=== PATIENT | female | born 1935 | race Caucasian/White ===

== ENCOUNTER → 2016-12-07 | Outpatient (CLI) | payer BC ==
[~2016-12-07] MED LIST: ALBU0.08 INH; ALBUAER19 INH; AMLO-110 PO; ASPI81TA28 PO; ATEN50TA8 PO; CALC-342 PO; CHOL100010 PO; FLUT50SP22 NAE; FURO-85 PO; HYDR-5688 PO; LEVO50TA6 PO; MONT1TAB3 PO; NXM/40 PO; PRVC/40 PO
[2016-12-07 12:30] LABS: BASO % 0.5 %; BASO ABS # 0.05 K/uL (0-0.2); COMPLETE YES; EOS % 2.1 %; HEMATOCRIT 37.9 % (37-47); IG% 0.4 %; LYMPH % 31.4 %; LYMPH ABS # 3.27 K/uL (1.2-3.4); MEAN CELL VOLUME 90.5 fL (80-100); MEAN CORPUSCULAR HEMOGLOBIN 29.1 pg (25-34); MEAN CORPUSCULAR HGB CONC 32.2 g/dl (32-36); MEAN PLATELET VOLUME 10.1 fL (7.4-10.4); MONO % 5.2 %; NEUT % 60.4 %; PLATELET COUNT 246 K/uL (130-400); RED BLOOD COUNT 4.19 M/uL (4.2-5.4); WHITE BLOOD COUNT 10.43 K/uL (4.8-10.8)
[2016-12-07 12:54] LABS: ALKALINE PHOSPHATASE 102 U/L (45-117); ALT/SGPT 15 U/L (12-78); AST/SGOT 15 U/L (15-37); BLOOD UREA NITROGEN 20 mg/dl (7-18); BUN/CREATININE RATIO 18.2 (10-20); CARBON DIOXIDE 27 mmol/L (21-32); CHLORIDE 107 mmol/L (98-107); CHOLESTEROL 156 mg/dl (0-200); CHOLESTEROL/HDL RATIO 3.3; GLUCOSE 83 mg/dl (70-99); HDL CHOLESTEROL 48 mg/dl; LDL CHOLESTEROL CALCULATED 78 mg/dl; POTASSIUM 4.4 mmol/L (3.5-5.1); SODIUM 141 mmol/L (136-145); TRIGLYCERIDES 150 mg/dl (0-150); VERY LOW DENSITY LIPOPROT CALC 30 mg/dl
== END | disposition home or self-care (01) ==
LOC: C.LABBFT 08:28
PROVIDERS: ATTEND Internal Medicine
DX: E78.00 Pure hypercholesterolemia, unspecified (principal); I10 Essential (primary) hypertension

== ENCOUNTER → 2017-01-04 | Outpatient (CLI) | payer BC | END | disposition home or self-care (01) | LOC: C.PATHSPEC 16:55 | PROVIDERS: ATTEND Dermatology | DX: L82.1 Other seborrheic keratosis (principal) ==

== ENCOUNTER → 2017-01-04 | Outpatient (CLI) | payer BC ==
--- NOTE | 2017-01-04 14:21 | ECHOCARDIOGRAM REPORT ---
*NOTICE TO RECEIVING [employer] This information is strictly Confidential and protected under [place] law. [place] law prohibits you from making any further disclosure of this information unless further disclosure is expressly permitted by the written consent of the person to whom it pertains or is authorized by law. A general authorization for the release of medical or other information is not sufficient for this purpose. Hospital accepts no responsibility if the information is made available to any other person, INCLUDING THE PATIENT. Interpretation Summary * Name: JEREMY AUGUST Study Date: 01/04/2017 12:33 PM BP: 159/50 mmHg * Patient Location: [facility] HR: 74 * : 1935 (M/d/yyyy) Gender: Female Height: 67 in * Age: 81 yrs Ethnicity: CA Weight: 212 lb * Ordering Physician: Jerome Adams * Referring Physician: Jerome Adams * Performed By: Ni Casiano RDCS * * Reason For Study: EDEMA * BSA: 2.1 m2 * -- Conclusions -- * Left ventricular systolic function is normal. * No regional wall motion abnormalities noted. * Ejection Fraction = 60-65%. * No significant valvular pathology. Procedure Details * A complete two-dimensional transthoracic echocardiogram was performed (2D, M-mode, Doppler and color flow Doppler). Left Ventricle * The left ventricle is normal in size. * Ejection Fraction = 60-65%. * Left ventricular systolic function is normal. * No regional wall motion abnormalities noted. Right Ventricle * The right ventricle is normal size. * The right ventricular systolic function is normal as assessed by tricuspid annular plane systolic excursion (TAPSE) (normal >1.5 cm). Atria * The left atrium is mildly dilated. * Right atrial size is normal. * There is no evidence of atrial septal defect, but resolution does not allow assessment for a patent foramen ovale. Mitral Valve * The mitral valve is normal in structure and function. * There is no mitral valve stenosis. * There is trace mitral regurgitation. Tricuspid Valve * The tricuspid valve is normal in structure and function. * There is trace tricuspid regurgitation. Aortic Valve * The aortic valve is trileaflet. * The aortic valve opens well. * No hemodynamically significant valvular aortic stenosis. * No aortic regurgitation is present. Pulmonic Valve * The pulmonary valve is not well seen, but the Doppler examination is normal without significant regurgitation or stenosis. Great Vessels * The aortic root is normal size. * The pulmonary is not well visualized. Pericardium/Pleural * There is no pericardial effusion. Great Vessels * Normal inferior vena cava size and collapsability with sniff indicates a normal right atrial pressure of 3 mmHg MMode 2D Measurements and Calculations IVSd 1.3 cm IVSs 2.3 cm LVIDd 4.0 cm LVIDs 2.7 cm LVPWd 1.5 cm LVPWs 2.2 cm IVS/LVPW 0.88 FS 33.8 % EDV(Teich) 71.3 ml ESV(Teich) 26.3 ml EF(Teich) 63.2 % EDV(cubed) 65.5 ml ESV(cubed) 19.0 ml EF(cubed) 71.0 % % IVS thick 73.5 % % LVPW thick 50.0 % LV mass(C)d 211.6 grams LV mass(C)dI 102.1 grams/m\S\2 LV mass(C)s 292.9 grams LV mass(C)sI 141.3 grams/m\S\2 SV(Teich) 45.0 ml SI(Teich) 21.7 ml/m\S\2 SV(cubed) 46.5 ml SI(cubed) 22.4 ml/m\S\2 Ao root diam 3.1 cm Ao root area 7.6 cm\S\2 LA dimension 3.7 cm LA/Ao 1.2 LVAd ap4 28.5 cm\S\2 LVLd ap4 7.7 cm EDV(MOD-sp4) 85.8 ml LVAs ap4 15.3 cm\S\2 LVLs ap4 6.2 cm ESV(MOD-sp4) 33.1 ml EF(MOD-sp4) 61.4 % LVAd ap2 26.2 cm\S\2 LVLd ap2 7.9 cm EDV(MOD-sp2) 74.7 ml LVAs ap2 14.1 cm\S\2 LVLs ap2 6.1 cm ESV(MOD-sp2) 29.2 ml EF(MOD-sp2) 60.9 % SV(MOD-sp4) 52.7 ml SI(MOD-sp4) 25.4 ml/m\S\2 SV(MOD-sp2) 45.5 ml SI(MOD-sp2) 22.0 ml/m\S\2 Doppler Measurements and Calculations MV E max khang 69.8 cm/sec MV A max khang 103.3 cm/sec MV E/A 0.68 Ao V2 max 148.4 cm/sec Ao max PG 8.8 mmHg Ao max PG (full) 2.9 mmHg LV V1 max PG 5.9 mmHg LV V1 max 121.4 cm/sec TR max khang 213.6 cm/sec
== END | disposition home or self-care (01) ==
LOC: C.CPL 12:30
PROVIDERS: ATTEND Internal Medicine
DX: R60.9 Edema, unspecified (principal); L82.1 Other seborrheic keratosis

== ENCOUNTER → 2017-02-17 | Outpatient (CLI) | payer BC | END | disposition home or self-care (01) | LOC: C.PATHSPEC 17:08 | PROVIDERS: ATTEND Dermatology | DX: L82.0 Inflamed seborrheic keratosis (principal); L82.1 Other seborrheic keratosis ==

== ENCOUNTER → 2017-05-02 | Outpatient (CLI) | payer BC ==
--- NOTE | 2017-05-02 16:30 | DIAGNOSTIC IMAGING REPORT ---
ULTRASOUND RIGHT UPPER QUADRANT ABDOMEN CLINICAL HISTORY: Right upper quadrant abdominal pain. COMPARISON STUDY: Abdominal CT dated 01/23/2016. TECHNIQUE: Real-time, grayscale, and color flow sonography of the right upper quadrant of the abdomen was performed. Images are reviewed in the transverse and longitudinal planes. FINDINGS: Liver: The liver is top normal in size and demonstrates heterogeneously increased echotexture consistent with hepatic steatosis. There is no intrahepatic biliary ductal dilatation. The main portal vein is patent. Gallbladder: The gallbladder is normal in appearance. No gallstones are identified. There is no gallbladder wall thickening or pericholecystic fluid. A sonographic Salinas's sign is reportedly absent. The common bile duct measures up to 0.4 cm in diameter. Pancreas: Visualized portions of the pancreatic head and body are normal in appearance. The splenic vein is patent. Right kidney: Survey images of the right kidney demonstrate cortical atrophy. There is no hydronephrosis. Right renal cysts measure up to 3.3 cm. Ascites: None. IMPRESSION: 1. No acute sonographic abnormality is identified in the right upper quadrant. No gallstones are seen. 2. Hepatic steatosis. Electronically signed by: Earle Pedersen M.D. 05/02/2017 4:29 PM Dictated Date/Time: 05/02/2017 4:28 PM
[2017-05-02 17:47] LABS: BASO % 0.4 %; BASO ABS # 0.05 K/uL (0-0.2); COMPLETE YES; EOS % 1.6 %; HEMATOCRIT 39.5 % (37-47); IG% 0.6 %; LYMPH % 24.6 %; LYMPH ABS # 3.27 K/uL (1.2-3.4); MEAN CELL VOLUME 90.2 fL (80-100); MEAN CORPUSCULAR HEMOGLOBIN 29.9 pg (25-34); MEAN CORPUSCULAR HGB CONC 33.2 g/dl (32-36); MEAN PLATELET VOLUME 9.5 fL (7.4-10.4); MONO % 5.8 %; PLATELET COUNT 236 K/uL (130-400); RED BLOOD COUNT 4.38 M/uL (4.2-5.4)
[2017-05-02 18:10] LABS: BLOOD UREA NITROGEN 19 mg/dl (7-18); BUN/CREATININE RATIO 21.5 (10-20); CALCIUM 8.7 mg/dl (8.5-10.1); CARBON DIOXIDE 27 mmol/L (21-32); CHLORIDE 107 mmol/L (98-107); CREATININE 0.87 mg/dl (0.60-1.20); GLUCOSE 83 mg/dl (70-99); POTASSIUM 4.5 mmol/L (3.5-5.1); SODIUM 140 mmol/L (136-145)
== END | disposition home or self-care (01) ==
LOC: C.ULTR 15:54
PROVIDERS: ATTEND Nurse Practitioner
DX: R10.11 Right upper quadrant pain (principal); K76.0 Fatty (change of) liver, not elsewhere classified

== ENCOUNTER → 2017-05-06 | Outpatient (CLI) | payer BC ==
[~2017-05-06] MED LIST changes: +OPTIRAY 320 IV PRN
--- NOTE | 2017-05-06 15:02 | DIAGNOSTIC IMAGING REPORT ---
ABDOMEN AND PELVIS CT WITH IV AND ORAL CONTRAST CT DOSE: 807.19 mGycm HISTORY: D72.829 [id number] Right upper quadrant abdominal pain ca TECHNIQUE: Multiaxial CT images of the abdomen and pelvis were performed following the use of intravenous and oral contrast. A dose lowering technique was utilized adhering to the principles of ALARA. COMPARISON STUDY: Abdomen and pelvis CT 01/23/2016. FINDINGS: Punctate calcified granulomas within the right lower lobe. No pneumoperitoneum. No pneumatosis. Posterior decompression and fusion within the lower lumbar spine. There is a vertebroplasty at L2, unchanged. Old mild superior endplate compression deformity at L3, unchanged. Small hiatus hernia. Punctate calcified granuloma seen within the liver and spleen. Normal adrenal glands. The pancreas and gallbladder are unremarkable. Multiple bilateral renal hypodense lesions which likely represent cysts. Dominant lesion within the right kidney measures 3.1 cm. No retroperitoneal lymphadenopathy. Mild calcified plaque within the normal caliber abdominal aorta. Normal bladder. The uterus is surgically absent. Evidence for prior sigmoid anastomosis. No bowel wall thickening or obstruction. The visualized appendix is unremarkable. Small fat-containing midline ventral hernia, unchanged. IMPRESSION: 1. No bowel wall thickening or obstruction. 2. Normal appendix. 3. Postoperative changes as described above. Electronically signed by: Keegan Lomeli M.D. 05/06/2017 3:01 PM Dictated Date/Time: 05/06/2017 2:55 PM
== END | disposition home or self-care (01) ==
LOC: C.CTS 12:05
PROVIDERS: ATTEND Nurse Practitioner
DX: D72.829 Elevated white blood cell count, unspecified (principal); R10.11 Right upper quadrant pain

== ENCOUNTER → 2017-06-07 | Outpatient (CLI) | payer BC ==
[~2017-06-07] MED LIST changes: -FURO-85 PO; -HYDR-5688 PO; -OPTIRAY 320 IV PRN
[2017-06-07 12:10] LABS: BASO % 0.5 %; BASO ABS # 0.05 K/uL (0-0.2); COMPLETE YES; EOS % 2.4 %; IG% 0.6 %; LYMPH ABS # 3.14 K/uL (1.2-3.4); MEAN CELL VOLUME 92.4 fL (80-100); MEAN CORPUSCULAR HEMOGLOBIN 30.1 pg (25-34); MEAN CORPUSCULAR HGB CONC 32.6 g/dl (32-36); MEAN PLATELET VOLUME 9.7 fL (7.4-10.4); MONO % 6.7 %; NEUT % 59.8 %; PLATELET COUNT 244 K/uL (130-400); RED BLOOD COUNT 4.22 M/uL (4.2-5.4); WHITE BLOOD COUNT 10.47 K/uL (4.8-10.8)
[2017-06-07 12:48] LABS: ALB/GLOB RATIO 0.9 (0.9-2); ALT/SGPT 15 U/L (12-78); AST/SGOT 13 U/L (15-37); BLOOD UREA NITROGEN 19 mg/dl (7-18); BUN/CREATININE RATIO 20.2 (10-20); CALCIUM 8.3 mg/dl (8.5-10.1); CARBON DIOXIDE 28 mmol/L (21-32); CHLORIDE 107 mmol/L (98-107); CHOLESTEROL 171 mg/dl (0-200); CREATININE 0.95 mg/dl (0.60-1.20); GLUCOSE 79 mg/dl (70-99); POTASSIUM 4.2 mmol/L (3.5-5.1); SODIUM 139 mmol/L (136-145)
[2017-06-07 13:02] LABS: ALKALINE PHOSPHATASE 86 U/L (45-117); HDL CHOLESTEROL 57 mg/dl; LDL CHOLESTEROL CALCULATED 87 mg/dl; TRIGLYCERIDES 137 mg/dl (0-150); VERY LOW DENSITY LIPOPROT CALC 27 mg/dl
== END | disposition home or self-care (01) ==
LOC: C.LABBFT 07:52
PROVIDERS: ATTEND Internal Medicine
DX: E78.00 Pure hypercholesterolemia, unspecified (principal); I10 Essential (primary) hypertension; J44.9 Chronic obstructive pulmonary disease, unspecified

== ENCOUNTER → 2017-06-16 | Outpatient (CLI) | payer BC ==
--- NOTE | 2017-06-16 14:35 | MAMMOGRAPHY REPORT ---
BILATERAL DIGITAL SCREENING MAMMOGRAM WITH CAD: 06/16/2017 CLINICAL HISTORY: Routine screening. Patient has no complaints. TECHNIQUE: Current study was also evaluated with a Computer Aided Detection (CAD) system. Bilateral CC and MLO views were obtained. COMPARISON: Comparison is made to exams dated: 06/15/2016 mammogram, 06/13/2015 mammogram, 06/12/2014 m ammogram, 05/18/2013 mammogram, 05/17/2012 mammogram, and 05/17/2011 mammogram - [facility] enter. BREAST COMPOSITION: There are scattered areas of fibroglandular density in both breasts. FINDINGS: No suspicious masses, calcifications, or areas of architectural distortion are noted in ei ther breast. There has been no significant interval change compared to prior exams. Scattered bilater al benign-appearing calcifications are not significantly changed. IMPRESSION: ACR BI-RADS CATEGORY 2: BENIGN There is no mammographic evidence of malignancy. A 1 year screening mammogram is recommended. The pa tient will receive written notification of the results. Approximately 10% of breast cancers are not detected with mammography. A negative mammographic report should not delay biopsy if a clinically suggestive mass is present. Keyla Wilson M.D. ah/:06/16/2017 12:11:22 Rn Pool: Isabel LIN([place])(M), [facility] letter sent: Normal 1/2 BI-RADS Code: ACR BI-RADS Category 2: Benign
== END | disposition home or self-care (01) ==
LOC: C.MAMM 10:56
PROVIDERS: ATTEND Internal Medicine
DX: Z12.31 Encounter for screening mammogram for malignant neoplasm of breast (principal)

== ENCOUNTER 2017-09-18 11:26 | Observation (INO) | payer BC ==
[~2017-09-18] VITALS: Ht 170.2 cm; Wt 95.1 kg
--- NOTE | 2017-09-18 11:57 | EMERGENCY ROOM VISIT NOTE ---
History Report prepared by Jair: Justin Alvarez Under the Supervision of: Dr. Judah Bravo M.D. First contact with patient: 11:32 Chief Complaint: CHEST PAIN Stated Complaint: CHEST PAIN/SHORTNESS OF BREATH Nursing Triage Summary: pt to the ED with intermittant chest pain that radiates to her back since yesterday pt has SOB states that the pain is intermittant History of Present Illness The patient is a 81 year old female who presents to the Emergency Room with complaints of intermittent chest tightness that began yesterday. Patient describes the tightness as a "pressure". She states the symptoms radiate to her back. She states she is in "a little pain right now". She states that exertion does not exacerbate the symptoms. Patient has associated symptoms of shortness of breath and leg pain. Patient states she took 2 aspirin 5 hours ago. Patient states that she had a stress test done a couple of years ago which indicated that she had "a little blockage but nothing to worry about". Patient denies a history of cardiac problems. Patient states that her PCP is Dr. Adams. She adds that she sees Dr. Pollard as well. Source of History: patient Onset: Yesterday Position: chest Timing: intermittent Modifying Factors (Relieving): other (None) Associated Symptoms: + SOB Note: Patient has leg pain. Review of Systems See HPI for pertinent positives & negatives. A total of 10 systems reviewed and were otherwise negative. Past Medical & Surgical Medical Problems: (1) Chronic back pain (2) influenza and acute bronchitis (3) Pneumonia (4) Syncope, near (5) Weakness Family History Cancer Diabetes mellitus Heart disease Hypertension Social History Smoking Status: Never Smoker Marital Status: Housing Status: lives with family Occupation Status: retired Current/Historical Medications Scheduled Albuterol Hfa (Ventolin Hfa), 2 PUFFS INH Q4H Albuterol Sulf (Proventil 0.083% 2.5MG/3ML), 2.5 MG INH QID Amlodipine (Norvasc), 5 MG PO HS Aspirin (Aspirin Ec), 81 MG PO QAM Atenolol (Tenormin), 50 MG PO HS Calcium Carbonate-Vitamin D (Calcium 600+D), 2 TAB PO DAILY Cholecalciferol (Vitamin D), 1,000 UNIT PO QAM Esomeprazole Magnesium (Nexium), 40 MG PO QAM Fluticasone Prop/Salmeterol (Advair Diskus 100/50 60 Dose), 1 PUFF INH BID Fluticasone Propionate (Nasal) (Cvs Fluticasone Propriona), 2 SPRAY CHANTEL DAILY Furosemide (Lasix), 20 MG PO QAM Levothyroxine Sodium (Levothyroxine Sodium), 50 MCG PO QAM Misc Natural Products (Osteo Bi-Flex Joint Shiel), 2 CAP PO QAM Montelukast Sodium (Singulair), 10 MG PO HS Pravastatin Sod (Pravastatin Sodium), 40 MG PO HS Allergies Coded Allergies: Naproxen (Verified Allergy, Severe, SOB, BUT TAKES ASA AT HOME, 09/18/17) Cephalosporins (Verified Allergy, Intermediate, HIVES, 09/18/17) Penicillins (Verified Allergy, Intermediate, RASH,HIVES, 09/18/17) Codeine (Verified Allergy, Mild, RASH, 09/18/17) Sulfa Antibiotics (Verified Allergy, Mild, RASH, 09/18/17) Azithromycin (Verified Allergy, Unknown, DIARRHEA, 09/18/17) Methimazole (Unverified Allergy, Unknown, itching, 09/18/17) Nabumetone (Verified Allergy, Unknown, 09/18/17) Rofecoxib (Verified Allergy, Unknown, 09/18/17) Valdecoxib (Verified Allergy, Unknown, 09/18/17) Nitrofurantoin (Verified Adverse Reaction, Mild, VOMITING, 09/18/17) Physical Exam Vital Signs Date Time Temp Pulse Resp B/P (MAP) Pulse Ox O2 Delivery O2 Flow Rate FiO2 09/18/17 13:30 70 20 155/70 93 Room Air 09/18/17 13:15 74 20 146/78 93 Room Air 09/18/17 13:10 72 20 145/69 95 Room Air 09/18/17 12:50 68 20 145/69 95 Room Air 09/18/17 12:24 66 09/18/17 12:01 96 Room Air 09/18/17 11:29 36.3 76 18 181/81 94 Room Air Physical Exam GENERAL: Awake, alert, well-appearing, in no acute distress HENT: Normocephalic, atraumatic. Oropharynx unremarkable. EYES: Normal conjunctiva. Sclera non-icteric. NECK: Supple. No nuchal rigidity. FROM. No JVD. RESPIRATORY: Clear to auscultation. CARDIAC: Regular rate, normal rhythm. Extremities warm and well perfused. Pulses equal. ABDOMEN: Soft, non-distended. No tenderness to palpation. No rebound or guarding. No masses. RECTAL: Deferred. MUSCULOSKELETAL: Chest examination reveals no tenderness. The back is symmetrical on inspection without obvious abnormality. There is no CVA tenderness to palpation. No joint edema. LOWER EXTREMITIES: Calves are equal size bilaterally and non-tender. No edema. No discoloration. NEURO: Normal sensorium. No sensory or motor deficits noted. SKIN: No rash or jaundice noted. Medical Decision & Procedures ER Provider Diagnostic Interpretation: Radiology results as stated below per my review and radiologist interpretation: CT ANGIOGRAM OF THE CHEST CLINICAL HISTORY: Left-sided pain and shortness of breath COMPARISON STUDY: February 2013 TECHNIQUE: Following the IV administration of 91 mL of Optiray-320, CT angiogram of the thorax was performed from the thoracic inlet to the lung bases utilizing the pulmonary embolus protocol. Images are reviewed in the axial, sagittal, and coronal planes. IV contrast was administered without complication. MIP imaging was performed. A dose lowering technique was utilized adhering to the principles of ALARA. CT DOSE: 438.57 mGy.cm FINDINGS: There is a 24 mm right lobe thyroid nodule. This appears smaller than on the preceding study No pathologically enlarged axillary mediastinal or hilar lymph nodes were visualized. There are calcified nodes present likely postinflammatory There was no evidence of thoracic aortic dilatation. There were no pulmonary artery filling defects to indicate acute pulmonary embolism. No pleural effusions are visualized. There are dependent atelectatic changes. There are stable calcified granulomas. There is a stable 4 mm noncalcified left apical pulmonary nodule. There is a stable 3 mm noncalcified right upper lobe pulmonary nodule. IMPRESSION: 1. No evidence of acute pulmonary embolism 2. Stable calcified granulomas 3. Stable right middle lobe atelectasis Electronically signed by: Enoch Parker M.D. 09/18/2017 12:51 PM Laboratory Results Test 09/18/17 11:50 09/18/17 11:56 Prothrombin Time 10.7 SECONDS (9.0-12.0) Prothromb Time International Ratio 1.0 (0.9-1.1) Activated Partial Thromboplast Time 25.8 SECONDS (21.0-31.0) Partial Thromboplastin Ratio 1.0 Direct Bilirubin 0.1 mg/dl (0-0.2) Total Creatine Kinase 38 U/L (26-192) Creatine Kinase MB 0.8 ng/ml (0.5-3.6) Creatine Kinase MB Ratio 2.1 (0-3.0) Lipase 130 U/L (73-393) Bedside Hemoglobin 11.9 g/dl (12.0-16.0) Bedside Hematocrit 35 % (37-47) Bedside Sodium 143 mEq/L (135-144) Bedside Potassium 4.3 mEq/L (3.3-5.0) Bedside Chloride 104 mEq/L (101-112) Bedside Total CO2 27 mEq/l (24-31) Bedside Blood Urea Nitrogen 23 mg/dl (7-18) Bedside Creatinine 0.9 mg/dl (0.6-1.3) Bedside Glucose (other) 130 mg/dl (70-99) Bedside Ionized Calcium (Kenyteta) 1.05 mmol/l (1.12-1.32) Labs reviewed by ED physician. 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 The patient was evaluated in room A9B. A complete history and physical examination was performed. 1230: Ioversol 100ml IV 1303: Aspirin 324mg PO 1315: Nitroglycerin 0.4mg SL 1332: Upon reexamination the patient will be further evaluated. I discussed results and treatment plan with the patient. She verbalizes agreement and understanding. I spoke with Dr. Isaac from the [facility] Hospitalist Service. The patient will be evaluated for further management. Medical Decision Differential diagnosis: Etiologies such as cardiac ischemia, aortic dissection, pulmonary embolism, pneumonia, pneumothorax, musculoskeletal, infections, pericarditis, myocarditis , esophageal rupture, gastrointestinal, as well as others were entertained. This is an 81-year-old female who presents the emergency department complaining of chest pain that radiates into her back. The pain was successfully relieved by nitro here in the emergency department. She was also given aspirin. She has a normal EKG normal CK-MB and troponin fractions. I discussed the case with the hospitalist service. Medication Reconcilliation Current Medication List: was personally reviewed by me Blood Pressure Screening Patient's blood pressure: Elevated blood pressure Blood pressure disposition: Referred to PCP Impression Primary Impression: Chest pain Scribe Attestation The scribe's documentation has been prepared under my direction and personally reviewed by me in its entirety. I confirm that the note above accurately reflects all work, treatment, procedures, and medical decision making performed by me. Departure Information Dispostion Being Evaluated By Hospitalist Referrals Jerome Adams M.D. (PCP) Forms HOME CARE DOCUMENTATION FORM, IMPORTANT VISIT INFORMATION Patient Instructions My [facility] Health Problem Qualifiers Primary Impression: Chest pain Chest pain type: unspecified Qualified Codes: R07.9 - Chest pain, unspecified
[2017-09-18 12:02] LABS: BASO % 0.3 %; BASO ABS # 0.03 K/uL (0-0.2); EOS % 2.5 %; EOS ABS # 0.25 K/uL (0-0.5); HEMATOCRIT 37.3 % (37-47); HEMOGLOBIN 12.6 g/dL (12.0-16.0); IG# 0.04 K/uL (0.00-0.02); LYMPH ABS # 2.53 K/uL (1.2-3.4); MEAN CELL VOLUME 88.6 fL (80-100); MEAN CORPUSCULAR HEMOGLOBIN 29.9 pg (25-34); MEAN CORPUSCULAR HGB CONC 33.8 g/dl (32-36); MEAN PLATELET VOLUME 9.1 fL (7.4-10.4); MONO % 4.8 %; MONO ABS # 0.49 K/uL (0.11-0.59); PLATELET COUNT 215 K/uL (130-400); RED CELL DISTRIBUTION WIDTH CV 13.6 % (11.5-14.5); WHITE BLOOD COUNT 10.14 K/uL (4.8-10.8)
[2017-09-18 12:09] LABS: ISTAT CREATININE 0.9 mg/dl (0.6-1.3); ISTAT IONIZED CALCIUM 1.05 mmol/l (1.12-1.32); ISTAT POTASSIUM 4.3 mEq/L (3.3-5.0)
[2017-09-18 12:23] LABS: ALBUMIN 3.3 gm/dl (3.4-5.0); ALT/SGPT 14 U/L (12-78); AST/SGOT 11 U/L (15-37); BLOOD UREA NITROGEN 21 mg/dl (7-18); CARBON DIOXIDE 25 mmol/L (21-32); CREATININE 0.94 mg/dl (0.60-1.20); GLUCOSE 126 mg/dl (70-99); LIPASE 130 U/L (73-393); POTASSIUM 4.3 mmol/L (3.5-5.1); SODIUM 141 mmol/L (136-145)
[2017-09-18 12:29] LABS: ALKALINE PHOSPHATASE 95 U/L (45-117); CKMB 0.8 ng/ml (0.5-3.6); TOTAL PROTEIN 6.5 gm/dl (6.4-8.2)
[2017-09-18] MEDS ORDERED: OPTIRAY 320 IV PRN (12:30)
[2017-09-18] MEDS ORDERED: CHOL100010 PO (12:48)
[2017-09-18] MEDS ORDERED: ADVIN10/60 INH (12:48)
[2017-09-18] MEDS ORDERED: VNTHFA/IN INH (12:48)
[2017-09-18] MEDS ORDERED: ALBINS/ INH (12:48)
[2017-09-18] MEDS ORDERED: FURO-85 PO (12:48)
[2017-09-18] MEDS ORDERED: MISCTAB30 PO (12:48)
--- NOTE | 2017-09-18 12:53 | DIAGNOSTIC IMAGING REPORT ---
CT ANGIOGRAM OF THE CHEST CLINICAL HISTORY: Left-sided pain and shortness of breath COMPARISON STUDY: February 2013 TECHNIQUE: Following the IV administration of 91 mL of Optiray-320, CT angiogram of the thorax was performed from the thoracic inlet to the lung bases utilizing the pulmonary embolus protocol. Images are reviewed in the axial, sagittal, and coronal planes. IV contrast was administered without complication. MIP imaging was performed. A dose lowering technique was utilized adhering to the principles of ALARA. CT DOSE: 438.57 mGy.cm FINDINGS: There is a 24 mm right lobe thyroid nodule. This appears smaller than on the preceding study No pathologically enlarged axillary mediastinal or hilar lymph nodes were visualized. There are calcified nodes present likely postinflammatory There was no evidence of thoracic aortic dilatation. There were no pulmonary artery filling defects to indicate acute pulmonary embolism. No pleural effusions are visualized. There are dependent atelectatic changes. There are stable calcified granulomas. There is a stable 4 mm noncalcified left apical pulmonary nodule. There is a stable 3 mm noncalcified right upper lobe pulmonary nodule. IMPRESSION: 1. No evidence of acute pulmonary embolism 2. Stable calcified granulomas 3. Stable right middle lobe atelectasis Electronically signed by: Enoch Parker M.D. 09/18/2017 12:51 PM Dictated Date/Time: 09/18/2017 12:45 PM
[2017-09-18] MEDS ORDERED: ASPIRIN 81 MG CHEW PO STA (13:03)
[2017-09-18] MEDS ORDERED: NITROGLYCERIN 0.4 MG SL PER TAB CHARGE SL PRN ×2 (13:15→14:30)
[2017-09-18] MEDS ORDERED: MAGNESIUM HYDROXIDE SUSP 30 ML UDC PO PRN (14:30)
[2017-09-18] MEDS: ALBUTEROL HFA 8 GM INHALER INH SCH ×3 (14:30→20:43)
[2017-09-18] MEDS ORDERED: ALUMINUM/MAGNESIUM/SIMETH (MAALOX MAX) 30 ML UDC PO PRN (14:30)
[2017-09-18] MEDS ORDERED: ZOLPIDEM TARTRATE 5 MG TAB PO PRN ×2 (14:30)
[2017-09-18] MEDS ORDERED: ACETAMINOPHEN 325 MG TAB PO PRN (14:30)
[2017-09-18] MEDS ORDERED: POLYETHYLENE (MIRALAX) 17 GM PACK PO PRN (14:30)
[2017-09-18] MEDS ORDERED: IV FLUIDS COMPLETED PRN (15:00)
--- NOTE | 2017-09-18 15:02 | History and Physical ---
History & Physical Date & Time of Service: Sep 18, 2017 at 14:57 Chief Complaint: Chest Pain/Shortness Of Breath Primary Care Physician: Jerome Adams M.D. History of Present Illness Source: patient, family 81-year-old female with past medical history of hypertension, COPD, hypothyroidism and dyslipidemia was in her regular state of health until yesterday. Patient experienced substernal chest pain yesterday described as heaviness, 6-7 out of 10 in intensity. Pain was associated with shortness of breath, no aggravating or relieving factors. But she reports that when she took aspirin the pain slightly improved. Pain was not associated with any dizziness, diaphoresis. Pain slowly subsided until this morning when she had recurrence of her pain but not as severe as yesterday. She thinks her pain today is about 2 out of 10 no associated factors, no relieving or exacerbating factors. Patient presented to the ED for further evaluation and management. Family History Cancer Diabetes mellitus Heart disease Hypertension Social History Smoking Status: Never Smoker Marital Status: Housing status: lives with family Occupational Status: retired Immunizations History of Influenza Vaccine: N/A History of Tetanus Vaccine?: No History of Pneumococcal: Yes History of Hepatitis B Vaccine: No Allergies Coded Allergies: Naproxen (Verified Allergy, Severe, SHORTNESS OF BREATH, 09/18/17) Cephalosporins (Verified Allergy, Intermediate, HIVES, 09/18/17) Penicillins (Verified Allergy, Intermediate, RASH,HIVES, 09/18/17) Codeine (Verified Allergy, Mild, RASH, 09/18/17) Azithromycin (Verified Allergy, Unknown, DIARRHEA, 09/18/17) Methimazole (Unverified Allergy, Unknown, itching, 09/18/17) Nabumetone (Verified Allergy, Unknown, 09/18/17) Rofecoxib (Verified Allergy, Unknown, 09/18/17) Sulfa Drugs (Verified Allergy, Unknown, RASH, 09/18/17) Valdecoxib (Verified Allergy, Unknown, 09/18/17) Nitrofurantoin (Verified Adverse Reaction, Mild, VOMITING, 09/18/17) Home Medications Scheduled Albuterol Hfa (Ventolin Hfa), 2 PUFFS INH Q4H Albuterol Sulf (Proventil 0.083% 2.5MG/3ML), 2.5 MG INH QID Amlodipine (Norvasc), 5 MG PO HS Aspirin (Aspirin Ec), 81 MG PO QAM Atenolol (Tenormin), 50 MG PO HS Calcium Carbonate-Vitamin D (Calcium 600+D), 2 TAB PO DAILY Cholecalciferol (Vitamin D), 1,000 UNIT PO QAM Esomeprazole Magnesium (Nexium), 40 MG PO QAM Fluticasone Prop/Salmeterol (Advair Diskus 100/50 60 Dose), 1 PUFF INH BID Fluticasone Propionate (Nasal) ([facility] Fluticasone Propriona), 2 SPRAY CHANTEL DAILY Furosemide (Lasix), 20 MG PO QAM Levothyroxine Sodium (Levothyroxine Sodium), 50 MCG PO QAM Misc Natural Products (Osteo Bi-Flex Joint Shiel), 2 CAP PO QAM Montelukast Sodium (Singulair), 10 MG PO HS Pravastatin Sod (Pravastatin Sodium), 40 MG PO HS Review of Systems Review of system Constitutional: No fever / no chills / no sweats / no weakness / no fatigue Eyes: no blurring of vision / no eye pain / no discharge / no redness ENT: no hearing loss / no epistaxis /no swallowing problems Respiratory: no cough / no wheezing / no SOB / no hemoptysis Cardiovascular: As in HPI chest pain / no lower extremity edema / no palpitation Abdomen: no pain / no nausea / no vomiting / no constipation Musculoskeletal: no joint pain / no muscle pain / no joint swelling Genitourinary: no dysuria / no incontinence / no urinary retention Neurologic: no focal weakness / no numbness/tingling / no ataxia Psychiatric: no depression symptoms / no anxiety / no insomnia Endocrine: no excessive thirst / no excessive urination Hematologic: no abnormal bleeding / no bruising / no LN swelling Skin: No rash / no pallor Physical Exam Vital Signs Date Time Temp Pulse Resp B/P (MAP) Pulse Ox O2 Delivery O2 Flow Rate FiO2 09/18/17 13:30 70 20 155/70 93 Room Air 09/18/17 13:15 74 20 146/78 93 Room Air 09/18/17 13:10 72 20 145/69 95 Room Air 09/18/17 12:50 68 20 145/69 95 Room Air 09/18/17 12:24 66 09/18/17 12:01 96 Room Air 09/18/17 11:29 36.3 76 18 181/81 94 Room Air Physical examination General patient appears to be comfortable, not in acute distress HEENT: Atraumatic , normocephalic /no jaundice /no pallor /anicteric /no dry mucous membrane /normal external ear inspection Neck: Supple /no swelling /central trach Heart: S1/S2 normal/regular rate and rhythm/no gallop /no rub /no murmur Lungs: Clear to auscultation bilaterally/normal chest with expansion/no rhonchi/ no rales/no wheezing/no use of accessory muscles of respiration Abdomen: Soft/nontender/no guarding/no rebound/no organomegaly/no pulsatile mass Musculoskeletal: No swelling/no edema/no tenderness/normal range of motion Neuro exam: Awake alert oriented 3/cranial nerves II through XII appear to be intact/sensation intact/moves all extremities/no abnormal movements Psychiatric evaluation: No depressed mood/normal affect Skin: No rash on exposed skin area/no erythema Extremity: Normal pulse/no pitting edema/no clubbing or cyanosis Endocrine/lymphatic: No obvious lymphadenopathy /no lymphedema Diagnostics Laboratory Results Results Past 24 Hours Test 09/18/17 11:50 09/18/17 11:56 09/18/17 14:30 Range/Units White Blood Count 10.14 4.8-10.8 K/uL Red Blood Count 4.21 4.2-5.4 M/uL Hemoglobin 12.6 12.0-16.0 g/dL Hematocrit 37.3 37-47 % Mean Corpuscular Volume 88.6 80-100 fL Mean Corpuscular Hemoglobin 29.9 25-34 pg Mean Corpuscular Hemoglobin Concent 33.8 32-36 g/dl Platelet Count 215 130-400 K/uL Mean Platelet Volume 9.1 7.4-10.4 fL Neutrophils (%) (Auto) 67.0 % Lymphocytes (%) (Auto) 25.0 % Monocytes (%) (Auto) 4.8 % Eosinophils (%) (Auto) 2.5 % Basophils (%) (Auto) 0.3 % Neutrophils # (Auto) 6.80 1.4-6.5 K/uL Lymphocytes # (Auto) 2.53 1.2-3.4 K/uL Monocytes # (Auto) 0.49 0.11-0.59 K/uL Eosinophils # (Auto) 0.25 0-0.5 K/uL Basophils # (Auto) 0.03 0-0.2 K/uL RDW Standard Deviation 44.0 36.4-46.3 fL RDW Coefficient of Variation 13.6 11.5-14.5 % Immature Granulocyte % (Auto) 0.4 % Immature Granulocyte # (Auto) 0.04 0.00-0.02 K/uL Sodium Level 141 136-145 mmol/L Potassium Level 4.3 3.5-5.1 mmol/L Chloride Level 106 98-107 mmol/L Carbon Dioxide Level 25 21-32 mmol/L Anion Gap 10.0 17.0 16-25 mmol/L Blood Urea Nitrogen 21 7-18 mg/dl Creatinine 0.94 0.60-1.20 mg/dl Est Creatinine Clear Calc Drug Dose 55.2 ml/min Estimated GFR () 65.5 Estimated GFR (Non- 56.5 BUN/Creatinine Ratio 22.2 10-20 Random Glucose 126 70-99 mg/dl Calcium Level 8.0 8.5-10.1 mg/dl Total Bilirubin 0.3 0.2-1 mg/dl Direct Bilirubin 0.1 0-0.2 mg/dl Aspartate Amino Transf (AST/SGOT) 11 15-37 U/L Alanine Aminotransferase (ALT/SGPT) 14 12-78 U/L Alkaline Phosphatase 95 45-117 U/L Total Creatine Kinase 38 26-192 U/L Creatine Kinase MB 0.8 0.5-3.6 ng/ml Creatine Kinase MB Ratio 2.1 0-3.0 Troponin I < 0.015 0-0.045 ng/ml Total Protein 6.5 6.4-8.2 gm/dl Albumin 3.3 3.4-5.0 gm/dl Lipase 130 73-393 U/L Bedside Hemoglobin 11.9 12.0-16.0 g/dl Bedside Hematocrit 35 37-47 % Bedside Sodium 143 135-144 mEq/L Bedside Potassium 4.3 3.3-5.0 mEq/L Bedside Chloride 104 101-112 mEq/L Bedside Total CO2 27 24-31 mEq/l Bedside Blood Urea Nitrogen 23 7-18 mg/dl Bedside Creatinine 0.9 0.6-1.3 mg/dl Bedside Glucose (other) 130 70-99 mg/dl Bedside Ionized Calcium ([place]) 1.05 1.12-1.32 mmol/l Impression Assessment and Plan 81-year-old female with past medical history of hypertension, COPD, hypothyroidism and dyslipidemia presented to the ED chest pain EKG showed normal sinus rhythm, nonspecific ST-T wave changes, possible septal ischemia is indeterminate, no acute ST T-segment elevation Assessment chest pain rule out ACS Hypertension Dyslipidemia COPD without exacerbation Hypothyroidism plan: admit to telemetry obtain serial cardiac enz NTG SL/topical prn CP consult complex human resources manager pain management Check hemoglobin A1c/lipids to stratify patient risk factors repeat EKG prn chest pain Resuscitation Status VTE Prophylaxis Will order VTE Prophylaxis: Yes
[2017-09-18 16:06] VITALS: BP 188/78; PULSE 78; TEMP 36.7; O2SAT 96; Ht 170.2 cm; Wt 95.1 kg
[2017-09-18 16:42] LABS: PTT PATIENT 25.8 SECONDS (21.0-31.0)
[2017-09-18 17:20] VITALS: BP 136/77; O2SAT 93
[2017-09-18 19:15] VITALS: BP 154/77; PULSE 73; TEMP 36.6; O2SAT 94
[2017-09-18] MEDS: ALBUTEROL 0.083% NEBU SOLN 3 ML VIAL INH SCH (19:45)
[2017-09-18 20:00] VITALS: O2SAT 94
[2017-09-18] MEDS: FLUTICASONE/SALMETEROL 100/50 (ADVAIR) 14 PUFF/1 INHALER INH SCH (20:39)
[2017-09-18] MEDS ORDERED: MONTELUKAST SOD 10 MG TAB PO SCH (21:00)
[2017-09-18] MEDS ORDERED: PRAVASTATIN SOD 40 MG TAB PO SCH (21:00)
[2017-09-18] MEDS ORDERED: ENOXAPARIN 30 MG/0.3 ML SYR SC SCH (21:00)
[2017-09-18] MEDS ORDERED: AMLODIPINE BESYLATE 5 MG TAB PO SCH (21:00)
[2017-09-18 23:43] VITALS: BP 127/70; PULSE 76; TEMP 36.9; O2SAT 94
[2017-09-18 23:59] VITALS: O2SAT 94
[2017-09-19] MEDS: ALBUTEROL HFA 8 GM INHALER INH SCH ×4 (02:30→14:52)
[2017-09-19 02:49] LABS: BASO % 0.3 %; BASO ABS # 0.03 K/uL (0-0.2); EOS % 3.1 %; EOS ABS # 0.34 K/uL (0-0.5); HEMATOCRIT 35.4 % (37-47); HEMOGLOBIN 12.1 g/dL (12.0-16.0); IG# 0.04 K/uL (0.00-0.02); LYMPH % 33.7 %; LYMPH ABS # 3.68 K/uL (1.2-3.4); MEAN CELL VOLUME 87.6 fL (80-100); MEAN CORPUSCULAR HGB CONC 34.2 g/dl (32-36); MEAN PLATELET VOLUME 9.2 fL (7.4-10.4); MONO % 5.8 %; MONO ABS # 0.63 K/uL (0.11-0.59); NEUT % 56.7 %; NEUT ABS # 6.21 K/uL (1.4-6.5); PLATELET COUNT 222 K/uL (130-400); RED CELL DISTRIBUTION WIDTH CV 13.5 % (11.5-14.5); RED CELL DISTRIBUTION WIDTH SD 43.8 fL (36.4-46.3); WHITE BLOOD COUNT 10.93 K/uL (4.8-10.8)
[2017-09-19 03:11] LABS: ALBUMIN 3.1 gm/dl (3.4-5.0); CALCIUM 7.8 mg/dl (8.5-10.1); POTASSIUM 3.9 mmol/L (3.5-5.1)
[2017-09-19 03:17] LABS: TOTAL PROTEIN 6.3 gm/dl (6.4-8.2)
[2017-09-19 03:33] VITALS: BP 139/74; PULSE 66; TEMP 36.9; O2SAT 95
[2017-09-19 04:00] VITALS: O2SAT 94
[2017-09-19] MEDS ORDERED: LEVOTHYROXINE 50 MCG TAB PO SCH (06:00)
[2017-09-19] MEDS: ALBUTEROL 0.083% NEBU SOLN 3 ML VIAL INH SCH ×2 (07:12→12:00)
[2017-09-19 07:51] VITALS: BP 154/75; PULSE 70; TEMP 36.9; O2SAT 95
[2017-09-19 07:56] LABS: HEMOGLOBIN A1C 5.5 % (4.5-5.6)
[2017-09-19] MEDS ORDERED: FLUTICASONE PROPIONATE NA SPR 16 GM BTL NAE SCH (09:00)
[2017-09-19] MEDS ORDERED: FUROSEMIDE 20 MG TAB PO SCH (09:00)
[2017-09-19] MEDS ORDERED: PANTOprazole SOD 40 MG TAB PO SCH (09:00)
[2017-09-19] MEDS ORDERED: ASPIRIN 81 MG ECTAB PO SCH (09:00)
[2017-09-19] MEDS: FLUTICASONE/SALMETEROL 100/50 (ADVAIR) 14 PUFF/1 INHALER INH SCH (09:11)
--- NOTE | 2017-09-19 10:26 | CARDIOLOGY CONSULTATION REPORT ---
DATE OF CONSULTATION: 09/19/2017 REASON FOR CONSULTATION: Chest Heaviness and Dyspnea. HISTORY OF PRESENT ILLNESS: Mrs. Brunson is an 81-year-old white female with a history of Hypertension, Dyslipidemia, COPD, Hypothyroidism and Near Syncope who presented acutely to [facility] on 09/18/2017. She states that over the preceding 1-2 weeks, she has had increased shortness of breath and dyspnea on exertion for which she was using her inhalers and nebulizers. That seemed to help when she use them. However, on 09/17/2017, she developed a heaviness in her upper chest, which was also present in the left anterior upper chest and seemed to radiate to her left shoulder blade. She woke up with this discomfort. The patient had a heating pad on her shoulder and chest for much of the day. The discomfort lasted all day long, and was still present, although less severe, on the morning of admission. On the morning of admission, she awakened and went to hindu. She did not feel well in hindu, and had continued heaviness in her left upper chest, arm and shoulder -- although was much less intense. It eventually resolved, and has not recurred. Thus far, the patient's cardiac enzymes are negative x 3, and she is no longer having any chest heaviness or discomfort of any type. She still feels short of breath at times. The patient feels as though she might have had a "cold" recently, but has not had any cough, sputum production, fever, or chills. MEDICATIONS: 1. Aspirin 81 mg daily. 2. Flonase nasal spray 1 spray in each nostril daily. 3. Lasix 20 mg daily (she usually takes this twice a week). 4. Protonix 40 mg daily. 5. Levothyroxine 15 mcg daily. 6. Norvasc 5 mg daily. 7. Atenolol 50 mg at bed time. 8. Advair Diskus 100/50 one puff b.i.d. 9. Singulair 10 mg p.o. at bed time. 10. Prilosec 40 mg at bed time. 11. Lovenox 30 mg subcutaneous injection q. 24 hours. 12. Albuterol nebulizer q.i.d. 13. Albuterol MDI 2 puffs p.o. q.4 hours p.r.n. 14. Tylenol p.r.n. 15. Maalox Max p.r.n. 16. Magnesium p.r.n. 17. Ambien 5 mg at bed time p.r.n. for sleep. 18. Sublingual nitroglycerin as needed. 19. MiraLax 17 g daily as needed for constipation. ALLERGIES: 1. AZITHROMYCIN. 2. CODEINE. 3. CEPHALOSPORIN. 4. METHIMAZOLE. 5. NABUMETONE. 6. NAPROYSN. 7. NITROFURANTOIN. 8. PENICILLIN. 9. ROFECOXIB. 10. SULFA DRUGS. 11. VALDECOXIB. PAST MEDICAL HISTORY: 1. Hypertension. 2. Dyslipidemia. 3. COPD. 4. Hypothyroidism. 5. History of near syncope. 6. Chronic back pain. 7. History of pneumonia. SOCIAL HISTORY: The patient is and lives with her . She is a lifelong nonsmoker. She is retired from work. FAMILY HISTORY: Significant for cancer, diabetes mellitus, hypertension, and heart disease. PHYSICAL EXAMINATION: VITAL SIGNS: Temperature is 36.9 degree Celsius, pulse 65 and regular, respiratory rate is 16 and unlabored, blood pressure 154/74, SpO2 is 95% on room air. GENERAL: The patient is in no acute distress. HEENT: Head is atraumatic and normocephalic. EOMs intact. Sclera anicteric. Face is symmetric. No perioral cyanosis. Mucus membranes moist. NECK: Without thyromegaly, adenopathy, or JVD. Carotid upstrokes +2 bilaterally without bruits. CHEST AND LUNGS: Clear to auscultation throughout all lung núñez. No wheezes, rales, or rhonchi. CARDIOVASCULAR SYSTEM: S1 and S2 are regular without obvious murmurs, gallops or rubs. PMI is nondisplaced. No lifts, heaves, or thrills. No abdominal, aortic or renal bruits. ABDOMINAL EXAMINATION: Bowel sounds present. No masses, organomegaly or tenderness. EXTREMITIES: Without clubbing or cyanosis. Trace pretibial edema is noted bilaterally. NEUROLOGIC EXAMINATION: The patient is awake, alert and oriented. Pleasant and cooperative. Answers questions appropriately. Speech is clear. Normal movement in all 4 extremities. Gait pattern not assessed. LABORATORY DATA: White blood cell count is 10.93 with a hemoglobin of 12.1 g/dL, hematocrit 35.4%, and platelet count 222,000. Sodium is 139 mmol/L, potassium is 3.9 mmol/L, BUN is 18 mg/dL, and creatinine is 1.00 mg/dL. Random glucose 95 mg/dL. Serum magnesium level is 2.0 mg/dL. Troponin I is less than 0.015 ng/mL x3. Total CK is 38 units per liter with a CK-MB of 0.08 ng/mL. Total cholesterol is 145 mg/dL with an HDL of 45 mg/DL and LDL cholesterol of 55 mg/dL. EKG on admission shows normal sinus rhythm at a rate of 70 beats per minute with minimal voltage criteria for LVH, Q wave present in lead V2, cannot rule out age indeterminant septal infarct. Telemetry monitoring reveals normal sinus rhythm, occasional PVCs. ASSESSMENT: 1. Upper Chest Heaviness radiating to left shoulder blade lasting greater than 24 hours with negative cardiac enzymes. Doubtful to be cardiac in origin. 2. Increased shortness of breath over the past 1-2 weeks, uncertain etiology. Most likely related to underlying chronic obstructive pulmonary disease. 3. Abnormal EKG. 4. Negative cardiac enzymes x 3. 5. Hypertension. 6. Dyslipidemia. 7. Hypothyroidism. 8. Chronic obstructive pulmonary disease. PLAN: 1. The patient's cardiac enzymes are negative x 3. 2. I doubt that her chest discomfort is of cardiac origin. 3. We are concerned with her increased dyspnea over the past 1-2 weeks. This may represent COPD, but we believe it would be worthwhile to further evaluate for any myocardial ischemia. 4. Recommend dobutamine stress echocardiogram to evaluate for any myocardial ischemia. 5. Continue long term acute care registered nurse beta warren, statin, calcium channel warren and aspirin. 6. Continue inhalers and nebulizers as directed. 7. Make further recommendations pending outcome of dobutamine stress echocardiogram. Thank you for asking us to see this patient in consultation. We will continue to follow her along while hospitalized. TREY
[2017-09-19] MEDS ORDERED: DOBUTamine HCL 12.5 MG/ML 20 ML VIAL ONE (11:23)
[2017-09-19] MEDS ORDERED: METOPROLOL TARTRATE 1 MG/ML VIAL ONE (11:23)
[2017-09-19] MEDS ORDERED: ATROPINE SULFATE 0.1 MG/ML 5ML SYR ONE (11:24)
--- NOTE | 2017-09-19 11:48 | Discharge Instructions ---
Discharge Instructions Date of Service Sep 19, 2017. Admission Reason for Admission: Chest Pain Discharge Discharge Diagnosis / Problem: Chest Pain Discharge Goals Goal(s): Decrease discomfort, Improve function, Increase independence Activity Recommendations Activity Limitations: resume your previous activity . Instructions / Follow-Up Instructions / Follow-Up Chest Pain: - You were admitted to evaluated your chest pain and luckily it does not appear to be cardiac related. - Your cardiac enzymes (this tests for heart damage from lack of blood flow to the heart muscle) are negative. Your stress test was negative for findings suggesting lack of good blood flow/oxygenation to the heart muscle - This may be even early onset of respiratory illness, or could be related to a musculoskeletal injury from the neck and shoulder. Recommend to continue your inhalers and nebulizers. Recommend using some nasal saline if you have a lot of nasal congestion. -- Recommend to call your family doctor or come to the ED if you develop more shortness of breath or wheezing that your breathing treatments do not improve. Current Hospital Diet Patient's current hospital diet: AHA Diet (Heart Healthy) Discharge Diet Recommended Diet: AHA Diet (Heart Healthy) Pending Studies Studies pending at discharge: no Laboratory Results Hemoglobin A1c Test 09/19/17 02:28 Range/Units Estimated Average Glucose 111 mg/dl Hemoglobin A1c 5.5 4.5-5.6 % Lipid Panel Test 09/19/17 02:28 Range/Units Triglycerides Level 227 H 0-150 mg/dl Cholesterol Level 145 0-200 mg/dl HDL Cholesterol 45 mg/dl Cholesterol/HDL Ratio 3.2 LDL Cholesterol, Calculated 55 mg/dl Medical Emergencies . Who to Call and When: Medical Emergencies: If at any time you feel your situation is an emergency, please call 911 immediately. . Non-Emergent Contact Non-Emergency issues call your: Primary Care Provider Call Non-Emergent contact if: you have a fever, your pain is concerning you, you have any medication questions . . "Provider Documentation" section prepared by Ely Forrester. .
[2017-09-19 12:51] VITALS: BP 102/66; PULSE 71; TEMP 36.2; O2SAT 95
[2017-09-19] MEDS ORDERED: PERFLUTREN LIPID MICROSPHERE (DEFINITY) IV ONE (13:00)
--- NOTE | 2017-09-19 13:20 | Discharge Summary ---
Discharge Summary Date of Service Sep 19, 2017. Discharge Summary Admission Date: Sep 18, 2017 at 14:36 Discharge Date: Sep 19, 2017 Discharge Disposition: Home Principal Diagnosis: Atypical Chest Pain Problems/Secondary Diagnoses: 1. HTN 2. COPD 3. Hypothyroidism 4. HLD Immunizations: Have You Had Influenza Vaccine: N/A History of Tetanus Vaccine?: No History of Pneumococcal: Yes History of Hepatitis B Vaccine: No Procedures: CT ANGIOGRAM OF THE CHEST FINDINGS: There is a 24 mm right lobe thyroid nodule. This appears smaller than on the preceding study No pathologically enlarged axillary mediastinal or hilar lymph nodes were visualized. There are calcified nodes present likely postinflammatory There was no evidence of thoracic aortic dilatation. There were no pulmonary artery filling defects to indicate acute pulmonary embolism. No pleural effusions are visualized. There are dependent atelectatic changes. There are stable calcified granulomas. There is a stable 4 mm noncalcified left apical pulmonary nodule. There is a stable 3 mm noncalcified right upper lobe pulmonary nodule. IMPRESSION: 1. No evidence of acute pulmonary embolism 2. Stable calcified granulomas 3. Stable right middle lobe atelectasis Consultations: 1. Cardiology Medication Reconciliation Continued Medications: Albuterol Hfa (Ventolin Hfa) 200 Puffs/22494 Mcg Aers 2 PUFFS INH Q4H Albuterol Sulf (Proventil 0.083% 2.5MG/3ML) 2.5 Mg/3 Ml Nebu 2.5 MG INH QID Amlodipine (Norvasc) 5 Mg Tab 5 MG PO HS, TAB Aspirin (Aspirin Ec) 81 Mg Tab 81 MG PO QAM Atenolol (Tenormin) 50 Mg Tab 50 MG PO HS, 0 Refills Calcium Carbonate-Vitamin D (Calcium 600+D) 1 Tab Tab 2 TAB PO DAILY Cholecalciferol (Vitamin D) 1,000 Unit Tab 1000 UNIT PO QAM Esomeprazole Magnesium (Nexium) 40 Mg Capcr 40 MG PO QAM, CAP Fluticasone Prop/Salmeterol (Advair Diskus 100/50 60 Dose) 1 Ea Aerp 1 PUFF INH BID Fluticasone Propionate (Nasal) ([facility]vs Fluticasone Propriona) 50 Mcg/Act Spr 2 SPRAY CHANTEL DAILY Furosemide (Lasix) 20 Mg Tab 20 MG PO QAM, TAB Levothyroxine Sodium (Levothyroxine Sodium) 50 Mcg Tab 50 MCG PO QAM Misc Natural Products (Osteo Bi-Flex Joint Shiel) 1 Tab Tab 2 CAP PO QAM Montelukast Sodium (Singulair) 10 Mg Tab 10 MG PO HS Pravastatin Sod (Pravastatin Sodium) 40 Mg Tab 40 MG PO HS Discharge Exam Review of Systems: Constitutional: No fever, No chills ENT: + nasal symptoms, No sore throat, No trouble swallowing Respiratory: No cough, No shortness of breath Cardiovascular: No chest pain Abdomen: No pain, No nausea, No vomiting, No diarrhea, No constipation Musculoskeletal: No swelling, No calf pain Genitourinary - Female: No dysuria Hematologic / Lymphatic: No abnormal bleeding/bruising Physical Exam: General Appearance: WD/WN, no apparent distress Eyes: sclerae normal ENT: hearing grossly normal Neck: supple, no JVD, trachea midline Respiratory/Chest: lungs clear, normal breath sounds, no respiratory distress, no accessory muscle use Cardiovascular: regular rate, rhythm, no gallop, no murmur Abdomen / GI: normal bowel sounds, non tender, soft Extremities: no pedal edema Neurologic/Psychiatric: alert, oriented x 3 Skin: normal color, warm/dry Hospital Course ADMISSION: 81-year-old female with past medical history of hypertension, COPD, hypothyroidism and dyslipidemia was in her regular state of health until yesterday. Patient experienced substernal chest pain yesterday described as heaviness, 6-7 out of 10 in intensity. Pain was associated with shortness of breath, no aggravating or relieving factors. But she reports that when she took aspirin the pain slightly improved. Pain was not associated with any dizziness, diaphoresis. Pain slowly subsided until this morning when she had recurrence of her pain but not as severe as yesterday. She thinks her pain today is about 2 out of 10 no associated factors, no relieving or exacerbating factors. Patient presented to the ED for further evaluation and management. HOSPITAL COURSE: Ms. Brunson was admitted for atypical chest pain that may be respiratory in nature. associate accountant reveals NSR with sinus arrhythmia. Cardiac enzymes obtained and negative. Underwent dobutamine stress testing that was negative for ischemic changes. She currently has sinus congestion that she relates is allergies and feels well overall. No wheezing or chest congestion. Lung exam is clear diffusely and moving adequate air. No direct COPD exacerbation at this time. She is currently chest pain free. She will return home with outpatient follow-up. CT showing stable calcified granulomas, a stable 4 mm noncalcified left apical pulmonary nodule, and a stable 3 mm noncalcified right upper lobe pulmonary nodule that should be routinely monitored as an outpatient. Total Time Spent: Greater than 30 minutes This includes examination of the patient, discharge planning, medication reconciliation, and communication with other providers. Discharge Instructions Please refer to the electronic Patient Visit Report (Discharge Instructions) for additional information. Additional Copies To Jerome Adams M.D.
[2017-09-19 15:24] VITALS: BP 117/72; PULSE 56; TEMP 36.6; O2SAT 96
--- NOTE | 2017-09-19 17:21 | DOBUTAMINE ECHO ---
*NOTICE TO RECEIVING REPUBLICAN AGENCY This information is strictly Confidential and protected under [place] law. [place] law prohibits you from making any further disclosure of this information unless further disclosure is expressly permitted by the written consent of the person to whom it pertains or is authorized by law. A general authorization for the release of medical or other information is not sufficient for this purpose. Hospital accepts no responsibility if the information is made available to any other person, INCLUDING THE PATIENT. Interpretation Summary * Name: JEREMY AUGUST Study Date: 09/19/2017 09:38 AM BP: 173/56 mmHg * Patient Location: C.2T\S\S242\S\2 HR: 68 * : 1935 (M/d/yyy) Gender: Female Height: 67 in * Age: 81 yrs Ethnicity: CA Weight: 209 lb * Ordering Physician: Lamont Gibson * Referring Physician: Self, Referred * Performed By: Ni Casiano RDCS * * Reason For Study: CHEST PAIN * BSA: 2.1 m2 * -- Conclusions -- * 1. Negative dobutamine stress echo for ischemia at 87% MPHR. * 2. Negative dobutamine stress ECG for ischemia. No stress-induced chest pain. * 3. Normal resting LV size and function. Normal RV size and function. No significant valvular pathology. Grade 1 diastolic dysfunction. * 4. Compared with prior rest study on 01/04/2017: No significant changes. Procedure Details * DOBUTAMINE ECHO, CPT#92840 * A contrast injection of Definity was performed to improve assessment of LV function. * Contrast was injected into an intravenous site in the right arm. * One vial of Definity ultrasound contrast was diluted in normal saline to a total volume of 10 ml. A total of '4' ml of solution was administered during imaging. * Lot # [id number] of Definity utilized for procedure. * Expiration date 1 aug 29. * The attending nurse who injected the contrast agent was BARRINGTON VILLA RN. Left Ventricular Findings with Stress * This was essentially a normal study. Left Ventricle * The left ventricle is grossly normal size. * There is mild concentric left ventricular hypertrophy. * Ejection Fraction = 55-60%. * Resting wall motion: Normal. Stress wall motion: Appropriate increase in Left ventricular systolic function and decrease in cavity size. No stress induced segmental wall motion abnormalities. Right Ventricle * The right ventricle is grossly normal size. * The right ventricular systolic function is normal as assessed by tricuspid annular plane systolic excursion (TAPSE) (normal >1.5 cm). Atria * Borderline left atrial enlargement. * Right atrial size is normal. Mitral Valve * The mitral valve is grossly normal. * Mitral stenosis is absent. * Significant mitral regurgitation is absent. Tricuspid Valve * There is trace tricuspid regurgitation. Aortic Valve * The aortic valve opens well. * The aortic valve is trileaflet. * No hemodynamically significant valvular aortic stenosis. * There is no significant aortic regurgitation. Pulmonic Valve * The pulmonary valve is inadequately visualized, but the Doppler data is adequate for interpretation. * There is no pulmonic valvular regurgitation. Great Vessels * The aortic root and proximal ascending aorta are normal sized. Pericardium * There is no pericardial effusion. Stress Parameters * Normal baseline electrocardiogram. * Stress ECG: No ST changes. No arrhythmias. * No arrhythmia were noted with stress. * Rest heart rate was '68' BPM. * Rest blood pressure was '173/56' * Maximum heart rate achieved was 121 bpm. * Maximum heart rate was 87 % of maximum age-predicted heart rate. * Maximum blood pressure was '215/47' * Maximum Dobutamine infusion rate was '30' mcg/kg/min. * A total of .5 mg of intravenous Atropine was used to supplement Dobutamine for heart rate response. * Dobutamine infusion was terminated due to achieving target heart rate * A total of 5 mg of IV Metoprolol was administered to reverse Dobutamine-induced tachycardia. Left Ventricular Diastolic Function * Grade I diastolic dysfunction, (abnormal relaxation pattern). MMode 2D Measurements and Calculations IVSd 1.2 cm IVSs 1.7 cm LVIDd 4.2 cm LVIDs 2.9 cm LVPWd 0.99 cm LVPWs 1.7 cm IVS/LVPW 1.2 FS 30.7 % EDV(Teich) 80.7 ml ESV(Teich) 33.5 ml EF(Teich) 58.5 % EDV(cubed) 76.6 ml ESV(cubed) 25.5 ml EF(cubed) 66.6 % % IVS thick 46.4 % % LVPW thick 72.9 % LV mass(C)d 154.6 grams LV mass(C)dI 75.1 grams/m\S\2 LV mass(C)s 192.8 grams LV mass(C)sI 93.6 grams/m\S\2 SV(Teich) 47.2 ml SI(Teich) 22.9 ml/m\S\2 SV(cubed) 51.0 ml SI(cubed) 24.8 ml/m\S\2 Ao root diam 3.3 cm Ao root area 8.5 cm\S\2 LA dimension 3.1 cm LA/Ao 0.96 LVAd ap4 29.4 cm\S\2 LVLd ap4 8.3 cm EDV(MOD-sp4) 85.4 ml EDV(sp4-el) 88.2 ml LVAs ap4 17.0 cm\S\2 LVLs ap4 6.3 cm ESV(MOD-sp4) 39.1 ml ESV(sp4-el) 38.7 ml EF(MOD-sp4) 54.2 % EF(sp4-el) 56.2 % LVAd ap2 19.8 cm\S\2 LVLd ap2 7.1 cm EDV(MOD-sp2) 44.7 ml EDV(sp2-el) 46.7 ml LVAs ap2 11.6 cm\S\2 LVLs ap2 5.9 cm ESV(MOD-sp2) 19.1 ml ESV(sp2-el) 19.3 ml EF(MOD-sp2) 57.2 % EF(sp2-el) 58.7 % LVLd %diff -16.94 % EDV(MOD-bp) 66.6 ml LVLs %diff -7.16 % ESV(MOD-bp) 27.9 ml EF(MOD-bp) 58.1 % SV(MOD-sp4) 46.3 ml SI(MOD-sp4) 22.5 ml/m\S\2 SV(MOD-sp2) 25.6 ml SI(MOD-sp2) 12.4 ml/m\S\2 SV(MOD-bp) 38.7 ml SI(MOD-bp) 18.8 ml/m\S\2 SV(sp4-el) 49.6 ml SI(sp4-el) 24.1 ml/m\S\2 SV(sp2-el) 27.4 ml SI(sp2-el) 13.3 ml/m\S\2 Doppler Measurements and Calculations MV E max khang 67.7 cm/sec MV A max khang 94.5 cm/sec MV E/A 0.72 MV dec time 0.23 sec Ao V2 max 166.0 cm/sec Ao max PG 11.0 mmHg Ao max PG (full) 7.3 mmHg LV V1 max PG 3.7 mmHg LV V1 max 96.6 cm/sec TR max khang 213.8 cm/sec
[2017-09-19 17:58] VITALS: BP 117/72; PULSE 56; TEMP 36.6; O2SAT 96
== END 2017-09-19 18:12 | disposition home or self-care (01) ==
LOC: C.EDB 11:28 → C.2T 14:36 → ENRESERV 15:19 → C.2T 20:19
PROVIDERS: ADMIT Internal Medicine; ATTEND Internal Medicine
DX: R07.89 Other chest pain (principal); I10 Essential (primary) hypertension; E78.5 Hyperlipidemia, unspecified; E03.9 Hypothyroidism, unspecified; J44.9 Chronic obstructive pulmonary disease, unspecified; Z79.82 Long term (current) use of aspirin; Z79.899 Other long term (current) drug therapy; Z88.1 Allergy status to other antibiotic agents; Z88.0 Allergy status to penicillin; Z88.5 Allergy status to narcotic agent; Z88.2 Allergy status to sulfonamides; Z88.8 Allergy status to other drugs, medicaments and biological substances

== ENCOUNTER → 2017-10-11 | Outpatient (CLI) | payer BC ==
[~2017-10-11] MED LIST changes: +ADVIN10/60 INH; +ALBINS/ INH; -ALBU0.08 INH; -ALBUAER19 INH; +FURO-85 PO; +MISCTAB30 PO; +VNTHFA/IN INH
== END | disposition home or self-care (01) ==
LOC: C.LABSPEC 10:12
PROVIDERS: ATTEND Physician Assistant Medical
DX: N39.0 Urinary tract infection, site not specified (principal)

== ENCOUNTER → 2018-01-26 | Outpatient (CLI) | payer BC, OTHER ==
[~2018-01-26] MED LIST changes: -AMLO-110 PO; +AMLO5TAB3 PO
--- NOTE | 2018-01-26 11:40 | DIAGNOSTIC IMAGING REPORT ---
CHEST 2 VIEWS ROUTINE HISTORY: Preop. COMPARISON: Chest 07/24/2015. FINDINGS: Stable calcified granulomas within the right lower lobe. The lungs are otherwise clear. No pleural effusions. No pneumothorax. The heart remains mildly enlarged. IMPRESSION: No significant change compared to the prior study. No acute process. Electronically signed by: Keegan Lomeli M.D. 01/26/2018 11:39 AM Dictated Date/Time: 01/26/2018 11:36 AM
[2018-01-26 11:44] LABS: BASO % 0.3 %; BASO ABS # 0.03 K/uL (0-0.2); EOS % 1.7 %; EOS ABS # 0.16 K/uL (0-0.5); HEMATOCRIT 37.7 % (37-47); HEMOGLOBIN 12.8 g/dL (12.0-16.0); IG# 0.06 K/uL (0.00-0.02); LYMPH % 25.2 %; LYMPH ABS # 2.43 K/uL (1.2-3.4); MEAN CELL VOLUME 89.3 fL (80-100); MEAN CORPUSCULAR HEMOGLOBIN 30.3 pg (25-34); MEAN PLATELET VOLUME 9.9 fL (7.4-10.4); MONO % 5.5 %; MONO ABS # 0.53 K/uL (0.11-0.59); NEUT % 66.7 %; NEUT ABS # 6.42 K/uL (1.4-6.5); PLATELET COUNT 235 K/uL (130-400); RED CELL DISTRIBUTION WIDTH CV 13.3 % (11.5-14.5); WHITE BLOOD COUNT 9.63 K/uL (4.8-10.8)
[2018-01-26 12:06] LABS: PTT PATIENT 26.1 SECONDS (21.0-31.0)
[2018-01-26 12:32] LABS: HEMOGLOBIN A1C 5.5 % (4.5-5.6)
--- NOTE | 2018-01-26 15:27 | HISTORY & PHYSICAL EXAMINATION ---
DATE OF ADMISSION: 01/26/2018 CHIEF COMPLAINT: Right knee pain. HISTORY OF PRESENT ILLNESS: Juana is an 82-year-old female with a multiple year history of right knee pain. She rates her pain an 8/10. She has pain with her daily activities. She has limited standing and walking tolerance. Pain is worse with weightbearing. The patient has had had injections, Tylenol. She ambulates with a cane and takes [place]ning[place] one to two times per week with minimal relief. She has failed conservative treatment and is scheduled for right knee replacement. PAST MEDICAL HISTORY: Hypertension, hypercholesterolemia, asthma, thyroid disease, history of colon cancer. She denies heart disease, diabetes or DVT. PAST SURGICAL HISTORY: Hysterectomy, subtotal thyroidectomy, colon resection, left knee replacement, bilateral hernia repair x2 and lumbar surgery 2013. SOCIAL HISTORY: The patient denies alcohol or tobacco use. She lives in a single story home with her and is retired. FAMILY HISTORY: Negative for DVT. MEDICATIONS: Advair Diskus 100/50 mcg, amlodipine 5 mg, aspirin 81 mg, atenolol 50 mg, calcium, albuterol nebulizer, montelukast 10 mg, Nasonex 50 mcg, Nexium 40 mg, Ventolin HFA 90 mcg, vitamin D3 1000 units, Levoxyl 50 mg, hydrocodone 5/325. ALLERGIES: NARCOTICS cause nausea and vomiting. SULFA, PENICILLIN, AZITHROMYCIN, CEPHALOSPORINS. REVIEW OF SYSTEMS: See HPI. Ten other systems reviewed, all negative. PHYSICAL EXAMINATION: VITAL SIGNS: Height 5 feet 7 inches, weight 201 pounds, BMI 33. GENERAL: This is a well-developed, well-nourished female who is alert and oriented x3. Mood and affect are appropriate. HEENT: Normocephalic, atraumatic. Mucous membranes are moist and intact. NECK: Supple without lymphadenopathy. HEART: Regular rate and rhythm without murmurs, rubs or gallops. LUNGS: Clear to auscultation without wheezes or rhonchi. ABDOMEN: Soft and nontender. Bowel sounds are equal and active. EXTREMITIES: No ecchymosis, redness or warmth. She has varus deformity. Range of motion is from 5-110 with no laxity. She has mild distal edema, mild varicosities, mild effusion. She is neurovascularly intact with +5/5 strength. X-RAY EXAM: AP and lateral views show joint space narrowing and osteophyte formation. IMPRESSION: Degenerative joint disease, right knee. PLAN: The patient will be admitted for a right total knee arthroplasty. The patient is requesting Pennington for postop pain control with Zofran to prevent her nausea. She will have [facility] for home physical therapy.
== END | disposition home or self-care (01) ==
LOC: C.CPL 10:15
DX: Z01.818 Encounter for other preprocedural examination (principal)

== ENCOUNTER 2018-02-09 09:34 | Inpatient (IN) | payer BC, OTHER ==
[2018-01-20 10:47] VITALS: BMI 33.0
--- NOTE | 2018-01-25 16:22 | PAT Medication Instructions ---
Service Date Jan 25, 2018. Current Home Medication List Albuterol Hfa (Ventolin Hfa), 2 PUFFS INH Q4H Albuterol Sulf (Proventil 0.083% 2.5MG/3ML), 2.5 MG INH QID PRN for WHEEZING Amlodipine (Norvasc), 5 MG PO HS Aspirin (Aspirin Ec), 81 MG PO QAM Atenolol (Tenormin), 50 MG PO HS Calcium Carbonate-Vitamin D (Calcium 600+D), 2 TAB PO QAM Cholecalciferol (Vitamin D), 1,000 UNIT PO QAM Esomeprazole Magnesium (Nexium), 40 MG PO QAM Fluticasone Prop/Salmeterol (Advair Diskus 100/50 60 Dose), 1 PUFF INH BID Fluticasone Propionate (Nasal) ([facility] Fluticasone Propriona), 2 SPRAY CHANTEL BID Furosemide (Lasix), 20 MG PO PRN Levothyroxine Sodium (Levothyroxine Sodium), 50 MCG PO QAM Misc Natural Products (Osteo Bi-Flex Joint Shiel), 2 CAP PO QAM Montelukast Sodium (Singulair), 10 MG PO HS Pravastatin Sod (Pravastatin Sodium), 40 MG PO HS Medication Instructions For Your Scheduled Surgery - Hold the following medications 2 weeks prior to surgery: Misc Natural Products (Osteo Bi-Flex Joint Shiel), 2 CAP PO QAM - Hold the following medications the morning of surgery: Calcium Carbonate-Vitamin D (Calcium 600+D), 2 TAB PO QAM Cholecalciferol (Vitamin D), 1,000 UNIT PO QAM Furosemide (Lasix), 20 MG PO PRN - Take the following medications the morning of surgery with a sip of water: Levothyroxine Sodium (Levothyroxine Sodium), 50 MCG PO QAM Fluticasone Prop/Salmeterol (Advair Diskus 100/50 60 Dose), 1 PUFF INH BID Fluticasone Propionate (Nasal) ([facility]vs Fluticasone Propriona), 2 SPRAY CHANTEL BID Esomeprazole Magnesium (Nexium), 40 MG PO QAM Aspirin (Aspirin Ec), 81 MG PO QAM Albuterol Hfa (Ventolin Hfa), 2 PUFFS INH Q4H Albuterol Sulf (Proventil 0.083% 2.5MG/3ML), 2.5 MG INH QID PRN for WHEEZING ( if needed) - Take the following medications as scheduled the night before surgery: Montelukast Sodium (Singulair), 10 MG PO HS Pravastatin Sod (Pravastatin Sodium), 40 MG PO HS Furosemide (Lasix), 20 MG PO PRN (if needed) Fluticasone Prop/Salmeterol (Advair Diskus 100/50 60 Dose), 1 PUFF INH BID Fluticasone Propionate (Nasal) ([facility]vs Fluticasone Propriona), 2 SPRAY CHANTEL BID Atenolol (Tenormin), 50 MG PO HS Amlodipine (Norvasc), 5 MG PO HS Albuterol Hfa (Ventolin Hfa), 2 PUFFS INH Q4H Albuterol Sulf (Proventil 0.083% 2.5MG/3ML), 2.5 MG INH QID PRN for WHEEZING ( if needed) If you have any questions please call us at [phone] or [phone] or [phone]
[2018-01-26 10:30] VITALS: BMI 33.0
[2018-02-09] VITALS (7 sets, daily range): BP systolic 110–189; BP diastolic 61–73; PULSE 67–79; TEMP 36.4–36.8; O2SAT 93–99; Ht 170.2 cm; Wt 96.2 kg
[~2018-02-09] VITALS: Ht 170.2 cm; Wt 96.2 kg
[~2018-02-09 09:34] MED LIST changes: +ACETAMINOPHEN 500 MG TAB PO SCH; +ATROPINE SULFATE 0.1 MG/ML 5ML SYR IV PRN; +CEFAZOLIN 2000MG IV PUSH 15 ML IV SCH; +DEXAMETHASONE 4 MG TAB PO SCH; +EpHEDrine SULFATE INJ 50 MG/ML AMP IV PRN; +FAMOTIDINE 20 MG TAB PO SCH; +GABAPENTIN 300 MG CAP PO SCH; +LACTATED RINGER'S 1000ML 1,000 ML IV SCH; +LACTATED RINGER'S 1000ML 500 ML IV SCH; +METOCLOPRAMIDE HCL 10 MG TAB PO SCH; +ONDANSETRON INJ 2 MG/ML 2 ML VIAL IV PRN; +ROPIVACAINE 5MG/ML 30 ML 150 MG, BUPIVACAINE 0.5% MPF INJ 30 ML, EpINEphrine HCL INJ 0.... INFIL SCH; +[UNRECOGNIZED DRUG - REMARK] SCH
[2018-02-09] MEDS ORDERED: VANCOMYCIN 1GM ED/ASU OMNICELL ONE (09:51)
--- NOTE | 2018-02-09 09:52 | History & Physical Bridge Note ---
H&P Re-Evaluation Bridge Note: I have examined the patient, reviewed the History & Physical and in the interval since the performance of the History & Physical I have noted the following changes of clinical significance: No changes noted
[2018-02-09] MEDS ORDERED: BUPIVACAINE 0.5 % 5 MG/1 ML PF 10ML VIAL ONE (10:43)
[2018-02-09] MEDS ORDERED: ROPIVACAINE 0.5% 5 MG/ML 30 ML VIAL ONE (10:43)
--- NOTE | 2018-02-09 10:53 | History and Physical ---
History & Physical Date Feb 09, 2018. Chief Complaint Right knee pain History of Present Illness The patient is a 82 year old female with complaints of right knee pain and disability. Past Medical/Surgical History Medical Problems: (1) Chronic back pain (2) influenza and acute bronchitis (3) Pneumonia (4) Syncope, near (5) Weakness Additional History Hepatic Disease: No Endocrine Disorder: Yes (Hyperthyroidism) Kidney Disease: Yes (Stage II CKD) Hypertension: Yes Heart Disease: No Bleeding Tendencies: No Infectious Diseases: No Other: Colon CA, Uterine CA, Allergies Coded Allergies: Naproxen (Verified Allergy, Severe, SOB, BUT TAKES ASA AT HOME, 02/09/18) Cephalosporins (Verified Allergy, Intermediate, HIVES, 02/09/18) Penicillins (Verified Allergy, Intermediate, RASH,HIVES, 02/09/18) Codeine (Verified Allergy, Mild, RASH, 02/09/18) Sulfa Antibiotics (Verified Allergy, Mild, RASH, 02/09/18) Azithromycin (Verified Allergy, Unknown, DIARRHEA, 02/09/18) Methimazole (Unverified Allergy, Unknown, itching, 02/09/18) Nabumetone (Verified Allergy, Unknown, SHORTNESS OF BREATH, 02/09/18) Rofecoxib (Verified Allergy, Unknown, SHORTNESS OF BREATH, 02/09/18) Valdecoxib (Verified Allergy, Unknown, SHORTNESS OF BREATH, 02/09/18) Nitrofurantoin (Verified Adverse Reaction, Mild, VOMITING, 02/09/18) Home Medications Scheduled Albuterol Hfa (Ventolin Hfa), 2 PUFFS INH Q4H Amlodipine (Norvasc), 5 MG PO HS Aspirin (Aspirin Ec), 81 MG PO QAM Atenolol (Tenormin), 50 MG PO HS Calcium Carbonate-Vitamin D (Calcium 600+D), 2 TAB PO QAM Cholecalciferol (Vitamin D), 1,000 UNIT PO QAM Esomeprazole Magnesium (Nexium), 40 MG PO QAM Fluticasone Prop/Salmeterol (Advair Diskus 100/50 60 Dose), 1 PUFF INH BID Fluticasone Propionate (Nasal) ([facility] Fluticasone Propriona), 2 SPRAY CHANTEL BID Furosemide (Lasix), 20 MG PO PRN Levothyroxine Sodium (Levothyroxine Sodium), 50 MCG PO QAM Misc Natural Products (Osteo Bi-Flex Joint Shiel), 2 CAP PO QAM Montelukast Sodium (Singulair), 10 MG PO HS Pravastatin Sod (Pravastatin Sodium), 40 MG PO HS Scheduled PRN Albuterol Sulf (Proventil 0.083% 2.5MG/3ML), 2.5 MG INH QID PRN for WHEEZING Physical Examination Skin: warm/dry Eyes: normal inspection, EOMI ENT: normal ENT inspection Head: normocephalic, atraumatic Neck: supple, no adenopathy Respiratory/Chest: lungs clear, normal breath sounds Cardiovascular: regular rate, rhythm Abdomen / GI: normal bowel sounds, non tender Extremities: + pertinent finding (Right knee varus aligned. ROM ~ 0-125 degrees.) Neurologic/Psych: no motor/sensory deficits, oriented x 3 Diagnosis Right knee DJD Plan of Treatment Right total knee arthroplasty
[2018-02-09] MEDS ORDERED: MIDAZOLAM HCL 1 MG/ML 2ML VIAL ONE (11:24)
[2018-02-09] MEDS: TRANEXAMIC ACID INJ 1,000 MG x 2 Bags IV SCH ×4 (11:32→15:13)
[2018-02-09] MEDS ORDERED: BACITRACIN 50000 UNIT VIAL ONE (11:53)
[2018-02-09] MEDS ORDERED: POVIDONE-IODINE OP SOLN 30 ML BTL ONE (11:53)
[2018-02-09] MEDS ORDERED: ORTHO JOINT ANESTHETIC ONE (11:53)
[2018-02-09] MEDS ORDERED: FENTANYL CITRATE INJ 50 MCG/1 ML 2 ML VIAL ONE (12:30)
[2018-02-09] MEDS ORDERED: ONDANSETRON INJ 2 MG/ML 2 ML VIAL ONE (12:32)
[2018-02-09] MEDS ORDERED: ONDANSETRON INJ 2 MG/ML 2 ML VIAL IV PRN (13:45)
[2018-02-09] MEDS ORDERED: VANCOMYCIN CONSULT ACTIVE PRN (13:45)
[2018-02-09] MEDS ORDERED: BISACODYL 10 MG SUPP PR PRN (13:45)
[2018-02-09] MEDS ORDERED: MAGNESIUM HYDROXIDE SUSP 30 ML UDC PO PRN (13:45)
[2018-02-09] MEDS ORDERED: ALBUTEROL 0.083% NEBU SOLN 3 ML VIAL INH PRN (13:45)
[2018-02-09] MEDS ORDERED: ALUMINUM/MAGNESIUM/SIMETH (MAALOX MAX) 30 ML UDC PO PRN (13:45)
[2018-02-09] MEDS ORDERED: MoRPHine SULFATE 2 MG/ML CARP IV PRN (13:45)
--- NOTE | 2018-02-09 14:08 | DIAGNOSTIC IMAGING REPORT ---
RIGHT KNEE 2 VIEWS History: Right total knee arthroplasty. Degenerative arthritis. Postop. FINDINGS: The patient is status post a right total knee arthroplasty. The hardware is intact. No fracture or dislocation. Surgical drains are in place. IMPRESSION: Right total knee arthroplasty. No evidence for hardware complication. Electronically signed by: Keegan Lomeli M.D. 02/09/2018 2:07 PM Dictated Date/Time: 02/09/2018 2:05 PM
--- NOTE | 2018-02-09 14:17 | OPERATIVE REPORT ---
DATE OF OPERATION: 02/09/2018 PREOPERATIVE DIAGNOSIS: Osteoarthritis, right knee. POSTOPERATIVE DIAGNOSIS: Osteoarthritis, right knee. PROCEDURE: Right total knee arthroplasty. SURGEON: Eldon Cerrato MD TEST PREPARER: YADIEL Bautista ANESTHESIA: Spinal. COMPLICATIONS: None. IMPLANTS USED: Femoral size 3, tibia size 3, tibial poly 16, patella size 36. DISPOSITION: Recovery room, stable. OPERATION AND FINDINGS: Following induction of spinal anesthesia, the patient's right leg was prepped and draped in the usual sterile manner. Limb was exsanguinated with an Esmarch bandage and tourniquet was inflated to 350 mmHg. A longitudinal incision was made anteriorly. Subcutaneous tissue was sharply dissected. Electrocautery was used for hemostasis. Prepatellar bursa was incised and median parapatellar incision was performed. Patella was everted and the knee was flexed. Fat pad was removed to aid in visualization and the anterior and posterior cruciate ligaments were removed. The medial face of the tibia was cleared of soft tissue first with a Bovie and a Ingram elevator. This tissue was retracted posteriorly using a blunt Hohmann. A Helton retractor was used to expose the synovium above on the anterior aspect of the femur and this was removed down to bone. The PSI guide was placed on the distal femur and two pins were placed anteriorly and kept in position and two additional pins were placed distally and removed. The distal femoral cutting block was placed in position and the distal femoral cut was used in the +0 setting. Next, the cutting block was removed and the femoral 3 block was placed in the distal end of the femur. Care was taken to ensure appropriate external rotation and feeler gauge was used to ensure no notching would occur. The femoral block was centered on the distal femur and in the medial and lateral direction and was fixed using two bone screws. The gold pins were then removed. The oscillating saw was used to create the bone cuts and the distal femoral cutting block was removed and the reciprocating saw was used to further trim the femoral cuts as well as a deep in the area for the trochlear groove. Next, posterior condyle remnants were removed. Following this, a meniscal clamp and knife were utilized to remove the anterior portion of both medial and lateral meniscus. The proximal tibia PSI guide was placed into position and the proximal tibial cutting guide was screwed into position. The extra medullary alignment guide was utilized to ensure appropriate alignment. The proximal tibia was cut and the proximal tibial cutting block was removed and this bone fragment was removed. The appropriate guide was used to perform the notch cut on the distal femur and a lamina paper novelty maker and a cochlear knife were utilized to finish both medial and lateral meniscectomies to remove any remnants of the posterior or anterior cruciate ligaments. Following this, the distal femoral component was impacted into position and blunt Ericka was used to sublux the tibia anteriorly. The proximal tibia was sized and a 3 tibial tray was chosen as the size to be used. This was put into position and appropriate external rotation and a double check with extramedullary alignment guide was performed. The canal for the tibial stem was prepared first with a 17 mm drill and then the punch and a mallet and the trial tibial poly was placed. A 16 was chosen the size to be used. It was brought to extension and the patella was prepared with the patellar reamer. A 36 component was chosen the size to be used. The trial component was placed and knee was taken through a full range of motion and there was found to be no lateral subluxation of the tibia. No lateral release was required. The trials were all removed. The final components were obtained and assembled. Cement was mixed. The knee was thoroughly irrigated and the ortho mix was injected about the knee joint. The final components were cemented into position. After thoroughly suctioning and drying the bone ends, all excess cement was removed. The knee was held in extension while the cement hardened. The wound was irrigated and closed over a Hemovac drain. #1 Vicryl was used to close the extensor mechanism. Subcutaneous tissues closed using 0 Dexon. Skin was closed with frankie. Sterile dressing of Adaptic, 4 x 4's, sterile Webril, and Perfecto was applied. The patient tolerated the procedure well. Due to the complex nature of the procedure, the entire surgery was performed with the operational assistance of YADIEL Bautista. The communications assistant, under direct supervision, was involved in the actual performance of all aspects of the surgical procedure including hemostasis, tissue retraction and incision, instrument management, patient positioning, and wound closure. I attest to the content of the Intraoperative Record and any orders documented therein. Any exception s are noted below.
--- NOTE | 2018-02-09 14:22 | Anesthesiology Progress Note ---
Anesthesia Post Op Note Date & Time Feb 09, 2018 at 14:22 Vital Signs Pain Intensity: 0 Vital Signs Past 12 Hours Date Time Temp Pulse Resp B/P (MAP) Pulse Ox O2 Delivery O2 Flow Rate FiO2 02/09/18 14:11 36.4 72 18 140/64 (78) 97 Nasal Cannula 2 02/09/18 14:11 72 16 02/09/18 14:11 72 16 140/64 97 02/09/18 14:10 72 16 02/09/18 14:10 71 16 97 02/09/18 14:10 72 16 02/09/18 14:10 71 16 97 02/09/18 14:07 136/64 02/09/18 14:07 136/64 02/09/18 14:05 73 20 02/09/18 14:05 75 20 98 02/09/18 14:05 75 20 98 02/09/18 14:05 73 20 02/09/18 14:03 137/66 02/09/18 14:03 137/66 02/09/18 13:50 71 16 147/63 99 Oxymask 10 02/09/18 13:40 36.9 71 16 114/54 100 Oxymask 10 02/09/18 10:22 36.8 79 20 189/73 93 Room Air Notes Mental Status: alert / awake / arousable, participated in evaluation Pt Amnestic to Procedure: Yes Nausea / Vomiting: adequately controlled Pain: adequately controlled Airway Patency, RR, SpO2: stable & adequate BP & HR: stable & adequate Hydration State: stable & adequate Neuraxial Anesthesia: was administered, sensory block is resolving Anesthetic Complications: no major complications apparent
[2018-02-09] MEDS ORDERED: ALBUTEROL HFA 8 GM INHALER INH SCH (16:00)
[2018-02-09] MEDS: D5W AND 1/2NSS + 20MEQ KCL 1,000 ML IV SCH (16:17)
[2018-02-09] MEDS ORDERED: NURSING VERBAL MED ORDER ONE (16:30)
[2018-02-09] MEDS ORDERED: ALBUTEROL HFA 8 GM INHALER INH PRN (16:45)
[2018-02-09] MEDS: FERROUS GLUCONATE 324 MG TAB PO SCH (17:34)
[2018-02-09] MEDS: TRAMADOL HCL 50 MG TAB PO PRN (20:08)
[2018-02-09] MEDS: FLUTICASONE/SALMETEROL 100/50 (ADVAIR) 14 PUFF/1 INHALER INH SCH (21:12)
[2018-02-09] MEDS: FLUTICASONE PROPIONATE NA SPR 16 GM BTL NAE SCH (21:13)
[2018-02-09] MEDS: ASPIRIN 81 MG ECTAB PO SCH (21:14)
[2018-02-09] MEDS: AMLODIPINE BESYLATE 5 MG TAB PO SCH (21:14)
[2018-02-09] MEDS: PRAVASTATIN SOD 40 MG TAB PO SCH (21:14)
[2018-02-09] MEDS: DOCUSATE SODIUM 100 MG CAP PO SCH (21:15)
[2018-02-09] MEDS: SENNA 8.6 MG TAB PO SCH (21:15)
[2018-02-09] MEDS: MONTELUKAST SOD 10 MG TAB PO SCH (21:15)
[2018-02-09] MEDS ORDERED: VANCOMYCIN IV 1,500 MG in SODIUM CHLORIDE 0.9% 500ML 500 ML IV SCH (22:00)
[2018-02-10] MEDS: TRAMADOL HCL 50 MG TAB PO PRN ×4 (00:32→19:24)
[2018-02-10] MEDS: D5W AND 1/2NSS + 20MEQ KCL 1,000 ML IV SCH ×2 (02:11→11:15)
[2018-02-10 03:45] VITALS: BP 118/67; PULSE 65; TEMP 36.6; O2SAT 95
[2018-02-10] MEDS: LEVOTHYROXINE 50 MCG TAB PO SCH (06:05)
[2018-02-10 06:09] LABS: HEMATOCRIT 29.9 % (37-47); HEMOGLOBIN 9.9 g/dL (12.0-16.0); MEAN CELL VOLUME 87.4 fL (80-100); MEAN CORPUSCULAR HEMOGLOBIN 28.9 pg (25-34); MEAN CORPUSCULAR HGB CONC 33.1 g/dl (32-36); MEAN PLATELET VOLUME 9.6 fL (7.4-10.4); PLATELET COUNT 194 K/uL (130-400); RED CELL DISTRIBUTION WIDTH CV 12.9 % (11.5-14.5); RED CELL DISTRIBUTION WIDTH SD 41.3 fL (36.4-46.3); WHITE BLOOD COUNT 14.87 K/uL (4.8-10.8)
[2018-02-10 06:40] LABS: CREATININE 0.95 mg/dl (0.60-1.20); POTASSIUM 4.4 mmol/L (3.5-5.1)
[2018-02-10 07:29] VITALS: BP 135/78; PULSE 68; TEMP 36.4; O2SAT 97
[2018-02-10] MEDS: MULTIVITAMIN TAB PO SCH (08:17)
[2018-02-10] MEDS: DOCUSATE SODIUM 100 MG CAP PO SCH ×2 (08:17→21:00)
[2018-02-10] MEDS: PANTOprazole SOD 40 MG TAB PO SCH (08:17)
[2018-02-10] MEDS: CHOLECALCIFEROL 1000 INTER.UNIT TAB PO SCH (08:18)
[2018-02-10] MEDS: FLUTICASONE/SALMETEROL 100/50 (ADVAIR) 14 PUFF/1 INHALER INH SCH ×2 (08:18→20:31)
[2018-02-10] MEDS: FLUTICASONE PROPIONATE NA SPR 16 GM BTL NAE SCH ×2 (08:18→20:31)
[2018-02-10] MEDS: ASPIRIN 81 MG ECTAB PO SCH ×2 (08:18→20:32)
[2018-02-10] MEDS: FERROUS GLUCONATE 324 MG TAB PO SCH ×3 (08:18→17:40)
[2018-02-10 11:20] VITALS: BP 165/78; PULSE 72; TEMP 36.4; O2SAT 98
--- NOTE | 2018-02-10 13:13 | Anesthesiology Progress Note ---
Anesthesia Post Op Note Date & Time Feb 10, 2018 at 13:12 Vital Signs Pain Intensity: 7.0 Vital Signs Past 12 Hours Date Time Temp Pulse Resp B/P (MAP) Pulse Ox O2 Delivery O2 Flow Rate FiO2 02/10/18 11:20 36.4 72 16 165/78 (107) 98 Room Air 02/10/18 07:45 Room Air 02/10/18 07:29 36.4 68 16 135/78 (97) 97 Room Air 02/10/18 03:45 36.6 65 16 118/67 (84) 95 Room Air Notes Mental Status: alert / awake / arousable, participated in evaluation Pt Amnestic to Procedure: Yes Nausea / Vomiting: adequately controlled Pain: adequately controlled Airway Patency, RR, SpO2: stable & adequate BP & HR: stable & adequate Hydration State: stable & adequate Anesthetic Complications: no major complications apparent
--- NOTE | 2018-02-10 13:40 | Orthopedic Progress Note ---
Orthopedic Progress Note Date of Service Feb 10, 2018. Subjective Post OP Day: 1 Reports: feeling well, pain controlled w PO medications, Denies: complaints, chest pain, SOB, nausea / vomiting, light headedness, calf pain Objective calves soft nontender, N/V intact, capillary refill less than 2 sec., dressing C /D/I, A&O x3, toes mobile, hemovac drainage (195 cc total) Date Time Temp Pulse Resp B/P (MAP) Pulse Ox O2 Delivery O2 Flow Rate FiO2 02/10/18 11:20 36.4 72 16 165/78 (107) 98 Room Air 02/10/18 07:45 Room Air 02/10/18 07:29 36.4 68 16 135/78 (97) 97 Room Air 02/10/18 03:45 36.6 65 16 118/67 (84) 95 Room Air 02/10/18 00:20 Room Air 02/09/18 23:05 36.5 70 16 114/66 (82) 93 Room Air 02/09/18 21:10 67 110/61 (77) 02/09/18 20:24 36.4 73 16 135/66 (89) 94 Room Air 02/09/18 15:30 Nasal Cannula 2.0 02/09/18 15:17 36.8 69 16 148/72 (97) 94 Nasal Cannula 2.0 02/09/18 14:45 93 Nasal Cannula 2.0 02/09/18 14:45 99 Nasal Cannula 2.0 02/09/18 14:42 77 18 149/71 (97) 93 Nasal Cannula 2.0 02/09/18 14:11 36.4 72 18 140/64 (78) 97 Nasal Cannula 2 02/09/18 14:11 72 16 02/09/18 14:11 72 16 140/64 97 02/09/18 14:10 72 16 02/09/18 14:10 71 16 97 02/09/18 14:10 72 16 02/09/18 14:10 71 16 97 18 14:07 136/64 18 14:07 136/64 02/09/18 14:05 73 20 02/09/18 14:05 75 20 98 02/09/18 14:05 75 20 98 02/09/18 14:05 73 20 02/09/18 14:03 137/66 02/09/18 14:03 137/66 02/09/18 13:50 71 16 147/63 99 Oxymask 10 02/09/18 13:40 36.9 71 16 114/54 100 Oxymask 10 Laboratory Results 24 Hours: Test 02/10/18 05:49 Hematocrit 29.9 % Hemoglobin 9.9 g/dL Assessment & Plan Assessment: POD #1 s/p right TKA Acute blood loss anemia--asymptomatic Inhouse Planning Pain Management: Ultram DVT Prophylaxis: TEDs, ASA Discharge Planning Discharge Planning: home with home health (Possibly tomorrow if she continues to do well.)
--- NOTE | 2018-02-10 14:26 | Discharge Instructions ---
Discharge Instructions Date of Service Feb 10, 2018. Admission Reason for Admission: Right Knee Osteoarthritis Discharge Discharge Diagnosis / Problem: Right Knee Djd Discharge Goals Goal(s): Decrease discomfort, Improve function, Increase independence Activity Recommendations Activity Limitations: per Instructions/Follow-up section Weightbearing Status: Right weightbearing (as tolerated) . Instructions / Follow-Up Instructions / Follow-Up ACTIVITY RECOMMENDATIONS: SELF CARE INSTRUCTIONS AFTER TOTAL KNEE REPLACEMENT A. You may need to continue a physical therapy program after discharge from the hospital. There are several options available to you. Your doctor will assist you in selecting the best one for you. 1. An out-patient facility 2 to 3 times a week for therapy or home therapy. 2. Continue working on all exercises taught to you in the hospital. Your goals should be to increase bending of your knee to 90 degrees and beyond and to fully straighten your knee. B. You may progress at your own pace from walking with a walker or crutches to a cane; then to no assistive devices. C. Make walking a part of your daily routine. Be up as much as comfortable with rest periods throughout the day. Rest with leg elevation is very important. Use the ice wrap frequently for the first 3-4 weeks. D. There are no restrictions on activities. You may ride in a car, shop, participate in concrete smoother and all social activities. E. Wear the long elastic stockings (MARVIN hose) 20 hours a day for 2 weeks after surgery. They can be removed several times a day for laundering and for a bath. F. You may shower, no tub baths until cleared by your doctor. SPECIAL CARE INSTRUCTIONS: VERY IMPORTANT TO READ AND REVIEW A. There are a few signs you need to watch for after you are home. Call [facility] if you notice any of the followin. Increased severe knee pain. Some pain is expected especially when you exercise. 2. Increased swelling in your leg or knee; pain or swelling of the calf muscle in either lower leg. 3. Any fluid drainage from the incision. 4. Shortness of breath or chest pain. B. Please call [facility] at if you have any concerns or questions about your operation or recovery. The doctor or his nurse will return your call promptly. C. You must take antibiotics before dental work, bladder, bowel or other surgery. Your doctor will provide you with a permanent care to carry describing this precaution. IMPORTANT: * REMEMBER TO TAKE ASPIRIN, 81 MG, TWICE DAILY FOR 4 WEEKS UNLESS OTHERWISE DIRECTED. THIS IS YOUR BLOOD THINNER. * HIGH RISK PATIENTS MAY BE PRESCRIBED A STRONGER BLOOD THINNER. THIS WILL BE PROVIDED AT DISCHARGE. * CALL IF INCREASED PAIN, REDNESS, DRAINAGE OR FEVER GREATER THAT 101. * WEAR MARVIN HOSE 20 HOURS PER DAY FOR 2 WEEKS. * You have a Zipline Closure System. As noted below, this keeps your incision closed. Change the dressing daily. Keep the wound covered with a dressing as it has the potential to snag on your clothing. The Zipline will remain on for a total of 2 weeks. Do not remove it! You may shower with this on. Do not soak it; no tub baths. You will be given instructions by nursing staff at the time of discharge to care for your Zip Closure System. This devices uses plastic straps to keep your incision closed and protected throughout your recovery. If you have any questions please refer to these instructions first. [phone]. FOLLOW UP VISIT: If appointment is not already scheduled: Please call [facility] to make a follow-up appointment for 2 weeks after your surgery at . Current Hospital Diet Patient's current hospital diet: AHA Diet (Heart Healthy) Discharge Diet Recommended Diet: AHA Diet (Heart Healthy) Procedures Procedures Performed: Right total knee arthroplasty, cemented Pending Studies Studies pending at discharge: no Laboratory Results Hemoglobin A1c Test 01/26/18 10:56 Range/Units Estimated Average Glucose 111 mg/dl Hemoglobin A1c 5.5 4.5-5.6 % Lipid Panel Test 12/12/17 08:50 Range/Units Triglycerides Level 180 H 0-150 mg/dl Cholesterol Level 151 0-200 mg/dl HDL Cholesterol 47 mg/dl Cholesterol/HDL Ratio 3.2 LDL Cholesterol, Calculated 68 mg/dl Medical Emergencies . Who to Call and When: Medical Emergencies: If at any time you feel your situation is an emergency, please call 911 immediately. . Non-Emergent Contact Non-Emergency issues call your: Surgeon Call Non-Emergent contact if: temperature is above 101.5, your pain is not controlled, your pain is worsening, wound has increased drainage, wound has increased redness . "Provider Documentation" section prepared by Samir Hdez. . [facility] Drug Monitoring Program Search Results: patient reviewed within database, see additional documentation Drug Monitoring Findings: Pt received 3 mos supply [place] in November 2017, 45 tablets.
[2018-02-10 15:07] VITALS: BP 107/63; PULSE 58; TEMP 36.5; O2SAT 96
[2018-02-10] MEDS: HYDROCODONE/ACETAMIN 5/325MG TAB PO PRN (16:36)
[2018-02-10] MEDS: SENNA 8.6 MG TAB PO SCH (21:00)
[2018-02-10 21:11] VITALS: BP 121/62; PULSE 61
[2018-02-10] MEDS: MONTELUKAST SOD 10 MG TAB PO SCH (21:14)
[2018-02-10] MEDS: PRAVASTATIN SOD 40 MG TAB PO SCH (21:14)
[2018-02-10] MEDS: AMLODIPINE BESYLATE 5 MG TAB PO SCH (21:15)
[2018-02-10 22:52] VITALS: BP 144/82; PULSE 64; TEMP 36.4; O2SAT 94
[2018-02-11] MEDS: HYDROCODONE/ACETAMIN 5/325MG TAB PO PRN (02:45)
[2018-02-11] MEDS: LEVOTHYROXINE 50 MCG TAB PO SCH (06:18)
[2018-02-11 06:20] VITALS: BP 148/76; PULSE 62; TEMP 36.5; O2SAT 93
[2018-02-11] MEDS: DOCUSATE SODIUM 100 MG CAP PO SCH (07:23)
[2018-02-11] MEDS: FERROUS GLUCONATE 324 MG TAB PO SCH ×2 (07:26→12:30)
[2018-02-11] MEDS: MULTIVITAMIN TAB PO SCH (07:26)
[2018-02-11] MEDS: CHOLECALCIFEROL 1000 INTER.UNIT TAB PO SCH (07:26)
[2018-02-11] MEDS: PANTOprazole SOD 40 MG TAB PO SCH (07:26)
[2018-02-11] MEDS: FLUTICASONE PROPIONATE NA SPR 16 GM BTL NAE SCH (07:27)
[2018-02-11] MEDS: FLUTICASONE/SALMETEROL 100/50 (ADVAIR) 14 PUFF/1 INHALER INH SCH (07:27)
[2018-02-11] MEDS: TRAMADOL HCL 50 MG TAB PO PRN ×2 (07:28→11:57)
[2018-02-11] MEDS: ASPIRIN 81 MG ECTAB PO SCH (09:11)
--- NOTE | 2018-02-11 10:16 | Orthopedic Progress Note ---
Orthopedic Progress Note Date of Service Feb 11, 2018. Subjective Post OP Day: 2 Reports: feeling well, Denies: complaints Objective calves soft nontender, N/V intact, incision C/D/I, A&O x3, toes mobile Date Time Temp Pulse Resp B/P (MAP) Pulse Ox O2 Delivery O2 Flow Rate FiO2 02/11/18 07:21 Room Air 02/11/18 06:20 36.5 62 16 148/76 (100) 93 Room Air 02/10/18 23:45 Room Air 02/10/18 22:52 36.4 64 15 144/82 (102) 94 Room Air 02/10/18 21:11 61 121/62 (81) 02/10/18 15:50 Room Air 02/10/18 15:07 36.5 58 18 107/63 (78) 96 Room Air 02/10/18 11:20 36.4 72 16 165/78 (107) 98 Room Air Assessment & Plan Assessment: POD #2 s/p right TKA Acute blood loss anemia--asymptomatic Plan: PT/OT Progressing well Plan for dc today. Inhouse Planning Pain Management: Erinn Hernandez DVT Prophylaxis: TEDs ASA Discharge Planning Discharge Planning: home with home health (Possibly tomorrow if she continues to do well.) Therapy: Physical Therapy
[2018-02-11] MEDS ORDERED: SENN-61 PO (10:20)
[2018-02-11] MEDS ORDERED: HYDR-5688 PO (10:20)
[2018-02-11] MEDS ORDERED: ASPI81TA28 PO (10:20)
[2018-02-11 13:31] VITALS: BP 148/76; PULSE 62; TEMP 36.5; O2SAT 93
[2018-02-11] MEDS ORDERED: ONDA-170 PO (13:49)
--- NOTE | 2018-02-14 16:02 | DISCHARGE SUMMARY ---
DISCHARGE DIAGNOSIS: Degenerative joint disease, right knee. SECONDARY DIAGNOSES: Chronic low back pain, history of acute bronchitis, pneumonia, syncope, generalized weakness, gastroesophageal reflux disease, hypertension, hypothyroidism, stage II chronic kidney disease, history of colon cancer and uterine carcinoma, hypercholesterolemia. CONSULTS: None. COMPLICATIONS: None. PROCEDURES: Right total knee arthroplasty performed by Dr. Cerrato on 02/09/2018. BRIEF HISTORY: As dictated in history and physical. HOSPITAL SUMMARY: The patient was admitted on the above-noted date and had the above-noted surgery performed which she tolerated well. On the first postoperative day, the patient was feeling well, pain was controlled, and had no complaints. Calves were soft, nontender. Neurovascularly intact. Cap refill was less than 2 seconds. Dressings were clean, dry, and intact. Toes were mobile. Vital signs were stable and she was afebrile. Hemoglobin was 9.9. She was started on physical therapy protocol and continued on DVT prophylaxis and pain management. By her second postoperative day, she was feeling well and had no complaints. Calves were soft and nontender. Neurovascularly intact. Incision was clean, dry and intact. Toes were mobile. Vital signs were stable and she was afebrile. She was progressing well with her physical therapy and it was felt she could be discharged to home. For further review, please see chart. LAB AND X-RAY DATA: As per chart. DISCHARGE INSTRUCTIONS: The patient was discharged home in satisfactory condition on 02/25/2018. DIET: Regular, AHA heart-healthy diet. ACTIVITY: Weightbearing as tolerated, right lower extremity. Follow TKA instruction sheets and special care instructions as noted. Follow up with Dr. Cerrato in 2 weeks. The patient to call for appointment if one has not been made for you. DISCHARGE MEDICATIONS: Humphrey 5/325 one tab p.o. q. 4 hours p.r.n. pain, Zofran 8 mg p.o. t.i.d. p.r.n. nausea, Senokot 17.2 mg p.o. at bedtime. Resume home meds as listed. Change aspirin to 81 mg p.o. b.i.d. for 30 days and after 30 days, resume once daily dosing.
== END 2018-02-11 13:55 | disposition home health service (06) | DRG 470 ==
LOC: C.ACU 09:34 → C.3E 10:01 → ENRESERV 14:04
PROC: 0SRC0J9 Replacement of Right Knee Joint with Synthetic Substitute, Cemented, Open Approach (ICD-10-PCS; principal; 2018-02-09 12:00)
DX: M17.11 Unilateral primary osteoarthritis, right knee (principal); N18.2 Chronic kidney disease, stage 2 (mild); E21.3 Hyperparathyroidism, unspecified; I12.9 Hypertensive chronic kidney disease with stage 1 through stage 4 chronic kidney disease, or unspecified chronic kidney disease; K21.9 Gastro-esophageal reflux disease without esophagitis; Z88.0 Allergy status to penicillin; Z88.6 Allergy status to analgesic agent; Z88.2 Allergy status to sulfonamides; Z85.038 Personal history of other malignant neoplasm of large intestine; Z85.42 Personal history of malignant neoplasm of other parts of uterus; E78.5 Hyperlipidemia, unspecified

== ENCOUNTER 2019-05-25 22:09 | Inpatient (IN) ==
[2019-05-25] MEDS ORDERED: ALBUT/IPRATROP 3MG/0.5MG NEB 3 ML VIAL NEB ONE (22:33)
[2019-05-25 23:33] LABS: iSTAT Creatinine 1.2 mg/dl (0.6-1.3); iSTAT Hemoglobin 10.9 g/dl (12.0-16.0); iSTAT Ionized Calcium 0.91 mmol/l (1.12-1.32); iSTAT Potassium 3.6 mEq/L (3.3-5.0)
[2019-05-25 23:35] LABS: Basophils # (auto) 0.01 K/uL (0-0.2); Basophils % (auto) 0.1 %; Eosinophils # (auto) 0.02 K/uL (0-0.5); Eosinophils % (auto) 0.1 %; Hematocrit (blood only) 34.1 % (37-47); Hemoglobin 11.7 g/dL (12.0-16.0); Immature Granulocytes # (auto) 0.27 K/uL (0.00-0.02); Immature Granulocytes % (auto) 1.8 %; Lymphocytes # (auto) 3.49 K/uL (1.2-3.4); Lymphocytes % (auto) 23.4 %; Mean Corpuscular Hemoglobin 31.8 pg (25-34); Mean Corpuscular Hgb Conc 34.3 g/dL (32-36); Mean Corpuscular Volume 92.7 fL (80-100); Monocytes # (auto) 1.38 K/uL (0.11-0.59); Monocytes % (auto) 9.2 %; Neutrophils # (auto) 9.75 K/uL (1.4-6.5); Neutrophils % (auto) 65.4 %; Platelet Count 233 K/uL (130-400); RDW Coefficient of Variation 14.5 % (11.5-14.5); RDW Standard Deviation 49.1 fL (36.4-46.3); Red Blood Count 3.68 M/uL (4.2-5.4); White Blood Count 14.92 K/uL (4.8-10.8)
[2019-05-25] MEDS ORDERED: OPTIRAY 320 125ml IV PRN (23:36)
--- NOTE | 2019-05-25 23:56 | Emergency Department Note ---
Entered by Vee Lagunas acting as a scribe for Judah Bravo MD History of Present Illness General Chief complaint: Shortness of Breath/Dyspnea Stated complaint: SOB, CHEST TIGHTNESS Time Seen by Provider: 05/25/19 22:23 Source: patient History of Present Illness Provider complaint: shortness of breath Onset (ago): day(s) (several days) Location: chest Severity: similar to prior episodes Pain Consistency: + other (persistent) Maximum Pain Intensity: 4 Relieved By: not by other (nebulizer) Associated symptoms: + other (+fatigue) The patient is a 83 year old female who presents to the Emergency Room with complaints of persistent shortness of breath for the past several days. She reports that she has been on Prednisone for the past 14 days which has not alleviated her symptoms. She notes that her shortness of breath worsened tonight. She states that she has been fatigued all day. The patient mentions that she used her nebulizer at 2100 today, which did not alleviate her symptoms. She notes that she has a history of COPD and asthma. She mentions that she is on baby Aspirin. Home Medications Home Medications Medication Instructions Recorded Confirmed Type albuterol sulfate 2.5 mg/3 mL 1.25 mg INH QID PRN 01/24/19 05/26/19 History (0.083 %) solution for nebulization albuterol sulfate 90 mcg/actuation 1 - 2 puffs INHALATION Q4H PRN 01/24/19 05/26/19 History aerosol inhaler aspirin 81 mg tablet,delayed 81 mg PO QAM 01/24/19 05/26/19 History release calcium carbonate 600 mg calcium 1,200 mg PO QAM tab 01/24/19 05/26/19 History (1,500 mg) tablet cholecalciferol (vitamin D3) 1,000 1,000 units PO QAM 01/24/19 05/26/19 History unit capsule ascorbic acid (vitamin C) [Vitamin 500 mg PO QAM 02/07/19 05/26/19 History C] furosemide 20 mg tablet See Rx Instructions .ROUTE 02/13/19 05/26/19 History .COMPLEX PRN fluticasone 100 mcg-salmeterol 50 1 puffs INH BID #180 ea 02/15/19 05/26/19 Rx mcg/dose blistr powdr for inhalation montelukast 10 mg tablet 10 mg PO QPM #90 tab 02/15/19 05/26/19 Rx prednisone 20 mg tablet 20 mg PO .COMPLEX #30 tab 05/14/19 05/26/19 Rx fluconazole 100 mg tablet See Rx Instructions PO DAILY #30 05/18/19 05/26/19 Rx tab amlodipine 5 mg PO QPM 05/26/19 05/26/19 History atenolol 50 mg PO HS 05/26/19 05/26/19 History esomeprazole magnesium 40 mg PO QAM 05/26/19 05/26/19 History fluticasone propionate 2 sprays INTNAS QAM 05/26/19 05/26/19 History levothyroxine 75 mcg PO QAM 05/26/19 05/26/19 History pravastatin 40 mg PO HS 05/26/19 05/26/19 History Allergies Allergy/AdvReac Type Severity Reaction Status Date / Time nabumetone Allergy Severe SHORTNESS Verified 05/26/19 00:21 OF BREATH naproxen Allergy Severe SOB, BUT Verified 05/26/19 00:21 TAKES ASA AT HOME rofecoxib Allergy Severe SHORTNESS Verified 05/26/19 00:21 OF BREATH valdecoxib Allergy Severe SHORTNESS Verified 05/26/19 00:21 OF BREATH Cephalosporins Allergy Intermediate HIVES Verified 05/26/19 00:21 Penicillins Allergy Intermediate RASH,HIVES Verified 05/26/19 00:21 codeine Allergy Mild RASH Verified 05/26/19 00:21 methimazole Allergy Mild itching Verified 05/26/19 00:21 Sulfa (Sulfonamide Allergy Mild RASH Verified 05/26/19 00:21 Antibiotics) azithromycin [From Zithromax] AdvReac Intermediate DIARRHEA Verified 05/26/19 00:21 diphenhydramine AdvReac Intermediate CONFUSION Verified 05/26/19 00:21 [From Benadryl] nitrofurantoin AdvReac Mild VOMITING Verified 05/26/19 00:21 Past Med/Surg History Medical History Endometrial cancer H/O total thyroidectomy Hernia History of colon cancer Syncope Surgical History History of incisional hernia repair History of incisional hernia repair History of partial colectomy History of total knee arthroplasty Family History Grandmother (Paternal) Colorectal cancer Family/Other Coronary heart disease Ovarian cancer Social History Preferred Language: Turkmen Communication Ability: Effective Visual Impairment: No Limitations Hearing Ability: Normal Insurance Instructor Required: No Beliefs That Will Affect Care: None marital status: Current Living Situation: Spouse current occupational status: retired Other Information That Helps Us Care for You: No Feels Safe at Home: Yes Safety Concerns: Feels Safe At This Time Smoking Status: Never smoker Hx Alcohol Use: No Hx Substance Use: No Review of Systems See HPI for pertinent positives & negatives. and A total of 10 systems reviewed and were otherwise negative Physical Exam Vital Signs Vital Signs - 24 hr 05/26/19 01:09 Pulse Rate [Apical] 75 Respiratory Rate 16 Blood Pressure [Left Arm] 144/53 H Blood Pressure Mean [Left Arm] 83 Blood Pressure Position [Left Arm] Sitting Pulse Oximetry 94 Oxygen Delivery Method Room Air GENERAL: Awake, alert, well-appearing, in no acute distress HENT: Normocephalic, atraumatic. Oropharynx unremarkable. EYES: Normal conjunctiva. Sclera non-icteric. NECK: Supple. No nuchal rigidity. FROM. No JVD. RESPIRATORY: Clear to auscultation. CARDIAC: Regular rate, normal rhythm. Extremities warm and well perfused. Pulses equal. ABDOMEN: Soft, non-distended. No tenderness to palpation. No rebound or guarding. No masses. RECTAL: Deferred. MUSCULOSKELETAL: Chest examination reveals no tenderness. The back is symmetrical on inspection without obvious abnormality. There is no CVA tenderness to palpation. No joint edema. LOWER EXTREMITIES: Calves are equal size bilaterally and non-tender. No edema. No discoloration. NEURO: Normal sensorium. No sensory or motor deficits noted. SKIN: No rash or jaundice noted. Course Course 2228: The patient was evaluated in room B11B, and a complete history and physical examination were performed. 0035: I reviewed the patient's case with Dr. Paniagua- [facility] Hospitalist. He will evaluate the patient for further management. Administered Medications Albuterol (Duoneb) 3 ml NEB QIDR SUHAS Stop: 06/25/19 06:59 Last Admin: 05/26/19 19:22 Dose: 3 ml Documented by: [id number] Admin: 05/26/19 15:11 Dose: 3 ml Documented by: [id number] Admin: 05/26/19 11:18 Dose: 3 ml Documented by: [id number] Admin: 05/26/19 07:33 Dose: 3 ml Documented by: [id number] Amlodipine Besylate (Norvasc) 5 mg PO QPM [facility] Stop: 06/25/19 20:59 Last Admin: 05/26/19 20:20 Dose: 5 mg Documented by: [id number] Ascorbic Acid (Vitamin C) 500 mg PO QAM [facility] Stop: 06/25/19 08:59 Last Admin: 05/26/19 07:59 Dose: 500 mg Documented by: [id number] [facility]ir[facility] ([facility]ab) [facility] [place]: 06/25/19 08:59 Last Admin: 05/26/19 07:59 Dose: 81 mg Documented by: [id number] Atenolol (Tenormin) 50 mg PO HS [facility] Stop: 06/25/19 20:59 Last Admin: 05/26/19 20:19 Dose: 50 mg Documented by: [id number] Fluticasone Propionate (Flonase) 2 sprays [facility] Stop: 06/25/19 08:59 Last Admin: 05/26/19 08:00 Dose: 2 sprays Documented by: [id number] Guaifenesin (Mucinex) 600 mg PO Q12 [facility] Stop: 06/25/19 08:59 Last Admin: 05/26/19 20:19 Dose: 600 mg Documented by: [id number] Admin: 05/26/19 07:59 Dose: 600 mg Documented by: [id number] Levofloxacin/Dextrose (Levaquin/D5w) 500 mg in 100 mls @ 100 mls/hr IV Q24H [facility] Stop: 06/02/19 02:59 Last Infusion: 05/26/19 04:19 Dose: 0 mls/hr Documented by: [id number] Admin: 05/26/19 03:19 Dose: 100 mls/hr Documented by: [id number] Methylprednisolone 40 mg/ (Syringe) 0.64 mls @ 1.5 mls/min IV Q8H [facility] Stop: 06/25/19 07:59 Last Admin: 05/26/19 23:27 Dose: 1.5 mls/min Documented by: [id number] Admin: 05/26/19 16:13 Dose: 1.5 mls/min Documented by: [id number] Admin: 05/26/19 07:58 Dose: 1.5 mls/min Documented by: [id number] Ioversol (Optiray 320 125ml) 119 ml IV ONCE PRN PRN Reason: Interaction Checking Stop: 05/29/19 23:35 Last Admin: 05/25/19 23:42 Dose: 1 ml Documented by: [id number] Levothyroxine Sodium (Synthroid) 75 mcg PO DAILYBB [facility] Stop: 06/25/19 06:29 Last Admin: 05/26/19 10:59 Dose: 75 mcg Documented by: [id number] Montelukast Sodium (Singulair) 10 mg PO QPM [facility] Stop: 06/25/19 20:59 Last Admin: 05/26/19 20:20 Dose: 10 mg Documented by: [id number] Multivitamins/Minerals (Caltrate Plus) 2 tab PO QAM [facility] Stop: 06/25/19 08:59 Last Admin: 05/26/19 08:00 Dose: 2 tab Documented by: [id number] Pantoprazole Sodium (Protonix) 40 mg PO QAM [facility] Stop: 06/25/19 08:59 Last Admin: 05/26/19 07:59 Dose: 40 mg Documented by: [id number] Pravastatin Sodium (Pravachol) 40 mg PO HS [facility] Stop: 06/25/19 20:59 Last Admin: 05/26/19 20:20 Dose: 40 mg Documented by: [id number] Fluticasone/Salmeterol (Advair Diskus 100/50) 1 puffs INH BID [facility] Stop: 06/25/19 08:59 Last Admin: 05/26/19 20:20 Dose: 1 puffs Documented by: [id number] Admin: 05/26/19 07:58 Dose: 1 puffs Documented by: [id number] Vitamin D (Vitamin D3) 1,000 units PO QAM [facility] Stop: 06/25/19 08:59 Last Admin: 05/26/19 08:01 Dose: 1,000 units Documented by: [id number] Discontinued Medications Albuterol (Duoneb) 12 ml NEB ONE ONE Stop: 05/25/19 22:34 Last Admin: 05/25/19 23:06 Dose: 12 ml Documented by: [id number] Magnesium Sulfate/Dextrose (Magnesium Sulfate / D5w) 1 gm in 100 mls @ 100 mls/hr IV ONE ONE Stop: 05/26/19 00:56 Last Infusion: 05/26/19 01:10 Dose: 0 mls/hr Documented by: [id number] Admin: 05/26/19 00:15 Dose: 100 mls/hr Documented by: [id number] Sodium Chloride (Nss 1000ml) 500 mls @ 999 mls/hr IV .Q31M ONE Stop: 05/26/19 00:28 Last Infusion: 05/26/19 01:10 Dose: 0 mls/hr Documented by: [id number] Admin: 05/26/19 00:15 Dose: 999 mls/hr Documented by: [id number] Methylprednisolone (Solumedrol) 125 mg IV NOW STA Stop: 05/25/19 23:58 Last Admin: 05/26/19 00:15 Dose: 125 mg Documented by: [id number] Potassium Chloride (Klor-Con M20) 40 meq PO NOW STA Stop: 05/26/19 00:07 Last Admin: 05/26/19 00:20 Dose: 40 meq Documented by: [id number] Medical Decision Making Differential Diagnosis Differential diagnosis: Etiologies such as infections, reactive airway disease, pneumonia, pneumothorax, COPD, CHF, cardiac ischemia, pulmonary embolism, musculoskeletal, gastrointestinal, as well as others were entertained. Medical Records Attestation: I reviewed the patient's medical records. Home Medications Current Medication List: was personally reviewed by me Laboratory Data Attestation: I reviewed the patient's lab results. Result diagrams: 05/25/19 23:24 05/25/19 23:24 Lab Results 05/25/19 05/25/19 05/25/19 Range/Units 23:18 23:24 23:24 WBC 14.92 H (4.8-10.8) K/uL RBC 3.68 L (4.2-5.4) M/uL Hgb 11.7 L (12.0-16.0) g/dL POC Hgb 10.9 L (12.0-16.0) g/dl Hct 34.1 L (37-47) % POC Hct 32 L (37-47) % MCV 92.7 (80-100) fL MCH 31.8 (25-34) pg MCHC 34.3 (32-36) g/dL RDW Std Deviation 49.1 H (36.4-46.3) fL RDW Coeff of Barry 14.5 (11.5-14.5) % Plt Count 233 (130-400) K/uL MPV 9.0 (7.4-10.4) fL Immature Gran % (Auto) 1.8 % Neut % (Auto) 65.4 % Lymph % (Auto) 23.4 % [place] % (Auto) 9.2 % Eos % (Auto) 0.1 % Baso % (Auto) 0.1 % Immature Gran # (Auto) 0.27 H (0.00-0.02) K/uL Neut # (Auto) 9.75 H (1.4-6.5) K/uL Lymph # (Auto) 3.49 H (1.2-3.4) K/uL [place] # (Auto) 1.38 H (0.11-0.59) K/uL Eos # (Auto) 0.02 (0-0.5) K/uL Baso # (Auto) 0.01 (0-0.2) K/uL POC Sodium 137 (135-144) mEq/L Sodium 140 (136-145) mmol/L POC Potassium 3.6 (3.3-5.0) mEq/L Potassium 3.2 L (3.5-5.1) mmol/L POC Chloride 103 (101-112) mEq/L Chloride 105 (98-107) mmol/L Carbon Dioxide 25 (21-32) mmol/L POC Total CO2 24 (24-31) mEq/l Anion Gap 10.0 (3-11) POC Anion Gap 14.0 L (16-25) mmol/L POC BUN 29 H (7-18) mg/dl BUN 29 H (7-18) mg/dl Creatinine 1.28 H (0.6-1.2) mg/dl POC Creatinine 1.2 (0.6-1.3) mg/dl Est Cr Clr Drug Dosing 38.6 ml/min Est GFR ( Amer) 44.5 Est GFR (Non-Af Amer) 38.4 BUN/Creatinine Ratio 23.0 H (10-20) Glucose 134 H (70-99) mg/dl POC Glucose (other) 149 H (70-99) mg/dl Calcium 7.5 L (8.5-10.1) mg/dl POC Ioniz Calcium [place] 0.91 L (1.12-1.32) mmol/l Total Bilirubin 0.4 (0.2-1) mg/dl AST 10 L (15-37) U/L ALT 23 (12-78) U/L Alkaline Phosphatase 77 (45-117) U/L Total Creatine Kinase 33 (26-192) U/L CK-MB (CK-2) < 1.0 (0.5-3.6) ng/ml CK/CKMB % Calc TNP Troponin I < 0.015 (0-0.045) ng/ml Total Protein 6.1 L (6.4-8.2) gm/dl Albumin 3.3 L (3.4-5.0) gm/dl Globulin 2.8 (2.5-4.0) gm/dl Albumin/Globulin Ratio 1.2 (0.9-2) Lipase 121 (73-393) U/L Imaging Data Radiologist's Impression: Radiology results as stated below per my review and the radiologist's interpretation: CTA CHEST: No pulmonary embolism. Normal caliber of the aorta without acute aortic syndrome. Cardiomegaly with coronary artery calcifications. No consolidation, interstitial edema, or pleural effusion. Calcified granulomas in the right lower lobe. There is a 2.1 cm nodule in the right lobe of the thyroid which is similar to the prior study on 09/18/2017. Radiology: Sunil Porras MD Study ready at 2349 and initial results transmitted at [id number] ECG Data Attestation: I personally reviewed and interpreted this ECG as follows: Indication: + SOB/dyspnea Rate (beats per minute): 65 Rhythm: + normal sinus ECG ST segments: no ST depression and no ST elevation ECG Findings: + Other (normal QTC, QTC of 453) Blood Pressure Blood Pressure Findings: Elevated blood pressure Blood Pressure Disposition: further management by hospitalist AMANDA Perkins This is an 83-year-old female who presents emergency department complaining of shortness of breath. Patient has history of COPD and has been on 3 courses of prednisone without relief of her symptoms. She was given Solu-Medrol here in the emergency department she does have a slight elevation in her white blood cell count however is afebrile. She was started on doxycycline here. I did discuss her case with the hospitalist service who did agree to admit her. Patient and family were in agreement with the treatment plan. Impression & Plan Acute exacerbation of chronic obstructive airways disease Discharge Plan Visit Data *Final* Discharge Date/Time: 05/26/19 02:00 Chief Complaint: Shortness of Breath/Dyspnea Stated Complaint: SOB, CHEST TIGHTNESS ED Provider: Judah Bravo Discharge Problem: Acute exacerbation of chronic obstructive airways disease Patient Disposition: Admitted As Inpatient Discharge Instructions Interventions: ED Discharge Assessment Last Done: 05/26/19 02:00 The scribe's documentation has been prepared under my direction and personally reviewed by me in its entirety. I confirm that the note above accurately reflects all work, treatment, procedures, and medical decision making performed by me.
[2019-05-25 23:57] LABS: Alanine Aminotransferase 23 U/L (12-78); Albumin Level 3.3 gm/dl (3.4-5.0); Aspartate Aminotransferase 10 U/L (15-37); Blood Urea Nitrogen 29 mg/dl (7-18); Calcium 7.5 mg/dl (8.5-10.1); Carbon Dioxide 25 mmol/L (21-32); Chloride 105 mmol/L (98-107); Creatinine Clr Calc Pharmacy 38.6 ml/min; Est GFR (African American) 44.5; Est GFR (Non-African American) 38.4; Glucose 134 mg/dl (70-99); Lipase 121 U/L (73-393); Potassium 3.2 mmol/L (3.5-5.1); Sodium 140 mmol/L (136-145)
[2019-05-25] MEDS ORDERED: methylPREDNISolone 125 MG/2 ML VIAL IV STA (23:57)
[2019-05-25] MEDS ORDERED: MAGNESIUM SULFATE / D5W 1 GM/100 ML BAG IV ONE (23:57)
[2019-05-25] MEDS ORDERED: SODIUM CHLORIDE 0.9% 1000ML 500 ML IV ONE (23:58)
[2019-05-26 00:02] LABS: Albumin Globulin Ratio 1.2 (0.9-2); Alkaline Phosphatase 77 U/L (45-117); Bilirubin,Total 0.4 mg/dl (0.2-1); Creatine Kinase 33 U/L (26-192); Creatine Kinase MB < 1.0 ng/ml (0.5-3.6); Globulin 2.8 gm/dl (2.5-4.0); Total Protein 6.1 gm/dl (6.4-8.2); Troponin I < 0.015 ng/ml (0-0.045)
[2019-05-26] MEDS ORDERED: POTASSIUM CHLORIDE 20 MEQ TABCR PO STA (00:06)
[2019-05-26] MEDS ORDERED: ONDANSETRON INJ 2 MG/ML 2 ML VIAL IV PRN (02:18)
[2019-05-26] MEDS ORDERED: ALUMINUM/MAGNESIUM SUSP 30 ML UDC PO PRN (02:18)
[2019-05-26] MEDS ORDERED: ACETAMINOPHEN 325 MG TAB PO PRN (02:18)
[2019-05-26] MEDS ORDERED: MAGNESIUM HYDROXIDE SUSP 30 ML UDC PO PRN (02:18)
[2019-05-26] MEDS: LEVOFLOXACIN/D5W 500 MG/100 ML BAG IV SCH (03:19)
--- NOTE | 2019-05-26 04:34 | History & Physical Report ---
Date of Service May 26, 2019 Assessment & Plan (1) COPD exacerbation: Given Solu-Medrol 125 mg IV, and DuoNeb in the ED. Admit on: Solu-Medrol 40 mg IV every 8 hours Levofloxacin 500 mg IV daily Guaifenesin extended release 600 mg p.o. twice daily Duonebs every 4 hours while awake and every 2 hours when necessary. Nasal cannula 2 L oxygen, titrate to keep pulse ox around 94%. Present on Admission?: Yes (2) Hypertension: Continue outpatient medications: Amlodipine 5 mg daily, atenolol 50 mg p.o. at bedtime. Hold furosemide. Present on Admission?: Yes (3) Hyperlipidemia: Continue pravastatin 20 mg daily Present on Admission?: Yes (4) GERD (gastroesophageal reflux disease): Change Nexium to pantoprazole 40 mg daily Present on Admission?: Yes History of Present Illness Chief Complaint: The patient presents to the emergency department with progressively worsening fatigue and shortness of breath over the past several days, despite being on prednisone the past 14 days and use of HFA and nebulizer treatments at home. Primary Care Provider: Jerome Adams MD The patient is an 83-year-old female with a past medical history including COPD, Graves' disease, GERD, hypoparathyroidism, hyperlipidemia and bronchiectasis, who presents to the emergency department with worsening shortness of breath, dyspnea on exertion and fatigue as noted above. She did report improvement in the emergency department after the administration of-neb ulizer and Solu-Medrol IV. He has not had any recent travels or sick exposures. Allergies Allergy/AdvReac Type Severity Reaction Status Date / Time nabumetone Allergy Severe SHORTNESS Verified 05/26/19 00:21 OF BREATH naproxen Allergy Severe SOB, BUT Verified 05/26/19 00:21 TAKES ASA AT HOME rofecoxib Allergy Severe SHORTNESS Verified 05/26/19 00:21 OF BREATH valdecoxib Allergy Severe SHORTNESS Verified 05/26/19 00:21 OF BREATH Cephalosporins Allergy Intermediate HIVES Verified 05/26/19 00:21 Penicillins Allergy Intermediate RASH,HIVES Verified 05/26/19 00:21 codeine Allergy Mild RASH Verified 05/26/19 00:21 methimazole Allergy Mild itching Verified 05/26/19 00:21 Sulfa (Sulfonamide Allergy Mild RASH Verified 05/26/19 00:21 Antibiotics) azithromycin [From Zithromax] AdvReac Intermediate DIARRHEA Verified 05/26/19 00:21 diphenhydramine AdvReac Intermediate CONFUSION Verified 05/26/19 00:21 [From Benadryl] nitrofurantoin AdvReac Mild VOMITING Verified 05/26/19 00:21 Home Medications Home Medications Medication Instructions Recorded Confirmed Type albuterol sulfate 2.5 mg/3 mL 1.25 mg INH QID PRN 01/24/19 05/26/19 History (0.083 %) solution for nebulization albuterol sulfate 90 mcg/actuation 1 - 2 puffs INHALATION Q4H PRN 01/24/19 05/26/19 History aerosol inhaler aspirin 81 mg tablet,delayed 81 mg PO QAM 01/24/19 05/26/19 History release calcium carbonate 600 mg calcium 1,200 mg PO QAM tab 01/24/19 05/26/19 History (1,500 mg) tablet cholecalciferol (vitamin D3) 1,000 1,000 units PO QAM 01/24/19 05/26/19 History unit capsule ascorbic acid (vitamin C) [Vitamin 500 mg PO QAM 02/07/19 05/26/19 History C] furosemide 20 mg tablet See Rx Instructions .ROUTE 02/13/19 05/26/19 History .COMPLEX PRN fluticasone 100 mcg-salmeterol 50 1 puffs INH BID #180 ea 02/15/19 05/26/19 Rx mcg/dose blistr powdr for inhalation montelukast 10 mg tablet 10 mg PO QPM #90 tab 02/15/19 05/26/19 Rx prednisone 20 mg tablet 20 mg PO .COMPLEX #30 tab 05/14/19 05/26/19 Rx fluconazole 100 mg tablet See Rx Instructions PO DAILY #30 05/18/19 05/26/19 Rx tab amlodipine 5 mg PO QPM 05/26/19 05/26/19 History atenolol 50 mg PO HS 05/26/19 05/26/19 History esomeprazole magnesium 40 mg PO QAM 05/26/19 05/26/19 History fluticasone propionate 2 sprays INTNAS QAM 05/26/19 05/26/19 History levothyroxine 75 mcg PO QAM 05/26/19 05/26/19 History pravastatin 40 mg PO HS 05/26/19 05/26/19 History Past Med/Surg History Medical History Endometrial cancer H/O total thyroidectomy Hernia History of colon cancer Syncope Surgical History History of incisional hernia repair History of incisional hernia repair History of partial colectomy History of total knee arthroplasty Family History Grandmother (Paternal) Colorectal cancer Family/Other Coronary heart disease Ovarian cancer Social History Preferred Language: [place] Communication Ability: Effective Visual Impairment: No Limitations Hearing Ability: Normal 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 Beliefs That Will Affect Care: None marital status: Current Living Situation: Spouse current occupational status: retired Other Information That Helps Us Care for You: No Feels Safe at Home: Yes Safety Concerns: Feels Safe At This Time Smoking Status: Never smoker Hx Alcohol Use: No Hx Substance Use: No Review of Systems Review of Systems: The patient denies chest pain, palpitations, cough, lower extremity swelling, sore throat, fevers, chills, sweats, nausea, vomiting, diarrhea , constipation, abdominal pain, pelvic pain, blood in urine or stool, dysuria, urinary frequency or urgency, lightheadedness, dizziness, headache, loss of consciousness, rash, abnormal bruising or bleeding, imbalance, focal or generalized weakness, numbness or tingling in arms or legs, generalized arthralgias or myalgias, back or neck pain, or night sweats. The review of systems is otherwise negative other than for that already noted above, and at least 10 systems have been reviewed. Physical Exam Physical Exam: The patient is awake, alert and oriented 3, well developed and well nourished, normocephalic and atraumatic, sitting upright in bed and in no acute distress. HEENT--PERRL, EOMI, mucous membranes and oropharynx normal. Neck--supple. No JVD. No bruits. Thyroid normal, trachea midline, no adenopathy. Heart--normal S1 and S2. No murmurs, rubs or gallops. Lungs--overall diminished breath sounds, crackles at the bases bilaterally, no respiratory distress, no accessory muscle use. Abdomen--normal bowel sounds and soft. Nontender. Nondistended, no hernias or masses, no organomegaly. Extremities--no cyanosis or clubbing. No edema. Dermatologic--normal skin turgor, normal color, no abnormal lymph nodes, no rash. Neurologic--cranial nerves II through XII grossly intact. Rheumatologic--normal range of motion. Psychiatric--normal affect. Results & Data Vital Signs (Past 12 Hours) Vital Signs Temp Pulse Pulse Resp BP BP BP 05/26/19 03:38 80 05/26/19 02:18 05/26/19 02:10 97.7 F 70 16 169/67 H 05/26/19 02:00 75 16 140/53 L 05/26/19 01:09 75 16 144/53 H 05/26/19 00:03 05/25/19 23:58 83 16 179/69 H 05/25/19 23:10 68 18 05/25/19 22:11 97.7 F 80 20 161/74 H Pulse Ox Pulse Ox 05/26/19 03:38 05/26/19 02:18 94 05/26/19 02:10 94 05/26/19 02:00 95 05/26/19 01:09 94 05/26/19 00:03 99 05/25/19 23:58 96 05/25/19 23:10 98 05/25/19 22:11 97 Laboratory Results Laboratory Results WBC 14.92 K/uL (4.8-10.8) H 05/25/19 23:24 RBC 3.68 M/uL (4.2-5.4) L 05/25/19 23:24 Hgb 11.7 g/dL (12.0-16.0) L 05/25/19 23:24 POC Hgb 10.9 g/dl (12.0-16.0) L 05/25/19 23:18 Hct 34.1 % (37-47) L 05/25/19 23:24 POC Hct 32 % (37-47) L 05/25/19 23:18 MCV 92.7 fL (80-100) 05/25/19 23:24 MCH 31.8 pg (25-34) 05/25/19 23:24 MCHC 34.3 g/dL (32-36) 05/25/19 23:24 RDW Std Deviation 49.1 fL (36.4-46.3) H 05/25/19 23:24 RDW Coeff of Barry 14.5 % (11.5-14.5) 05/25/19 23:24 Plt Count 233 K/uL (130-400) 05/25/19 23:24 MPV 9.0 fL (7.4-10.4) 05/25/19 23:24 Immature Gran % (Auto) 1.8 % 05/25/19 23:24 Neut % (Auto) 65.4 % 05/25/19 23:24 Lymph % (Auto) 23.4 % 05/25/19 23:24 [place] % (Auto) 9.2 % 05/25/19 23:24 Eos % (Auto) 0.1 % 05/25/19 23:24 Baso % (Auto) 0.1 % 05/25/19 23:24 Immature Gran # (Auto) 0.27 K/uL (0.00-0.02) H 05/25/19 23:24 Neut # (Auto) 9.75 K/uL (1.4-6.5) H 05/25/19 23:24 Lymph # (Auto) 3.49 K/uL (1.2-3.4) H 05/25/19 23:24 [place] # (Auto) 1.38 K/uL (0.11-0.59) H 05/25/19 23:24 Eos # (Auto) 0.02 K/uL (0-0.5) 05/25/19 23:24 Baso # (Auto) 0.01 K/uL (0-0.2) 05/25/19 23:24 POC Sodium 137 mEq/L (135-144) 05/25/19 23:18 Sodium 140 mmol/L (136-145) 05/25/19 23:24 POC Potassium 3.6 mEq/L (3.3-5.0) 05/25/19 23:18 Potassium 3.2 mmol/L (3.5-5.1) L 05/25/19 23:24 POC Chloride 103 mEq/L (101-112) 05/25/19 23:18 Chloride 105 mmol/L (98-107) 05/25/19 23:24 Carbon Dioxide 25 mmol/L (21-32) 05/25/19 23:24 POC Total CO2 24 mEq/l (24-31) 05/25/19 23:18 Anion Gap 10.0 (3-11) 05/25/19 23:24 POC Anion Gap 14.0 mmol/L (16-25) L 05/25/19 23:18 POC BUN 29 mg/dl (7-18) H 05/25/19 23:18 BUN 29 mg/dl (7-18) H 05/25/19 23:24 Creatinine 1.28 mg/dl (0.6-1.2) H 05/25/19 23:24 POC Creatinine 1.2 mg/dl (0.6-1.3) 05/25/19 23:18 Est Cr Clr Drug Dosing 38.6 ml/min 05/25/19 23:24 Est GFR ( Amer) 44.5 05/25/19 23:24 Est GFR (Non-Af Amer) 38.4 05/25/19 23:24 BUN/Creatinine Ratio 23.0 (10-20) H 05/25/19 23:24 Glucose 134 mg/dl (70-99) H 05/25/19 23:24 POC Glucose (other) 149 mg/dl (70-99) H 05/25/19 23:18 Calcium 7.5 mg/dl (8.5-10.1) L 05/25/19 23:24 POC Ioniz Calcium [place] 0.91 mmol/l (1.12-1.32) L 05/25/19 23:18 Total Bilirubin 0.4 mg/dl (0.2-1) 05/25/19 23:24 AST 10 U/L (15-37) L 05/25/19 23:24 ALT 23 U/L (12-78) 05/25/19 23:24 Alkaline Phosphatase 77 U/L (45-117) 05/25/19 23:24 Total Creatine Kinase 33 U/L (26-192) 05/25/19 23:24 CK-MB (CK-2) < 1.0 ng/ml (0.5-3.6) 05/25/19 23:24 CK/CKMB % Calc TNP 05/25/19 23:24 Troponin I < 0.015 ng/ml (0-0.045) 05/25/19 23:24 Total Protein 6.1 gm/dl (6.4-8.2) L 05/25/19 23:24 Albumin 3.3 gm/dl (3.4-5.0) L 05/25/19 23:24 Globulin 2.8 gm/dl (2.5-4.0) 05/25/19 23:24 Albumin/Globulin Ratio 1.2 (0.9-2) 05/25/19 23:24 Lipase 121 U/L (73-393) 05/25/19 23:24 Diagnostic Findings [place], [place] [phone] XRay Report Patient: JEREMY AUGUST Date: 05/14/19 MR#: [id number] Acct ID:[id number]: Date: [address] [place] [address] Zip: [place] [address] Age: 83Location: RAD Sex: F Room/Bed: Att Phy: Jerome Adams III, MDDiagnosis: dyspnea Gwendolyn Phy: Jerome Adams III, MDService Date: 05/14/19 Fam Phy:Interpreting Phy: Elkin Santo MD Admit Phy: Ordering Phy: Jerome Adams III, MD cc: ~ XR chest 2V PA/lateral CLINICAL HISTORY: 83 years-old Female presenting with dyspnea, history of COPD and asthma. TECHNIQUE: PA and lateral views of the chest were obtained. COMPARISON: 02/07/2019. FINDINGS: Atherosclerosis of the aortic arch. Cardiac silhouette enlarged. Calcified granuloma noted in the periphery of the right mid lung as on prior exam. Lungs are hyperinflated. No new focal opacity. No pleural effusion or pneumothorax. Osseous structures normal. Upper abdomen normal. IMPRESSION: 1. Cardiomegaly. 2. Hyperinflation could suggest underlying emphysema. 3. No other convincing evidence of acute cardiopulmonary disease. Electronically signed by: Elkin Santo M.D. 05/14/2019 1:46 PM Dictated: 05/14/19 1344 Transcribed: 05/14/19 1344 Code Status & VTE Plan Code Status full code VTE Prophylaxis Plan VTE Prophylaxis will be ordered: Yes PG Care Time/CCT Total # of Minutes Spent Total Time Spent with Patient: Total time spent is greater than 50% in coordination of care (as documented) at patient's floor/unit and/or counseling patient:
[2019-05-26] MEDS: LEVOTHYROXINE SODIUM 75 MCG TABLET PO SCH ×2 (05:52→10:59)
[2019-05-26] MEDS: ALBUT/IPRATROP 3MG/0.5MG NEB 3 ML VIAL NEB SCH ×4 (07:33→19:22)
[2019-05-26] MEDS: methylPREDNISolone 40 MG in SYRINGE 0 ML IV SCH ×3 (07:58→23:27)
[2019-05-26] MEDS: FLUTICASONE/SALMETEROL 100/50 (ADVAIR) 14 PUFF/1 INHALER INH SCH ×2 (07:58→20:20)
--- NOTE | 2019-05-26 07:58 | CT Scan Report ---
CHEST CTA for PULMONARY ARTERIES CT DOSE: 498.22 mGy.cm HISTORY: Shortness of breath. Atypical Chest Pain, eval for PE TECHNIQUE: Multiaxial CT images of the chest were performed following the intravenous administration of contrast to evaluate the pulmonary arteries. Maximal intensity projection images were also obtaine d. A dose lowering technique was utilized adhering to the principles of ALARA. COMPARISON STUDY: Chest CTA 09/18/2018. FINDINGS: Multiple punctate calcified granulomas within the liver and spleen. No pleural or pericardi al effusions. The heart remains mildly enlarged. Normal caliber thoracic aorta with no evidence for d issection. A 2.4 cm right thyroid nodule is again noted. This remains unchanged. No mediastinal or hi lar lymphadenopathy. Suboptimal evaluation of some of the subsegmental pulmonary arteries due to the motion artifact. However, no definite filling defects within the pulmonary arteries to suggest pulmon mily embolus. No suspicious lytic are blastic osseous lesions. The central airways are patent. No pneu mothorax. Stable 4 mm nodule within the left lung apex on image 228. Stable calcified granulomas with in the right lower lobe. Stable 3 mm nodule within the right upper lobe on image 161. No new focal alice ng consolidations to suggest pneumonia. IMPRESSION: 1. No evidence for pulmonary embolus. 2. Stable 2.4 cm right thyroid nodule. 3. Mild cardiomegaly, unchanged. Electronically signed by: Keegan Lomeli M.D. 05/26/2019 7:56 AM
[2019-05-26] MEDS: ASCORBIC ACID 500 MG TAB PO SCH (07:59)
[2019-05-26] MEDS: PANTOprazole 40 MG TAB PO SCH (07:59)
[2019-05-26] MEDS: guaiFENesin 600 MG TABCR PO SCH ×2 (07:59→20:19)
[2019-05-26] MEDS: ASPIRIN 81 MG ECTAB PO SCH (07:59)
[2019-05-26] MEDS: CALCIUM 600MG + VIT D 400 IU TAB PO SCH (08:00)
[2019-05-26] MEDS: FLUTICASONE PROPIONATE NA SPR 16 GM BTL NAE SCH (08:00)
[2019-05-26] MEDS: CHOLECALCIFEROL 1,000 UNITS 25 MCG TAB PO SCH (08:01)
--- NOTE | 2019-05-26 17:05 | Hospitalist Progress Note ---
Date of Service May 26, 2019 Assessment & Plan (1) Dyspnea: 83 y/o F presenting for increasing shortness of breath and fatigue over the last month, despite use of prednisone or Advair diskus. Dyspnea: - ?relation to previous diagnosis of COPD vs cardiac origin - last PFTs normal in 2012, no response to oral steroids or controller - CT chest unremarkable - Echo ordered - ?new systolic murmur - if COPD exacerbation would benefit from anticholinergic addition for control HTN: - continue home regimen Hypothyroidism: - continue home regimen Supervising Physician Co-Signing Physician Notes I personally examined the patient and verified all arreguin points of history and exam, discussed case, and agree with decision making with Dr Zhong. f/u from early AM admission. no cough/sputum/f/c/s. just GUZMAN/fatigue. not getting better wtih many rounds of treatment for lungs vitals noted nad heent nc at mmm lungs cta b/l no r/r/w good effort cardio reg no r/m/g (?maybe possible faint early/mid systolic click??) GUZMAN/fatigue - given multiple rounds of treatment for lungs, no overt pathology on CT, clear lungs on exam - seems to plead towards source beyond pulmonary. cardiac would be next most likely -- echo, continue to follow rhythms (had short burst of ill defined mild tachycardia early this AM - continue to follow and may need outpt rhythm monitoring) vs less likely endocrine/metabolic await echo, follow serial exams. Subjective Patient has had increasing shortness of breath periodically over the last 4 months since having a lung infection in January, had a period between February into late March in which she did not have any worsening breathing. This worsening has been despite 14 days of steroids and consistent use of her Advaid diskus. Over this time, has not had fever, cough, wheeze, sputum production, chest pain, palpitations, peripheral edema, or headaches. Review of Systems Review of Systems: All systems reviewed & are unremarkable except as noted in HPI & below Physical Exam Constitutional: WD/WN, vitals as above Respiratory: normal respiratory effort; no respiratory distress Auscultation: lungs clear to auscultation bilaterally; no crackles, no rales and no wheezes Cardiovascular: Rate/Rhythm: regular rate and regular rhythm Heart Sounds: + murmur (systolic ejection murmur over R second intercostal space); no gallop and no cardiac rub Extremities: no edema Results & Data Vital Signs (Past 12 Hours) Vital Signs Temp Pulse Pulse Pulse Resp BP BP 05/26/19 15:16 82 05/26/19 15:12 82 18 05/26/19 14:55 36.7 C 76 16 158/76 H 05/26/19 11:23 36.9 C 78 16 153/76 H 05/26/19 11:20 83 18 05/26/19 07:36 80 05/26/19 07:35 79 18 05/26/19 07:21 36.8 C 85 16 148/76 H 05/26/19 07:03 124 H Pulse Ox 05/26/19 15:16 05/26/19 15:12 98 05/26/19 14:55 95 05/26/19 11:23 94 05/26/19 11:20 98 05/26/19 07:36 05/26/19 07:35 96 05/26/19 07:21 9 L 05/26/19 07:03 Laboratory Results 05/25/19 05/25/19 05/25/19 Range/Units 23:24 23:24 23:18 WBC 14.92 H (4.8-10.8) K/uL RBC 3.68 L (4.2-5.4) M/uL Hgb 11.7 L (12.0-16.0) g/dL POC Hgb 10.9 L (12.0-16.0) g/dl Hct 34.1 L (37-47) % POC Hct 32 L (37-47) % MCV 92.7 (80-100) fL MCH 31.8 (25-34) pg MCHC 34.3 (32-36) g/dL RDW Std Deviation 49.1 H (36.4-46.3) fL RDW Coeff of Barry 14.5 (11.5-14.5) % Plt Count 233 (130-400) K/uL MPV 9.0 (7.4-10.4) fL Immature Gran % (Auto) 1.8 % Neut % (Auto) 65.4 % Lymph % (Auto) 23.4 % [place] % (Auto) 9.2 % Eos % (Auto) 0.1 % Baso % (Auto) 0.1 % Immature Gran # (Auto) 0.27 H (0.00-0.02) K/uL Neut # (Auto) 9.75 H (1.4-6.5) K/uL Lymph # (Auto) 3.49 H (1.2-3.4) K/uL [place] # (Auto) 1.38 H (0.11-0.59) K/uL Eos # (Auto) 0.02 (0-0.5) K/uL Baso # (Auto) 0.01 (0-0.2) K/uL POC Sodium 137 (135-144) mEq/L Sodium 140 (136-145) mmol/L POC Potassium 3.6 (3.3-5.0) mEq/L Potassium 3.2 L (3.5-5.1) mmol/L POC Chloride 103 (101-112) mEq/L Chloride 105 (98-107) mmol/L Carbon Dioxide 25 (21-32) mmol/L POC Total CO2 24 (24-31) mEq/l Anion Gap 10.0 (3-11) POC Anion Gap 14.0 L (16-25) mmol/L POC BUN 29 H (7-18) mg/dl BUN 29 H (7-18) mg/dl Creatinine 1.28 H (0.6-1.2) mg/dl POC Creatinine 1.2 (0.6-1.3) mg/dl Est Cr Clr Drug Dosing 38.6 ml/min Est GFR ( Amer) 44.5 Est GFR (Non-Af Amer) 38.4 BUN/Creatinine Ratio 23.0 H (10-20) Glucose 134 H (70-99) mg/dl POC Glucose (other) 149 H (70-99) mg/dl Calcium 7.5 L (8.5-10.1) mg/dl POC Ioniz Calcium [place] 0.91 L (1.12-1.32) mmol/l Total Bilirubin 0.4 (0.2-1) mg/dl AST 10 L (15-37) U/L ALT 23 (12-78) U/L Alkaline Phosphatase 77 (45-117) U/L Total Creatine Kinase 33 (26-192) U/L CK-MB (CK-2) < 1.0 (0.5-3.6) ng/ml CK/CKMB % Calc TNP Troponin I < 0.015 (0-0.045) ng/ml Total Protein 6.1 L (6.4-8.2) gm/dl Albumin 3.3 L (3.4-5.0) gm/dl Globulin 2.8 (2.5-4.0) gm/dl Albumin/Globulin Ratio 1.2 (0.9-2) Lipase 121 (73-393) U/L Medications Administered Current Inpatient Medications Acetaminophen (Tylenol) 650 mg PO Q4H PRN PRN Reason: Pain or Fever Stop: 06/25/19 02:17 Al Hydrox/Mg Hydrox/Simethicone (Maalox) 15 ml PO Q4H PRN PRN Reason: Dyspepsia Stop: 06/25/19 02:17 Albuterol (Duoneb) 3 ml NEB QIDR [facility] Stop: 06/25/19 06:59 Last Admin: 05/26/19 15:11 Dose: 3 ml Documented by: Amlodipine Besylate (Norvasc) 5 mg PO QPM [facility] Stop: 06/25/19 20:59 Ascorbic Acid (Vitamin C) [facility] [place] Stop: 06/25/19 08:59 Last Admin: 05/26/19 07:59 Dose: 500 mg Documented by: Aspirin (Ecotrin Ectab) [facility] [place] Stop: 06/25/19 08:59 Last Admin: 05/26/19 07:59 Dose: 81 mg Documented by: Atenolol (Tenormin) 50 mg PO HS [facility] Stop: 06/25/19 20:59 Fluticasone Propionate (Flonase) 2 sprays [facility] Stop: 06/25/19 08:59 Last Admin: 05/26/19 08:00 Dose: 2 sprays Documented by: Guaifenesin (Mucinex) 600 mg PO Q12 [facility] Stop: 06/25/19 08:59 Last Admin: 05/26/19 07:59 Dose: 600 mg Documented by: Levofloxacin/Dextrose (Levaquin/D5w) 500 mg in 100 mls @ 100 mls/hr IV Q24H [facility] Stop: 06/02/19 02:59 Last Infusion: 05/26/19 04:19 Dose: Infused Documented by: Methylprednisolone 40 mg/ (Syringe) 0.64 mls @ 1.5 mls/min IV Q8H [facility] Stop: 06/25/19 07:59 Last Admin: 05/26/19 16:13 Dose: 1.5 mls/min Documented by: Ioversol (Optiray 320 125ml) 119 ml IV ONCE PRN PRN Reason: Interaction Checking Stop: 05/29/19 23:35 Last Admin: 05/25/19 23:42 Dose: 1 ml Documented by: Levothyroxine Sodium (Synthroid) 75 mcg PO DAILYBB [facility]HAS Stop: 06/25/19 06:29 Last Admin: 05/26/19 10:59 Dose: 75 mcg Documented by: Magnesium Hydroxide (Milk Of Magnesia) 30 ml PO Q12H PRN PRN Reason: Constipation Stop: 06/25/19 02:17 Montelukast Sodium (Singulair) 10 mg PO QPM [facility] Stop: 06/25/19 20:59 Multivitamins/Minerals (Caltrate Plus) 2 tab PO QAM [facility] Stop: 06/25/19 08:59 Last Admin: 05/26/19 08:00 Dose: 2 tab Documented by: Ondansetron HCl (Zofran) 4 mg IV Q6H PRN PRN Reason: Nausea Stop: 06/25/19 02:17 Pantoprazole Sodium (Protonix) 40 mg PO QAM [facility] Stop: 06/25/19 08:59 Last Admin: 05/26/19 07:59 Dose: 40 mg Documented by: Pravastatin Sodium (Pravachol) 40 mg PO HS [facility] Stop: 06/25/19 20:59 Fluticasone/Salmeterol (Advair Diskus 100/50) 1 puffs INH BID [facility]HAS Stop: 06/25/19 08:59 Last Admin: 05/26/19 07:58 Dose: 1 puffs Documented by: Vitamin D (Vitamin D3) 1,000 units PO QAM [facility] Stop: 06/25/19 08:59 Last Admin: 05/26/19 08:01 Dose: 1,000 units Documented by: Resident Activity Tracking Resident Involvement: Resident Care Provided Care Provided: Adult Hospital Medicine
[2019-05-26] MEDS ORDERED: ATENOLOL 50 MG TABLET PO SCH (21:00)
[2019-05-26] MEDS ORDERED: PRAVASTATIN SOD 40 MG TAB PO SCH (21:00)
[2019-05-26] MEDS ORDERED: MONTELUKAST SODIUM 10 MG TABLET PO SCH (21:00)
[2019-05-26] MEDS ORDERED: AMLODIPINE BESYLATE 5 MG TAB PO SCH (21:00)
[2019-05-27] MEDS: LEVOFLOXACIN/D5W 500 MG/100 ML BAG IV SCH (03:11)
[2019-05-27] MEDS: LEVOTHYROXINE SODIUM 75 MCG TABLET PO SCH (06:21)
[2019-05-27 07:02] LABS: Basophils # (auto) 0.02 K/uL (0-0.2); Basophils % (auto) 0.1 %; Hematocrit (blood only) 36.8 % (37-47); Hemoglobin 12.7 g/dL (12.0-16.0); Immature Granulocytes # (auto) 0.34 K/uL (0.00-0.02); Immature Granulocytes % (auto) 1.7 %; Lymphocytes # (auto) 1.26 K/uL (1.2-3.4); Lymphocytes % (auto) 6.4 %; Mean Corpuscular Hemoglobin 31.8 pg (25-34); Mean Corpuscular Hgb Conc 34.5 g/dL (32-36); Mean Corpuscular Volume 92.2 fL (80-100); Mean Platelet Volume 9.1 fL (7.4-10.4); Monocytes # (auto) 0.71 K/uL (0.11-0.59); Monocytes % (auto) 3.6 %; Neutrophils # (auto) 17.33 K/uL (1.4-6.5); Neutrophils % (auto) 88.2 %; Platelet Count 265 K/uL (130-400); RDW Coefficient of Variation 14.6 % (11.5-14.5); RDW Standard Deviation 49.9 fL (36.4-46.3); Red Blood Count 3.99 M/uL (4.2-5.4); White Blood Count 19.66 K/uL (4.8-10.8)
[2019-05-27] MEDS: ALBUT/IPRATROP 3MG/0.5MG NEB 3 ML VIAL NEB SCH ×2 (07:17→11:00)
[2019-05-27 07:44] LABS: BUN Creatinine Ratio 23.3 (10-20); Calcium 8.3 mg/dl (8.5-10.1); Creatinine Clr Calc Pharmacy 42.2 ml/min; Est GFR (African American) 49.6; Est GFR (Non-African American) 42.8; Potassium 5.1 mmol/L (3.5-5.1)
[2019-05-27] MEDS: ASCORBIC ACID 500 MG TAB PO SCH (08:26)
[2019-05-27] MEDS: CHOLECALCIFEROL 1,000 UNITS 25 MCG TAB PO SCH (08:26)
[2019-05-27] MEDS: ASPIRIN 81 MG ECTAB PO SCH (08:26)
[2019-05-27] MEDS: guaiFENesin 600 MG TABCR PO SCH (08:26)
[2019-05-27] MEDS: FLUTICASONE/SALMETEROL 100/50 (ADVAIR) 14 PUFF/1 INHALER INH SCH (08:27)
[2019-05-27] MEDS: FLUTICASONE PROPIONATE NA SPR 16 GM BTL NAE SCH (08:27)
[2019-05-27] MEDS: methylPREDNISolone 40 MG in SYRINGE 0 ML IV SCH (08:27)
[2019-05-27] MEDS: CALCIUM 600MG + VIT D 400 IU TAB PO SCH (08:27)
[2019-05-27] MEDS: PANTOprazole 40 MG TAB PO SCH (08:27)
[2019-05-27] MEDS ORDERED: CYANOCOBALAMIN 500 MCG TABLET (VITAMIN B-12) PO SCH (10:45)
[2019-05-27] MEDS ORDERED: CYANOCOBALAMIN 30 MCG in SYRINGE 0.97 ML IM ONE (11:30)
[2019-05-27 11:36] LABS: Appearance Urine Clear (Clear); Bacteria Urine Automated Negative (Negative); Bilirubin Urine Negative (Negative); Blood Urine Trace (Negative); Cast Urine Automated 0 /lpf (0-5); Color Urine Yellow; Glucose Urine UA Negative (Negative); Ketones Urine Negative (Negative); Leukocyte Esterase Urine Trace (Negative); Nitrite Urine Negative (Negative); Protein Urine Negative (Negative); RBC Urine Automated 0-4 /hpf (0-4); Specific Gravity Urine 1.016 (1.000-1.030); Urobilinogen Urine Negative (Negative); pH Urine 5.5 (4.5-7.5)
--- NOTE | 2019-05-27 13:33 | Discharge Summary ---
Date of Service May 27, 2019 Admission HPI Per Admitting Provider The patient is an 83-year-old female with a past medical history including COPD, Graves' disease, GERD, hypoparathyroidism, hyperlipidemia and bronchiectasis, who presents to the emergency department with worsening shortness of breath, dyspnea on exertion and fatigue as noted above. She did report improvement in the emergency department after the administration of-nebulizer and Solu-Medrol IV. He has not had any recent travels or sick exposures. Principal Diagnosis Dyspnea Discharge Exam Constitutional WD/WN, vitals as above Respiratory normal respiratory effort; no respiratory distress Auscultation: lungs clear to auscultation bilaterally; no crackles, no rales and no wheezes Cardiovascular Rate/Rhythm: regular rate and regular rhythm Heart Sounds: no gallop and no cardiac rub Extremities: no edema Discharge Data Allergies Allergy/AdvReac Type Severity Reaction Status Date / Time nabumetone Allergy Severe SHORTNESS Verified 05/26/19 00:21 OF BREATH naproxen Allergy Severe SOB, BUT Verified 05/26/19 00:21 TAKES ASA AT HOME rofecoxib Allergy Severe SHORTNESS Verified 05/26/19 00:21 OF BREATH valdecoxib Allergy Severe SHORTNESS Verified 05/26/19 00:21 OF BREATH Cephalosporins Allergy Intermediate HIVES Verified 05/26/19 00:21 Penicillins Allergy Intermediate RASH,HIVES Verified 05/26/19 00:21 codeine Allergy Mild RASH Verified 05/26/19 00:21 methimazole Allergy Mild itching Verified 05/26/19 00:21 Sulfa (Sulfonamide Allergy Mild RASH Verified 05/26/19 00:21 Antibiotics) azithromycin [From Zithromax] AdvReac Intermediate DIARRHEA Verified 05/26/19 00:21 diphenhydramine AdvReac Intermediate CONFUSION Verified 05/26/19 00:21 [From Benadryl] nitrofurantoin AdvReac Mild VOMITING Verified 05/26/19 00:21 Consultations 05/26/19 00:32 ED Decision to Admit Stat 05/26/19 02:18 Consult Case Management - Discharge Planning Routine Ordered Studies 05/25/19 22:34 CT angio chest PE protocol Urgent Hospital Course (1) Dyspnea: 83 y/o F presenting for increasing shortness of breath and fatigue over the last month, despite use of prednisone or Advair diskus. Dyspnea: - ?relation to previous diagnosis of COPD vs cardiac origin - last PFTs normal in 2013, recommend repeat PFTs in the coming months as based off previous data and exam patient does not appear to meet criteria for COPD diagnosis; if diagnostic for COPD would benefit from anticholinergic addition for control - CT chest unremarkable - Echo did not demonstrate any acute abnormalities; if symptoms persist and do not improve despite additional management would recommend stress test for evaluation of coronary anatomy - B12 116; given IM B12 supplementation, - continue weekly B12 injections for one month, and then monthly in conjunction with 1000mcg PO daily - TSH 0.175, on 75mcg of Synthyroid HTN: - continue home regimen Hypothyroidism: - continue home regimen Total Time Total Time Spent Total Time Spent (In Minutes): >30 Discharge Plan Discharge Items Patient Disposition: Home - Self-Care Reason For Visit: COPD EXACERBATION Discharge Diagnosis: Dyspnea Activity: Per Instructions section Non-emergency contact: Primary Care Provider Call non-emergency contact if: your symptoms worsen and your temperature is above 101 Follow-up/Referrals: Jerome Adams III, MD [Primary Care Provider] - Diet: Regular Addtl Attending Provider Instructions: You were admitted following an increasing shortness of breath, and fatigue despite being on steroids. During this admission, we looked back at your pulmonary function tests that were conducted back in 2012 looked normal and did not indicate that you have COPD. With the symptoms you were having we determined it was appropriate to evaluate the function of your heart and the echocardiogram did not demonstrate any abnormalities, or findings that would be consistent with the fatigue and shortness of breath that you were having. As we continued to look, we saw that your Vitamin B12 levels are low and while this does not directly explain the symptoms you were having, it could explain some of them. We gave you a B12 injection, and will continue on oral supplementation regimen with continued weekly injections for the next month before spacing out to every month and re-checking in 2-3 months. Additionally, we are recommending that you have the pulmonary function tests re- done in the future for continued assessment of your lung function. Pending Studies at Discharge: No Stand-Alone Forms: My [facility] [employer], Smoking Cessation Medications and DC Order Prescriptions: New cyanocobalamin (vitamin B-12) 1,000 mcg capsule 1,000 mcg PO DAILY 30 Days Qty: 30 RF: 0 Continued fluticasone propion-salmeterol [Advair Diskus] 100-50 mcg/dose blister with device 1 puffs INH BID Qty: 180 RF: 3 montelukast 10 mg tablet 10 mg PO QPM Qty: 90 RF: 3 albuterol sulfate 2.5 mg /3 mL (0.083 %) solution for nebulization 1.25 mg INH QID PRN (Reason: Shortness Of Breath Or Wheezing) RF: 0 calcium carbonate [Calcium 600] 600 mg calcium (1,500 mg) tablet 1,200 mg PO QAM RF: 0 aspirin [Adult Aspirin Regimen] 81 mg tablet,delayed release (DR/EC) 81 mg PO QAM RF: 0 albuterol sulfate [Ventolin HFA] 90 mcg/actuation HFA aerosol inhaler 1 - 2 puffs inhalation Q4H PRN (Reason: Shortness Of Breath Or Wheezing) RF: 0 cholecalciferol (vitamin D3) 1,000 unit capsule 1,000 units PO QAM RF: 0 furosemide 20 mg tablet See Rx Instructions .ROUTE .COMPLEX PRN (Reason: Fluid Retention) RF: 0 ascorbic acid (vitamin C) [Vitamin C] 500 mg Tablet 500 mg PO QAM RF: 0 pravastatin 40 mg tablet 40 mg PO HS RF: 0 amlodipine 5 mg tablet 5 mg PO QPM RF: 0 levothyroxine 75 mcg tablet 75 mcg PO QAM RF: 0 esomeprazole magnesium 40 mg capsule,delayed release(DR/EC) 40 mg PO QAM RF: 0 fluticasone propionate 50 mcg/actuation spray,suspension 2 sprays INTNAS QAM RF: 0 atenolol 50 mg tablet 50 mg PO HS RF: 0 Discontinued fluconazole 100 mg tablet See Rx Instructions PO DAILY Qty: 30 RF: 0 prednisone 20 mg tablet 20 mg PO .COMPLEX Qty: 30 RF: 0 Discharge Orders: Discharge Order (Routine); Ordered 05/27/19 Ordered By: Berhane Zhong Admission Data Admit Date/Time: 05/26/19 01:26 Attending Provider: Chinmay Bello Admit Provider: Shabbir Zheng Primary Care Provider: Jerome Adams III Other Providers: Shabbir Zheng Other Interventions: Discharge Summary Assessment (RN) Last Done: 05/27/19 13:23 DC Date/Time DO NOT enter until pt leaves facility: 05/27/19 14:52 Supervising Physician Co-Signing Physician Notes I personally examined the patient and verified all arreguin points of history and exam, discussed case, and agree with decision making with Dr Zhong. feels about the same. reviewed echo beign normal, TSH being the same as january, but B12 being quite low vitals noted nad heent nc at mmm breathing unlabored no accessory muscles good effort no rashes no pallor or icterus GUZMAN/fatigue - doubt COPD (failed many rounds of COPD tailored treatment, CT normal, no cough/sputum, PFTs 6yrs ago normal -- asked to repeat PFTs to be sure - to be done as outpt). doubt cardiac (echo OK, stress echo last year ok - can consider repeating but seems low yield, rhythms without worrisome findings here - can consider event monitor). TSH still mildly low - unlikley to be "iatrogenic dakota's syndrome" given that her TSH is only mildy low not markedly suppressed. B12 is quite low - ??whole culprit but definitely requires replacing - will do both IM and PO to accelerate improvements in levels (especially then to be able to look at this as "diagnostic trial" on if B12 relates to fatigue) dx "work in progress" but stable for home. Resident Activity Tracking Resident Involvement: Resident Care Provided Care Provided: Adult Hospital Medicine
--- NOTE | 2019-05-27 18:37 | Billing Data ---
Coding Level of Care Code D/C Day Management >30 mins
--- NOTE | 2019-05-31 12:26 | Coding Query ---
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 Please assist us with the question(s) below: Coding Question(s): The Discharge Summary documents, "B12 is quite low - ??whole culprit but definitely requires replacing - will do both IM and PO to accelerate improvements in levels". Please clarify below, in your clinical opinion, regarding the low B12. ( x ) Low B12 is Vitamin B12 Deficiency ( ) Low B12 is Other: Please Specify Physician's Response(s): Thank you Ana Che Principal Diagnosis: "that condition established after study, to be chiefly responsible for occasioning the admission of the patient to the hospital for care." Co-Existing Principal Diagnosis: "when two or more diagnoses equally meet the criteria for principal diagnosis as determined by the circumstances of admission, diagnostic work up, and/or therapy provided, and the Alphabetic Index, Tabular List, or another coding guideline does not provide sequencing direction, any one of the diagnoses may be sequenced first." "When the physician has documented what appears to be a current diagnosis in the body of the record, but has not included the diagnosis in the final diagnostic statement, the physician should be asked whether the diagnosis should be added." (Source Coding [facility] 2 QTR90. p3-4) TREY
== END 2019-05-27 14:52 | disposition home or self-care (01) | DRG 641 ==
LOC: ED 22:09 → SUATTDRO 05-26 01:26 → 2W 05-26 01:26

== ENCOUNTER 2020-10-04 19:44 | Inpatient (IN) ==
[2020-10-04] MEDS ORDERED: SODIUM CHLORIDE 0.9% 1000ML 500 ML IV ONE (20:29)
[2020-10-04] MEDS ORDERED: ACETAMINOPHEN 325 MG TAB PO STA (20:29)
--- NOTE | 2020-10-04 20:34 | Emergency Department Note ---
History of Present Illness General Chief complaint: Illness Stated complaint: CHILLS, COUGH, FEVER Time Seen by Provider: 10/04/20 20:21 Source: patient Mode of arrival: ambulatory Limitations: no limitations History of Present Illness Maximum Pain Intensity: 5 This patient is a 84-year-old female who felt sick since this morning.. She started having chills and she has had a cough all day she has had some nausea. She may have had some abdominal pain earlier but none now. No chest pain. She has had both Covid shots. No sick contacts. She had a headache earlier but that is resolved. She is mostly nauseated. Denies dysuria or hematuria. No fall or trauma. Denies that she has history of CHF. Home Medications Medication Instructions Recorded Confirmed Type aspirin 81 mg tablet,delayed 81 mg PO QAM 01/24/19 10/04/20 History release calcium carbonate 600 mg calcium 1,200 mg PO QAM tab 01/24/19 10/04/20 History (1,500 mg) tablet cholecalciferol (vitamin D3) 25 1,000 units PO QAM 01/24/19 10/04/20 History mcg (1,000 unit) capsule ascorbic acid (vitamin C) [Vitamin 500 mg PO QAM 02/07/19 10/04/20 History C] atenolol 50 mg tablet 50 mg PO HS #90 tab 12/19/19 10/04/20 Rx esomeprazole magnesium 40 mg 40 mg PO QAM #90 cap 12/19/19 10/04/20 Rx capsule,delayed release fluticasone propionate 50 2 sprays INTNAS DAILY PRN #54.6 ml 12/19/19 10/04/20 Rx mcg/actuation nasal spray,suspension levothyroxine 75 mcg tablet 75 mcg PO QAM #90 tab 12/19/19 10/04/20 Rx montelukast 10 mg tablet 10 mg PO QPM #90 tab 12/19/19 10/04/20 Rx pravastatin 40 mg tablet 40 mg PO HS #90 tab 12/19/19 10/04/20 Rx albuterol sulfate 2.5 mg INH TID PRN #270 ml 06/20/20 10/04/20 Rx albuterol sulfate 90 mcg/actuation 1 - 2 puff INHALATION Q4H PRN #18 06/20/20 10/04/20 Rx aerosol inhaler gm amlodipine 5 mg tablet 5 mg PO QPM #90 tab 06/20/20 10/04/20 Rx cyanocobalamin (vitamin B-12) 1 tab PO DAILY 10/04/20 10/04/20 History fluticasone propion-salmeterol 1 ea INHALATION BID 10/04/20 10/04/20 History [Wixela Inhub] loratadine [Claritin] 10 mg PO DAILY PRN 10/04/20 10/04/20 History Allergies Allergy/AdvReac Type Severity Reaction Status Date / Time nabumetone Allergy Severe SHORTNESS Verified 10/04/20 21:28 OF BREATH naproxen Allergy Severe SOB, BUT Verified 10/04/20 21:28 TAKES ASA AT HOME rofecoxib Allergy Severe SHORTNESS Verified 10/04/20 21:28 OF BREATH valdecoxib Allergy Severe SHORTNESS Verified 10/04/20 21:28 OF BREATH Cephalosporins Allergy Intermediate HIVES Verified 10/04/20 21:28 Penicillins Allergy Intermediate RASH,HIVES Verified 10/04/20 21:28 codeine Allergy Mild RASH Verified 10/04/20 21:28 methimazole Allergy Mild itching Verified 10/04/20 21:28 Sulfa (Sulfonamide Allergy Mild RASH Verified 10/04/20 21:28 Antibiotics) azithromycin [From Zithromax] AdvReac Intermediate DIARRHEA Verified 10/04/20 21:28 diphenhydramine AdvReac Intermediate CONFUSION Verified 10/04/20 21:28 [From Benadryl] nitrofurantoin AdvReac Mild VOMITING Verified 10/04/20 21:28 nickel AdvReac Unknown Rash Verified 10/04/20 21:28 Past Med/Surg History Medical History Asthma PRN inhaler only, normally uses 1-2x per week Chronic back pain GERD (gastroesophageal reflux disease) High cholesterol History of colon cancer History of endometrial cancer Hypertension Hypothyroid Leukocytosis Surgical History Difficult airway for intubation Pt reports "failed intubation" with colon resection in 1989's. Lumbar surgery at [facility] in 2013 -- Glidescope #3, ETT 7.0, grade view II. DL x 1 with Glidescope, atraumatic. H/O kyphoplasty T5 07/23/2019 History of anesthesia problem INTUBATION PROBLEM History of back surgery History of colon resection History of hysterectomy for cancer History of incisional hernia repair X2 History of subtotal thyroidectomy History of total left knee replacement History of total right knee replacement Family History Grandmother (Paternal) Colorectal cancer Family/Other Coronary heart disease Ovarian cancer Mother Myocardial infarction Father Myocardial infarction Denies family history of Prostate cancer Breast cancer Social History Smoking Status: Never smoker Second Hand Exposure: Yes (CHILD AND YOUNG ADULT); Hx Alcohol Use: No Hx Substance Use: No Preferred Language: Filipino Communication Ability: Effective Visual Impairment: No Limitations Hearing Ability: Normal Rolling Attendant Required: No Beliefs That Will Affect Care: None marital status: Current Living Situation: Spouse current occupational status: retired Feels Safe at Home: Yes Seatbelt Use: always Assistive Devices: Cane, Glasses and Walker Review of Systems A total of 10 systems reviewed and were otherwise negative Physical Exam Vital Signs Vital Signs - 24 hr 10/04/20 19:58 10/04/20 20:49 10/04/20 21:24 Temperature 37.9 C H Temperature Source Temporal Artery Scan Pulse Rate 86 76 Pulse Rate from SpO2 Sensor 82 Respiratory Rate 20 20 20 Respiratory Effort / Characteristics Non-Labored Spontaneous Blood Pressure 139/68 143/69 H Blood Pressure Mean 91 93 Pulse Oximetry 92 92 Oxygen Delivery Method Room Air Sepsis Recent Fever Within 48 Hours Yes Sepsis New/Unexplained Change in Mental Status N/A Sepsis Action Taken by Nursing No Action Required 10/04/20 21:30 10/04/20 22:00 Temperature Temperature Source Pulse Rate 80 82 Pulse Rate from SpO2 Sensor 78 79 Respiratory Rate 22 20 Respiratory Effort / Characteristics Blood Pressure 135/63 148/65 H Blood Pressure Mean 87 92 Pulse Oximetry 93 95 Oxygen Delivery Method Sepsis Recent Fever Within 48 Hours Sepsis New/Unexplained Change in Mental Status Sepsis Action Taken by Nursing General: Well developed well nourished older female who appears in no acute dis tress, breathing comfortably on room air. Normal speech HEENT: Normal cephalic atraumatic. Pupils are equal round and reactive to light. Extraocular movements are intact. Oropharynx is pink with moist mucous membranes. No swelling of the mouth lips or tongue. Neck: Supple with a midline trachea. No meningeal signs or stiffness, no JVD or bruits. No Stridor. Chest: Clear to auscultation bilaterally. No wheezes or rhonchi. No increased work of breathing. Heart: Regular rate and rhythm without murmurs or gallops. Abdomen: Soft nontender, nondistended without rebound guarding or rigidity. Extremities: No cyanosis clubbing or edema. No calf tenderness or assymetry Spine/Back. Non tender to palpation. No CVA tenderness Skin: Good turgor without rashes. Neurologic exam: Cranial nerves two through 12 are intact. Motor and sensation are intact and symmetrical throughout. Course Administered Medications Discontinued Medications Acetaminophen (Acetaminophen 325 Mg Tab) 650 mg PO NOW STA Stop: 10/04/20 20:30 Last Admin: 10/04/20 21:02 Dose: Not Given Documented by: [id number] Acetaminophen (Acetaminophen 1000 Mg/100 Ml Iv) 1,000 mg IV NOW STA Stop: 10/04/20 20:51 Last Admin: 10/04/20 21:02 Dose: 1,000 mg Documented by: [id number] Sodium Chloride (Nss 1000ml) 500 mls @ 999 mls/hr IV .Q31M ONE Stop: 10/04/20 20:59 Last Infusion: 10/04/20 21:29 Dose: 0 mls/hr Documented by: [id number] Admin: 10/04/20 21:02 Dose: 999 mls/hr Documented by: [id number] Levofloxacin/Dextrose (Levaquin/D5w) 750 mg in 150 mls @ 100 mls/hr IV NOW STA Stop: 10/04/20 23:26 Last Admin: 10/04/20 23:13 Dose: 100 mls/hr Documented by: [id number] Sodium Chloride (Nss 1000ml) 1,000 mls @ 999 mls/hr IV .Q1H1M ONE Stop: 10/04/20 23:05 Last Admin: 10/04/20 23:13 Dose: 999 mls/hr Documented by: [id number] Ioversol (Ioversol 100ml) 94 ml IV ONCE ONE Stop: 10/04/20 22:47 Last Admin: 10/04/20 22:46 Dose: 94 ml Documented by: [id number] Ondansetron HCl (Ondansetron Inj 2 Mg/Ml 2 Ml Vial) 4 mg IV NOW STA Stop: 10/04/20 20:52 Last Admin: 10/04/20 21:02 Dose: 4 mg Documented by: [id number] Critical Care Time Critical Care Time: Yes Total Critical Care Time: 35 Due to the patient's fever, concern for sepsis multiple lab abnormalities, IV fluids, IV antibiotics and consultation/discussion with medicine and surgery with frequent reassessment, I have personally spent greater than 35 minutes of critical care time in the direct management of this patient. This includes bedside care, interpretation of diagnostic studies, and testing, discussion with consultants, patient, and family members, and other required patient management activities. This 35 minutes is in excess of all separately billable procedures. Medical Decision Making Differential Diagnosis Sepsis, Covid, pneumonia, CHF, electrolyte or metabolic abnormality, UTI, intra- abdominal process Medical Records Attestation: I reviewed the patient's medical records. Home Medications Current Medication List: was personally reviewed by me Laboratory Data Attestation: I reviewed the patient's lab results. Result diagrams: 10/04/20 20:40 10/04/20 20:40 Lab Results 10/04/20 10/04/20 10/04/20 Range/Units 20:05 20:05 20:40 WBC 18.32 H (4.8-10.8) K/uL RBC 4.39 (4.2-5.4) M/uL Hgb 13.0 (12.0-16.0) g/dL Hct 37.9 (37-47) % MCV 86.3 (80-100) fL MCH 29.6 (25-34) pg MCHC 34.3 (32-36) g/dL RDW Std Deviation 41.8 (36.4-46.3) fL RDW Coeff of Barry 13.2 (11.5-14.5) % Plt Count 198 (130-400) K/uL MPV 10.0 (7.4-10.4) fL Immature Gran % (Auto) 0.5 % Neut % (Auto) 90.3 % Lymph % (Auto) 3.2 % Republic % (Auto) 5.8 % Eos % (Auto) 0.1 % Baso % (Auto) 0.1 % Neut # (Auto) 16.54 H (1.4-6.5) K/uL Lymph # (Auto) 0.59 L (1.2-3.4) K/uL [place] # (Auto) 1.07 H (0.11-0.59) K/uL Eos # (Auto) 0.01 (0-0.5) K/uL Baso # (Auto) 0.02 (0-0.2) K/uL Immature Gran # (Auto) 0.09 H (0.00-0.02) K/uL PT (9.0-12.0) Seconds INR (0.9-1.1) APTT (21.0-31.0) Seconds PTT Ratio Sodium (136-145) mmol/L Potassium (3.5-5.1) mmol/L Chloride (98-107) mmol/L Carbon Dioxide (21-32) mmol/L Anion Gap (3-11) BUN (7-18) mg/dl Creatinine (0.6-1.2) mg/dl Est Cr Clr Drug Dosing ml/min Est GFR ( Amer) Est GFR (Non-Af Amer) BUN/Creatinine Ratio (10-20) Glucose (70-99) mg/dl Lactate (0.4-2.0) mmol/L Calcium (8.5-10.1) mg/dl Magnesium (1.8-2.4) mg/dl Total Bilirubin (0.2-1) mg/dl AST (15-37) U/L ALT (12-78) U/L Alkaline Phosphatase (45-117) U/L Troponin I (0-0.045) ng/ml Total Protein (6.4-8.2) gm/dl Albumin (3.4-5.0) gm/dl Globulin (2.5-4.0) gm/dl Albumin/Globulin Ratio (0.9-2) Procalcitonin (0-0.5) ng/ml Urine Color Urine Appearance (Clear) Urine pH (4.5-7.5) Ur Specific [place] (1.000-1.030) Urine Protein (Negative) Urine Glucose (UA) (Negative) Urine Ketones (Negative) Urine Blood (Negative) Urine Nitrite (Negative) Urine Bilirubin (Negative) Urine Urobilinogen (Negative) Ur Leukocyte Esterase (Negative) Urine WBC (Auto) (0-5) /hpf Urine RBC (Auto) (0-4) /hpf U Hyaline Cast (Auto) (0-5) /lpf U Epithel Cells (Auto) (0-5) /lpf Urine Bacteria (Auto) (Negative) Granular Casts (0) /lpf Urine Mucus (None Prsent) COVID-19 Eval Order CovFluRsv at [facility] SARS-CoV-2 (PCR) NEGATIVE (Negative) Influenza Type A (PCR) Negative (Neg) Influenza Type B (PCR) Negative (Neg) RSV (RT-PCR) Negative (Neg) 10/04/20 10/04/20 10/04/20 Range/Units 20:40 20:40 20:40 WBC (4.8-10.8) K/uL RBC (4.2-5.4) M/uL Hgb (12.0-16.0) g/dL Hct (37-47) % MCV (80-100) fL MCH (25-34) pg MCHC (32-36) g/dL RDW Std Deviation (36.4-46.3) fL RDW Coeff of Barry (11.5-14.5) % Plt Count (130-400) K/uL MPV (7.4-10.4) fL Immature Gran % (Auto) % Neut % (Auto) % Lymph % (Auto) % Republic % (Auto) % Eos % (Auto) % Baso % (Auto) % Neut # (Auto) (1.4-6.5) K/uL Lymph # (Auto) (1.2-3.4) K/uL [place] # (Auto) (0.11-0.59) K/uL Eos # (Auto) (0-0.5) K/uL Baso # (Auto) (0-0.2) K/uL Immature Gran # (Auto) (0.00-0.02) K/uL PT 10.5 (9.0-12.0) Seconds INR 1.0 (0.9-1.1) APTT 22.9 (21.0-31.0) Seconds PTT Ratio 0.9 Sodium 137 (136-145) mmol/L Potassium 3.9 (3.5-5.1) mmol/L Chloride 108 H (98-107) mmol/L Carbon Dioxide 23 (21-32) mmol/L Anion Gap 7.0 (3-11) BUN 19 H (7-18) mg/dl Creatinine 1.00 (0.6-1.2) mg/dl Est Cr Clr Drug Dosing 46.2 ml/min Est GFR ( Amer) 59.5 Est GFR (Non-Af Amer) 51.3 BUN/Creatinine Ratio 18.7 (10-20) Glucose 144 H (70-99) mg/dl Lactate (0.4-2.0) mmol/L Calcium 7.8 L (8.5-10.1) mg/dl Magnesium 1.7 L (1.8-2.4) mg/dl Total Bilirubin 2.4 H (0.2-1) mg/dl AST 638 H (15-37) U/L ALT 349 H (12-78) U/L Alkaline Phosphatase 183 H (45-117) U/L Troponin I < 0.015 (0-0.045) ng/ml Total Protein 6.4 (6.4-8.2) gm/dl Albumin 3.4 (3.4-5.0) gm/dl Globulin 3.0 (2.5-4.0) gm/dl Albumin/Globulin Ratio 1.1 (0.9-2) Procalcitonin 4.92 H (0-0.5) ng/ml Urine Color Urine Appearance (Clear) Urine pH (4.5-7.5) Ur Specific [place] (1.000-1.030) Urine Protein (Negative) Urine Glucose (UA) (Negative) Urine Ketones (Negative) Urine Blood (Negative) Urine Nitrite (Negative) Urine Bilirubin (Negative) Urine Urobilinogen (Negative) Ur Leukocyte Esterase (Negative) Urine WBC (Auto) (0-5) /hpf Urine RBC (Auto) (0-4) /hpf U Hyaline Cast (Auto) (0-5) /lpf U Epithel Cells (Auto) (0-5) /lpf Urine Bacteria (Auto) (Negative) Granular Casts (0) /lpf Urine Mucus (None Prsent) COVID-19 Eval Order SARS-CoV-2 (PCR) (Negative) Influenza Type A (PCR) (Neg) Influenza Type B (PCR) (Neg) RSV (RT-PCR) (Neg) 10/04/20 10/04/20 10/04/20 Range/Units 20:40 21:33 23:16 WBC (4.8-10.8) K/uL RBC (4.2-5.4) M/uL Hgb (12.0-16.0) g/dL Hct (37-47) % MCV (80-100) fL MCH (25-34) pg MCHC (32-36) g/dL RDW Std Deviation (36.4-46.3) fL RDW Coeff of Barry (11.5-14.5) % Plt Count (130-400) K/uL MPV (7.4-10.4) fL Immature Gran % (Auto) % Neut % (Auto) % Lymph % (Auto) % [place] % (Auto) % Eos % (Auto) % Baso % (Auto) % Neut # (Auto) (1.4-6.5) K/uL Lymph # (Auto) (1.2-3.4) K/uL [place] # (Auto) (0.11-0.59) K/uL Eos # (Auto) (0-0.5) K/uL Baso # (Auto) (0-0.2) K/uL Immature Gran # (Auto) (0.00-0.02) K/uL PT (9.0-12.0) Seconds INR (0.9-1.1) APTT (21.0-31.0) Seconds PTT Ratio Sodium (136-145) mmol/L Potassium (3.5-5.1) mmol/L Chloride (98-107) mmol/L Carbon Dioxide (21-32) mmol/L Anion Gap (3-11) BUN (7-18) mg/dl Creatinine (0.6-1.2) mg/dl Est Cr Clr Drug Dosing ml/min Est GFR ( Amer) Est GFR (Non-Af Amer) BUN/Creatinine Ratio (10-20) Glucose (70-99) mg/dl Lactate 2.1 H* 1.4 (0.4-2.0) mmol/L Calcium (8.5-10.1) mg/dl Magnesium (1.8-2.4) mg/dl Total Bilirubin (0.2-1) mg/dl AST (15-37) U/L ALT (12-78) U/L Alkaline Phosphatase (45-117) U/L Troponin I (0-0.045) ng/ml Total Protein (6.4-8.2) gm/dl Albumin (3.4-5.0) gm/dl Globulin (2.5-4.0) gm/dl Albumin/Globulin Ratio (0.9-2) Procalcitonin (0-0.5) ng/ml Urine Color Dark Yellow Urine Appearance Cloudy A (Clear) Urine pH 5.5 (4.5-7.5) Ur Specific [place] 1.018 (1.000-1.030) Urine Protein 2+ H (Negative) Urine Glucose (UA) Negative (Negative) Urine Ketones Trace H (Negative) Urine Blood 2+ H (Negative) Urine Nitrite Negative (Negative) Urine Bilirubin 1+ H (Negative) Urine Urobilinogen Negative (Negative) Ur Leukocyte Esterase 2+ H (Negative) Urine WBC (Auto) 10-30 H (0-5) /hpf Urine RBC (Auto) 10-30 H (0-4) /hpf U Hyaline Cast (Auto) 10-30 H (0-5) /lpf U Epithel Cells (Auto) >30 H (0-5) /lpf Urine Bacteria (Auto) Negative (Negative) Granular Casts 5-10 H (0) /lpf Urine Mucus Present A (None Prsent) COVID-19 Eval Order SARS-CoV-2 (PCR) (Negative) Influenza Type A (PCR) (Neg) Influenza Type B (PCR) (Neg) RSV (RT-PCR) (Neg) ECG Data Attestation: I personally reviewed and interpreted this ECG as follows: Indication: + nausea and + SOB/dyspnea Rate (beats per minute): 77 Rhythm: + normal sinus ECG Intervals/blocks: + Normal QRS, + Normal QT and + Normal ID ECG [place]: + Normal ECG ST segments: + Normal ST segments ECG Findings: + LVH; no PACs and no PVCs Comparison ECG Date: from (07/04/19) Change: no significant change MDM Narrative This patient comes in as described above. She was placed in B5 monitor. She has a low-grade temperature and was noted to have a fever at home. IV access were established and she was hydrated with an IV normal saline bolus. Multiple blood testing was obtained include blood cultures and lactic acid. Chest x-ray and EKG were obtained also order urinalysis and culture. She was reassessed frequently. I was concerned as her white count came back high at 18. Covid testing was negative. Chest x-ray shows a possible infiltrate in the right apex. Her EKG is unremarkable and she does not suggest acute coronary syndrome. Her LFTs are also elevated her abdomen is not significantly tender and she has no peritonitis. her lactic acid is also elevated 2.1. I did give her additional IV fluid boluses. She was given Levaquin 750 mg IV choses for broad-spectrum coverage as she is allergic to penicillin and cephalosporins and tells me she has had Levaquin before she believes. I did a CAT scan and there are multiple chronic findings there is some gallbladder enlargement with some stone seen near the neck. The admitting team is did see her and I discussed this with Dr. Matteo feliciano. They are going to admit her and order MRCP. Also discussed case with Dr. Varela the surgeon on-call who agrees with the plan with IV antibiotics and MRCP. Devious cardiac monitoring: Due to her concern for sepsis an order was placed in EMR for continuous cardiac monitoring. She was noted to be in normal sinus rhythm with a rate of 75. Impression & Plan Sepsis, Disease of gallbladder, Lab test negative for COVID-19 virus, Nausea Discharge Plan Visit Data Chief Complaint: Illness Stated Complaint: CHILLS, COUGH, FEVER ED Provider: Montez Lombardo Discharge Problem: Sepsis, Disease of gallbladder, Lab test negative for COVID-19 virus, Nausea Forms Stand Alone Forms: My [facility] [employer] Prescriptions Prescriptions: No Action albuterol sulfate 2.5 mg /3 mL (0.083 %) solution for nebulization 2.5 mg INH TID PRN (Reason: Shortness Of Breath Or Wheezing) Qty: 270 RF: 3 amlodipine 5 mg tablet 5 mg PO QPM Qty: 90 RF: 3 albuterol sulfate [Ventolin HFA] 90 mcg/actuation HFA aerosol inhaler 1 - 2 puff inhalation Q4H PRN (Reason: Shortness Of Breath Or Wheezing) Qty: 18 RF: 3 atenolol 50 mg tablet 50 mg PO HS Qty: 90 RF: 3 esomeprazole magnesium 40 mg capsule,delayed release(DR/EC) 40 mg PO QAM Qty: 90 RF: 3 fluticasone propionate 50 mcg/actuation spray,suspension 2 sprays INTNAS DAILY PRN (Reason: NASAL COMGESTION) Qty: 54.6 RF: 3 levothyroxine 75 mcg tablet 75 mcg PO QAM Qty: 90 RF: 3 montelukast 10 mg tablet 10 mg PO QPM Qty: 90 RF: 3 pravastatin 40 mg tablet 40 mg PO HS Qty: 90 RF: 3 calcium carbonate [Calcium 600] 600 mg calcium (1,500 mg) tablet 1,200 mg PO QAM RF: 0 aspirin [Adult Aspirin Regimen] 81 mg tablet,delayed release (DR/EC) 81 mg PO QAM RF: 0 cholecalciferol (vitamin D3) 1,000 unit capsule 1,000 units PO QAM RF: 0 ascorbic acid (vitamin C) [Vitamin C] 500 mg Tablet 500 mg PO QAM RF: 0 fluticasone propion-salmeterol [Wixela Inhub] 100-50 mcg/dose blister with device 1 ea INHALATION BID RF: 0 loratadine [Claritin] 10 mg Tablet 10 mg PO DAILY PRN (Reason: Allergy Symptoms) RF: 0 cyanocobalamin (vitamin B-12) Tablet,Chewable 1 tab PO DAILY RF: 0 Discharge Problem: Sepsis Qualifiers: Sepsis type: sepsis due to unspecified organism Sepsis acute organ dysfunction status: unspecified Qualified Code(s): A41.9 - Sepsis, unspecified organism
[2020-10-04 20:49] LABS: Basophils # (auto) 0.02 K/uL (0-0.2); Basophils % (auto) 0.1 %; Eosinophils # (auto) 0.01 K/uL (0-0.5); Eosinophils % (auto) 0.1 %; Hematocrit (blood only) 37.9 % (37-47); Immature Granulocytes # (auto) 0.09 K/uL (0.00-0.02); Immature Granulocytes % (auto) 0.5 %; Lymphocytes # (auto) 0.59 K/uL (1.2-3.4); Lymphocytes % (auto) 3.2 %; Mean Corpuscular Hemoglobin 29.6 pg (25-34); Mean Corpuscular Hgb Conc 34.3 g/dL (32-36); Mean Corpuscular Volume 86.3 fL (80-100); Monocytes # (auto) 1.07 K/uL (0.11-0.59); Monocytes % (auto) 5.8 %; Neutrophils # (auto) 16.54 K/uL (1.4-6.5); Neutrophils % (auto) 90.3 %; Platelet Count 198 K/uL (130-400); RDW Coefficient of Variation 13.2 % (11.5-14.5); RDW Standard Deviation 41.8 fL (36.4-46.3); Red Blood Count 4.39 M/uL (4.2-5.4); White Blood Count 18.32 K/uL (4.8-10.8)
[2020-10-04] MEDS ORDERED: ACETAMINOPHEN 1000 MG/100 ML IV IV STA (20:50)
[2020-10-04] MEDS ORDERED: ONDANSETRON INJ 2 MG/ML 2 ML VIAL IV STA (20:51)
[2020-10-04 21:04] LABS: Partial Thromboplastin Ratio 0.9; Partial Thromboplastin Time 22.9 Seconds (21.0-31.0); Prothrombin Time 10.5 Seconds (9.0-12.0)
[2020-10-04 21:05] LABS: Alanine Aminotransferase 349 U/L (12-78); Albumin Level 3.4 gm/dl (3.4-5.0); Aspartate Aminotransferase 638 U/L (15-37); BUN Creatinine Ratio 18.7 (10-20); Blood Urea Nitrogen 19 mg/dl (7-18); Calcium 7.8 mg/dl (8.5-10.1); Carbon Dioxide 23 mmol/L (21-32); Chloride 108 mmol/L (98-107); Creatinine Clr Calc Pharmacy 46.2 ml/min; Est GFR (African American) 59.5; Est GFR (Non-African American) 51.3; Glucose 144 mg/dl (70-99); Magnesium 1.7 mg/dl (1.8-2.4); Potassium 3.9 mmol/L (3.5-5.1); Sodium 137 mmol/L (136-145)
[2020-10-04 21:06] LABS: Appearance Urine Cloudy (Clear); Bacteria Urine Automated Negative (Negative); Blood Urine 2+ (Negative); Color Urine Dark Yellow; Epithelial Cell Urine Auto >30 /lpf (0-5); Glucose Urine UA Negative (Negative); Ketones Urine Trace (Negative); Leukocyte Esterase Urine 2+ (Negative); Nitrite Urine Negative (Negative); Protein Urine 2+ (Negative); Specific Gravity Urine 1.018 (1.000-1.030); Urobilinogen Urine Negative (Negative); pH Urine 5.5 (4.5-7.5)
[2020-10-04 21:10] LABS: Albumin Globulin Ratio 1.1 (0.9-2); Alkaline Phosphatase 183 U/L (45-117); Bilirubin,Total 2.4 mg/dl (0.2-1); Total Protein 6.4 gm/dl (6.4-8.2); Troponin I < 0.015 ng/ml (0-0.045)
[2020-10-04 21:31] LABS: Bilirubin Urine 1+ (Negative)
[2020-10-04 21:35] LABS: Influenza A virus by PCR Negative (Neg); Influenza B virus by PCR Negative (Neg); RSV by PCR Negative (Neg); SARS CoV2 RNA(COVID-19) InHosp NEGATIVE (Negative)
[2020-10-04 21:39] LABS: Mucus Urine Present (None Prsent)
[2020-10-04] MEDS ORDERED: levoFLOXacin/D5W 750 MG/150 ML BAG IV STA (21:57)
[2020-10-04] MEDS ORDERED: SODIUM CHLORIDE 0.9% 1000ML 1,000 ML IV ONE (22:05)
[2020-10-04] MEDS ORDERED: OPTIRAY 320 100ml IV ONE (22:46)
--- NOTE | 2020-10-04 22:58 | History & Physical Report ---
Date of Service October 04, 2020 Assessment & Plan (1) Disease of gallbladder: Patient is a pleasant 84 year old female with PMHx Asthma, GERD, Colon Cx, Endometrial Cx, HTN who presents with 1 day history of nausea, vomiting, chills, and abdominal discomfort. Hyperbilirubinemia with concern for Choledocholithiasis/Cholecystitis -Bilirubin elevated 2.4 -Transaminitis AST 638, ALT 349, Alk Phos 183 -Lactate 2.1, Procal 4.92 -Blood cultures pending -CT Ab/Pelv [facility] read noting punctate calcifications within spleen and liver likely a sequela of previous granulomatous infection in addition to a slightly over distended gallbladder with tiny stones near the gallbladder neck -Started on Levofloxacin empirically in the ED, will transition to Ciprofloxacin and Metronidazole for more anaerobic coverage -Will also order for MRCP to r/o obstruction, results pending -General Surgery consulted, appreciate recs -1.5L NSS bolus in ED -Will keep patient NPO and start LR 100ml/hr -Zofran PRN for nausea GERD -Continue home Esomeprazole Hypothyroidism -Continue home Levothyroxine 75mcg -Will hold on ordering TSH at this time as will likely be inaccurate during acute infection HLD -Will hold home pravastatin due to Transaminitis -Will hold home ASA in case surgical intervention is required Asthma -Continue home Albuterol PRN -Continue home Fluticasone-Salmeterol -Continue home Singulair -Continue home Flonase Hypertension -Continue home Amlodipine -Continue home Atenolol Dispo: Med/Surg Telemetry for antibiotic treatment, suspect if no surgical intervention will transition to oral antibiotic therapy and DC 1-2 days. FEN: NPO, LR 100ml/hr x2L DVT: SCD, hold chemoprophylaxis at this time Code: Full (2) Nausea: (3) GERD (gastroesophageal reflux disease): (4) Hyperlipidemia: (5) Hypertension: (6) Hyperbilirubinemia: History of Present Illness Chief Complaint: Abdominal Pain, Vomiting Primary Care Provider: Jerome Adams MD Patient is a pleasant 84 year old female with PMHx Asthma, GERD, Colon Cx, Endometrial Cx, HTN who presents with 1 day history of nausea, vomiting, chills, and abdominal discomfort. Patient notes that since this morning after eating breakfast she has vomited 6-8 times and has not been able to keep anything else down. She states that she also has some RUQ abdominal discomfort, similar to pain she has had ongoing for at least 1 year now which is worse when she eats fatty foods and dairy. She notes that her emesis has been primarily clear and has not noted any blood or coffee ground like particles. Sure notes currently that since being given Zofran her nausea has improved tremendously, though she continues to have some RUQ abdominal discomfort. She denies any current fever, chills, SOB, diarrhea, chest pain, chest pressure. She does note having a low grade fever and chills earlier in the day in addition to a current headache. In the ED she was given Zofran, IVF, and started empirically on Levofloxacin. She underwent a CT ab/pelv where the [facility] read was noting punctate calcifications within the spleen and liver, and a slightly over distended GB with tiny stones near the gallbladder neck. Med Hx: Asthma, Colon Cx, Endometrial Cx, HTN, Hypothyroidism, GERD, Hypercholesterolemia Surg Hx: Kyphoplasty T5, Colon resection, Total hysterectomy, Subtotal thyroidectomy, Bilateral total knee replacement Soc Hx: No alcohol, tobacco, or illicit drug use. Allergies Allergy/AdvReac Type Severity Reaction Status Date / Time nabumetone Allergy Severe SHORTNESS Verified 10/04/20 21:28 OF BREATH naproxen Allergy Severe SOB, BUT Verified 10/04/20 21:28 TAKES ASA AT HOME rofecoxib Allergy Severe SHORTNESS Verified 10/04/20 21:28 OF BREATH valdecoxib Allergy Severe SHORTNESS Verified 10/04/20 21:28 OF BREATH Cephalosporins Allergy Intermediate HIVES Verified 10/04/20 21:28 Penicillins Allergy Intermediate RASH,HIVES Verified 10/04/20 21:28 codeine Allergy Mild RASH Verified 10/04/20 21:28 methimazole Allergy Mild itching Verified 10/04/20 21:28 Sulfa (Sulfonamide Allergy Mild RASH Verified 10/04/20 21:28 Antibiotics) azithromycin [From Zithromax] AdvReac Intermediate DIARRHEA Verified 10/04/20 21:28 diphenhydramine AdvReac Intermediate CONFUSION Verified 10/04/20 21:28 [From Benadryl] nitrofurantoin AdvReac Mild VOMITING Verified 10/04/20 21:28 nickel AdvReac Unknown Rash Verified 10/04/20 21:28 Home Medications Medication Instructions Recorded Confirmed Type aspirin 81 mg tablet,delayed 81 mg PO QAM 01/24/19 10/04/20 History release calcium carbonate 600 mg calcium 1,200 mg PO QAM tab 01/24/19 10/04/20 History (1,500 mg) tablet cholecalciferol (vitamin D3) 25 1,000 units PO QAM 01/24/19 10/04/20 History mcg (1,000 unit) capsule ascorbic acid (vitamin C) [Vitamin 500 mg PO QAM 02/07/19 10/04/20 History C] atenolol 50 mg tablet 50 mg PO HS #90 tab 12/19/19 10/04/20 Rx esomeprazole magnesium 40 mg 40 mg PO QAM #90 cap 12/19/19 10/04/20 Rx capsule,delayed release fluticasone propionate 50 2 sprays INTNAS DAILY PRN #54.6 ml 12/19/19 10/04/20 Rx mcg/actuation nasal spray,suspension levothyroxine 75 mcg tablet 75 mcg PO QAM #90 tab 12/19/19 10/04/20 Rx montelukast 10 mg tablet 10 mg PO QPM #90 tab 12/19/19 10/04/20 Rx pravastatin 40 mg tablet 40 mg PO HS #90 tab 12/19/19 10/04/20 Rx albuterol sulfate 2.5 mg INH TID PRN #270 ml 06/20/20 10/04/20 Rx albuterol sulfate 90 mcg/actuation 1 - 2 puff INHALATION Q4H PRN #18 06/20/20 10/04/20 Rx aerosol inhaler gm amlodipine 5 mg tablet 5 mg PO QPM #90 tab 06/20/20 10/04/20 Rx cyanocobalamin (vitamin B-12) 1 tab PO DAILY 10/04/20 10/04/20 History fluticasone propion-salmeterol 1 ea INHALATION BID 10/04/20 10/04/20 History [Wixela Inhub] loratadine [Claritin] 10 mg PO DAILY PRN 10/04/20 10/04/20 History Past Med/Surg History Medical History (Updated 10/05/20 @ 00:57 by Justin Polo DO) Asthma PRN inhaler only, normally uses 1-2x per week Chronic back pain GERD (gastroesophageal reflux disease) High cholesterol History of colon cancer History of endometrial cancer Hypertension Hypothyroid Leukocytosis Surgical History Difficult airway for intubation Pt reports "failed intubation" with colon resection in . Lumbar surgery at [facility] in 2013 -- Glidescope #3, ETT 7.0, grade view II. DL x 1 with Gl idescope, atraumatic. H/O kyphoplasty T5 07/23/2019 History of anesthesia problem INTUBATION PROBLEM History of back surgery History of colon resection History of hysterectomy for cancer History of incisional hernia repair X2 History of subtotal thyroidectomy History of total left knee replacement History of total right knee replacement Family History Grandmother (Paternal) Colorectal cancer Family/Other Coronary heart disease Ovarian cancer Mother Myocardial infarction Father Myocardial infarction Denies family history of Prostate cancer Breast cancer Social History Smoking Status: Unknown if ever smoked Second Hand Exposure: Yes (CHILD AND YOUNG ADULT); Do You Dip or Chew Tobacco: No; Hx Alcohol Use: No Hx Substance Use: No Preferred Language: Lithuanian Communication Ability: Effective Visual Impairment: No Limitations Hearing Ability: Normal 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 Beliefs That Will Affect Care: None marital status: Current Living Situation: Spouse current occupational status: retired Other Information That Helps Us Care for You: No Feels Safe at Home: Yes Safety Concerns: Feels Safe At This Time Seatbelt Use: always Assistive Devices: Glasses Review of Systems Review of Systems: All systems reviewed & are unremarkable except as noted in Subjective Physical Exam Constitutional: well developed and well nourished; no acute distress Eyes: PERRL, conjunctivae normal, anicteric sclerae normal visual núñez by confrontation ENMT: external ear and nose normal, oropharynx normal Respiratory: normal respiratory effort, lungs clear to auscultation Cardiovascular: RRR, no murmur, no edema Gastrointestinal (Abdomen): Inspection/Auscultation: abdomen normal to inspection and normal bowel sounds; abdomen not distended Percussion/Palpation: + abdomen tender (slight TTP in RUQ ) and abdomen soft; no guarding and abdomen not rigid Musculoskeletal: no cyanosis or clubbing, extremities motor strength 5/5 Skin: no rashes, warm and dry Neurologic: moves all extremities and awake Psychiatric: A+Ox3, euthymic affect Results & Data Results & Data ([facility]) Vital Signs (Past 12 Hours) Vital Signs Temp Pulse Resp BP Pulse Ox 10/04/20 22:00 82 20 148/65 H 95 10/04/20 21:30 80 22 135/63 93 10/04/20 21:24 76 20 143/69 H 92 10/04/20 20:49 20 10/04/20 19:58 37.9 C H 86 20 139/68 92 Supervising Physician Co-Signing Physician Notes Attending addendum: I have physically seen this patient, have supervised the medical residents activities, and agree with the H&P unless as otherwise noted. Assessment and Plan: Abnormal LFTs- AST 638, ALT 349, total bilirubin 2.4 CT abdomen/pelvis notes gallbladder stones in the gallbladder neck, along with suggestion of previous granulomatous disease involving spleen and liver. Further assessment with MRCP regarding cholecystitis/choledocholithiasis/granulomatous disease or other Cipro 400 mg IV every 12 hours Flagyl 500 mg IV every 8 hours Zofran 4 mg IV every 6 hours as needed Famotidine 20 mg IV every 12 hours Status post 1.5 L NSS bolus in the ED LR at 100 mL/h Remaining orders and notations as noted. Hold aspirin for potential procedure Resident Activity Tracking Resident Involvement: Resident Care Provided Care Provided: Adult Hospital Medicine
[2020-10-04] MEDS ORDERED: LORazepam 0.5 MG/1 ML VIAL IV ONE (23:49)
[2020-10-05] MEDS ORDERED: ALBUTEROL 0.083% NEBU SOLN 3 ML VIAL INH PRN (02:00)
[2020-10-05] MEDS ORDERED: FLUTICASONE PROPIONATE NA SPR 16 GM BTL NAE PRN (02:00)
[2020-10-05] MEDS ORDERED: ONDANSETRON INJ 2 MG/ML 2 ML VIAL IV PRN (02:00)
[2020-10-05] MEDS ORDERED: ALBUTEROL HFA 8 GM INHALER INH PRN (02:00)
[2020-10-05] MEDS: LACTATED RINGER'S 1,000 ML IV SCH ×2 (02:58→13:20)
[2020-10-05] MEDS: metroNIDAZOLE 500 MG/100 ML BAG IV SCH ×3 (02:59→18:35)
[2020-10-05] MEDS: MAGNESIUM SULFATE / D5W 1 GM/100 ML BAG IV SCH ×2 (02:59→04:51)
[2020-10-05] MEDS: LEVOTHYROXINE SODIUM 75 MCG TABLET PO SCH (06:02)
[2020-10-05 06:38] LABS: Basophils # (auto) 0.01 K/uL (0-0.2); Basophils % (auto) 0.1 %; Eosinophils # (auto) 0.03 K/uL (0-0.5); Eosinophils % (auto) 0.2 %; Hematocrit (blood only) 33.3 % (37-47); Hemoglobin 11.3 g/dL (12.0-16.0); Immature Granulocytes # (auto) 0.04 K/uL (0.00-0.02); Immature Granulocytes % (auto) 0.3 %; Lymphocytes # (auto) 1.43 K/uL (1.2-3.4); Lymphocytes % (auto) 10.6 %; Mean Corpuscular Hemoglobin 29.4 pg (25-34); Mean Corpuscular Hgb Conc 33.9 g/dL (32-36); Mean Corpuscular Volume 86.7 fL (80-100); Mean Platelet Volume 9.5 fL (7.4-10.4); Monocytes # (auto) 1.04 K/uL (0.11-0.59); Monocytes % (auto) 7.7 %; Neutrophils # (auto) 10.94 K/uL (1.4-6.5); Neutrophils % (auto) 81.1 %; Platelet Count 167 K/uL (130-400); RDW Coefficient of Variation 13.4 % (11.5-14.5); RDW Standard Deviation 42.8 fL (36.4-46.3); Red Blood Count 3.84 M/uL (4.2-5.4); White Blood Count 13.49 K/uL (4.8-10.8)
--- NOTE | 2020-10-05 06:47 | Surgery Consultation ---
Date of Consultation October 05, 2020 Assessment & Plan (1) Sepsis: Patient may have choledocholithiasis Possible mild acute cholecystitis although may be edema from the common bile duct obstruction if present Await final reading on the MRCP May need GI evaluation and ERCP Would proceed with laparoscopic cholecystectomy at some point during this admission Patient somewhat concerned about long-term admission-she has grandchildren coming on Tuesday-2 days from now Continue IV fluids and IV antibiotics for now Clear liquids if ERCP GI evaluation delayed History of Present Illness Attending Physician: Shabbir Zheng MD History of Present Illness Patient admitted through the emergency room with nausea, chills cough and some early abdominal pain which apparently resolved CT scan showed some gallstones and slight distention of the gallbladder Her liver function studies were elevated with a total bilirubin of 2.4 elevated AST and ALT Her white blood cell count was 18.3 She does feel better this morning from the last day or 2 She had an MRCP which the result is pending Allergies Allergy/AdvReac Type Severity Reaction Status Date / Time nabumetone Allergy Severe SHORTNESS Verified 10/04/20 21:28 OF BREATH naproxen Allergy Severe SOB, BUT Verified 10/04/20 21:28 TAKES ASA AT HOME rofecoxib Allergy Severe SHORTNESS Verified 10/04/20 21:28 OF BREATH valdecoxib Allergy Severe SHORTNESS Verified 10/04/20 21:28 OF BREATH Cephalosporins Allergy Intermediate HIVES Verified 10/04/20 21:28 Penicillins Allergy Intermediate RASH,HIVES Verified 10/04/20 21:28 codeine Allergy Mild RASH Verified 10/04/20 21:28 methimazole Allergy Mild itching Verified 10/04/20 21:28 Sulfa (Sulfonamide Allergy Mild RASH Verified 10/04/20 21:28 Antibiotics) azithromycin [From Zithromax] AdvReac Intermediate DIARRHEA Verified 10/04/20 21:28 diphenhydramine AdvReac Intermediate CONFUSION Verified 10/04/20 21:28 [From Benadryl] nitrofurantoin AdvReac Mild VOMITING Verified 10/04/20 21:28 nickel AdvReac Unknown Rash Verified 10/04/20 21:28 Home Medications Medication Instructions Recorded Confirmed Type aspirin 81 mg tablet,delayed 81 mg PO QAM 01/24/19 10/04/20 History release calcium carbonate 600 mg calcium 1,200 mg PO QAM tab 01/24/19 10/04/20 History (1,500 mg) tablet cholecalciferol (vitamin D3) 25 1,000 units PO QAM 01/24/19 10/04/20 History mcg (1,000 unit) capsule ascorbic acid (vitamin C) [Vitamin 500 mg PO QAM 02/07/19 10/04/20 History C] atenolol 50 mg tablet 50 mg PO HS #90 tab 12/19/19 10/04/20 Rx esomeprazole magnesium 40 mg 40 mg PO QAM #90 cap 12/19/19 10/04/20 Rx capsule,delayed release fluticasone propionate 50 2 sprays INTNAS DAILY PRN #54.6 ml 12/19/19 10/04/20 Rx mcg/actuation nasal spray,suspension levothyroxine 75 mcg tablet 75 mcg PO QAM #90 tab 12/19/19 10/04/20 Rx montelukast 10 mg tablet 10 mg PO QPM #90 tab 12/19/19 10/04/20 Rx pravastatin 40 mg tablet 40 mg PO HS #90 tab 12/19/19 10/04/20 Rx albuterol sulfate 2.5 mg INH TID PRN #270 ml 06/20/20 10/04/20 Rx albuterol sulfate 90 mcg/actuation 1 - 2 puff INHALATION Q4H PRN #18 06/20/20 10/04/20 Rx aerosol inhaler gm amlodipine 5 mg tablet 5 mg PO QPM #90 tab 06/20/20 10/04/20 Rx cyanocobalamin (vitamin B-12) 1 tab PO DAILY 10/04/20 10/04/20 History fluticasone propion-salmeterol 1 ea INHALATION BID 10/04/20 10/04/20 History [Wixela Inhub] loratadine [Claritin] 10 mg PO DAILY PRN 10/04/20 10/04/20 History Patient History Medical History (Updated 10/05/20 @ 00:57 by Justin Polo DO) Asthma PRN inhaler only, normally uses 1-2x per week Chronic back pain GERD (gastroesophageal reflux disease) High cholesterol History of colon cancer History of endometrial cancer Hypertension Hypothyroid Leukocytosis Surgical History Difficult airway for intubation Pt reports "failed intubation" with colon resection in 1989'. Lumbar surgery at [facility] in 2013 -- Glidescope #3, ETT 7.0, grade view II. DL x 1 with Glidescope, atraumatic. H/O kyphoplasty T5 07/23/2019 History of anesthesia problem INTUBATION PROBLEM History of back surgery History of colon resection History of hysterectomy for cancer History of incisional hernia repair X2 History of subtotal thyroidectomy History of total left knee replacement History of total right knee replacement Family History Grandmother (Paternal) Colorectal cancer Family/Other Coronary heart disease Ovarian cancer Mother Myocardial infarction Father Myocardial infarction Denies family history of Prostate cancer Breast cancer Social History Smoking Status: Unknown if ever smoked Second Hand Exposure: Yes (CHILD AND YOUNG ADULT); Do You Dip or Chew Tobacco: No; Hx Alcohol Use: No Hx Substance Use: No Preferred Language: Micronesian Communication Ability: Effective Visual Impairment: No Limitations Hearing Ability: Normal 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 Beliefs That Will Affect Care: None marital status: Current Living Situation: Spouse current occupational status: retired Other Information That Helps Us Care for You: No Feels Safe at Home: Yes Safety Concerns: Feels Safe At This Time Seatbelt Use: always Assistive Devices: Glasses Review of Systems Review of Systems: All systems reviewed & are unremarkable except as noted in HPI & below Physical Exam Constitutional: well developed and well nourished; no acute distress Respiratory: normal respiratory effort; no respiratory distress Cardiovascular: Rate/Rhythm: regular rate Gastrointestinal (Abdomen): Inspection/Auscultation: abdomen not distended Musculoskeletal: Head/Neck/Chest: head atraumatic Skin: no rashes, warm and dry Neurologic: awake Psychiatric: Orientation: alert Results & Data ([facility]) Vital Signs (Past 12 Hours) Vital Signs Temp Pulse Pulse Resp BP BP Pulse Ox 10/05/20 03:26 36.6 C 67 18 124/70 92 10/05/20 02:05 36.7 C 18 146/72 H 96 10/05/20 01:27 70 10/05/20 00:30 75 18 165/89 H 94 10/05/20 00:00 75 18 168/89 H 96 10/04/20 23:30 69 18 158/89 H 94 10/04/20 23:00 77 19 156/97 H 94 10/04/20 22:00 82 20 148/65 H 95 10/04/20 21:30 80 22 135/63 93 10/04/20 21:24 76 20 143/69 H 92 10/04/20 20:49 20 10/04/20 19:58 37.9 C H 86 20 139/68 92 I did review her CAT scan Await final reading on MRCP PG Care Time/CCT Total # of Minutes Spent Total Time Spent with Patient: Total time spent is greater than 50% in coordination of care (as documented) at patient's floor/unit and/or counseling patient: Coding Level of Care Code None Diagnoses Sepsis A41.9 Sepsis acute organ dysfunction status: unspecified Sepsis type: sepsis due to unspecified organism (1) Sepsis Sepsis acute organ dysfunction status: unspecified Sepsis type: sepsis due to unspecified organism Qualified Code(s): A41.9 - Sepsis, unspecified organism
[2020-10-05 07:17] LABS: Albumin Level 2.8 gm/dl (3.4-5.0); BUN Creatinine Ratio 19.1 (10-20); Calcium 7.2 mg/dl (8.5-10.1); Creatinine Clr Calc Pharmacy 56.6 ml/min; Est GFR (African American) 75.6; Est GFR (Non-African American) 65.3; Magnesium 2.6 mg/dl (1.8-2.4); Potassium 3.9 mmol/L (3.5-5.1)
[2020-10-05 07:22] LABS: Bilirubin,Total 1.9 mg/dl (0.2-1); Globulin 2.8 gm/dl (2.5-4.0); Phosphorus 3.4 mg/dl (2.5-4.9); Total Protein 5.6 gm/dl (6.4-8.2)
[2020-10-05] MEDS: PANTOprazole 40 MG TAB PO SCH (08:33)
[2020-10-05] MEDS: FLUTICASONE/VILANTEROL 100/25MCG 14 PUFFS/INHALER INH SCH (08:33)
--- NOTE | 2020-10-05 09:11 | CT Scan Report ---
ABDOMEN AND PELVIS CT WITH IV CONTRAST CT DOSE: 942.81 mGy.cm HISTORY: eval for elevated lfts, fever TECHNIQUE: Multiaxial CT images of the abdomen and pelvis were performed following the use of intrave nous contrast. A dose lowering technique was utilized adhering to the principles of ALARA. COMPARISON STUDY: Abdomen and pelvis CT 05/06/2017. FINDINGS: Calcified granuloma seen within the right lower lobe. Mild dependent changes seen within th e lung bases. No pneumoperitoneum. No pneumatosis. L4-5 posterior decompression and fusion with pedic le screws and rods. L2 vertebroplasty, unchanged. The heart is mildly enlarged. Multiple punctate renuka cified granulomas seen within the liver and spleen. The adrenal glands and pancreas are unremarkable. No hydronephrosis. No change in the bilateral renal hypodense lesions. Therefore, these favor cysts. There are multiple small parapelvic cysts within the kidneys. No gallbladder wall thickening. There appears to be a small stone at the gallbladder neck. Normal caliber common bile duct. There is mild m otion artifact. No retroperitoneal lymphadenopathy. Moderate calcified plaque within the normal calib er abdominal aorta. Small midline ventral hernia containing a knuckle of the transverse colon. The bl adder is unremarkable. The uterus is surgically absent. Prior rectosigmoid anastomosis. No bowel wall thickening or obstruction. Normal appendix. Old L3 compression deformity, unchanged. IMPRESSION: 1. No significant change compared to the prior study. 2. No bowel wall thickening or obstruction. 3. Cholelithiasis. No gallbladder wall thickening. 4. Small midline ventral hernia containing a knuckle of the transverse colon. 5. Normal appendix. 6. Postoperative changes as described above. ACT 112: Negative or not required by law. Electronically signed by: Keegan Lomeli M.D. 10/05/2020 9:10 AM
--- NOTE | 2020-10-05 09:15 | Magnetic Resonance Report ---
MR MRCP HISTORY: Right upper quadrant Abdominal pain, gallstones, elevated LFT, febrile TECHNIQUE: MRCP the abdomen was performed without contrast according to standard departmental protoco l. COMPARISON STUDY: Abdomen and pelvis CT 10/04/2020. FINDINGS: Vertebroplasty at old compression deformity at L2 as well as an old mild superior endplate compression deformity at L3. These remain unchanged. Suboptimal evaluation of the abdomen due to the motion artifact. Multiple T2 hyperintense lesions within the kidneys consistent with cysts. There are few small parapelvic cysts within the kidneys. L4-5 posterior fusion is again noted. No hepatic or s plenic lesions identified. The heart remains mildly enlarged. There is a small hiatus hernia. Probabl e punctate stone within the gallbladder neck. There is normal caliber common bile duct for age measur ing up to 5 mm. No definite filling defects in the common bile duct. There is an atrophic pancreas. T he main pancreatic duct is also normal in caliber. IMPRESSION: 1. There is a small stone at the gallbladder neck. 2. No gallbladder wall thickening. 3. Normal caliber common bile duct. No filling defects within the common bile duct. ACT 112: Negative or not required by law. Electronically signed by: Keegan Lomeli M.D. 10/05/2020 9:14 AM
--- NOTE | 2020-10-05 09:41 | XRay Report ---
XR chest 1V portable HISTORY: cough COMPARISON: Chest 07/04/2019. FINDINGS: No pneumothorax. No pleural effusions. The heart remains mildly enlarged. Interval vertebro plasty within the upper thoracic spine. Calcified granuloma within the right lower lobe. No new focal lung consolidations to suggest pneumonia. No evidence for pulmonary edema. IMPRESSION: Stable cardiomegaly. Otherwise, no acute process within the chest. ACT 112: Negative or not required by law. Electronically signed by: Keegan Lomeli M.D. 10/05/2020 9:40 AM
--- NOTE | 2020-10-05 10:36 | Hospitalist Progress Note ---
Date of Service October 05, 2020 Assessment & Plan (1) Disease of gallbladder: 84 yo F with PMHx Asthma, GERD, Colon Cancer, Endometrial Cancer, HTN admitted for suspected acute cholecystitis and undergoing treatment for bacteremia likely secondary to the same. Bacteremia due to cholecystitis, Cholelithiasis: -On admission with complaints of RUQ pain and nausea. -Initial LFTs: AST 638, ALT 349, Alk Phos 183, Tbili 2.4. -Noted to have elevated lactate to 2.1, and elevated procal to 4.92. -CTAP showed cholelithiasis without gallbladder wall thickening. -MRCP showed small gallbladder neck stone. -LFTs and Tbili downtrending with IV Abx; was started on Cipro/Flagyl IV on admission due to several Abx allergies. -BCx drawn 10/04 with 1/2 tubes growing GNR, with further speciation to follow. Continue Cipro/Flagyl IV. -Repeat blood cultures drawn today. -GI consulted and appreciate recommendations: consider EUS vs. IOC if no continued improvement in LFTs with IV Abx; suspect obstructive stone has passed. -General Surgery consulted: likely cholecystectomy tomorrow. -Zofran PRN nausea. -Clear liquid diet today with NPO at midnight. GERD: -Continue home PPI. Hypothyroidism: -Continue home Levothyroxine 75mcg. HLD: -Hold home pravastatin due to transaminitis. Asthma: -No respiratory symptoms, benign exam. -Continue home inhalers. Hypertension: -Continue home amlodipine, atenolol. Code Status: FULL CODE FEN: Clear liquid diet, NPO at midnight for intervention tomorrow DVT: SCDs, hold chemoprophylaxis at this time for possible intervention Dispo: Med/Surg Telemetry for IV antibiotics Admission and Anticipated Discharge Date Admission Date: October 04, 2020 Supervising Physician Co-Signing Physician Notes Patient seen and examined independently of PGY-2 Dr. Campbell. Agree with history, exam findings, assessment and plan of care as outlined. In brief, Ms. Brunson is an 84 year old female with history of hypertension and a sthma admitted with abdominal pain found to have cholangitis. Today, she feels well. Has mild RUQ pain, but overall pain is considerably improved compared to admission. Denies fevers, chills, nausea, vomiting. Vital signs and nursing notes reviewed. Non-toxic appearing. + bowel sounds, +mild RUQ tenderness. No rebounding or guarding. 1. cholangitis secondary to GB neck stone. switched from levaquin to cipro + metronidazole. Appreciate GI recs. Plans for lap lis with gen surg tomorrow. LFTs and WBCs are trending down. 2. gram neg bacteremia. 2/2 bottles growing gram neg bacteremia. 3. HTN. continue home atenolol, amlodipine. 4. asthma. Continue home inhalers and montelukast. Dispo: pending lap lis. PT/OT after surgery. Subjective Patient without acute events overnight, has been afebrile and hemodynamically stable. Reports that she feels hungry. Her abdominal pain is significantly improved as compared to admission, and only is painful with RUQ palpation. No nausea or vomiting. No subjective fevers or chills. No SOB, chest pain, dizziness, headaches. Reports that her abdominal pain worsened the last few days at home especially with eating. Review of Systems Review of Systems: All systems reviewed & are unremarkable except as noted in HPI & below Constitutional: no fever, no chills and no malaise Respiratory: no cough and no dyspnea Cardiovascular: no chest pain, no palpitations and no edema Gastrointestinal: + abdominal pain (improved); no constipation and no diarrhea/loose stools Genitourinary: no dysuria and no hematuria Physical Exam Constitutional: WD/WN, vitals as above Respiratory: normal respiratory effort, lungs clear to auscultation Cardiovascular: RRR, no murmur, no edema Gastrointestinal (Abdomen): Inspection/Auscultation: abdomen normal to inspection and normal bowel sounds; abdomen not distended Percussion/Palpation: + abdomen tender (RUQ) and abdomen soft; no guarding Skin: no rashes, warm and dry Psychiatric: A+Ox3, euthymic affect Results & Data Results & Data ([facility]) Vital Signs (Past 12 Hours) Vital Signs Temp Pulse Pulse Resp BP BP Pulse Ox 10/05/20 08:01 36.9 C 66 20 133/69 94 10/05/20 07:10 64 10/05/20 03:26 36.6 C 67 18 124/70 92 10/05/20 02:05 36.7 C 18 146/72 H 96 10/05/20 01:27 70 10/05/20 00:30 75 18 165/89 H 94 10/05/20 00:00 75 18 168/89 H 96 10/04/20 23:30 69 18 158/89 H 94 10/04/20 23:00 77 19 156/97 H 94 Resident Activity Tracking Resident Involvement: Resident Care Provided Care Provided: Adult Hospital Medicine
--- NOTE | 2020-10-05 11:52 | Gastrointestinal Consultation ---
Date of Consultation October 05, 2020 History of Present Illness Attending Physician: Jayne Abrams DO Reason for consult: bile duct obstruction HPI: 84 yo female admit yesterday with 1 d h/o n/v/abd pain. Admission VS unremarkable, admission labs showed WBC 18, TB 2.4, AST 638/ALT 349/AP 183, procalcitonin 4.92. Lipase was not checked. LFT's prev nl in June 2020. CT showed small stone at neck of GB without GB distention, no GB wall thick, nl CBD, nl pancreas. MRCP again showed small stone at GB neck, nl CBD. Overnight, given cipro + Flagyl. LFT's improved this am with bismark 1.9 and AST 271. Seen by surg service this am who rec in pt lis. PE: comfortable, Comfortable HEENT: OC clear CV: RRR Resp: CTA Abd: Soft NT Extrem: no edema, no c/c Labs: BUn 16, INR WNL, albumin 2.8, hgb 11.3 A/P: Choledocholithiasis, ddx includes Mirizzi's - Stone appears to have passed, but can consider EUS vs IOC if bili increases tomorrow or IOC unsuccesful. Check lipase, follow LFTs. Clears today. Given leukocytosis/procalcitonin, cont empiric abx. Allergies Allergy/AdvReac Type Severity Reaction Status Date / Time nabumetone Allergy Severe SHORTNESS Verified 10/04/20 21:28 OF BREATH naproxen Allergy Severe SOB, BUT Verified 10/04/20 21:28 TAKES ASA AT HOME rofecoxib Allergy Severe SHORTNESS Verified 10/04/20 21:28 OF BREATH valdecoxib Allergy Severe SHORTNESS Verified 10/04/20 21:28 OF BREATH Cephalosporins Allergy Intermediate HIVES Verified 10/04/20 21:28 Penicillins Allergy Intermediate RASH,HIVES Verified 10/04/20 21:28 codeine Allergy Mild RASH Verified 10/04/20 21:28 methimazole Allergy Mild itching Verified 10/04/20 21:28 Sulfa (Sulfonamide Allergy Mild RASH Verified 10/04/20 21:28 Antibiotics) azithromycin [From Zithromax] AdvReac Intermediate DIARRHEA Verified 10/04/20 21:28 diphenhydramine AdvReac Intermediate CONFUSION Verified 10/04/20 21:28 [From Benadryl] nitrofurantoin AdvReac Mild VOMITING Verified 10/04/20 21:28 nickel AdvReac Unknown Rash Verified 10/04/20 21:28 Home Medications Medication Instructions Recorded Confirmed Type aspirin 81 mg tablet,delayed 81 mg PO QAM 01/24/19 10/04/20 History release calcium carbonate 600 mg calcium 1,200 mg PO QAM tab 01/24/19 10/04/20 History (1,500 mg) tablet cholecalciferol (vitamin D3) 25 1,000 units PO QAM 01/24/19 10/04/20 History mcg (1,000 unit) capsule ascorbic acid (vitamin C) [Vitamin 500 mg PO QAM 02/07/19 10/04/20 History C] atenolol 50 mg tablet 50 mg PO HS #90 tab 12/19/19 10/04/20 Rx esomeprazole magnesium 40 mg 40 mg PO QAM #90 cap 12/19/19 10/04/20 Rx capsule,delayed release fluticasone propionate 50 2 sprays INTNAS DAILY PRN #54.6 ml 12/19/19 10/04/20 Rx mcg/actuation nasal spray,suspension levothyroxine 75 mcg tablet 75 mcg PO QAM #90 tab 12/19/19 10/04/20 Rx montelukast 10 mg tablet 10 mg PO QPM #90 tab 12/19/19 10/04/20 Rx pravastatin 40 mg tablet 40 mg PO HS #90 tab 12/19/19 10/04/20 Rx albuterol sulfate 2.5 mg INH TID PRN #270 ml 06/20/20 10/04/20 Rx albuterol sulfate 90 mcg/actuation 1 - 2 puff INHALATION Q4H PRN #18 06/20/20 10/04/20 Rx aerosol inhaler gm amlodipine 5 mg tablet 5 mg PO QPM #90 tab 06/20/20 10/04/20 Rx cyanocobalamin (vitamin B-12) 1 tab PO DAILY 10/04/20 10/04/20 History fluticasone propion-salmeterol 1 ea INHALATION BID 10/04/20 10/04/20 History [Wixela Inhub] loratadine [Claritin] 10 mg PO DAILY PRN 10/04/20 10/04/20 History Patient History Medical History (Updated 10/05/20 @ 00:57 by Justin Polo DO) Asthma PRN inhaler only, normally uses 1-2x per week Chronic back pain GERD (gastroesophageal reflux disease) High cholesterol History of colon cancer History of endometrial cancer Hypertension Hypothyroid Leukocytosis Surgical History Difficult airway for intubation Pt reports "failed intubation" with colon resection in . Lumbar surgery at [facility] in 2012 -- Glidescope #3, ETT 7.0, grade view II. DL x 1 with Glidescope, atraumatic. H/O kyphoplasty T5 07/23/2019 History of anesthesia problem INTUBATION PROBLEM History of back surgery History of colon resection History of hysterectomy for cancer History of incisional hernia repair X2 History of subtotal thyroidectomy History of total left knee replacement History of total right knee replacement Family History Grandmother (Paternal) Colorectal cancer Family/Other Coronary heart disease Ovarian cancer Mother Myocardial infarction Father Myocardial infarction Denies family history of Prostate cancer Breast cancer Social History Smoking Status: Unknown if ever smoked Second Hand Exposure: Yes (CHILD AND YOUNG ADULT); Do You Dip or Chew Tobacco: No; Hx Alcohol Use: No Hx Substance Use: No Preferred Language: British Communication Ability: Effective Visual Impairment: No Limitations Hearing Ability: Normal Storm Door Maker Required: No Beliefs That Will Affect Care: None marital status: Current Living Situation: Spouse current occupational status: retired Other Information That Helps Us Care for You: No Feels Safe at Home: Yes Safety Concerns: Feels Safe At This Time Seatbelt Use: always Assistive Devices: Glasses Results & Data ([facility]) Vital Signs (Past 12 Hours) Vital Signs Temp Pulse Pulse Resp BP BP Pulse Ox 10/05/20 11:30 37.0 C 75 20 148/72 H 94 10/05/20 08:01 36.9 C 66 20 133/69 94 10/05/20 07:10 64 10/05/20 03:26 36.6 C 67 18 124/70 92 10/05/20 02:05 36.7 C 18 146/72 H 96 10/05/20 01:27 70 10/05/20 00:30 75 18 165/89 H 94 10/05/20 00:00 75 18 168/89 H 96
--- NOTE | 2020-10-05 12:37 | Surgery Progress Note ---
Date of Service October 05, 2020 Assessment & Plan Admission and Anticipated Discharge Date Admission Date: Symptomatically patient is feeling better She did have a blood culture growing bacteria Her liver functions have improved some-her MRCP did show evidence of distal common bile duct obstruction I have added her to the OR schedule tomorrow for laparoscopic cholecystectomy We will check her laboratories in the morning-she may need GI intervention depending on her progress Results & Data ([facility]) Vital Signs (Past 12 Hours) Vital Signs Temp Pulse Pulse Resp BP Pulse Ox 10/05/20 11:30 37.0 C 75 20 148/72 H 94 10/05/20 08:01 36.9 C 66 20 133/69 94 10/05/20 07:10 64 10/05/20 03:26 36.6 C 67 18 124/70 92 10/05/20 02:05 36.7 C 18 146/72 H 96 10/05/20 01:27 70 PG Care Time/CCT Total # of Minutes Spent Total Time Spent with Patient: Total time spent is greater than 50% in coordination of care (as documented) at patient's floor/unit and/or counseling patient: Coding Level of Care Code None
--- NOTE | 2020-10-05 15:14 | Electrocardiogram Report ---
Test Reason : Blood Pressure : / mmHG Vent. Rate : 077 BPM Atrial Rate : 077 BPM P-R Int : 180 ms QRS Dur : 086 ms QT Int : 394 ms P-R-T Axes : 060 -24 012 degrees QTc Int : 445 ms Normal sinus rhythm Voltage criteria for left ventricular hypertrophy Abnormal ECG When compared with ECG of 04-JUL-2019 23:12, No significant change was found Confirmed by Cleveland Pollard ([id number]) on 10/05/2020 3:13:41 PM Referred By: REFERRED SELF Confirmed By:Cleveland Pollard
[2020-10-05] MEDS: CIPROFLOXACIN / D5W 400 MG/200 ML BAG IV SCH (17:36)
[2020-10-05] MEDS: MONTELUKAST SODIUM 10 MG TABLET PO SCH (20:22)
[2020-10-05] MEDS: PRAVASTATIN SOD 40 MG TAB PO SCH (20:22)
[2020-10-05] MEDS: ATENOLOL 50 MG TABLET PO SCH (20:23)
[2020-10-05] MEDS: amLODIPine BESYLATE 5 MG TAB PO SCH (20:23)
[2020-10-06] MEDS: metroNIDAZOLE 500 MG/100 ML BAG IV SCH ×3 (03:00→18:30)
--- NOTE | 2020-10-06 03:37 | Billing Data ---
Date of Service October 06, 2020 Coding Level of Care Code 75539 Initial Inpt Care Lvl 3
--- NOTE | 2020-10-06 06:11 | History & Physical Bridge Note ---
Date of Service October 06, 2020 History & Physical Bridge Note I have examined the patient, reviewed the History & Physical and in the interval since the performance of the History & Physical I have noted the following changes of clinical significance: no changes noted
[2020-10-06] MEDS: CIPROFLOXACIN / D5W 400 MG/200 ML BAG IV SCH ×2 (06:14→18:30)
[2020-10-06] MEDS: LEVOTHYROXINE SODIUM 75 MCG TABLET PO SCH (06:14)
[2020-10-06 06:22] LABS: Basophils # (auto) 0.03 K/uL (0-0.2); Basophils % (auto) 0.3 %; Eosinophils # (auto) 0.19 K/uL (0-0.5); Hematocrit (blood only) 35.2 % (37-47); Hemoglobin 12.2 g/dL (12.0-16.0); Immature Granulocytes # (auto) 0.03 K/uL (0.00-0.02); Immature Granulocytes % (auto) 0.3 %; Lymphocytes # (auto) 1.76 K/uL (1.2-3.4); Lymphocytes % (auto) 18.2 %; Mean Corpuscular Hemoglobin 30.3 pg (25-34); Mean Corpuscular Hgb Conc 34.7 g/dL (32-36); Mean Corpuscular Volume 87.3 fL (80-100); Mean Platelet Volume 9.4 fL (7.4-10.4); Monocytes # (auto) 0.75 K/uL (0.11-0.59); Monocytes % (auto) 7.8 %; Neutrophils # (auto) 6.91 K/uL (1.4-6.5); Neutrophils % (auto) 71.4 %; Platelet Count 198 K/uL (130-400); RDW Coefficient of Variation 13.4 % (11.5-14.5); RDW Standard Deviation 43.3 fL (36.4-46.3); Red Blood Count 4.03 M/uL (4.2-5.4); White Blood Count 9.67 K/uL (4.8-10.8)
[2020-10-06 06:55] LABS: Albumin Level 3.1 gm/dl (3.4-5.0); BUN Creatinine Ratio 11.6 (10-20); Calcium 8.1 mg/dl (8.5-10.1); Est GFR (African American) 69.4; Est GFR (Non-African American) 59.9; Potassium 3.8 mmol/L (3.5-5.1)
[2020-10-06 07:06] LABS: Albumin Globulin Ratio 1.1 (0.9-2); Globulin 2.8 gm/dl (2.5-4.0); Total Protein 5.9 gm/dl (6.4-8.2)
--- NOTE | 2020-10-06 08:12 | Medical Student Progress Note ---
Date of Service October 06, 2020 Assessment & Plan (1) Disease of gallbladder: 84 yo F with PMHx Asthma, GERD, Colon Cancer, Endometrial Cancer, HTN admitted for suspected acute cholecystitis and undergoing treatment for bacteremia likely secondary to the same. Bacteremia due to cholecystitis, Cholelithiasis: -On admission with complaints of RUQ pain and nausea. -Initial LFTs: AST 638, ALT 349, Alk Phos 183, Tbili 2.4. -LFTs today: AST 125, ALT 161, Alk phos 149, Tbili 1.0 -On admission, she was noted to have elevated lactate to 2.1, and elevated procal to 4.92, -CTAP showed cholelithiasis without gallbladder wall thickening. -MRCP showed small gallbladder neck stone. -LFTs and Tbili downtrending with IV Abx; was started on Cipro/Flagyl IV on admission due to several Abx allergies. -BCx drawn 10/04 with 1/2 tubes growing GNR, with no sensitivities to follow. -BCx drawn 10/05 not growing anaerobic or aerobic bacteria. Continue Cipro/Flagyl IV. -General Surgery consulted: Laparoscopic Cholecystectomy and cholangiogram performed this morning with Dr. Varela. ERCP scheduled for tomorrow morning with Dr. Child. - Will be NPO at midnight. -Zofran PRN for nausea. GERD: -Continue home PPI. Hypothyroidism: -Continue home Levothyroxine 75mcg. HLD: -Hold home pravastatin due to transaminitis. Asthma: -No respiratory symptoms, benign exam. -Continue home inhalers. Hypertension: -Continue home amlodipine, atenolol. Code Status: FULL CODE FEN: NPO at midnight for intervention tomorrow DVT: SCDs, hold chemoprophylaxis at this time for possible intervention Dispo: Med/Surg Telemetry for IV antibiotics (2) Nausea: (3) GERD (gastroesophageal reflux disease): (4) Hyperlipidemia: (5) Hypertension: (6) Hyperbilirubinemia: Admission and Anticipated Discharge Date Admission Date: October 04, 2020 Supervising Attestation I personally examined the patient and verified all arreguin points of history and exam, discussed case, and agree with decision making with Angle SWANSON Feeling good overall postop. No new complaints. Vitals noted, in general she is awake and alert pleasant no distress. HEENT normocephalic atraumatic mucous membranes moist. Breathing unlabored no accessory muscle use good effort. Skin shows no rashes no pallor or icterus. Neuro shows no focal deficits. Acute cholecystitis with sepsis/bacteremia present on admissionnow improving, postop, awaiting sensitivities from blood cultures to be able to streamline antibiotics. Otherwise as above. DVT prophylaxisSCDs Subjective Patient was sleeping comfortably in her bed. Upon awakening she is alert and oriented. She had no acute events or concerns overnight. She has been afebrile and hemodynamically stable. She states that she has no abdominal pain, and is only tender to palpation in the RUQ. No nausea or vomiting. No chest pain or SOB. No subjective fevers or chills. She has not had a BM since Tuesday. She noted urinary frequency throughout the night. Review of Systems Review of Systems: All systems reviewed & are unremarkable except as noted in HPI & below Constitutional: no fever, no chills and no malaise Respiratory: no dyspnea Cardiovascular: no chest pain and no edema Gastrointestinal: + abdominal pain (improved); no constipation and no diarrhea/loose stools Has not had a BM since admission. Genitourinary: + urinary frequency; no dysuria and no hematuria Physical Exam Constitutional: WD/WN, vitals as above well developed and well nourished; no acute distress Eyes: PERRL, conjunctivae normal, anicteric sclerae normal visual núñez by confrontation ENMT: external ear and nose normal, oropharynx normal Respiratory: normal respiratory effort, lungs clear to auscultation normal respiratory effort; no respiratory distress Cardiovascular: RRR, no murmur, no edema Rate/Rhythm: regular rate and regular rhythm Heart Sounds: no gallop, no murmur and no cardiac rub Extremities: no edema Gastrointestinal (Abdomen): Inspection/Auscultation: abdomen normal to inspection and + hypoactive bowel sounds; abdomen not distended Percussion/Palpation: + abdomen tender (RUQ) and abdomen soft; no guarding and abdomen not rigid Musculoskeletal: no cyanosis or clubbing, extremities motor strength 5/5 Skin: no rashes, warm and dry Neurologic: moves all extremities and awake Psychiatric: A+Ox3, euthymic affect Orientation: alert Results & Data ([facility]) Vital Signs (Past 12 Hours) Vital Signs Temp Pulse Pulse Resp BP Pulse Ox 10/06/20 07:49 36.7 C 63 18 158/66 H 90 10/06/20 03:01 36.7 C 72 20 136/65 93 10/05/20 22:20 83
[2020-10-06] MEDS: FLUTICASONE/VILANTEROL 100/25MCG 14 PUFFS/INHALER INH SCH (08:13)
[2020-10-06] MEDS: PANTOprazole 40 MG TAB PO SCH (08:13)
[2020-10-06] MEDS ORDERED: NEOSTIGMINE METHYLSULFATE 5 MG/5 ML SYR ONE (09:05)
[2020-10-06] MEDS ORDERED: GLYCOPYRROLATE 0.2 MG/ML VIAL ONE (09:05)
[2020-10-06] MEDS ORDERED: DEXAMETHASONE SOD INJ 4 MG/ML VIAL ONE (09:05)
[2020-10-06] MEDS ORDERED: PROPOFOL IV EMULSION 10 MG/ML 20 ML VIAL IV ONE (09:05)
[2020-10-06] MEDS ORDERED: ONDANSETRON INJ 2 MG/ML 2 ML VIAL ONE (09:05)
[2020-10-06] MEDS ORDERED: ROCURONIUM BROMIDE 10 MG/ML 5 ML VIAL IV ONE (09:05)
[2020-10-06] MEDS ORDERED: LIDOCAINE HCL 2% 2 ML VIAL/AMP(20MG/ML) INFIL ONE (09:05)
[2020-10-06] MEDS ORDERED: fentaNYL citrate 100 MCG/2 ML VIAL ONE (09:06)
[2020-10-06] MEDS ORDERED: ATROPINE SULFATE 0.1 MG/ML 10ML SYR IV PRN (09:14)
[2020-10-06] MEDS ORDERED: ONDANSETRON INJ 2 MG/ML 2 ML VIAL IV PRN (09:14)
[2020-10-06] MEDS ORDERED: ePHEDrine sulfate 50 MG/ML AMP IV PRN (09:14)
--- NOTE | 2020-10-06 09:17 | Anesthesiology Consultation ---
Date of Service October 06, 2020 Assessment & Plan (1) Encounter for pre-operative examination: Chart Review Chart Review: Acceptable Risk for Surgery and Patient NOT seen in Pre Admission Testing Consults Requested none History Surgery Operation Date: 10/06/20 09:40 Proposed Procedures p Laparoscopic Cholecystectomy, Possible Cholangiogram, Possible ERCP - Raul Varela MD, FACS Height/Weight Height: 5 ft 6 in Weight: 90.7 kg Allergies Allergy/AdvReac Type Severity Reaction Status Date / Time nabumetone Allergy Severe SHORTNESS Verified 10/04/20 21:28 OF BREATH naproxen Allergy Severe SOB, BUT Verified 10/04/20 21:28 TAKES ASA AT HOME rofecoxib Allergy Severe SHORTNESS Verified 10/04/20 21:28 OF BREATH valdecoxib Allergy Severe SHORTNESS Verified 10/04/20 21:28 OF BREATH Cephalosporins Allergy Intermediate HIVES Verified 10/04/20 21:28 Penicillins Allergy Intermediate RASH,HIVES Verified 10/04/20 21:28 codeine Allergy Mild RASH Verified 10/04/20 21:28 methimazole Allergy Mild itching Verified 10/04/20 21:28 Sulfa (Sulfonamide Allergy Mild RASH Verified 10/04/20 21:28 Antibiotics) azithromycin [From Zithromax] AdvReac Intermediate DIARRHEA Verified 10/04/20 21:28 diphenhydramine AdvReac Intermediate CONFUSION Verified 10/04/20 21:28 [From Benadryl] nitrofurantoin AdvReac Mild VOMITING Verified 10/04/20 21:28 nickel AdvReac Unknown Rash Verified 10/04/20 21:28 Medications Home Medications Medication Instructions Recorded Confirmed Last Taken aspirin 81 mg tablet,delayed 81 mg PO QAM 01/24/19 10/04/20 10/04/20 release calcium carbonate 600 mg calcium 1,200 mg PO QAM tab 01/24/19 10/04/20 10/04/20 (1,500 mg) tablet cholecalciferol (vitamin D3) 25 1,000 units PO QAM 01/24/19 10/04/20 10/04/20 mcg (1,000 unit) capsule ascorbic acid (vitamin C) [Vitamin 500 mg PO QAM 02/07/19 10/04/20 10/04/20 C] atenolol 50 mg tablet 50 mg PO HS #90 tab 12/19/19 10/04/20 10/03/20 esomeprazole magnesium 40 mg 40 mg PO QAM #90 cap 12/19/19 10/04/20 10/04/20 capsule,delayed release fluticasone propionate 50 2 sprays INTNAS DAILY PRN #54.6 ml 12/19/19 10/04/20 Unknown mcg/actuation nasal spray,suspension levothyroxine 75 mcg tablet 75 mcg PO QAM #90 tab 12/19/19 10/04/20 10/04/20 montelukast 10 mg tablet 10 mg PO QPM #90 tab 12/19/19 10/04/20 10/03/20 pravastatin 40 mg tablet 40 mg PO HS #90 tab 12/19/19 10/04/20 10/03/20 albuterol sulfate 2.5 mg INH TID PRN #270 ml 06/20/20 10/04/20 Unknown albuterol sulfate 90 mcg/actuation 1 - 2 puff INHALATION Q4H PRN #18 06/20/20 10/04/20 Unknown aerosol inhaler gm amlodipine 5 mg tablet 5 mg PO QPM #90 tab 06/20/20 10/04/20 10/03/20 cyanocobalamin (vitamin B-12) 1 tab PO DAILY 10/04/20 10/04/20 10/04/20 fluticasone propion-salmeterol 1 ea INHALATION BID 10/04/20 10/04/20 10/04/20 [Wixela Inhub] loratadine [Claritin] 10 mg PO DAILY PRN 10/04/20 10/04/20 10/04/20 Active Medications Generic Name Dose Route Start Last Admin Trade Name Freq PRN Reason Stop Dose Admin Amlodipine Besylate 5 mg 10/05/20 21:00 10/05/20 20:23 Amlodipine Besylate 5 Mg Tab PO 11/04/20 20:59 5 mg QPM SUHAS Administration Atenolol 50 mg 10/05/20 21:00 10/05/20 20:23 Atenolol 50 Mg Tablet PO 11/04/20 20:59 50 mg HS SUHAS Administration Fluticasone/Vilanterol 1 puffs 10/05/20 09:00 10/06/20 08:13 Fluticasone/Vilanterol 100/25mcg 14 Puffs/Inhaler INH 11/04/20 08:59 1 puffs DAILY SUHAS Administration Metronidazole 500 mg in 100 mls @ 100 mls/hr 10/05/20 03:00 10/06/20 04:04 Flagyl IV 10/15/20 02:59 Infused Q8H SUHAS Infusion Ciprofloxacin 400 mg in 200 mls @ 100 mls/hr 10/05/20 18:00 10/06/20 08:15 Cipro / D5w IV 10/15/20 17:59 Infused Q12H SUHAS Infusion Protocol Levothyroxine Sodium 75 mcg 10/05/20 06:30 10/06/20 06:14 Levothyroxine Sodium 75 Mcg Tablet PO 11/04/20 06:29 75 mcg DAILYBB SUHAS Administration Montelukast Sodium 10 mg 10/05/20 21:00 10/05/20 20:22 Montelukast Sodium 10 Mg Tablet PO 11/04/20 20:59 10 mg QPM SUHAS Administration Pantoprazole Sodium 40 mg 10/05/20 09:00 10/06/20 08:13 Pantoprazole 40 Mg Tab PO 11/04/20 08:59 40 mg QAM SUHAS Administration Pravastatin Sodium 40 mg 10/05/20 21:00 10/05/20 20:22 Pravastatin Sod 40 Mg Tab PO 11/04/20 20:59 40 mg HS SUHAS Administration NPO Date Last Intake of Fluids: 10/05/20 Time Last Intake of Fluids: 23:30 Date Last Intake of Solids: 10/05/20 Time Last Intake of Solids: 18:00 Past Medical History Medical History Asthma PRN inhaler only, normally uses 1-2x per week Chronic back pain GERD (gastroesophageal reflux disease) High cholesterol History of colon cancer History of endometrial cancer Hypertension Hypothyroid Leukocytosis Exercise / Class Metabolic Activity II 4-5 Yardwork/Stairs/Walk up hill Past Family History Family History Grandmother (Paternal) Colorectal cancer Family/Other Coronary heart disease Ovarian cancer Mother Myocardial infarction Father Myocardial infarction Denies family history of Prostate cancer Breast cancer Past Surgical History Surgical History Difficult airway for intubation Pt reports "failed intubation" with colon resection in . Lumbar surgery at [facility] in 2013 -- Glidescope #3, ETT 7.0, grade view II. DL x 1 with Glidescope, atraumatic. H/O kyphoplasty T5 07/23/2019 History of anesthesia problem INTUBATION PROBLEM History of back surgery History of colon resection History of hysterectomy for cancer History of incisional hernia repair X2 History of subtotal thyroidectomy History of total left knee replacement History of total right knee replacement Past Anesthesia History Difficult Airway and No Family Hx of Anesthesia Complications History of PONV No Hx of PONV and No Hx of Motion Sickness Social History Smoking Status: Unknown if ever smoked Do You Dip or Chew Tobacco: No Hx Alcohol Use: No Hx Substance Use: No Physical Exam Vital Signs Last Vital Signs Temp 36.7 C 10/06/20 07:49 Pulse 63 10/06/20 07:49 Resp 18 10/06/20 07:49 BP 158/66 H 10/06/20 07:49 Pulse Ox 90 10/06/20 07:49 Testing Laboratory Results 10/06/20 06:13 10/06/20 06:13 PT 10.5 Seconds (9.0-12.0) 10/04/20 20:40 INR 1.0 (0.9-1.1) 10/04/20 20:40 APTT 22.9 Seconds (21.0-31.0) 10/04/20 20:40 Urine Color Dark Yellow 10/04/20 20:40 Urine Appearance Cloudy (Clear) A 10/04/20 20:40 Urine pH 5.5 (4.5-7.5) 10/04/20 20:40 Ur Specific [place] 1.018 (1.000-1.030) 10/04/20 20:40 Urine Protein 2+ (Negative) H 10/04/20 20:40 Urine Glucose (UA) Negative (Negative) 10/04/20 20:40 Urine Ketones Trace (Negative) H 10/04/20 20:40 Urine Nitrite Negative (Negative) 10/04/20 20:40 Ur Leukocyte Esterase 2+ (Negative) H 10/04/20 20:40 Urine WBC (Auto) 10-30 /hpf (0-5) H 10/04/20 20:40 Urine RBC (Auto) 10-30 /hpf (0-4) H 10/04/20 20:40 U Hyaline Cast (Auto) 10-30 /lpf (0-5) H 10/04/20 20:40 U Epithel Cells (Auto) >30 /lpf (0-5) H 10/04/20 20:40 Urine Bacteria (Auto) Negative (Negative) 10/04/20 20:40 10/04/20 20:40 Urine Culture - Final Urine,Clean Catch More than three types of organisms present, all low counts mixed probable skin santy. No further identifications or sensitivities to follow. 10/04/20 21:33 Aerobic Blood Culture - Preliminary Blood No growth in Aerobic bottle after 24 hours. Anaerobic Blood Culture - Preliminary Gram negative bacilli 10/04/20 20:40 Aerobic Blood Culture - Preliminary Blood No growth in Aerobic bottle after 24 hours. Anaerobic Blood Culture - Preliminary Gram negative bacilli Electrocardiogram Date: 10/04/20 Findings: + NSR @ (12)
[2020-10-06] MEDS ORDERED: BUPIVACAINE 0.5 % 5 MG/1 ML MPF 30ML VIAL ONE (09:59)
[2020-10-06] MEDS ORDERED: SUCCINYLCHOLINE 100MG/5ML SYR IV ONE (10:39)
[2020-10-06] MEDS ORDERED: PHENYLEPHRINE HCL 10 MG/ML VIAL ONE (10:39)
[2020-10-06] MEDS ORDERED: OPTIRAY 300 INJ ONE (11:23)
[2020-10-06] MEDS ORDERED: SUGAMMADEX SODIUM 200 MG/2 ML VIAL IV ONE (11:51)
--- NOTE | 2020-10-06 11:52 | Post Operative Brief Note ---
PG Immediate Post Op with CF Date of Surgery October 06, 2020 Pre & Post Diagnosis Operation Date: 10/06/20 09:40 Pre-Op Diagnosis: Cholelithiasis Post-Op Diagnosis: Cholelithiasis, choledocholithiasis I identified the patient and participated in the time-out.: Yes Procedure Operation Date: 10/06/20 09:40 Actual Procedures p Laparoscopic Cholecystectomy with Cholangiogram(Not Applicable) - Raul Varlea MD, FACS Surgeon Raul Varela MD, FACS Mash Tub Cooker Operator jazz mitchell Estimated Blood Loss 20 Findings Consistent with Post-Op Diagnosis Specimens Specimen Description: A. Gallbladder Drains Marvin-Marquis Drain
[2020-10-06] MEDS ORDERED: ACETAMINOPHEN 1,000 MG/100 ML VIAL IV ONE (11:53)
[2020-10-06] MEDS: fentaNYL citrate 100 MCG/2 ML VIAL IV PRN ×4 (12:17→12:32)
[2020-10-06] MEDS ORDERED: HYDROmorphone INJ 0.5 MG/0.5 ML SYR IV PRN (13:09)
[2020-10-06] MEDS ORDERED: PROMETHAZINE HCL 12.5 MG in SODIUM CHLORIDE 0.9% 50 ML IV PRN (13:15)
[2020-10-06] MEDS: LACTATED RINGER'S 1,000 ML IV SCH ×2 (13:16→20:58)
--- NOTE | 2020-10-06 13:33 | Anesthesiology Consultation ---
Date of Service October 06, 2020 Assessment & Plan Chart Review Chart Review: Acceptable Risk for Surgery and Patient NOT seen in Pre Admission Testing History Surgery Operation Date: 10/06/20 09:40 Proposed Procedures p Laparoscopic Cholecystectomy, Possible Cholangiogram, Possible ERCP - Raul Varela MD, FACS Operation Date: 10/07/20 08:20 Proposed Procedures p Endoscopic Retrograde Cholangiopancreatogram - Joseph Child MD Height/Weight Height: 5 ft 6 in Weight: 90.7 kg Allergies Allergy/AdvReac Type Severity Reaction Status Date / Time nabumetone Allergy Severe SHORTNESS Verified 10/04/20 21:28 OF BREATH naproxen Allergy Severe SOB, BUT Verified 10/04/20 21:28 TAKES ASA AT HOME rofecoxib Allergy Severe SHORTNESS Verified 10/04/20 21:28 OF BREATH valdecoxib Allergy Severe SHORTNESS Verified 10/04/20 21:28 OF BREATH Cephalosporins Allergy Intermediate HIVES Verified 10/04/20 21:28 Penicillins Allergy Intermediate RASH,HIVES Verified 10/04/20 21:28 codeine Allergy Mild RASH Verified 10/04/20 21:28 methimazole Allergy Mild itching Verified 10/04/20 21:28 Sulfa (Sulfonamide Allergy Mild RASH Verified 10/04/20 21:28 Antibiotics) azithromycin [From Zithromax] AdvReac Intermediate DIARRHEA Verified 10/04/20 21:28 diphenhydramine AdvReac Intermediate CONFUSION Verified 10/04/20 21:28 [From Benadryl] nitrofurantoin AdvReac Mild VOMITING Verified 10/04/20 21:28 nickel AdvReac Unknown Rash Verified 10/04/20 21:28 Medications Home Medications Medication Instructions Recorded Confirmed Last Taken aspirin 81 mg tablet,delayed 81 mg PO QAM 01/24/19 10/04/20 10/04/20 release calcium carbonate 600 mg calcium 1,200 mg PO QAM tab 01/24/19 10/04/20 10/04/20 (1,500 mg) tablet cholecalciferol (vitamin D3) 25 1,000 units PO QAM 01/24/19 10/04/20 10/04/20 mcg (1,000 unit) capsule ascorbic acid (vitamin C) [Vitamin 500 mg PO QAM 02/07/19 10/04/20 10/04/20 C] atenolol 50 mg tablet 50 mg PO HS #90 tab 12/19/19 10/04/20 10/03/20 esomeprazole magnesium 40 mg 40 mg PO QAM #90 cap 12/19/19 10/04/20 10/04/20 capsule,delayed release fluticasone propionate 50 2 sprays INTNAS DAILY PRN #54.6 ml 12/19/19 10/04/20 Unknown mcg/actuation nasal spray,suspension levothyroxine 75 mcg tablet 75 mcg PO QAM #90 tab 12/19/19 10/04/20 10/04/20 montelukast 10 mg tablet 10 mg PO QPM #90 tab 12/19/19 10/04/20 10/03/20 pravastatin 40 mg tablet 40 mg PO HS #90 tab 12/19/19 10/04/20 10/03/20 albuterol sulfate 2.5 mg INH TID PRN #270 ml 06/20/20 10/04/20 Unknown albuterol sulfate 90 mcg/actuation 1 - 2 puff INHALATION Q4H PRN #18 06/20/20 10/04/20 Unknown aerosol inhaler gm amlodipine 5 mg tablet 5 mg PO QPM #90 tab 06/20/20 10/04/20 10/03/20 cyanocobalamin (vitamin B-12) 1 tab PO DAILY 10/04/20 10/04/20 10/04/20 fluticasone propion-salmeterol 1 ea INHALATION BID 10/04/20 10/04/20 10/04/20 [Wixela Inhub] loratadine [Claritin] 10 mg PO DAILY PRN 10/04/20 10/04/20 10/04/20 Active Medications Generic Name Dose Route Start Last Admin Trade Name Freq PRN Reason Stop Dose Admin Amlodipine Besylate 5 mg 10/05/20 21:00 10/05/20 20:23 Amlodipine Besylate 5 Mg Tab PO 11/04/20 20:59 5 mg QPM SUHAS Administration Atenolol 50 mg 10/05/20 21:00 10/05/20 20:23 Atenolol 50 Mg Tablet PO 11/04/20 20:59 50 mg HS SUHAS Administration Fluticasone/Vilanterol 1 puffs 10/05/20 09:00 10/06/20 08:13 Fluticasone/Vilanterol 100/25mcg 14 Puffs/Inhaler INH 11/04/20 08:59 1 puffs DAILY SUHAS Administration Metronidazole 500 mg in 100 mls @ 100 mls/hr 10/05/20 03:00 10/06/20 13:26 Flagyl IV 10/15/20 02:59 100 mls/hr Q8H SUHAS Administration Ciprofloxacin 400 mg in 200 mls @ 100 mls/hr 10/05/20 18:00 10/06/20 08:15 Cipro / D5w IV 10/15/20 17:59 Infused Q12H SUHAS Infusion Protocol Lactated Ringer's 1,000 mls @ 80 mls/hr 10/06/20 12:00 10/06/20 13:16 Lr IV 11/05/20 11:59 80 mls/hr .[id number] SUHAS Administration Levothyroxine Sodium 75 mcg 10/05/20 06:30 10/06/20 06:14 Levothyroxine Sodium 75 Mcg Tablet PO 11/04/20 06:29 75 mcg DAILYBB SUHAS Administration Montelukast Sodium 10 mg 10/05/20 21:00 10/05/20 20:22 Montelukast Sodium 10 Mg Tablet PO 11/04/20 20:59 10 mg QPM SUHAS Administration Pantoprazole Sodium 40 mg 10/05/20 09:00 10/06/20 08:13 Pantoprazole 40 Mg Tab PO 11/04/20 08:59 40 mg QAM SUHAS Administration Pravastatin Sodium 40 mg 10/05/20 21:00 10/05/20 20:22 Pravastatin Sod 40 Mg Tab PO 11/04/20 20:59 40 mg HS SUHAS Administration NPO Date Last Intake of Fluids: 10/05/20 Time Last Intake of Fluids: 18:00 Date Last Intake of Solids: 10/04/20 Time Last Intake of Solids: 09:00 Past Medical History Medical History Asthma PRN inhaler only, normally uses 1-2x per week Chronic back pain GERD (gastroesophageal reflux disease) High cholesterol History of colon cancer History of endometrial cancer Hypertension Hypothyroid Leukocytosis Past Family History Family History Grandmother (Paternal) Colorectal cancer Family/Other Coronary heart disease Ovarian cancer Mother Myocardial infarction Father Myocardial infarction Denies family history of Prostate cancer Breast cancer Past Surgical History Surgical History Difficult airway for intubation Pt reports "failed intubation" with colon resection in . Lumbar surgery at [facility] in 2012 -- Glidescope #3, ETT 7.0, grade view II. DL x 1 with Glidescope, atraumatic. H/O kyphoplasty T5 07/23/2019 History of anesthesia problem INTUBATION PROBLEM History of back surgery History of colon resection History of hysterectomy for cancer History of incisional hernia repair X2 History of subtotal thyroidectomy History of total left knee replacement History of total right knee replacement Social History Smoking Status: Unknown if ever smoked Do You Dip or Chew Tobacco: No Hx Alcohol Use: No Hx Substance Use: No Physical Exam Vital Signs Last Vital Signs Temp 36.4 C L 10/06/20 13:12 Pulse 64 10/06/20 13:12 Resp 18 10/06/20 13:12 BP 145/63 H 10/06/20 13:12 Pulse Ox 91 10/06/20 13:12 Testing Laboratory Results 10/06/20 06:13 10/06/20 06:13 PT 10.5 Seconds (9.0-12.0) 10/04/20 20:40 INR 1.0 (0.9-1.1) 10/04/20 20:40 APTT 22.9 Seconds (21.0-31.0) 10/04/20 20:40 Urine Color Dark Yellow 10/04/20 20:40 Urine Appearance Cloudy (Clear) A 10/04/20 20:40 Urine pH 5.5 (4.5-7.5) 10/04/20 20:40 Ur Specific [place] 1.018 (1.000-1.030) 10/04/20 20:40 Urine Protein 2+ (Negative) H 10/04/20 20:40 Urine Glucose (UA) Negative (Negative) 10/04/20 20:40 Urine Ketones Trace (Negative) H 10/04/20 20:40 Urine Nitrite Negative (Negative) 10/04/20 20:40 Ur Leukocyte Esterase 2+ (Negative) H 10/04/20 20:40 Urine WBC (Auto) 10-30 /hpf (0-5) H 10/04/20 20:40 Urine RBC (Auto) 10-30 /hpf (0-4) H 10/04/20 20:40 U Hyaline Cast (Auto) 10-30 /lpf (0-5) H 10/04/20 20:40 U Epithel Cells (Auto) >30 /lpf (0-5) H 10/04/20 20:40 Urine Bacteria (Auto) Negative (Negative) 10/04/20 20:40 10/05/20 10:33 Aerobic Blood Culture - Preliminary Blood No growth in Aerobic bottle after 24 hours. Anaerobic Blood Culture - Preliminary No growth in Anaerobic bottle after 24 hours. 10/05/20 10:44 Aerobic Blood Culture - Preliminary Blood No growth in Aerobic bottle after 24 hours. Anaerobic Blood Culture - Preliminary No growth in Anaerobic bottle after 24 hours. 10/04/20 20:40 Urine Culture - Final Urine,Clean Catch More than three types of organisms present, all low counts mixed probable skin santy. No further identifications or sensitivities to follow. 10/04/20 21:33 Aerobic Blood Culture - Preliminary Blood No growth in Aerobic bottle after 24 hours. Anaerobic Blood Culture - Preliminary Gram negative bacilli 10/04/20 20:40 Aerobic Blood Culture - Preliminary Blood No growth in Aerobic bottle after 24 hours. Anaerobic Blood Culture - Preliminary Gram negative bacilli Electrocardiogram Date: 10/04/20 Findings: + TALIAR @ (77bpm)
--- NOTE | 2020-10-06 14:05 | Fluoroscopy Report ---
INTRAOPERATIVE CHOLANGIOGRAM HISTORY: Post cholecystectomy. FLUOROSCOPY TIME: 31 seconds. 3 fluoroscopic spot images. FINDINGS: Fluoroscopy was provided for an intraoperative cholangiogram status post cholecystectomy. C ontrast was injected through the cystic duct remnant. Common bile duct is borderline distended. There is an oval-shaped filling defect within the distal common bile duct. This is concerning for an obstr ucting stone. Contrast extends into the small bowel. IMPRESSION: Fluoroscopy provided for an intraoperative cholangiogram status post cholecystectomy. Alex ling defect within the distal common bile duct concerning for an obstructing stone. This finding was called/faxed to the referring physician following dictation. ACT 112: Negative or not required by law. Electronically signed by: Keegan Lomeli M.D. 10/06/2020 2:04 PM
--- NOTE | 2020-10-06 14:27 | Anesthesiology Progress Note ---
Date of Service October 06, 2020 Anesthesia Post Procedure Vital Signs Vital Signs: Temp Pulse Pulse Pulse Resp BP BP 10/06/20 14:00 36.8 C 65 18 164/70 H 10/06/20 13:39 36.7 C 58 L 18 159/73 H 10/06/20 13:12 36.4 C L 64 18 145/63 H 10/06/20 12:50 36.3 C L 67 16 153/69 H 10/06/20 12:40 65 13 156/66 H 10/06/20 12:30 64 14 156/66 H 10/06/20 12:20 66 16 156/69 H 10/06/20 12:10 66 16 167/71 H 10/06/20 12:00 36.3 C L 70 16 168/76 H 10/06/20 09:26 36.8 C 67 18 169/76 H 10/06/20 07:49 36.7 C 63 18 158/66 H 10/06/20 03:01 36.7 C 72 20 136/65 10/05/20 22:20 83 10/05/20 19:41 37.0 C 70 18 166/73 H 10/05/20 16:00 74 10/05/20 14:53 36.7 C 73 20 120/68 Pulse Ox 10/06/20 14:00 90 10/06/20 13:39 91 10/06/20 13:12 91 10/06/20 12:50 97 10/06/20 12:40 96 10/06/20 12:30 97 10/06/20 12:20 98 10/06/20 12:10 99 10/06/20 12:00 98 10/06/20 09:26 94 10/06/20 07:49 90 10/06/20 03:01 93 10/05/20 22:20 10/05/20 19:41 92 10/05/20 16:00 10/05/20 14:53 91 Pain Intensity Abdomen: Pain Intensity: 4 Transfer of Care Handoff Completed per policy Notes Mental Status: alert / awake / arousable and participated in evaluation Patient Amnestic to Procedure: Yes Nausea / Vomiting: adequately controlled Pain: adequately controlled Airway Patency, RR, SpO2: stable & adequate BP & HR: stable & adequate Hydration State: stable & adequate Anesthetic Complications: no major complications apparent and Pt Satisfied with anesthetic care
--- NOTE | 2020-10-06 15:44 | Operative Report (OR) ---
DATE OF OPERATION: 10/06/2020 NAME OF OPERATION: Laparoscopic cholecystectomy with lysis of adhesions and cholangiogram. PREOPERATIVE DIAGNOSIS: Cholangitis. POSTOPERATIVE DIAGNOSES: Cholangitis with acute cholecystitis and choledocholithiasis. STAFF SURGEON: Raul Varela MD. QUENCHING MACHINE OPERATOR: Carlos Mckeon PA-C. ANESTHESIA: General. DESCRIPTION OF PROCEDURE: The patient was brought in the operating room and placed on the operating table in supine position. Pneumatic stockings and orogastric tube were placed. The patient had previous large midline incision. I made an incision in the right upper quadrant carrying dissection down, placing a Veress needle producing pneumoperitoneum. The patient was on aspirin. She did appear to be somewhat oozy. Under visualization, we were able to place a second 5 mm port in the mid upper abdomen and then gradually we were able to place an 11 mm port left abdomen, which we used for the camera and then also right abdomen, an additional port. Gallbladder was grasped and retracted. It was very large, distended. Dissection carried out the karyn hepatis, identifying the cystic artery, which was clipped and transected. Cystic duct identified, clipped next to the gallbladder partially opened. A cholangiogram performed showing filling defect in the common bile duct. Cystic duct was clipped and transected, then the gallbladder dissected away from the liver bed, placed in an Endobag. There were some adhesions of the omentum to the anterior abdominal wall requiring clips on small blood vessels. After appropriate irrigation and hemostasis, a #15 round Marvin-Marquis drain was placed through the lateral 5 mm port site into the subhepatic space, secured to the skin using 3-0 nylon suture. The gallbladder was removed through the 11-mm port site, fascia at that level closed using interrupted 0 Vicryl, skin reapproximated using 4-0 nylon suture. My store assistant helped with prepping, draping, removal of the gallbladder, cholangiogram and closure of the wounds. I attest to the content of the Intraoperative Record and any orders documented therein. Any exception s are noted below.
--- NOTE | 2020-10-06 19:51 | Billing Data ---
Date of Service October 06, 2020 Coding Level of Care Code 07313 Subseq Hosp Care Lvl 3
[2020-10-06] MEDS: PRAVASTATIN SOD 40 MG TAB PO SCH (20:58)
[2020-10-06] MEDS: amLODIPine BESYLATE 5 MG TAB PO SCH (20:58)
[2020-10-06] MEDS: MONTELUKAST SODIUM 10 MG TABLET PO SCH (20:58)
[2020-10-06] MEDS: ATENOLOL 50 MG TABLET PO SCH (20:58)
[2020-10-07] MEDS: metroNIDAZOLE 500 MG/100 ML BAG IV SCH ×3 (04:27→20:53)
[2020-10-07] MEDS: CIPROFLOXACIN / D5W 400 MG/200 ML BAG IV SCH ×2 (05:36→18:10)
[2020-10-07] MEDS: LEVOTHYROXINE SODIUM 75 MCG TABLET PO SCH (05:36)
[2020-10-07 06:32] LABS: Basophils # (auto) 0.01 K/uL (0-0.2); Basophils % (auto) 0.1 %; Hematocrit (blood only) 31.7 % (37-47); Hemoglobin 11.1 g/dL (12.0-16.0); Immature Granulocytes # (auto) 0.04 K/uL (0.00-0.02); Immature Granulocytes % (auto) 0.4 %; Lymphocytes # (auto) 1.21 K/uL (1.2-3.4); Lymphocytes % (auto) 11.1 %; Mean Corpuscular Hemoglobin 29.8 pg (25-34); Mean Corpuscular Volume 85.2 fL (80-100); Mean Platelet Volume 9.9 fL (7.4-10.4); Monocytes # (auto) 0.63 K/uL (0.11-0.59); Monocytes % (auto) 5.8 %; Neutrophils # (auto) 8.99 K/uL (1.4-6.5); Neutrophils % (auto) 82.6 %; Platelet Count 199 K/uL (130-400); RDW Coefficient of Variation 13.2 % (11.5-14.5); Red Blood Count 3.72 M/uL (4.2-5.4); White Blood Count 10.88 K/uL (4.8-10.8)
[2020-10-07 07:05] LABS: Albumin Level 2.7 gm/dl (3.4-5.0); BUN Creatinine Ratio 13.1 (10-20); Bilirubin Direct 0.2 mg/dl (0-0.2); Calcium 8.1 mg/dl (8.5-10.1); Creatinine Clr Calc Pharmacy 62.7 ml/min; Est GFR (African American) 85.6; Est GFR (Non-African American) 73.9; Potassium 3.5 mmol/L (3.5-5.1)
[2020-10-07 07:08] LABS: Albumin Globulin Ratio 1.1 (0.9-2); Bilirubin,Total 0.7 mg/dl (0.2-1); Globulin 2.5 gm/dl (2.5-4.0); Phosphorus 3.7 mg/dl (2.5-4.9); Total Protein 5.2 gm/dl (6.4-8.2)
--- NOTE | 2020-10-07 07:45 | Surgery Progress Note ---
Date of Service October 07, 2020 Assessment & Plan (1) History of laparoscopic cholecystectomy: Evidence of choledocholithiasis on cholangiogram For ERCP Patient doing very well from surgery Possible discharge in 1 to 2 days depending on her progress Leave drain 3 to 4 days at least Admission and Anticipated Discharge Date Admission Date: October 04, 2020 Results & Data ([facility]) Vital Signs (Past 12 Hours) Vital Signs Temp Pulse Pulse Resp BP BP Pulse Ox 10/07/20 07:04 36.9 C 79 18 146/74 H 92 10/07/20 03:14 36.9 C 80 20 128/72 92 10/06/20 23:25 36.6 C 84 18 161/70 H 92 10/06/20 22:19 78 10/06/20 20:12 36.2 C L 64 18 178/83 H 92 PG Care Time/CCT Total # of Minutes Spent Total Time Spent with Patient: Total time spent is greater than 50% in coordination of care (as documented) at patient's floor/unit and/or counseling patient: Coding Level of Care Code None Diagnoses History of laparoscopic cholecystectomy Z90.49
--- NOTE | 2020-10-07 08:12 | Anesthesiology Progress Note ---
Date of Service October 07, 2020 Anesthesia Post Procedure Vital Signs Vital Signs: Temp Pulse Pulse Pulse Pulse Resp BP 10/07/20 07:04 36.9 C 79 18 146/74 H 10/07/20 03:14 36.9 C 80 20 128/72 10/06/20 23:25 36.6 C 84 18 10/06/20 22:19 78 10/06/20 20:12 36.2 C L 64 18 178/83 H 10/06/20 17:00 36.3 C L 64 18 10/06/20 16:10 36.2 C L 67 18 10/06/20 16:00 70 10/06/20 15:00 36.2 C L 61 18 10/06/20 14:00 36.8 C 65 18 10/06/20 13:39 36.7 C 58 L 18 10/06/20 13:12 36.4 C L 64 18 10/06/20 12:50 36.3 C L 67 16 10/06/20 12:40 65 13 10/06/20 12:30 64 14 10/06/20 12:20 66 16 10/06/20 12:10 66 16 10/06/20 12:00 36.3 C L 70 16 10/06/20 09:26 36.8 C 67 18 169/76 H BP Pulse Ox 10/07/20 07:04 92 10/07/20 03:14 92 10/06/20 23:25 161/70 H 92 10/06/20 22:19 10/06/20 20:12 92 10/06/20 17:00 185/80 H 92 10/06/20 16:10 176/71 H 93 10/06/20 16:00 10/06/20 15:00 170/70 H 96 10/06/20 14:00 164/70 H 90 10/06/20 13:39 159/73 H 91 10/06/20 13:12 145/63 H 91 10/06/20 12:50 153/69 H 97 10/06/20 12:40 156/66 H 96 10/06/20 12:30 156/66 H 97 10/06/20 12:20 156/69 H 98 10/06/20 12:10 167/71 H 99 10/06/20 12:00 168/76 H 98 10/06/20 09:26 94 Pain Intensity Abdomen: Pain Intensity: 2 Notes Mental Status: alert / awake / arousable Patient Amnestic to Procedure: Yes Nausea / Vomiting: adequately controlled Pain: adequately controlled Airway Patency, RR, SpO2: stable & adequate BP & HR: stable & adequate Hydration State: stable & adequate Anesthetic Complications: no major complications apparent and Pt Satisfied with anesthetic care
[2020-10-07] MEDS: FLUTICASONE/VILANTEROL 100/25MCG 14 PUFFS/INHALER INH SCH (09:00)
--- NOTE | 2020-10-07 09:12 | Gastroenterology Progress Note ---
Date of Service October 07, 2020 Assessment & Plan (1) History of laparoscopic cholecystectomy: (2) Choledocholithiasis: ERCP in the OR later today with Dr. Child. NPO IVF Admission and Anticipated Discharge Date Admission Date: October 04, 2020 Subjective Feeling OK this AM. Kailey with IOC yesterday. IOC with stone in the duct. ERCP planned for later this afternoon. LFTS continue to improve. Review of Systems Review of Systems: All systems reviewed & are unremarkable except as noted in HPI & below Physical Exam Constitutional: WD/WN, vitals as above Respiratory: normal respiratory effort, lungs clear to auscultation Cardiovascular: RRR, no murmur, no edema Gastrointestinal (Abdomen): normal bowel sounds, soft, nontender, no hepatosplenomegaly Results & Data ([facility]) Vital Signs (Past 12 Hours) Vital Signs Temp Pulse Pulse Resp BP BP Pulse Ox 10/07/20 07:04 36.9 C 79 18 146/74 H 92 10/07/20 03:14 36.9 C 80 20 128/72 92 10/06/20 23:25 36.6 C 84 18 161/70 H 92 10/06/20 22:19 78
--- NOTE | 2020-10-07 11:12 | Medical Student Progress Note ---
Date of Service October 07, 2020 Assessment & Plan (1) Disease of gallbladder: 84 yo F with PMHx Asthma, GERD, Colon Cancer, Endometrial Cancer, HTN admitted for suspected acute cholecystitis and undergoing treatment for bacteremia likely secondary to the same. Bacteremia due to cholecystitis, Cholelithiasis: -On admission with complaints of RUQ pain and nausea. -Initial LFTs (10/05): AST 638, ALT 349, Alk Phos 183, Tbili 2.4. -LFTs today (10/07): AST 54, ALT 102, Alk phos 123, Tbili 0.7 - Trending towards normal limits -On admission, she was noted to have elevated lactate to 2.1, and elevated procal to 4.92, -LFTs and Tbili downtrending with IV Abx; was started on Cipro/Flagyl IV on admission due to several Abx allergies. -Continue Cipro/Flagyl. -BCx drawn 10/04 with 2/2 tubes growing salmon sensitive e. coli. -BCx drawn 10/05 not growing anaerobic or aerobic bacteria. Continue Cipro/Flagyl IV until discharge. -Laparoscopic Cholecystectomy and cholangiogram performed yesterday with Dr. Varela. IO found obstructing stones. -ERCP performed this afternoon by Dr. Child. Findings were consistent with choledocholithiasis and cholangitis. -Zofran PRN for nausea. GERD: -Continue home PPI. Hypothyroidism: -Continue home Levothyroxine 75mcg. HLD: -Hold home pravastatin due to transaminitis. -Consider restarting as LFTs resolve to WNL. Asthma: -No respiratory symptoms, benign exam. -Continue home inhalers. Hypertension: -Continue home amlodipine, atenolol. Code Status: FULL CODE FEN: NPO at midnight for intervention tomorrow DVT: SCDs, hold chemoprophylaxis at this time for possible intervention Dispo: Med/Surg Telemetry for IV antibiotics (2) Nausea: (3) GERD (gastroesophageal reflux disease): (4) Hyperlipidemia: (5) Hypertension: (6) Hyperbilirubinemia: Admission and Anticipated Discharge Date Admission Date: October 04, 2020 Supervising Attestation I personally examined the patient and verified all arreguin points of history and exam, discussed case, and agree with decision making with B Portnoff MS2 Feeling good, minimal pain, for ERCP this afternoon. Vitals noted, in general she is awake and alert pleasant no distress. HEENT nor mocephalic atraumatic mucous membranes moist. Breathing unlabored no accessory muscle use good effort. Skin shows no rashes no pallor or icterus. Neuro shows no focal deficits. Acute cholecystitis with sepsis/bacteremia due to E Coli present on admissionnow improving, postop, ERCP today. Given that the bacteria is sensitive to Cipro, and she has a multitude of allergies, and is tolerating the Cipro well, we will anticipate a total of 14 days of treatment with Cipro. DVT prophylaxisSCDs Subjective She reports feeling well this morning. No issues overnight. She has mild RUQ pain and tenderness around incision sites. ERCP performed today by Dr. Child. She reports no nausea or vomiting. No concerns at this time. Review of Systems Constitutional: no fever, no chills and no sweats Respiratory: no cough and no dyspnea Cardiovascular: no chest pain, no dyspnea and no edema Gastrointestinal: no nausea and no vomiting Integumentary: no rash Physical Exam Constitutional: WD/WN, vitals as above well developed and well nourished; no acute distress Eyes: PERRL, conjunctivae normal, anicteric sclerae normal visual núñez by confrontation and + anicteric sclerae ENMT: external ear and nose normal, oropharynx normal Neck: normal visual inspection Respiratory: normal respiratory effort, lungs clear to auscultation no respiratory distress Auscultation: lungs clear to auscultation bilaterally Cardiovascular: RRR, no murmur, no edema Rate/Rhythm: regular rate and regular rhythm Heart Sounds: no gallop, no murmur and no cardiac rub Extremities: no edema Gastrointestinal (Abdomen): Inspection/Auscultation: abdomen normal to in spection Percussion/Palpation: + abdomen tender (RUQ) and abdomen soft; no guarding and abdomen not rigid Musculoskeletal: no cyanosis or clubbing, extremities motor strength 5/5 Head/Neck/Chest: head atraumatic Skin: no rashes, warm and dry Neurologic: moves all extremities and awake Psychiatric: A+Ox3, euthymic affect Orientation: alert Results & Data ([facility]) Vital Signs (Past 12 Hours) Vital Signs Temp Pulse Resp BP BP Pulse Ox 10/07/20 07:04 36.9 C 79 18 146/74 H 92 10/07/20 03:14 36.9 C 80 20 128/72 92 10/06/20 23:25 36.6 C 84 18 161/70 H 92
[2020-10-07] MEDS: PANTOprazole 40 MG TAB PO SCH (11:49)
--- NOTE | 2020-10-07 14:42 | History & Physical Bridge Note ---
Date of Service October 07, 2020 History & Physical Bridge Note I have examined the patient, reviewed the History & Physical and in the interval since the performance of the History & Physical I have noted the following changes of clinical significance: no changes noted ERCP today
[2020-10-07] MEDS ORDERED: INDOMETHACIN 50 MG SUPP PR ONE (14:45)
[2020-10-07] MEDS ORDERED: fentaNYL citrate 100 MCG/2 ML VIAL ONE (14:50)
[2020-10-07] MEDS ORDERED: MIDAZOLAM HCL 1 MG/ML 2ML VIAL ONE (14:50)
[2020-10-07] MEDS ORDERED: ONDANSETRON INJ 2 MG/ML 2 ML VIAL ONE (14:50)
[2020-10-07] MEDS ORDERED: LARYING-O-JET KIT (LTA) ONE (14:50)
[2020-10-07] MEDS ORDERED: SUCCINYLCHOLINE CHLORIDE 20 MG/ML 10 ML VIAL IV ONE (14:50)
[2020-10-07] MEDS ORDERED: PROPOFOL IV EMULSION 10 MG/ML 20 ML VIAL IV ONE (14:50)
[2020-10-07] MEDS ORDERED: LIDOCAINE HCL 2% 2 ML VIAL/AMP(20MG/ML) INFIL ONE (14:50)
[2020-10-07] MEDS ORDERED: ePHEDrine sulfate 50 MG/ML SYR ONE (14:50)
[2020-10-07] MEDS ORDERED: DEXAMETHASONE SOD INJ 4 MG/ML VIAL ONE (14:50)
[2020-10-07] MEDS ORDERED: ONDANSETRON INJ 2 MG/ML 2 ML VIAL IV PRN (15:09)
[2020-10-07] MEDS ORDERED: ePHEDrine sulfate 50 MG/ML AMP IV PRN (15:09)
[2020-10-07] MEDS ORDERED: fentaNYL citrate 100 MCG/2 ML VIAL IV PRN (15:09)
[2020-10-07] MEDS ORDERED: ATROPINE SULFATE 0.1 MG/ML 10ML SYR IV PRN (15:09)
--- NOTE | 2020-10-07 15:12 | Anesthesiology Consultation ---
Date of Service October 07, 2020 Assessment & Plan (1) Encounter for pre-operative examination: Chart Review Chart Review: Acceptable Risk for Surgery and Patient NOT seen in Pre Admission Testing Consults Requested none History Surgery Operation Date: 10/06/20 09:40 Proposed Procedures p Laparoscopic Cholecystectomy, Possible Cholangiogram, Possible ERCP - Raul Varela MD, FACS Operation Date: 10/07/20 08:20 Proposed Procedures p Endoscopic Retrograde Cholangiopancreatogram - Joseph Child MD Height/Weight Height: 5 ft 6 in Weight: 89.7 kg Allergies Allergy/AdvReac Type Severity Reaction Status Date / Time nabumetone Allergy Severe SHORTNESS Verified 10/04/20 21:28 OF BREATH naproxen Allergy Severe SOB, BUT Verified 10/04/20 21:28 TAKES ASA AT HOME rofecoxib Allergy Severe SHORTNESS Verified 10/04/20 21:28 OF BREATH valdecoxib Allergy Severe SHORTNESS Verified 10/04/20 21:28 OF BREATH Cephalosporins Allergy Intermediate HIVES Verified 10/04/20 21:28 Penicillins Allergy Intermediate RASH,HIVES Verified 10/04/20 21:28 codeine Allergy Mild RASH Verified 10/04/20 21:28 methimazole Allergy Mild itching Verified 10/04/20 21:28 Sulfa (Sulfonamide Allergy Mild RASH Verified 10/04/20 21:28 Antibiotics) azithromycin [From Zithromax] AdvReac Intermediate DIARRHEA Verified 10/04/20 21:28 diphenhydramine AdvReac Intermediate CONFUSION Verified 10/04/20 21:28 [From Benadryl] nitrofurantoin AdvReac Mild VOMITING Verified 10/04/20 21:28 nickel AdvReac Unknown Rash Verified 10/04/20 21:28 Medications Home Medications Medication Instructions Recorded Confirmed Last Taken aspirin 81 mg tablet,delayed 81 mg PO QAM 01/24/19 10/04/20 10/04/20 release calcium carbonate 600 mg calcium 1,200 mg PO QAM tab 01/24/19 10/04/20 10/04/20 (1,500 mg) tablet cholecalciferol (vitamin D3) 25 1,000 units PO QAM 01/24/19 10/04/20 10/04/20 mcg (1,000 unit) capsule ascorbic acid (vitamin C) [Vitamin 500 mg PO QAM 02/07/19 10/04/20 10/04/20 C] atenolol 50 mg tablet 50 mg PO HS #90 tab 12/19/19 10/04/20 10/03/20 esomeprazole magnesium 40 mg 40 mg PO QAM #90 cap 12/19/19 10/04/20 10/04/20 capsule,delayed release fluticasone propionate 50 2 sprays INTNAS DAILY PRN #54.6 ml 12/19/19 10/04/20 U nknown mcg/actuation nasal spray,suspension levothyroxine 75 mcg tablet 75 mcg PO QAM #90 tab 12/19/19 10/04/20 10/04/20 montelukast 10 mg tablet 10 mg PO QPM #90 tab 12/19/19 10/04/20 10/03/20 pravastatin 40 mg tablet 40 mg PO HS #90 tab 12/19/19 10/04/20 10/03/20 albuterol sulfate 2.5 mg INH TID PRN #270 ml 06/20/20 10/04/20 Unknown albuterol sulfate 90 mcg/actuation 1 - 2 puff INHALATION Q4H PRN #18 06/20/20 10/04/20 Unknown aerosol inhaler gm amlodipine 5 mg tablet 5 mg PO QPM #90 tab 06/20/20 10/04/20 10/03/20 cyanocobalamin (vitamin B-12) 1 tab PO DAILY 10/04/20 10/04/20 10/04/20 fluticasone propion-salmeterol 1 ea INHALATION BID 10/04/20 10/04/20 10/04/20 [Wixela Inhub] loratadine [Claritin] 10 mg PO DAILY PRN 10/04/20 10/04/20 10/04/20 Active Medications Generic Name Dose Route Start Last Admin Trade Name Freq PRN Reason Stop Dose Admin Amlodipine Besylate 5 mg 10/05/20 21:00 10/06/20 20:58 Amlodipine Besylate 5 Mg Tab PO 11/04/20 20:59 5 mg QPM SUHAS Administration Atenolol 50 mg 10/05/20 21:00 10/06/20 20:58 Atenolol 50 Mg Tablet PO 11/04/20 20:59 50 mg HS SUHAS Administration Fluticasone/Vilanterol 1 puffs 10/05/20 09:00 10/07/20 09:00 Fluticasone/Vilanterol 100/25mcg 14 Puffs/Inhaler INH 11/04/20 08:59 1 puffs DAILY SUHAS Administration Metronidazole 500 mg in 100 mls @ 100 mls/hr 10/05/20 03:00 10/07/20 12:00 Flagyl IV 10/15/20 02:59 Infused Q8H SUHAS Infusion Ciprofloxacin 400 mg in 200 mls @ 100 mls/hr 10/05/20 18:00 10/07/20 07:36 Cipro / D5w IV 10/15/20 17:59 Infused Q12H SUHAS Infusion Protocol Lactated Ringer's 1,000 mls @ 80 mls/hr 10/06/20 12:00 10/07/20 09:28 Lr IV 11/05/20 11:59 Infused .[id number] SUHAS Infusion Levothyroxine Sodium 75 mcg 10/05/20 06:30 10/07/20 05:36 Levothyroxine Sodium 75 Mcg Tablet PO 11/04/20 06:29 75 mcg DAILYBB SUHAS Administration Montelukast Sodium 10 mg 10/05/20 21:00 10/06/20 20:58 Montelukast Sodium 10 Mg Tablet PO 11/04/20 20:59 10 mg QPM SUHAS Administration Pantoprazole Sodium 40 mg 10/05/20 09:00 10/07/20 11:49 Pantoprazole 40 Mg Tab PO 11/04/20 08:59 Not Given QAM SUHAS Pravastatin Sodium 40 mg 10/05/20 21:00 10/06/20 20:58 Pravastatin Sod 40 Mg Tab PO 11/04/20 20:59 40 mg HS SUHAS Administration NPO Date Last Intake of Fluids: 10/06/20 Time Last Intake of Fluids: 23:50 Date Last Intake of Solids: 10/04/20 Time Last Intake of Solids: 09:00 Past Medical History Medical History Asthma PRN inhaler only, normally uses 1-2x per week Chronic back pain GERD (gastroesophageal reflux disease) High cholesterol History of colon cancer History of endometrial cancer Hypertension Hypothyroid Leukocytosis Exercise / Class Metabolic Activity II 4-5 Yardwork/Stairs/Walk up hill Past Family History Family History Grandmother (Paternal) Colorectal cancer Family/Other Coronary heart disease Ovarian cancer Mother Myocardial infarction Father Myocardial infarction Denies family history of Prostate cancer Breast cancer Past Surgical History Surgical History Difficult airway for intubation Pt reports "failed intubation" with colon resection in . Lumbar surgery at [facility] in 2012 -- Glidescope #3, ETT 7.0, grade view II. DL x 1 with Glidescope, atraumatic. H/O kyphoplasty T5 07/23/2019 History of anesthesia problem INTUBATION PROBLEM History of back surgery History of colon resection History of hysterectomy for cancer History of incisional hernia repair X2 History of subtotal thyroidectomy History of total left knee replacement History of total right knee replacement Hx laparoscopic cholecystectomy (10/06/20) Laparoscopic Cholecystectomy with Cholangiogram Dr. Varela 10/06/2020 Past Anesthesia History No Hx of Anesthesia Complications and No Family Hx of Anesthesia Complications History of PONV No Hx of PONV and No Hx of Motion Sickness Social History Smoking Status: Unknown if ever smoked Do You Dip or Chew Tobacco: No Hx Alcohol Use: No Hx Substance Use: No Physical Exam Vital Signs Last Vital Signs Temp 36.4 C L 10/07/20 14:52 Pulse 74 10/07/20 14:52 Resp 18 10/07/20 14:52 BP 166/71 H 10/07/20 14:52 Pulse Ox 96 10/07/20 14:52 Constitutional + obese ENMT Mouth: + dentition abnormality, + dental bridge and + dental restorations; no TMJ abnormality Thyromental Distance: < 3.5 Finger Breadths Mallampati Class: II Neck normal visual inspection Respiratory normal respiratory effort Auscultation: lungs clear to auscultation bilaterally Musculoskeletal Spine: + limited cervical ROM; no pain with cervical ROM Neurologic moves all extremities Psychiatric Orientation: alert and oriented x 3 Testing Laboratory Results 10/07/20 06:09 10/07/20 06:09 PT 10.5 Seconds (9.0-12.0) 10/04/20 20:40 INR 1.0 (0.9-1.1) 10/04/20 20:40 APTT 22.9 Seconds (21.0-31.0) 10/04/20 20:40 Urine Color Dark Yellow 10/04/20 20:40 Urine Appearance Cloudy (Clear) A 10/04/20 20:40 Urine pH 5.5 (4.5-7.5) 10/04/20 20:40 Ur Specific Buena 1.018 (1.000-1.030) 10/04/20 20:40 Urine Protein 2+ (Negative) H 10/04/20 20:40 Urine Glucose (UA) Negative (Negative) 10/04/20 20:40 Urine Ketones Trace (Negative) H 10/04/20 20:40 Urine Nitrite Negative (Negative) 10/04/20 20:40 Ur Leukocyte Esterase 2+ (Negative) H 10/04/20 20:40 Urine WBC (Auto) 10-30 /hpf (0-5) H 10/04/20 20:40 Urine RBC (Auto) 10-30 /hpf (0-4) H 10/04/20 20:40 U Hyaline Cast (Auto) 10-30 /lpf (0-5) H 10/04/20 20:40 U Epithel Cells (Auto) >30 /lpf (0-5) H 10/04/20 20:40 Urine Bacteria (Auto) Negative (Negative) 10/04/20 20:40 10/05/20 10:33 Aerobic Blood Culture - Preliminary Blood No growth in Aerobic bottle after 48 hours. Anaerobic Blood Culture - Preliminary No growth in Anaerobic bottle after 48 hours. 10/05/20 10:44 Aerobic Blood Culture - Preliminary Blood No growth in Aerobic bottle after 48 hours. Anaerobic Blood Culture - Preliminary No growth in Anaerobic bottle after 48 hours. 10/04/20 21:33 Aerobic Blood Culture - Preliminary Blood No growth in Aerobic bottle after 48 hours. Anaerobic Blood Culture - Preliminary Escherichia coli 10/04/20 20:40 Aerobic Blood Culture - Preliminary Blood No growth in Aerobic bottle after 48 hours. Anaerobic Blood Culture - Preliminary Escherichia coli 10/04/20 20:40 Urine Culture - Final Urine,Clean Catch More than three types of organisms present, all low counts mixed probable skin santy. No further identifications or sensitivities to follow. Electrocardiogram Date: 10/04/20 Findings: + NSR @ (77bpm)
--- NOTE | 2020-10-07 15:52 | Operative Report ---
Post Operative Report Pre & Post Diagnosis Operation Date: 10/06/20 09:40 Pre-Op Diagnosis: Cholelithiasis Post-Op Diagnosis: Cholelithiasis Operation Date: 10/07/20 08:20 Pre-Op Diagnosis: Choledocholithiasis Post-Op Diagnosis: Choledocholithiasis; Cholangitis I identified the patient and participated in the time-out.: Yes Procedure Operation Date: 10/06/20 09:40 Actual Procedures p Laparoscopic Cholecystectomy with Cholangiogram(Not Applicable) - Raul Varela MD, FACS Operation Date: 10/07/20 08:20 Actual Procedures p Endoscopic Retrograde Cholangiopancreatogram(Not Applicable) - Joseph Child MD Surgeon Joseph Child MD Acting Section Chief jazz mitchell Estimated Blood Loss 0 Findings See Below (CBD stone removed, Pus found consistent with cholangitis, CBD stent placed) Specimens None Description of Procedure ERCP I attest to the content of the Intraoperative Record and any orders documented therein. Any exceptions are noted below.
--- NOTE | 2020-10-07 16:02 | GI REPORT ---
Patient Name: Juana Brunson Procedure Date: 10/07/2020 3:07 PM Date of : 1935 Admit Type: Inpatient Age: 84 Gender: Female Attending MD: Joseph Child MD Procedure: ERCP Providers: Joseph Child MD Referring MD: Chinmay Bello, Jadyn Tinoco DO, Robert M. Hall Indications: Filling defect on intraoperative cholangiogram, For therapy of bile duct stone(s) Medicines: General Anesthesia Complications: No immediate complications. Estimated Blood Loss: Estimated blood loss: none. Procedure: Pre-Anesthesia Assessment: - Prior to the procedure, a History and Physical was performed, and patient medications, allergies and sensitivities were reviewed. The patient's tolerance of previous anesthesia was reviewed. - The risks and benefits of the procedure and the sedation options and risks were discussed with the patient. All questions were answered and informed consent was obtained. - Patient identification and proposed procedure were verified prior to the procedure by the physician and the nurse. The procedure was verified in the procedure room. - Pre-procedure physical examination revealed no contraindications to sedation. After obtaining informed consent, the scope was passed under direct vision. Throughout the procedure, the patient's blood pressure, pulse, and oxygen saturations were monitored continuously. The Scope was introduced through the mouth, and advanced to the duodenum and used to inject contrast into the bile duct. The ERCP was accomplished without difficulty. The patient tolerated the procedure well. Findings: A neuroscience specialist film of the abdomen was obtained. Surgical clips, consistent with a previous cholecystectomy, were seen in the area of the right upper quadrant of the abdomen. A neuroscience specialist film of the abdomen was obtained. One percutaneous drain ending in the Right upper quadrant was seen. The esophagus was successfully intubated under direct vision. The scope was advanced to a normal major papilla in the descending duodenum without detailed examination of the pharynx, larynx and associated structures, and upper GI tract. The upper GI tract was grossly normal. A 0.035 inch straight standard wire was passed into the biliary tree. The Fusion OMNI sphincterotome was passed over the guidewire and the bile duct was then deeply cannulated. Contrast was injected. I personally interpreted the bile duct images. Ductal flow of contrast was adequate. Image quality was adequate. Contrast extended to the main bile duct. Opacification of the main bile duct was successful. The maximum diameter of the ducts was 9 mm. The lower third of the main bile duct contained one stone, which was 10 mm in diameter. Biliary sphincterotomy was made with a monofilament traction (standard) sphincterotome using ERBE electrocautery. There was no post-sphincterotomy bleeding. Bile duct orifice was successfully dilated with an 8 mm balloon dilator. The biliary tree was swept with a 12 mm balloon starting at the bifurcation. One stone was removed. No stones remained. Pus was swept from the duct. One 10 Fr by 8 cm plastic biliary stent with a single external flap and a single internal flap was placed into the common bile duct. Bile flowed through the stent. The stent was in good position. Indomethacin 100 mg was given via suppository to decrease the risk of post-ERCP pancreatitis (PEP). PD was not cannulated. Impression: - Choledocholithiasis was found. Complete removal was accomplished by biliary sphincterotomy, balloon dilation sphincteroplasty and balloon extraction. - The biliary tree was swept and pus was found consistent with acute cholangitis. - One plastic biliary stent was placed into the common bile duct. Recommendation: - [facility] care. - Avoid aspirin and nonsteroidal anti-inflammatory medicines for 5 days. - Repeat ERCP in 4 weeks to remove stent. - Complete a 14 days course of ABx. Joseph Child MD 10/07/2020 4:01:47 PM This report has been signed electronically. Note Initiated On: 10/07/2020 3:07 PM Number of Addenda: 0 I attest to the content of the Intraoperative Record and orders documented therein, exceptions below {[id number]}
--- NOTE | 2020-10-07 16:08 | Fluoroscopy Report ---
FL ERCP biliary ductal CLINICAL HISTORY: ERCP COMPARISON STUDY: None. FLUOROSCOPY TIME: 25 seconds. FINDINGS: 10 fluoroscopic spot images of the right upper quadrant demonstrate cannulation of the ampu lla with contrast injected into the common bile duct. A balloon tip was performed. This is followed b y placement of a common bile duct stent which appears in good position. Evidence for a surgical drain from recent cholecystectomy. IMPRESSION: Fluoroscopy provided for ERCP with placement of a common bile duct stent which appears in good position. ACT 112: Negative or not required by law. Electronically signed by: Keegan Lomeli M.D. 10/07/2020 4:06 PM
--- NOTE | 2020-10-07 17:24 | Anesthesiology Progress Note ---
Date of Service October 07, 2020 Anesthesia Post Procedure Vital Signs Vital Signs: Temp Pulse Pulse Pulse Resp BP BP 10/07/20 16:30 36.7 C 70 16 170/67 H 10/07/20 16:20 36.4 C L 72 21 178/77 H 10/07/20 16:11 36.4 C L 79 16 182/78 H 10/07/20 16:00 36.4 C L 65 80 22 182/78 H 10/07/20 14:52 36.4 C L 74 74 18 166/71 H 10/07/20 11:25 36.9 C 63 18 132/60 10/07/20 07:04 36.9 C 79 18 146/74 H 10/07/20 03:14 36.9 C 80 20 128/72 10/06/20 23:25 36.6 C 84 18 161/70 H 10/06/20 22:19 78 10/06/20 20:12 36.2 C L 64 18 178/83 H Pulse Ox 10/07/20 16:30 89 L 10/07/20 16:20 98 10/07/20 16:11 97 10/07/20 16:00 94 10/07/20 14:52 96 10/07/20 11:25 92 10/07/20 07:04 92 10/07/20 03:14 92 10/06/20 23:25 92 10/06/20 22:19 10/06/20 20:12 92 Pain Intensity Abdomen: Pain Intensity: 2 Transfer of Care Handoff Completed per policy Notes Mental Status: alert / awake / arousable and participated in evaluation Patient Amnestic to Procedure: Yes Nausea / Vomiting: adequately controlled Pain: adequately controlled Airway Patency, RR, SpO2: stable & adequate BP & HR: stable & adequate Hydration State: stable & adequate Anesthetic Complications: no major complications apparent and Pt Satisfied with anesthetic care
--- NOTE | 2020-10-07 17:39 | Billing Data ---
Date of Service October 07, 2020 Coding Level of Care Code 13591 Subseq Hosp Care Lvl 3
[2020-10-07] MEDS: LACTATED RINGER'S 1,000 ML IV SCH (18:09)
[2020-10-07] MEDS ORDERED: METOPROLOL TARTRATE 1 MG/ML VIAL IV PRN (18:14)
[2020-10-07] MEDS: ATENOLOL 50 MG TABLET PO SCH (20:54)
[2020-10-07] MEDS: amLODIPine BESYLATE 5 MG TAB PO SCH (20:54)
[2020-10-07] MEDS: PRAVASTATIN SOD 40 MG TAB PO SCH (20:54)
[2020-10-07] MEDS: MONTELUKAST SODIUM 10 MG TABLET PO SCH (20:54)
[2020-10-08] MEDS: metroNIDAZOLE 500 MG/100 ML BAG IV SCH ×2 (03:00→11:51)
[2020-10-08] MEDS: LACTATED RINGER'S 1,000 ML IV SCH (03:01)
[2020-10-08] MEDS: CIPROFLOXACIN / D5W 400 MG/200 ML BAG IV SCH (06:07)
[2020-10-08] MEDS: LEVOTHYROXINE SODIUM 75 MCG TABLET PO SCH (06:09)
[2020-10-08 06:51] LABS: Basophils # (auto) 0.01 K/uL (0-0.2); Basophils % (auto) 0.1 %; Hematocrit (blood only) 30.9 % (37-47); Hemoglobin 10.6 g/dL (12.0-16.0); Immature Granulocytes # (auto) 0.09 K/uL (0.00-0.02); Immature Granulocytes % (auto) 1.1 %; Lymphocytes # (auto) 1.23 K/uL (1.2-3.4); Lymphocytes % (auto) 14.5 %; Mean Corpuscular Hemoglobin 29.5 pg (25-34); Mean Corpuscular Hgb Conc 34.3 g/dL (32-36); Mean Corpuscular Volume 86.1 fL (80-100); Mean Platelet Volume 9.9 fL (7.4-10.4); Monocytes # (auto) 0.43 K/uL (0.11-0.59); Monocytes % (auto) 5.1 %; Neutrophils # (auto) 6.75 K/uL (1.4-6.5); Neutrophils % (auto) 79.2 %; Platelet Count 194 K/uL (130-400); RDW Coefficient of Variation 13.1 % (11.5-14.5); Red Blood Count 3.59 M/uL (4.2-5.4); White Blood Count 8.51 K/uL (4.8-10.8)
--- NOTE | 2020-10-08 07:02 | Surgery Progress Note ---
Date of Service October 08, 2020 Assessment & Plan (1) History of laparoscopic cholecystectomy: Patient with choledocholithiasis-status post ERCP with stone removal and stent placement Doing well with drain in place from laparoscopic cholecystectomy Stable for discharge home from a surgical standpoint if she tolerates clear liquids And her laboratories are stable Prescription for hydrocodone sent to the pharmacy We will leave the drain till Tuesday and remove in the office Likely should continue antibiotics for at least total of 10 days we will leave this to the medical team Discharge when okay with the GI team and medical team Admission and Anticipated Discharge Date Admission Date: October 04, 2020 Results & Data ([facility]) Vital Signs (Past 12 Hours) Vital Signs Temp Pulse Pulse Resp BP Pulse Ox 10/08/20 04:01 36.7 C 64 18 138/76 90 10/08/20 00:00 70 10/07/20 23:45 36.6 C 67 18 131/69 92 10/07/20 22:06 149/77 H PG Care Time/CCT Total # of Minutes Spent Total Time Spent with Patient: Total time spent is greater than 50% in coordination of care (as documented) at patient's floor/unit and/or counseling patient: Coding Level of Care Code None Diagnoses History of laparoscopic cholecystectomy Z90.49
[2020-10-08 07:19] LABS: Albumin Level 2.8 gm/dl (3.4-5.0); BUN Creatinine Ratio 17.2 (10-20); Calcium 7.3 mg/dl (8.5-10.1); Creatinine Clr Calc Pharmacy 58.1 ml/min; Est GFR (African American) 77.9; Est GFR (Non-African American) 67.2; Magnesium 1.7 mg/dl (1.8-2.4); Potassium 3.5 mmol/L (3.5-5.1)
[2020-10-08 07:21] LABS: Albumin Globulin Ratio 1.1 (0.9-2); Bilirubin,Total 0.6 mg/dl (0.2-1); Globulin 2.6 gm/dl (2.5-4.0); Phosphorus 3.8 mg/dl (2.5-4.9); Total Protein 5.4 gm/dl (6.4-8.2)
[2020-10-08] MEDS: PANTOprazole 40 MG TAB PO SCH (08:18)
[2020-10-08] MEDS: FLUTICASONE/VILANTEROL 100/25MCG 14 PUFFS/INHALER INH SCH (08:18)
[2020-10-08] MEDS ORDERED: CIPROFLOXACIN 500 MG TAB PO SCH (09:15)
--- NOTE | 2020-10-08 09:59 | Communication Note ---
Date of Service: October 08, 2020 S/P ERCP w/ stent placement. LFTs improving. Feeling well. To go home today. No pain. Tolerating PO. No NSAIDs x 5 days. Complete ABX course and ERCP for stent removal in 4 weeks. Recall as needed.
--- NOTE | 2020-10-08 10:19 | Discharge Summary ---
Date of Service October 08, 2020 Admission HPI Per Admitting Provider Patient is a pleasant 84 year old female with PMHx Asthma, GERD, Colon Cx, Endometrial Cx, HTN who presents with 1 day history of nausea, vomiting, chills, and abdominal discomfort. Patient notes that since this morning after eating breakfast she has vomited 6-8 times and has not been able to keep anything else down. She states that she also has some RUQ abdominal discomfort, similar to pain she has had ongoing for at least 1 year now which is worse when she eats fatty foods and dairy. She notes that her emesis has been primarily clear and has not noted any blood or coffee ground like particles. Sure notes currently that since being given Zofran her nausea has improved tremendously, though she continues to have some RUQ abdominal discomfort. She denies any current fever, chills, SOB, diarrhea, chest pain, chest pressure. She does note having a low grade fever and chills earlier in the day in addition to a current headache. In the ED she was given Zofran, IVF, and started empirically on Levofloxacin. She underwent a CT ab/pelv where the [facility] read was noting punctate calcifications within the spleen and liver, and a slightly over distended GB with tiny stones near the gallbladder neck. Med Hx: Asthma, Colon Cx, Endometrial Cx, HTN, Hypothyroidism, GERD, Hypercholesterolemia Surg Hx: Kyphoplasty T5, Colon resection, Total hysterectomy, Subtotal thyroidectomy, Bilateral total knee replacement Soc Hx: No alcohol, tobacco, or illicit drug use. Principal Diagnosis Bacteremia with cholecystitis Discharge Exam Constitutional WD/WN, vitals as above Eyes PERRL, conjunctivae normal, anicteric sclerae Respiratory normal respiratory effort, lungs clear to auscultation Cardiovascular Rate/Rhythm: regular rate and + irregularly irregular Heart Sounds: no gallop, no murmur and no cardiac rub Gastrointestinal (Abdomen) Inspection/Auscultation: normal bowel sounds; abdomen not distended Percussion/Palpation: + abdomen tender (RUQ) and abdomen soft; no guarding Skin no rashes, warm and dry Discharge Data Allergies Allergy/AdvReac Type Severity Reaction Status Date / Time nabumetone Allergy Severe SHORTNESS Verified 10/04/20 21:28 OF BREATH naproxen Allergy Severe SOB, BUT Verified 10/04/20 21:28 TAKES ASA AT HOME rofecoxib Allergy Severe SHORTNESS Verified 10/04/20 21:28 OF BREATH valdecoxib Allergy Severe SHORTNESS Verified 10/04/20 21:28 OF BREATH Cephalosporins Allergy Intermediate HIVES Verified 10/04/20 21:28 Penicillins Allergy Intermediate RASH,HIVES Verified 10/04/20 21:28 codeine Allergy Mild RASH Verified 10/04/20 21:28 methimazole Allergy Mild itching Verified 10/04/20 21:28 Sulfa (Sulfonamide Allergy Mild RASH Verified 10/04/20 21:28 Antibiotics) azithromycin [From Zithromax] AdvReac Intermediate DIARRHEA Verified 10/04/20 21:28 diphenhydramine AdvReac Intermediate CONFUSION Verified 10/04/20 21:28 [From Benadryl] nitrofurantoin AdvReac Mild VOMITING Verified 10/04/20 21:28 nickel AdvReac Unknown Rash Verified 10/04/20 21:28 Consultations 10/04/20 22:16 ED Decision to Admit Stat 10/05/20 02:00 Consult General Surgery Routine 10/05/20 07:54 Consult Gastroenterology Routine Procedures Performed Operation Date: 10/06/20 09:40 Actual Procedures p Laparoscopic Cholecystectomy with Cholangiogram(Not Applicable) - Raul Varela MD, FACS Operation Date: 10/07/20 08:20 Actual Procedures p Endoscopic Retrograde Cholangiopancreatogram(Not Applicable) - Joseph Child MD Ordered Studies 10/04/20 21:57 CT abd pelvis IV con only Urgent 10/05/20 00:09 MR MRCP Urgent 10/06/20 [place] cholangiogram OR Routine 10/07/20 14:45 [place] ERCP biliary ductal Routine Hospital Course (1) Disease of gallbladder: 84 yo F with PMHx Asthma, GERD, Colon Cancer, Endometrial Cancer, HTN admitted for suspected acute cholecystitis and undergoing treatment for bacteremia likely secondary to the same. Bacteremia: -likely secondary to cholecystitis -Blood cultures demonstrating pansensitive E. coli -s/p lap lis on 10/06 -s/p ERCP on 10/07 with stenting of CBD and evacuation of purulent material -continue on Ciprofloxacin 500mg BID for 14 days (end date 10/22) -follow-up with Gastroenterology in 4 weeks for repeat ERCP and stent removal Paroxysmal Atrial Fibrillation: -telemetry demonstrating intermittent episodes of atrial fibrillation, with longest episode of 30 minutes -CHADs-Vasc score of 4 -holding anticoagulation in the acute surgical setting; with recommended of discussions with Cardiology in coming weeks once surgical healing has continued GERD: -Continue home PPI. Hypothyroidism: -Continue home Levothyroxine 75mcg. HLD: -continue pravastatin Asthma: -Continue home inhalers. Hypertension: -Continue home amlodipine, atenolol. Total Time Total Time Spent Total Time Spent (In Minutes): <30 Discharge Plan Discharge Items Patient Disposition: Home - Self-Care Reason For Visit: CHOLELITHIASIS, VOMITING, FEVER, ELEVATED LFT Discharge Diagnosis: Choledocholithiasis and acute cholecystitis with severe adhesions Condition on Discharge: Good Activity: As commented below Activity Comment: Light activity for 3 weeks Lifting: No more than 10 pounds Bathing Comment: May shower Exercise Comment: Weight 3 weeks Driving/Machine Use: Wait 4 to 5 days Non-emergency contact: Primary Care Provider and Surgeon Call non-emergency contact if: your pain is not controlled, your temperature is above 101 and your wound has increased drainage Follow-up/Referrals: Jerome Adams III, MD [Primary Care Provider] - 10/14/20 11:30 am (Your appointment is with the physician executive assistant, Marisela Lindsey. If you have any questions or need to change this appointment, please call [phone].) Diet: Regular Addtl Attending Provider Instructions: You were seen and treated for a gallbladder infection with gall stones; during this admission you had removal of your gallbladder with then subsequent needing of a stent being placed in your bile duct in order to promote continued normal flowing of fluids from your liver into your intestines. To complete the treatment of the infection you are going to continue to take the antibiotic for additional two weeks. You should have a follow-up appointment with the GI doctor for the removal of the stent in four weeks; whilst, also having a follow-up with the general surgery group. Additionally, during this hospitalization it was discovered that your heart would intermittently go into a different rhythm. This is called paroxysmal atrial fibrillation, for this typically you would be started on a blood thinner; however, as you continue to heal from your surgeries we will hold off on starting these blood thinners at this time, and will encourage further discussions with your gas attendant on the potential timing of this being start ed. SURGICAL CARE INSTRUCTIONS: * Cover incisions and change daily for comfort/drainage. * Empty drain 2-3 times per day and record. * May use ibuprofen for pain as tolerated. * Expect some swelling and bruising. Call your doctor if: * Temperature above 101 degrees * Pain not relieved by pain medicine ordered * There is increased drainage or redness from any incision * You have any unanswered questions or concerns [phone]. FOLLOW UP VISIT: If not already scheduled, please call the office for a follow-up visit. Office visit for October 10-drain removal OFFICE PHONE NUMBER: Dr. Varela Office Pending Studies at Discharge: No Stand-Alone Forms: My [facility] [employer], Smoking Cessation Medications and DC Order Prescriptions: New hydrocodone-acetaminophen 5-325 mg tablet 1 - 2 tab PO Q6H PRN (Reason: pain) Qty: 20 RF: 0 ciprofloxacin HCl 500 mg Tablet 500 mg PO BID 14 Days Qty: 28 RF: 0 Continued albuterol sulfate 2.5 mg /3 mL (0.083 %) solution for nebulization 2.5 mg INH TID PRN (Reason: Shortness Of Breath Or Wheezing) Qty: 270 RF: 3 amlodipine 5 mg tablet 5 mg PO QPM Qty: 90 RF: 3 albuterol sulfate [Ventolin HFA] 90 mcg/actuation HFA aerosol inhaler 1 - 2 puff inhalation Q4H PRN (Reason: Shortness Of Breath Or Wheezing) Qty: 18 RF: 3 atenolol 50 mg tablet 50 mg PO HS Qty: 90 RF: 3 esomeprazole magnesium 40 mg capsule,delayed release(DR/EC) 40 mg PO QAM Qty: 90 RF: 3 fluticasone propionate 50 mcg/actuation spray,suspension 2 sprays INTNAS DAILY PRN (Reason: NASAL COMGESTION) Qty: 54.6 RF: 3 levothyroxine 75 mcg tablet 75 mcg PO QAM Qty: 90 RF: 3 montelukast 10 mg tablet 10 mg PO QPM Qty: 90 RF: 3 pravastatin 40 mg tablet 40 mg PO HS Qty: 90 RF: 3 calcium carbonate [Calcium 600] 600 mg calcium (1,500 mg) tablet 1,200 mg PO QAM RF: 0 aspirin [Adult Aspirin Regimen] 81 mg tablet,delayed release (DR/EC) 81 mg PO QAM RF: 0 cholecalciferol (vitamin D3) 1,000 unit capsule 1,000 units PO QAM RF: 0 ascorbic acid (vitamin C) [Vitamin C] 500 mg Tablet 500 mg PO QAM RF: 0 fluticasone propion-salmeterol [Wixela Inhub] 100-50 mcg/dose blister with device 1 ea INHALATION BID RF: 0 loratadine [Claritin] 10 mg Tablet 10 mg PO DAILY PRN (Reason: Allergy Symptoms) RF: 0 cyanocobalamin (vitamin B-12) Tablet,Chewable 1 tab PO DAILY RF: 0 Discharge Orders: Discharge Order (Routine); Ordered 10/08/20 Ordered By: Berhane Zhong Admission Data Admit Date/Time: 10/04/20 23:48 Attending Provider: Chinmay Bello Admit Provider: Justin Polo Primary Care Provider: Jerome Adams III Other Providers: Jayne Abrams ; Shabbir Zheng ; Raul Varela ; Jonathan Miller Other Interventions: Discharge Summary Assessment (RN) Last Done: 10/08/20 08:00 Supervising Physician Co-Signing Physician Notes I personally examined the patient and verified all arreguin points of history and exam, discussed case, and agree with decision making with Dr Zhong feeling good up to going home, no new questions or problems Vitals noted, in general she is awake and alert pleasant no distress. HEENT normocephalic atraumatic mucous membranes moist. Breathing unlabored no accessory muscle use good effort. Skin shows no rashes no pallor or icterus. Neuro shows no focal deficits. Acute cholecystitis with sepsis/bacteremia due to E Coli present on admissionnow improving, postop, ERCP today. Given that the bacteria is sensitive to Cipro, and she has a multitude of allergies, and is tolerating the Cipro well, we will anticipate a total of 14 days of treatment with Cipro. DVT prophylaxisSCDs stable for home Resident Activity Tracking Resident Involvement: Resident Care Provided Care Provided: Adult Hospital Medicine
--- NOTE | 2020-10-08 17:13 | Billing Data ---
Date of Service October 08, 2020 Coding Level of Care Code D/C Day Management <30 mins
== END 2020-10-08 15:58 | disposition home or self-care (01) | DRG 854 ==
LOC: ED 19:44 → SUATTDRO 23:48 → 2N 23:48

== ENCOUNTER 2023-08-07 19:57 | Inpatient (IN) ==
[2023-08-07] MEDS: MoRPHine SULFATE 2 MG/ML CARP IM STA (20:59)
[2023-08-07] MEDS: amLODIPine BESYLATE 5 MG TAB PO ONE (21:00)
[2023-08-07] MEDS: ONDANSETRON 4 MG OD TAB PO STA (21:01)
[2023-08-07] MEDS: ATENOLOL 50 MG TABLET PO ONE (21:01)
[2023-08-07 21:26] LABS: Basophils # (auto) 0.05 K/uL (0.00-0.20); Basophils % (auto) 0.3 %; Hematocrit (blood only) 45.2 % (37.0-47.0); Hemoglobin 15.4 g/dl (12.0-16.0); Immature Granulocytes # (auto) 0.29 K/uL (0.01-0.20); Immature Granulocytes % (auto) 1.8 %; Lymphocytes # (auto) 3.12 K/uL (1.20-3.40); Lymphocytes % (auto) 19.8 %; Mean Corpuscular Hemoglobin 29.9 pg (25.0-34.0); Mean Corpuscular Hgb Conc 34.1 g/dL (32.0-36.0); Mean Corpuscular Volume 87.8 fL (80.0-100.0); Mean Platelet Volume 9.6 fL (9.4-12.4); Monocytes # (auto) 0.94 K/uL (0.11-0.59); Neutrophils # (auto) 11.33 K/uL (1.40-6.50); Neutrophils % (auto) 72.1 %; Platelet Count 298 K/uL (130-400); RDW Coefficient of Variation 13.2 % (11.5-14.5); RDW Standard Deviation 42.2 fL (36.4-46.3); Red Blood Count 5.15 M/uL (4.20-5.40); White Blood Count 15.73 K/ul (4.8-10.8)
[2023-08-07 21:42] LABS: Albumin Globulin Ratio 1.5 (0.9-2); Albumin Level 4.8 gm/dl (3.4-5.0); BUN Creatinine Ratio 31.6 (10-20); Bilirubin,Total 0.8 mg/dl (0.2-1.0); Calcium 9.4 mg/dl (8.6-10.3); Creatinine Clr Calc Pharmacy 44.9 ml/min; Est GFR (African American) 59.7 ml/min; Est GFR (Non-African American) 51.5 ml/min; Globulin 3.2 gm/dl (2.5-4.0); Potassium 4.2 mmol/L (3.5-5.1)
[2023-08-07] MEDS: MoRPHine SULFATE 2 MG/ML CARP IV STA (23:38)
[2023-08-07] MEDS: ACETAMINOPHEN 1,000 MG/100 ML VIAL IV STA (23:44)
--- NOTE | 2023-08-08 00:21 | Magnetic Resonance Report ---
Exam(s): MRI L SPINE Without Contrast EXAM: MR Lumbar Spine Without Intravenous Contrast CLINICAL HISTORY: Reason for exam: intractable pain, hardware in place, fall 1 wk ago. TECHNIQUE: Magnetic resonance images of the lumbar spine without intravenous contrast in multiple planes. COMPARISON: Comparison made to prior CT scan of the lumbar spine from July 30, 2023. FINDINGS: Vertebrae: There are 5 lumbar type vertebral bodies with a mild levoscoliosis and normal lumbar lordosis. There is a remote fracture deformity of the L2, L3 and L4 segments with augmentation of L2. There is an acute setting or column fracture of the T11 vertebral body with moderate pulmonary edema and 26% loss of vertebral body height. Status post posterior decompression of the and posterior fusion of L4 and L5 with transpedicular screws and connecting rods in place. Spinal cord: The conus is normal size, shape and signal characteristics, terminating at T12-L1. Soft tissues: Advanced atrophy of the iliopsoas, paraspinous intraspinous musculature. The aorta and IVC flow voids are intact. Bilateral simple renal cyst. Otherwise the visualized kidneys are unremarkable. IMPRESSION: No evidence of acute lumbar spine pathology. There is an acute single column superior endplate fracture of the T11 vertebral body with 26% loss of vertebral body height. This fracture is amenable to vertebroplasty or kyphoplasty. Recommend MRI of the thoracic spine for further evaluation. Communications: Verify Receipt Electronically signed by: Angie Glass MD 08/08/23 00:20 AM
--- NOTE | 2023-08-08 01:03 | Emergency Department Note ---
Impression & Plan Compression fracture of T11 vertebra, Intractable pain ED Provider Note CHIEF COMPLAINT: Intractable back pain HISTORY OF PRESENT ILLNESS: This 87-year-old patient past medical history of lumbar disc disease, compression fracture, COPD, GERD, hyperlipidemia, hypertension, pulmonary nodule, atrial fibrillation, chronic kidney disease presents to the emergency department with complaints of intractable back pain. The patient states she fell in June and believes this is when the back pain started. She was evaluated in the emergency department 1 week ago for similar symptoms. She did have a CAT scan at that time. She was discharged with oxy IR and did take a half a tablet today prior to arrival without any benefit. She has been seen by her PCP this week and was given a course of prednisone. She does not believe this is helping. She denies any true loss of bowel or bladder function, but states her ability to get to the bathroom in time is limited secondary to the pain. She does live at home by herself, son is at the bedside. REVIEW OF SYSTEMS: A review of systems was performed with positives and pertinent negatives listed in the history of present illness. 10 systems were reviewed and are otherwise negative. ALLERGIES: see below MEDICATIONS: see below PMH: see below SOCIAL HISTORY: see below DDx: Degenerative disc disease, spine fracture, spinal stenosis, mass, kidney stone, UTI among others. PHYSICAL EXAM: Vital signs reviewed. General: Well-appearing 87-year-old female, in no significant distress. HEENT: No scleral icterus, PERRLA, neck supple. Atraumatic. Cardiovascular: Regular rate and rhythm, no extra sounds. Pulmonary: Clear to auscultation bilaterally, normal work of breathing. Abdomen: Soft, nontender, nondistended, positive bowel sounds. Musculoskeletal: Nontender to palpation of the thoracic and lumbar spine. Pain with movement. negative straight leg raise. Atraumatic, no peripheral edema. Neurologic: Patient awake alert and oriented x 3, speech is clear Skin: Warm, dry, no rash EMERGENCY DEPARTMENT COURSE/MDM: This patient was evaluated and appeared to be in significant discomfort. Patient was tearful and anxious. She was placed on the quality assurance monitor chassis. Patient requested IV team as she has a difficult stick. Patient was medicated with IM morphine and Zofran ODT awaiting IV access. Past medical records were reviewed including her previous ED visit. CT imaging of the lumbar spine had been performed on previous visit. Patient was medicated with 40 mg of IV Solu-Medrol and redosed with IV morphine after a saline lock was established. Due to the patient's continued discomfort and thus limited mobility, MRI of the lumbar spine was ordered. Per radiology this study is significant for T11 compression fracture. Patient did require additional pain medication. Patient will require hospitalization for pain management and spine consultation. Patient and son at the bedside were informed of the findings and plan. They agree, hospitalist service was consulted. MONITORING: An order for cardiac monitoring was placed and the patient is noted to be in a atrial fibrillation at 55 beats per minute. RADIOLOGY: MRI of the lumbar spine per radiology reveals a T11 compression fracture, please see final read below. DISPOSITION: Admission Past Med/Surg History Medical History Lumbar disc disease History of colon cancer treated surgically 1989 Anemia History of difficult venous access "have had to call the IV team to get my IV's in in the past" Hx of renal calculi passed on own COPD (chronic obstructive pulmonary disease) Gastric polyp removed-malignant 2020 Osteoporosis Atrial fibrillation On xarelto; follows with Dr. Pollard Chronic kidney disease, stage III (moderate) Hypothyroid High cholesterol Hypertension GERD (gastroesophageal reflux disease) Chronic back pain Asthma daily and PRN inhaler only, nebulizer prn History of endometrial cancer Surgical History Hx of bladder repair surgery History of esophagogastroduodenoscopy (EGD) most recent 06/16/22 [facility] Hx of colonoscopy S/P ERCP 10/07/20, Glidescope #3. 5 CT Hx laparoscopic cholecystectomy (10/06/20) Laparoscopic Cholecystectomy with Cholangiogram Dr. Varela 10/06/2020. Glidescope #4. H/O kyphoplasty T5 07/23/2019. Glidescope #3, atraumatic. Difficult airway for intubation Pt reports "failed intubation" with colon resection in . Has had several GA surgeries at [facility] with Glidescope intubations for all, no issues noted in anesthesia records. History of hysterectomy for cancer History of anesthesia problem INTUBATION PROBLEM History of colon resection History of back surgery History of total left knee replacement History of total right knee replacement History of subtotal thyroidectomy History of incisional hernia repair X2 Family History Grandmother (Paternal) Colorectal cancer Family/Other Coronary heart disease Ovarian cancer Breast cancer metastatic breast in 2 nieces. 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 Beliefs That Will Affect Care: None marital status: / Current Living Situation: Alone current occupational status: retired Other Information That Helps Us Care for You: No Feels Safe at Home: Yes Safety Concerns: Feels Safe At This Time Diet: regular caffeine: No Dental Care, Regularly: Yes Physical Activity Frequency: 1-2 Times per Week Physical Activity Frequency Comment: Walking, house work Seatbelt Use: always Sunscreen Use: Yes Assistive Devices: Cane and Walker Allergies Allergies Allergy/AdvReac Type Severity Reaction Status Date / Time nabumetone Allergy Severe SHORTNESS Verified 08/08/23 02:19 OF BREATH naproxen Allergy Severe SOB Verified 08/08/23 02:19 rofecoxib Allergy Severe SHORTNESS Verified 08/08/23 02:19 OF BREATH valdecoxib Allergy Severe SHORTNESS Verified 08/08/23 02:19 OF BREATH Cephalosporins Allergy Intermediate HIVES Verified 08/08/23 02:19 Penicillins Allergy Intermediate RASH,HIVES Verified 08/08/23 02:19 codeine Allergy Mild RASH Verified 08/08/23 02:19 methimazole Allergy Mild itching Verified 08/08/23 02:19 Sulfa (Sulfonamide Allergy Mild RASH Verified 08/08/23 02:19 Antibiotics) azithromycin [From Zithromax] AdvReac Intermediate DIARRHEA Verified 08/08/23 02:19 diphenhydramine AdvReac Intermediate LIGHTHEADED Verified 08/08/23 02:19 [From Benadryl] nitrofurantoin AdvReac Mild VOMITING Verified 08/08/23 02:19 nickel AdvReac Unknown Rash Verified 08/08/23 02:19 Home Meds Home Medications Medication Instructions Recorded Confirmed calcium carbonate 600 mg calcium 1,200 mg PO QAM 01/24/19 08/08/23 (1,500 mg) tablet (Calcium) ascorbic acid (vitamin C) 500 mg 500 mg PO QAM 02/07/19 08/08/23 tablet (Vitamin C) mecobalamin (vitamin B12) 1,000 500 mcg sublingual QAM 10/28/20 08/08/23 mcg disintegrating tablet,sublingual cholecalciferol (vitamin D3) 50 50 mcg PO QAM 06/10/22 08/08/23 mcg (2,000 unit) capsule (Vitamin D3) fluticasone propionate 50 2 spray intranasal DAILY 09/29/22 08/08/23 mcg/actuation nasal spray,suspension ferrous sulfate 325 mg (65 mg 325 mg PO .MON/TUE/Tue01/11/23 08/08/23 iron) tablet (Feosol) atenolol 50 mg tablet 50 mg PO DAILY 01/31/23 08/08/23 acetaminophen 500 mg tablet 1,000 mg PO Q6H PRN Pain 08/08/23 08/08/23 (Tylenol Extra Strength) esomeprazole magnesium 40 mg 40 mg PO QAM PRN Acid Reflux 08/08/23 08/08/23 capsule,delayed release (Nexium) Previous Rx's Medication Instructions Recorded albuterol sulfate 2.5 mg/3 mL 2.5 mg (3 mL) inhalation TID PRN 06/24/21 (0.083 %) solution for nebulization Shortness Of Breath Or Wheezing #270 mL albuterol sulfate 90 mcg/actuation 2 puff inhalation Q6H PRN 01/28/22 aerosol inhaler (ProAir HFA) shortness of breath or wheezing #20.1 grams amlodipine 5 mg tablet 7.5 mg (1.5 x 5 mg) PO HS #90 tabs 10/20/22 furosemide 20 mg tablet 20 mg PO DAILY PRN Fluid Retention 10/20/22 #90 tabs levothyroxine 75 mcg tablet 75 mcg PO QAM #90 tabs 10/20/22 montelukast 10 mg tablet 10 mg PO HS #90 tabs 10/20/22 (Singulair) pravastatin 40 mg tablet 40 mg PO HS #90 tabs 10/20/22 rivaroxaban 20 mg tablet (Xarelto) 20 mg PO QPM #90 tabs 01/31/23 dicyclomine 10 mg capsule 10 mg PO QAM #30 caps 03/31/23 fluconazole 100 mg tablet 100 mg PO DAILY PRN thrush #30 tabs 03/31/23 fluticasone 100 mcg-salmeterol 50 1 ea inhalation BID #3 Inhalers 03/31/23 mcg/dose blistr powdr for inhalation (Wixela Inhub) methocarbamol 500 mg tablet 500 mg PO BID PRN low back pain 08/03/23 #30 tabs oxycodone 5 mg tablet 5 mg PO Q8H PRN pain #30 tabs 08/03/23 prednisone 20 mg tablet 20 mg PO BID 5 days #10 tabs 08/03/23 Results & Data (ED) Vital Signs Vital Signs - 24 hr 08/07/23 20:05 08/07/23 22:53 08/08/23 00:01 Temperature 36.8 C Temperature Source Oral Pulse Rate 72 64 Pulse Rate [Finger] 54 L Pulse Rhythm Regular Pulse Rhythm [Finger] Regular Pulse Strength Normal Pulse Strength [Finger] Normal Respiratory Rate 20 18 17 Respiratory Effort / Characteristics Non-Labored Spontaneous Non-Labored Respiratory Depth Normal Normal Respiratory Pattern Regular Regular Blood Pressure 211/103 H 147/77 H Blood Pressure [Right Arm] 143/70 H Blood Pressure Mean 139 100 Blood Pressure Mean [Right Arm] 94 Blood Pressure Position Sitting Blood Pressure Position [Right Arm] Sitting Pulse Oximetry 97 95 92 Oxygen Delivery Method Room Air Room Air Room Air Sepsis Recent Fever Within 48 Hours No Sepsis New/Unexplained Change in Mental Status N/A Sepsis Action Taken by Nursing No Action Required Home Medications Current Medication List: was personally reviewed by me Laboratory Data Attestation: I reviewed the patient's lab results. 08/13/23 05:58 08/13/23 05:58 Lab Results 08/07/23 Range/Units 21:09 WBC 15.73 H (4.8-10.8) K/ul RBC 5.15 (4.20-5.40) M/uL Hgb 15.4 (12.0-16.0) g/dl Hct 45.2 (37.0-47.0) % MCV 87.8 (80.0-100.0) fL MCH 29.9 (25.0-34.0) pg MCHC 34.1 (32.0-36.0) g/dL RDW Std Deviation 42.2 (36.4-46.3) fL RDW Coeff of Barry 13.2 (11.5-14.5) % Plt Count 298 (130-400) K/uL MPV 9.6 (9.4-12.4) fL Immature Gran % (Auto) 1.8 % Neut % (Auto) 72.1 % Lymph % (Auto) 19.8 % Wilkin % (Auto) 6.0 % Eos % (Auto) 0.0 % Baso % (Auto) 0.3 % Neut # (Auto) 11.33 H (1.40-6.50) K/uL Lymph # (Auto) 3.12 (1.20-3.40) K/uL Wilkin # (Auto) 0.94 H (0.11-0.59) K/uL Eos # (Auto) 0.00 (0.00-0.50) K/uL Baso # (Auto) 0.05 (0.00-0.20) K/uL Immature Gran # (Auto) 0.29 H (0.01-0.20) K/uL Sodium 137 (136-145) mmol/L Potassium 4.2 (3.5-5.1) mmol/L Chloride 102 (98-107) mmol/L Carbon Dioxide 23 (21-32) mmol/L Anion Gap 12 H (3-11) BUN 31 H (6-23) mg/dl Creatinine 0.98 (0.6-1.2) mg/dl Est Cr Clr Drug Dosing 44.9 ml/min Est GFR ( Amer) 59.7 ml/min Est GFR (Non-Af Amer) 51.5 ml/min BUN/Creatinine Ratio 31.6 H (10-20) Glucose 103 H (70-99(Fasting)) mg/dl Calcium 9.4 (8.6-10.3) mg/dl Total Bilirubin 0.8 (0.2-1.0) mg/dl AST 16 (13-39) U/L ALT 11 (7-52) U/L Alkaline Phosphatase 85 (34-104) U/L Total Protein 8.0 (6.0-8.3) gm/dl Albumin 4.8 (3.4-5.0) gm/dl Globulin 3.2 (2.5-4.0) gm/dl Albumin/Globulin Ratio 1.5 (0.9-2) Administered Medications Acetaminophen (Acetaminophen 500 Mg Tab) 1,000 mg PO TID SUHAS Stop: 09/09/23 20:59 Last Admin: 08/13/23 20:38 Dose: 1,000 mg Documented By: Admin: 08/13/23 13:18 Dose: 1,000 mg Documented By: Admin: 08/13/23 08:03 Dose: 1,000 mg Documented By: Admin: 08/12/23 20:17 Dose: 1,000 mg Documented By: Admin: 08/12/23 15:36 Dose: 1,000 mg Documented By: Admin: 08/12/23 08:13 Dose: 1,000 mg Documented By: Admin: 08/11/23 19:38 Dose: 1,000 mg Documented By: Admin: 08/11/23 13:40 Dose: 1,000 mg Documented By: Admin: 08/11/23 08:31 Dose: 1,000 mg Documented By: LYDIA Co-signed By: JAMILAH Admin: 08/10/23 20:45 Dose: 1,000 mg Documented By: AMIE Amlodipine Besylate (Amlodipine Besylate 5 Mg Tab) 7.5 mg PO [facility] Stop: 09/07/23 20:59 Last Admin: 08/13/23 20:39 Dose: 7.5 mg Documented By: Admin: 08/12/23 20:17 Dose: 7.5 mg Documented By: Admin: 08/11/23 19:38 Dose: 7.5 mg Documented By: Admin: 08/10/23 20:46 Dose: 7.5 mg Documented By: Admin: 08/09/23 20:12 Dose: 7.5 mg Documented By: Admin: 08/08/23 20:26 Dose: 7.5 mg Documented By: TOM Atenolol (Atenolol 50 Mg Tablet) 50 mg PO [facility] Stop: 09/07/23 20:59 Last Admin: 08/13/23 20:40 Dose: Not Given Documented By: Admin: 08/12/23 20:18 Dose: Not Given Documented By: Admin: 08/11/23 19:38 Dose: 50 mg Documented By: Admin: 08/10/23 20:51 Dose: Not Given Documented By: Admin: 08/09/23 20:13 Dose: Not Given Documented By: Admin: 08/08/23 20:28 Dose: 50 mg Documented By: TOM Atenolol (Atenolol 25 Mg Tablet) 25 mg PO QAM SUHAS Stop: 09/07/23 08:59 Last Admin: 08/13/23 08:03 Dose: 25 mg Documented By: Admin: 08/12/23 08:12 Dose: 25 mg Documented By: Admin: 08/11/23 08:38 Dose: Not Given Documented By: Admin: 08/10/23 07:37 Dose: Not Given Documented By: Admin: 08/09/23 09:45 Dose: Not Given Documented By: Admin: 08/08/23 08:03 Dose: 25 mg Documented By: RAJI Calcitonin [place] (Calcitonin [place] Na 200 Iu/Ac 3.7 Ml Btl) 1 sprays NA DAILY [facility] Stop: 09/10/23 17:59 Last Admin: 08/13/23 08:03 Dose: 1 sprays Documented By: Admin: 08/12/23 08:13 Dose: 1 sprays Documented By: Admin: 08/11/23 18:47 Dose: 1 sprays Documented By: JOSE Calcium Carbonate (Calcium Carbonate 500 Mg Chewable Tab) 1,500 mg PO QAM SUHAS Stop: 09/07/23 08:59 Last Admin: 08/13/23 08:04 Dose: 1,500 mg Documented By: Admin: 08/12/23 08:12 Dose: 1,500 mg Documented By: Admin: 08/11/23 08:34 Dose: 1,500 mg Documented By: LYDIA Co-signed By: JAMILAH Admin: 08/10/23 07:51 Dose: 1,500 mg Documented By: Admin: 08/09/23 09:46 Dose: 1,500 mg Documented By: Admin: 08/08/23 08:03 Dose: 1,500 mg Documented By: RAJI Cyanocobalamin (Cyanocobalamin (B-12) 500 Mcg Tablet) 500 mcg PO QAM [facility] Stop: 09/07/23 08:59 Last Admin: 08/13/23 08:04 Dose: 500 mcg Documented By: Admin: 08/12/23 08:12 Dose: 500 mcg Documented By: Admin: 08/11/23 08:35 Dose: 500 mcg Documented By: LYDIA Co-signed By: AC Admin: 08/10/23 07:50 Dose: 500 mcg Documented By: Admin: 08/09/23 09:50 Dose: 500 mcg Documented By: Admin: 08/08/23 08:03 Dose: 500 mcg Documented By: [facility] Dicyclomine HCl (Dicyclomine Hcl 10 Mg Cap) 10 mg PO QAM [facility] Stop: 09/07/23 08:59 Last Admin: 08/13/23 08:03 Dose: 10 mg Documented By: Mary Alice Admin: 08/12/23 08:12 Dose: 10 mg Documented By: Mary Alice Admin: 08/11/23 08:39 Dose: Not Given Documented By: Admin: 08/10/23 07:38 Dose: Not Given Documented By: [facility] Admin: 08/09/23 09:51 Dose: Not Given Documented By: Admin: 08/08/23 08:03 Dose: 10 mg Documented By: RIKI Fluticasone/Vilanterol (Fluticasone/Vilanterol 100/25mcg 14 Puffs/Inhaler) 1 puffs INH DAILY [facility] Stop: 09/07/23 08:59 Last Admin: 08/13/23 08:04 Dose: 1 puffs Documented By: Admin: 08/12/23 08:13 Dose: 1 puffs Documented By: Admin: 08/11/23 08:39 Dose: 1 puffs Documented By: LYDIA Co-signed By: Admin: 08/10/23 07:51 Dose: 1 puffs Documented By: [facility] Admin: 08/09/23 09:54 Dose: 1 puffs Documented By: Admin: 08/08/23 08:03 Dose: 1 puffs Documented By: RIKI Levothyroxine Sodium (Levothyroxine Sodium 75 Mcg Tablet) 75 mcg PO DAILYBB [facility] Stop: 09/07/23 06:29 Last Admin: 08/14/23 05:10 Dose: 75 mcg Documented By: Admin: 08/13/23 05:28 Dose: 75 mcg Documented By: Admin: 08/12/23 05:45 Dose: 75 mcg Documented By: Admin: 08/11/23 05:37 Dose: 75 mcg Documented By: Admin: 08/10/23 05:33 Dose: 75 mcg Documented By: Admin: 08/09/23 05:10 Dose: 75 mcg Documented By: Admin: 08/08/23 05:56 Dose: 75 mcg Documented By: ILANA Lidocaine (Lidocaine 5% 1 Patch) 1 patch TD [facility] Stop: 09/07/23 13:29 Last Admin: 08/13/23 08:04 Dose: 1 patch Documented By: Admin: 08/12/23 08:14 Dose: 1 patch Documented By: Admin: 08/11/23 08:40 Dose: 1 patch Documented By: LYDIA Co-signed By: JAMILAH Admin: 08/10/23 07:52 Dose: 1 patch Documented By: Admin: 08/09/23 09:56 Dose: 1 patch Documented By: Admin: 08/08/23 14:56 Dose: 1 patch Documented By: RAJI Methocarbamol (Methocarbamol 500 Mg Tablet) 500 mg PO BID PRN PRN Reason: low back pain Stop: 09/07/23 18:06 Last Admin: 08/08/23 20:30 Dose: 500 mg Documented By: TOM Miscellaneous (Remove Lidoderm Patch) 1 each N/A DAILY@2100 [facility] Stop: 09/07/23 20:59 Last Admin: 08/13/23 20:40 Dose: 1 each Documented By: Admin: 08/12/23 20:19 Dose: 1 each Documented By: Admin: 08/11/23 19:39 Dose: 1 each Documented By: Admin: 08/10/23 20:51 Dose: 1 each Documented By: Admin: 08/09/23 20:13 Dose: 1 each Documented By: Admin: 08/08/23 20:28 Dose: 1 each Documented By: TOM Montelukast Sodium (Montelukast Sodium 10 Mg Tablet) 10 mg PO [facility] Stop: 09/07/23 20:59 Last Admin: 08/13/23 20:40 Dose: 10 mg Documented By: Admin: 08/12/23 20:19 Dose: 10 mg Documented By: Admin: 08/11/23 19:38 Dose: 10 mg Documented By: Admin: 08/10/23 20:46 Dose: 10 mg Documented By: Admin: 08/09/23 20:13 Dose: 10 mg Documented By: Admin: 08/08/23 20:27 Dose: 10 mg Documented By: TOM Morphine Sulfate (Morphine Sulfate 2 Mg/Ml Carp) 2 mg IV Q3H PRN PRN Reason: Severe Pain (Scale 7, 8, 9,10) Stop: 08/22/23 03:51 Last Admin: 08/12/23 17:10 Dose: 2 mg Documented By: Admin: 08/08/23 22:45 Dose: 2 mg Documented By: TOM Ondansetron HCl (Ondansetron Inj 2 Mg/Ml 2 Ml Vial) 4 mg IV Q6H PRN PRN Reason: Nausea Stop: 09/07/23 03:48 Last Admin: 08/13/23 19:40 Dose: 4 mg Documented By: Admin: 08/13/23 08:01 Dose: 4 mg Documented By: Admin: 08/09/23 16:02 Dose: 4 mg Documented By: JENNIFER Pantoprazole Sodium (Pantoprazole 40 Mg Tab) 40 mg PO QAM [facility] Stop: 09/07/23 08:59 Last Admin: 08/13/23 08:04 Dose: 40 mg Documented By: Admin: 08/12/23 08:12 Dose: 40 mg Documented By: Admin: 08/11/23 08:42 Dose: 40 mg Documented By: LYDIA Co-signed By: JAMILAH Admin: 08/10/23 07:51 Dose: 40 mg Documented By: Admin: 08/09/23 09:53 Dose: 40 mg Documented By: Admin: 08/08/23 08:03 Dose: 40 mg Documented By: RAJI Polyethylene Glycol (Polyethylene (Miralax) 17 Gm Pack) 17 gm PO BID [facility] Stop: 09/09/23 16:29 Last Admin: 08/13/23 20:43 Dose: Not Given Documented By: Admin: 08/13/23 08:04 Dose: Not Given Documented By: Admin: 08/12/23 20:30 Dose: Not Given Documented By: Admin: 08/12/23 08:14 Dose: Not Given Documented By: Admin: 08/11/23 19:39 Dose: Not Given Documented By: Admin: 08/11/23 08:42 Dose: 17 gm Documented By: LYDIA Co-signed By: JAMILAH Admin: 08/10/23 20:51 Dose: Not Given Documented By: Admin: 08/10/23 17:14 Dose: 17 gm Documented By: JENNIFER Pravastatin Sodium (Pravastatin Sod 40 Mg Tab) 40 mg PO HS [facility] Stop: 09/07/23 20:59 Last Admin: 08/13/23 20:40 Dose: 40 mg Documented By: Admin: 08/12/23 20:18 Dose: 40 mg Documented By: Admin: 08/11/23 19:38 Dose: 40 mg Documented By: Admin: 08/10/23 20:45 Dose: 40 mg Documented By: Admin: 08/09/23 20:12 Dose: 40 mg Documented By: Admin: 08/08/23 20:28 Dose: 40 mg Documented By: TOM Rivaroxaban (Rivaroxaban 15 Mg Tab) 15 mg PO QDD [facility] Stop: 09/08/23 16:29 Last Admin: 08/11/23 16:21 Dose: 15 mg Documented By: Admin: 08/10/23 17:06 Dose: 15 mg Documented By: Admin: 08/09/23 17:14 Dose: 15 mg Documented By: JENNIFER Senna/Docusate Sodium (Docusate Sodium/Senna 50/8.6mg Tab) 1 tab PO QAM [facility] Stop: 09/07/23 18:29 Last Admin: 08/13/23 08:03 Dose: 1 tab Documented By: Admin: 08/12/23 08:13 Dose: 1 tab Documented By: Admin: 08/11/23 08:38 Dose: 1 tab Documented By: LYDIA Co-signed By: JAMILAH Admin: 08/10/23 07:51 Dose: 1 tab Documented By: Admin: 08/09/23 09:52 Dose: 1 tab Documented By: Admin: 08/08/23 19:15 Dose: 1 tab Documented By: TOM Tapentadol (Tapentadol Hcl Er 50 Mg Tabcr) 50 mg PO Q12 [facility] Stop: 08/26/23 09:59 Last Admin: 08/13/23 20:38 Dose: 50 mg Documented By: Admin: 08/13/23 08:04 Dose: 50 mg Documented By: Admin: 08/12/23 20:38 Dose: 50 mg Documented By: Admin: 08/12/23 11:20 Dose: 50 mg Documented By: JALEESA Tapentadol (Tapentadol Hcl 50 Mg Tab) 75 mg PO Q6H PRN PRN Reason: Pain Stop: 08/26/23 13:59 Last Admin: 08/14/23 05:09 Dose: 75 mg Documented By: YAZMIN Vitamin D (Cholecalciferol 25 Mcg (1000 Units) Tab) 50 mcg PO QAM [facility] Stop: 09/11/23 08:59 Last Admin: 08/13/23 08:03 Dose: 50 mcg Documented By: Admin: 08/12/23 08:13 Dose: 50 mcg Documented By: JALEESA Discontinued Medications Acetaminophen (Acetaminophen 325 Mg Tab) 650 mg PO Q6H [facility] Stop: 09/08/23 07:59 Last Admin: 08/10/23 14:12 Dose: 650 mg Documented By: Admin: 08/10/23 07:51 Dose: 650 mg Documented By: Admin: 08/10/23 01:04 Dose: 650 mg Documented By: Admin: 08/09/23 20:13 Dose: 650 mg Documented By: Admin: 08/09/23 13:39 Dose: 650 mg Documented By: Admin: 08/09/23 09:48 Dose: 650 mg Documented By: JAMILAH Amlodipine Besylate (Amlodipine Besylate 5 Mg Tab) 7.5 mg PO NOW ONE Stop: 08/07/23 20:37 Last Admin: 08/07/23 21:00 Dose: 7.5 mg Documented By: MORE Atenolol (Atenolol 50 Mg Tablet) 50 mg PO NOW ONE Stop: 08/07/23 20:39 Last Admin: 08/07/23 21:01 Dose: 50 mg Documented By: MORE Bisacodyl (Bisacodyl 10 Mg Supp) 10 mg ME NOW STA Stop: 08/11/23 09:57 Last Admin: 08/11/23 10:57 Dose: 10 mg Documented By: JOSE Acetaminophen (Ofirmev) 1,000 mg in 100 mls @ 400 mls/hr IV NOW STA Stop: 08/07/23 23:51 Last Infusion: 08/07/23 23:59 Dose: Infused Documented By: Admin: 08/07/23 23:44 Dose: 400 mls/hr Documented By: MORE Methylprednisolone (Methylprednisolone 40 Mg/Ml Vial) 40 mg IV NOW STA Stop: 08/07/23 23:38 Last Admin: 08/07/23 23:44 Dose: 40 mg Documented By: MORE Morphine Sulfate (Morphine Sulfate 2 Mg/Ml Carp) 2 mg IM NOW STA Stop: 08/07/23 20:39 Last Admin: 08/07/23 20:59 Dose: 2 mg Documented By: MORE Morphine Sulfate (Morphine Sulfate 2 Mg/Ml Carp) 2 mg IV NOW STA Stop: 08/07/23 23:34 Last Admin: 08/07/23 23:38 Dose: 2 mg Documented By: MORE Ondansetron HCl (Ondansetron 4 Mg Od Tab) 4 mg PO NOW STA Stop: 08/07/23 20:39 Last Admin: 08/07/23 21:01 Dose: 4 mg Documented By: MOER Oxycodone HCl (Oxycodone Hcl Ir 5 Mg Tab (Immediate Release)) 5 mg PO Q4H PRN PRN Reason: Moderate Pain (Scale 4, 5, 6) Stop: 08/22/23 03:48 Last Admin: 08/10/23 07:52 Dose: 5 mg Documented By: Admin: 08/09/23 16:02 Dose: 5 mg Documented By: Admin: 08/09/23 11:28 Dose: 5 mg Documented By: Admin: 08/09/23 05:09 Dose: 5 mg Documented By: Admin: 08/09/23 00:45 Dose: 5 mg Documented By: Admin: 08/08/23 20:24 Dose: 5 mg Documented By: Admin: 08/08/23 14:57 Dose: 5 mg Documented By: Admin: 08/08/23 06:12 Dose: 5 mg Documented By: ILANA Oxycodone HCl (Oxycodone Hcl Ir 5 Mg Tab (Immediate Release)) 7.5 mg PO Q4H PRN PRN Reason: Pain Stop: 08/22/23 03:48 Last Admin: 08/12/23 09:12 Dose: 7.5 mg Documented By: Admin: 08/11/23 22:59 Dose: 7.5 mg Documented By: Admin: 08/11/23 13:44 Dose: 7.5 mg Documented By: Admin: 08/11/23 02:44 Dose: 7.5 mg Documented By: Admin: 08/10/23 17:34 Dose: 7.5 mg Documented By: JENNIFER Rivaroxaban (Rivaroxaban 20 Mg Tab) 20 mg PO QDD [facility] Stop: 09/07/23 18:14 Last Admin: 08/08/23 19:16 Dose: 20 mg Documented By: TOM Tapentadol (Tapentadol Hcl 50 Mg Tab) 50 mg PO Q6H PRN PRN Reason: Pain Stop: 08/26/23 13:59 Last Admin: 08/13/23 16:39 Dose: 50 mg Documented By: Admin: 08/12/23 20:21 Dose: 50 mg Documented By: RERE Vitamin D (Cholecalciferol 1,000 Units 25 Mcg Tab) 2,000 mcg PO QAM SUHAS Stop: 09/07/23 08:59 Last Admin: 08/11/23 08:34 Dose: 2,000 units Documented By: [email or web address] Co-signed By: JAMILAH Admin: 08/10/23 07:51 Dose: 2,000 units Documented By: Admin: 08/09/23 09:49 Dose: 2,000 units Documented By: Admin: 08/08/23 08:03 Dose: 2,000 units Documented By: [facility] Imaging Data Radiologist's Impression: Lumbar Spine MRI 08/07/23 20:41 CR Exam(s): MRI L SPINE Without Contrast EXAM: MR Lumbar Spine Without Intravenous Contrast CLINICAL HISTORY: Reason for exam: intractable pain, hardware in place, fall 1 wk ago. TECHNIQUE: Magnetic resonance images of the lumbar spine without intravenous contrast in multiple planes. COMPARISON: Comparison made to prior CT scan of the lumbar spine from July 30, 2023. FINDINGS: Vertebrae: There are 5 lumbar type vertebral bodies with a mild levoscoliosis and normal lumbar lordosis. There is a remote fracture deformity of the L2, L3 and L4 segments with augmentation of L2. There is an acute setting or column fracture of the T11 vertebral body with moderate pulmonary edema and 26% loss of vertebral body height. Status post posterior decompression of the and posterior fusion of L4 and L5 with transpedicular screws and connecting rods in place. Spinal cord: The conus is normal size, shape and signal characteristics, terminating at T12-L1. Soft tissues: Advanced atrophy of the iliopsoas, paraspinous intraspinous musculature. The aorta and IVC flow voids are intact. Bilateral simple renal cyst. Otherwise the visualized kidneys are unremarkable. IMPRESSION: No evidence of acute lumbar spine pathology. There is an acute single column superior endplate fracture of the T11 vertebral body with 26% loss of vertebral body height. This fracture is amenable to vertebroplasty or kyphoplasty. Recommend MRI of the thoracic spine for further evaluation. Communications: Verify Receipt Electronically signed by: Angie Glass MD 08/08/23 00:20 AM Discharge Plan Visit Data Chief Complaint: Back Injury/Pain ED Provider: Angie Choe Discharge Problem: Compression fracture of T11 vertebra, Intractable pain Patient Disposition: Admitted As Inpatient Discharge Instructions Interventions: ED Discharge Assessment Last Done: 08/08/23 02:46 Discharge Problem: Compression fracture of T11 vertebra Qualifiers: Encounter type: initial encounter Qualified Code(s): S22.080A - Wedge compression fracture of T11-T12 vertebra, initial encounter for closed fracture
--- NOTE | 2023-08-08 01:45 | History & Physical Report ---
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: (10) PAF (paroxysmal atrial fibrillation): (11) Chronic back pain: Plan New acute T11 vertebral body fracture- 26% loss of height L2, L3 and L4 remote fracture deformity T11 fracture seen on MRI of lumbar spine, with recommendation for evaluation with MRI thoracic spine Order MRI thoracic spine Acetaminophen 650 mg by mouth every 6 hours as needed for mild pain or fever Oxycodone 5 mg by mouth every 4 hours as needed for moderate pain Morphine sulfate 2 mg IV every 4 hours as needed for severe pain Patient received Solu-Medrol 40 mg IV from the ED No suggestion of edema on MRI lumbar spine Hold Xarelto She was placed on a prednisone tapering schedule, which she completed after 5 days Consult to orthopedic spine surgery Dr. Head, whom she has appointment with on 08/16/2023 Paroxysmal atrial fibrillation/hypertension- Hold Xarelto Continue amlodipine 7.5 mg daily, atenolol 50 mg daily COPD- Continue montelukast 10 mg daily, Breo elliptica 1 puff daily and Ventolin HFA 2 puffs every 6 hours as needed History of Present Illness Chief Complaint: The patient presents to the emergency department with worsening back pain, since a fall that she had in June, in particular getting worse over the past few weeks, and was first seen in the emergency department 1 week ago. Primary Care Provider: NILES Fontanez The patient is an 87-year-old female with a past medical history including allergic rhinitis, nephrolithiasis, COPD, GERD, Graves' disease, hyperlipidemia, hypertension, bladder hyperactivity, CKD stage III, PAF, carcinoid tumor determined by biopsy of stomach, ventral hernia and anemia. The patient reports that she had a fall in June, and sustained some back pain at that point, however, the pain has gradually worsened to the point that she was seen in emergency department 1 week ago, and since that time is worsened considerably more. Imaging in the emergency department included a MRI of lumbar spine, which showed remote fracture deformities of L2, L3 and L4 segments, with augmentation of L2. More acutely, she was found to have a single column superior endplate fracture of the T11 vertebral body with 26% loss of vertebral body height, thought to be amenable to vertebroplasty or kyphoplasty. Recommendation for MRI of the thoracic spine for further evaluation Allergies Allergy/AdvReac Type Severity Reaction Status Date / Time nabumetone Allergy Severe SHORTNESS Verified 08/08/23 02:19 OF BREATH naproxen Allergy Severe SOB Verified 08/08/23 02:19 rofecoxib Allergy Severe SHORTNESS Verified 08/08/23 02:19 OF BREATH valdecoxib Allergy Severe SHORTNESS Verified 08/08/23 02:19 OF BREATH Cephalosporins Allergy Intermediate HIVES Verified 08/08/23 02:19 Penicillins Allergy Intermediate RASH,HIVES Verified 08/08/23 02:19 codeine Allergy Mild RASH Verified 08/08/23 02:19 methimazole Allergy Mild itching Verified 08/08/23 02:19 Sulfa (Sulfonamide Allergy Mild RASH Verified 08/08/23 02:19 Antibiotics) azithromycin [From Zithromax] AdvReac Intermediate DIARRHEA Verified 08/08/23 02:19 diphenhydramine AdvReac Intermediate LIGHTHEADED Verified 08/08/23 02:19 [From Benadryl] nitrofurantoin AdvReac Mild VOMITING Verified 08/08/23 02:19 nickel AdvReac Unknown Rash Verified 08/08/23 02:19 Home Medications Medication Instructions Recorded Confirmed Type calcium carbonate 600 mg calcium 1,200 mg PO QAM 01/24/19 08/08/23 History (1,500 mg) tablet (Calcium) ascorbic acid (vitamin C) 500 mg 500 mg PO QAM 02/07/19 08/08/23 History tablet (Vitamin C) mecobalamin (vitamin B12) 1,000 500 mcg sublingual QAM 10/28/20 08/08/23 History mcg disintegrating tablet,sublingual albuterol sulfate 2.5 mg/3 mL 2.5 mg (3 mL) inhalation TID PRN 06/24/21 08/08/23 Rx (0.083 %) solution for nebulization Shortness Of Breath Or Wheezing #270 mL albuterol sulfate 90 mcg/actuation 2 puff inhalation Q6H PRN 01/28/22 08/08/23 Rx aerosol inhaler (ProAir HFA) shortness of breath or wheezing #20.1 grams cholecalciferol (vitamin D3) 50 50 mcg PO QAM 06/10/22 08/08/23 History mcg (2,000 unit) capsule (Vitamin D3) fluticasone propionate 50 2 spray intranasal DAILY 09/29/22 08/08/23 History mcg/actuation nasal spray,suspension amlodipine 5 mg tablet 7.5 mg (1.5 x 5 mg) PO HS #90 tabs 10/20/22 08/08/23 Rx furosemide 20 mg tablet 20 mg PO DAILY PRN Fluid Retention 10/20/22 08/08/23 Rx #90 tabs levothyroxine 75 mcg tablet 75 mcg PO QAM #90 tabs 10/20/22 08/08/23 Rx montelukast 10 mg tablet 10 mg PO HS #90 tabs 10/20/22 08/08/23 Rx (Singulair) pravastatin 40 mg tablet 40 mg PO HS #90 tabs 10/20/22 08/08/23 Rx ferrous sulfate 325 mg (65 mg 325 mg PO .MON/WED/Tue01/11/23 08/08/23 History iron) tablet (Feosol) atenolol 50 mg tablet 50 mg PO DAILY 01/31/23 08/08/23 History rivaroxaban 20 mg tablet (Xarelto) 20 mg PO QPM #90 tabs 01/31/23 08/08/23 Rx dicyclomine 10 mg capsule 10 mg PO QAM #30 caps 03/31/23 08/08/23 Rx fluconazole 100 mg tablet 100 mg PO DAILY PRN thrush #30 tabs 03/31/23 08/08/23 Rx fluticasone 100 mcg-salmeterol 50 1 ea inhalation BID #3 Inhalers 03/31/23 08/08/23 Rx mcg/dose blistr powdr for inhalation (Wixela Inhub) methocarbamol 500 mg tablet 500 mg PO BID PRN low back pain 08/03/23 08/08/23 Rx #30 tabs oxycodone 5 mg tablet 5 mg PO Q8H PRN pain #30 tabs 08/03/23 08/08/23 Rx prednisone 20 mg tablet 20 mg PO BID 5 days #10 tabs 08/03/23 08/08/23 Rx acetaminophen 500 mg tablet 1,000 mg PO Q6H PRN Pain 08/08/23 08/08/23 History (Tylenol Extra Strength) esomeprazole magnesium 40 mg 40 mg PO QAM PRN Acid Reflux 08/08/23 08/08/23 History capsule,delayed release (Nexium) Past Med/Surg History Medical History (Updated 08/08/23 @ 06:09 by Shabbir Zheng MD) Lumbar disc disease History of colon cancer treated surgically 1989 Anemia History of difficult venous access "have had to call the IV team to get my IV's in in the past" Hx of renal calculi passed on own COPD (chronic obstructive pulmonary disease) Gastric polyp removed-malignant 2020 Osteoporosis Atrial fibrillation On xarelto; follows with Dr. Pollard Chronic kidney disease, stage III (moderate) Hypothyroid High cholesterol Hypertension GERD (gastroesophageal reflux disease) Chronic back pain Asthma daily and PRN inhaler only, nebulizer prn History of endometrial cancer Surgical History Hx of bladder repair surgery History of esophagogastroduodenoscopy (EGD) most recent 06/16/22 [facility] Hx of colonoscopy S/P ERCP 10/07/20, Glidescope #3. 5 [place] Hx laparoscopic cholecystectomy (10/06/20) Laparoscopic Cholecystectomy with Cholangiogram Dr. Varela 10/06/2020. Glidescope #4. H/O kyphoplasty T5 07/23/2019. Glidescope #3, atraumatic. Difficult airway for intubation Pt reports "failed intubation" with colon resection in . Has had [facility] [place] surgeries at [facility] with Glidescope intubations for all, no issues noted in anesthesia records. History of hysterectomy for cancer History of anesthesia problem INTUBATION PROBLEM History of colon resection History of back surgery History of total left knee replacement History of total right knee replacement History of subtotal thyroidectomy History of incisional hernia repair X2 Family History Grandmother (Paternal) Colorectal cancer Family/Other Coronary heart disease Ovarian cancer Breast cancer metastatic breast in 2 nieces. Mother Myocardial infarction Father Myocardial infarction Family/Other Breast cancer Sister Ovarian cancer Denies family history of Prostate cancer Social History (Reviewed 01/20/24 @ 14:54 by SAMEER Gordillo Smoking Status: Never smoker Second Hand Exposure: Yes (as a child and early marriage); Do You Dip or Chew Tobacco: No; Tobacco Cessation Education Requested by Patient: No Hx Alcohol Use: No Hx Substance Use: No Preferred Language: Faroese Communication Ability: Effective Visual Impairment: No Limitations Hearing Ability: Normal Production Department Supervisor Required: No Beliefs That Will Affect Care: None marital status: / Current Living Situation: Alone current occupational status: retired Other Information That Helps Us Care for You: No Feels Safe at Home: Yes Safety Concerns: Feels Safe At This Time Diet: regular caffeine: No Dental Care, Regularly: Yes Physical Activity Frequency: 1-2 Times per Week Physical Activity Frequency Comment: Walking, house work Seatbelt Use: always Sunscreen Use: Yes Assistive Devices: Glasses and Walker Review of Systems Review of Systems: The patient denies chest pain, palpitations, shortness of breath, dyspnea on exertion, cough, lower extremity swelling, sore throat, fevers, chills, sweats, weight change, fatigue, nausea, vomiting, diarrhea , constipation, abdominal pain, pelvic pain, blood in urine or stool, dysuria, urinary frequency or urgency, lightheadedness, dizziness, headache, memory loss, loss of consciousness, rash, abnormal bruising or bleeding, focal or generalized weakness, numbness or tingling in arms or legs, generalized arthralgias or myalgias, or night sweats. The review of systems is otherwise negative other than for that already noted above, and at least 10 systems have been reviewed. Physical Exam Physical Exam: The patient is awake, alert and oriented 3, well developed and well nourished, normocephalic and atraumatic, lying in bed and in no acute distress. HEENT--PERRL, EOMI, mucous membranes and oropharynx Normal Neck--supple. No JVD. No bruits. Thyroid normal, trachea midline, no adenopathy. Heart--normal S1 and S2. No murmurs, rubs or gallops. Lungs--clear bilaterally, no respiratory distress, no accessory muscle use. Abdomen--normal bowel sounds and soft. Nontender. Nondistended, no hernias or masses, no organomegaly. Extremities--no cyanosis or clubbing. No edema. There are good distal pulses b/l. Dermatologic--normal skin turgor, normal color, no abnormal lymph nodes, no rash. Neurologic--cranial nerves II through XII grossly intact. Rheumatologic--limited exam due to back pain Psychiatric--normal affect. Results & Data Results & Data Vital Signs (Past 12 Hours) Vital Signs Temp Pulse Pulse Resp BP BP Pulse Ox 08/08/23 00:01 54 L 17 143/70 H 92 08/07/23 22:53 64 18 147/77 H 95 08/07/23 20:05 36.8 C 72 20 211/103 H 97 O2 Del Method 08/08/23 00:01 Room Air 08/07/23 22:53 Room Air 08/07/23 20:05 Room Air Laboratory Results Laboratory Results WBC 15.73 K/ul (4.8-10.8) H 08/07/23 21:09 RBC 5.15 M/uL (4.20-5.40) 08/07/23 21:09 Hgb 15.4 g/dl (12.0-16.0) 08/07/23 21:09 Hct 45.2 % (37.0-47.0) 08/07/23 21:09 MCV 87.8 fL (80.0-100.0) 08/07/23 21:09 MCH 29.9 pg (25.0-34.0) 08/07/23 21:09 MCHC 34.1 g/dL (32.0-36.0) 08/07/23 21:09 RDW Std Deviation 42.2 fL (36.4-46.3) 08/07/23 21:09 RDW Coeff of Barry 13.2 % (11.5-14.5) 08/07/23 21:09 Plt Count 298 K/uL (130-400) 08/07/23 21:09 MPV 9.6 fL (9.4-12.4) 08/07/23 21:09 Immature Gran % (Auto) 1.8 % 08/07/23 21:09 Neut % (Auto) 72.1 % 08/07/23 21:09 Lymph % (Auto) 19.8 % 08/07/23 21:09 Hardee % (Auto) 6.0 % 08/07/23 21:09 Eos % (Auto) 0.0 % 08/07/23 21:09 Baso % (Auto) 0.3 % 08/07/23 21:09 Neut # (Auto) 11.33 K/uL (1.40-6.50) H 08/07/23 21:09 Lymph # (Auto) 3.12 K/uL (1.20-3.40) 08/07/23 21:09 Hardee # (Auto) 0.94 K/uL (0.11-0.59) H 08/07/23 21:09 Eos # (Auto) 0.00 K/uL (0.00-0.50) 08/07/23 21:09 Baso # (Auto) 0.05 K/uL (0.00-0.20) 08/07/23 21:09 Immature Gran # (Auto) 0.29 K/uL (0.01-0.20) H 08/07/23 21:09 Sodium 137 mmol/L (136-145) 08/07/23 21:09 Potassium 4.2 mmol/L (3.5-5.1) 08/07/23 21:09 Chloride 102 mmol/L (98-107) 08/07/23 21:09 Carbon Dioxide 23 mmol/L (21-32) 08/07/23 21:09 Anion Gap 12 (3-11) H 08/07/23 21:09 BUN 31 mg/dl (6-23) H 08/07/23 21:09 Creatinine 0.98 mg/dl (0.6-1.2) 08/07/23 21:09 Est Cr Clr Drug Dosing 44.9 ml/min 08/07/23 21:09 Est GFR ( Amer) 59.7 ml/min 08/07/23 21:09 Est GFR (Non-Af Amer) 51.5 ml/min 08/07/23 21:09 BUN/Creatinine Ratio 31.6 (10-20) H 08/07/23 21:09 Glucose 103 mg/dl (70-99(Fasting)) H 08/07/23 21:09 Calcium 9.4 mg/dl (8.6-10.3) 08/07/23 21:09 Total Bilirubin 0.8 mg/dl (0.2-1.0) 08/07/23 21:09 AST 16 U/L (13-39) 08/07/23 21:09 ALT 11 U/L (7-52) 08/07/23 21:09 Alkaline Phosphatase 85 U/L (34-104) 08/07/23 21:09 Total Protein 8.0 gm/dl (6.0-8.3) 08/07/23 21:09 Albumin 4.8 gm/dl (3.4-5.0) 08/07/23 21:09 Globulin 3.2 gm/dl (2.5-4.0) 08/07/23 21:09 Albumin/Globulin Ratio 1.5 (0.9-2) 08/07/23 21:09 Impressions Lumbar Spine MRI 08/07/23 20:41 CR Exam(s): MRI L SPINE Without Contrast EXAM: MR Lumbar Spine Without Intravenous Contrast CLINICAL HISTORY: Reason for exam: intractable pain, hardware in place, fall 1 wk ago. TECHNIQUE: Magnetic resonance images of the lumbar spine without intravenous contrast in multiple planes. COMPARISON: Comparison made to prior CT scan of the lumbar spine from July 30, 2023. FINDINGS: Vertebrae: There are 5 lumbar type vertebral bodies with a mild levoscoliosis and normal lumbar lordosis. There is a remote fracture deformity of the L2, L3 and L4 segments with augmentation of L2. There is an acute setting or column fracture of the T11 vertebral body with moderate pulmonary edema and 26% loss of vertebral body height. Status post posterior decompression of the and posterior fusion of L4 and L5 with transpedicular screws and connecting rods in place. Spinal cord: The conus is normal size, shape and signal characteristics, terminating at T12-L1. Soft tissues: Advanced atrophy of the iliopsoas, paraspinous intraspinous musculature. The aorta and IVC flow voids are intact. Bilateral simple renal cyst. Otherwise the visualized kidneys are unremarkable. IMPRESSION: No evidence of acute lumbar spine pathology. There is an acute single column superior endplate fracture of the T11 vertebral body with 26% loss of vertebral body height. This fracture is amenable to vertebroplasty or kyphoplasty. Recommend MRI of the thoracic spine for further evaluation. Communications: Verify Receipt Electronically signed by: Angie Glass MD 08/08/23 00:20 AM Code Status & VTE Plan Code Status Full code VTE Prophylaxis Plan VTE Prophylaxis will be ordered: Yes PG Care Time/CCT Total # of Minutes Spent Total Time Spent with Patient: Total time spent is greater than 50% in coordination of care (as documented) at patient's floor/unit and/or counseling patient: Coding Level of Care Code 43441 INT INP/OBS CARE MIN Diagnoses Thoracic spine fracture S22.009A Intractable back pain M54.9 Lumbar disc disease M51.9 COPD (chronic obstructive pulmonary disease) J44.9 GERD (gastroesophageal reflux disease) K21.9 Hyperlipidemia E78.5 Hypertension I10 Hyperactivity of bladder N31.8 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
[2023-08-08] MEDS ORDERED: ALBUTEROL HFA 8 GM INHALER INH PRN (03:49)
[2023-08-08] MEDS ORDERED: ACETAMINOPHEN 325 MG TAB PO PRN ×2 (03:49→13:23)
[2023-08-08] MEDS: LEVOTHYROXINE SODIUM 75 MCG TABLET PO SCH (05:56)
[2023-08-08] MEDS: oxyCODONE HCL IR 5 MG TAB (IMMEDIATE RELEASE) PO PRN (06:12)
[2023-08-08] MEDS: DICYCLOMINE HCL 10 MG CAP PO SCH (08:03)
[2023-08-08] MEDS: CHOLECALCIFEROL 25 MCG (1000 UNITS) TAB PO SCH (08:03)
[2023-08-08] MEDS: FLUTICASONE/VILANTEROL 100/25MCG 14 PUFFS/INHALER INH SCH (08:03)
[2023-08-08] MEDS: CALCIUM CARBONATE 500 MG CHEWABLE TAB PO SCH (08:03)
[2023-08-08] MEDS: ATENOLOL 25 MG TABLET PO SCH (08:03)
[2023-08-08] MEDS: PANTOprazole 40 MG TAB PO SCH (08:03)
[2023-08-08] MEDS: CYANOCOBALAMIN (B-12) 500 MCG TABLET PO SCH (08:03)
--- NOTE | 2023-08-08 10:58 | Magnetic Resonance Report ---
MR thoracic spine wo con HISTORY: 87 years-old Female acute T11 vertebral body fracture seen on MRI LS Acute mid back pain. COMPARISON: MRI of the lumbar spine 08/07/2023, CT abdomen and pelvis 07/30/2023, MRI of the thoracic s pine 09/20/2019. TECHNIQUE: Multiplanar and multisequence MRI of the thoracic spine was obtained without the use of IV contrast. FINDINGS: Senior Network Systems Engineer localizer images demonstrate no gross extraspinal abnormality. Susceptibility artifact from met allic postoperative structure within the stomach limits evaluation of the left chest. Right hemidiaph ragmatic elevation with cardiomegaly. Pelvic floor relaxation is noted. Study is motion degraded. Not e is made of 12 thoracic and 6 lumbar type vertebral segments. Chronic T4-T7 compression deformities with T6 vertebroplasty. There is an acute transversely-oriented fracture involving the mid-vertebral body with extension into the superior endplate at T12 demonstrating less than 20% vertebral body heig ht loss. No retropulsion or posterior element fracture extension is identified. There is trace parave rtebral edema at this level. Chronic L3 and L4 compression deformities with mild L3 retropulsion with evidence of kyphoplasty. Trace pleural effusions. [id number] multilevel intervertebral disc space narrowing with mostly mild spondylitic spurring and moderate facet arthrosis. No high-grade central canal or neuroforaminal narrowing is identified within the thoracic spine. There are a few scattered Tarlov's cysts measuring up to 8 mm on the right at T10-T11. Conus medullaris terminates at L1-L2. Normal signal within the thoracic spinal cord. The re is minimal central canal stenosis at T5-T6 secondary to exaggerated kyphosis centered at this leve l with posterior annular disc bulging. AP dimension of the thecal sac at this level measures 9 mm. IMPRESSION: 1. Motion degraded exam. 2. There are 12 thoracic and 6 lumbar type vertebral segments present. 3. Mild acute T12 superior endplate compression deformity with less than 20% vertebral body height lo ss and no retropulsion. 4. Degenerative changes as above with chronic thoracolumbar compression deformities and prior kyphopl asty. 5. Trace pleural effusions. ACT 112: Negative or not required by law. The above report was generated using voice recognition software. It may contain grammatical, syntax o r spelling errors. Dictated: 08/08/2023 7:52 AM Transcribed: 08/08/2023 8:21 AM Sandro [id number] [email or web address] Electronically signed by: Paul Groves M.D. 08/08/2023 10:57 AM
--- NOTE | 2023-08-08 11:05 | Consultation ---
Date of Consultation August 08, 2023 Assessment & Plan (1) Thoracic spine fracture: Juana is an 87-year-old female who had a fall a month ago with a T11 (depending on vertebral numbering) fracture. I have reviewed both surgical and nonsurgical options with her. She would like to proceed with conservative treatment. I have ordered a TLSO brace. This is to be worn when standing and walking only. May remove when in a seated position or when lying down. Continue with pain control. It is improving. No lifting over 5 pounds. I believe she would benefit from short stay at rehab before returning to home. All questions have been answered in detail. Dr. Head has reviewed imaging and treatment plan. We will sign off. History of Present Illness Reason for Consultation: Thoracic compression fracture Attending Physician: Becky Grimm MD History of Present Illness Is a pleasant 87-year-old female who sustained a fall June 29, 2023 in her home landing on her buttock. She had pain then, but it then greatly improved. As of a week ago pain worsened and started radiating to her abdomen. Last eveni she was unable to get out of her chair so she called the ambulance and for her neighbors and was subsequently admitted via the ED. She has had a prior T5 kyphoplasty as well as a lumbar fusion by Dr. Tovar. Typically at home she and was with a walker at night and a cane during the daytime hours. She has no radicular pain. Abdominal pain has resolved. She currently lives at home alone. Her 9 or 10 months ago. Allergies Allergy/AdvReac Type Severity Reaction Status Date / Time nabumetone Allergy Severe SHORTNESS Verified 08/08/23 02:19 OF BREATH naproxen Allergy Severe SOB Verified 08/08/23 02:19 rofecoxib Allergy Severe SHORTNESS Verified 08/08/23 02:19 OF BREATH valdecoxib Allergy Severe SHORTNESS Verified 08/08/23 02:19 OF BREATH Cephalosporins Allergy Intermediate HIVES Verified 08/08/23 02:19 Penicillins Allergy Intermediate RASH,HIVES Verified 08/08/23 02:19 codeine Allergy Mild RASH Verified 08/08/23 02:19 methimazole Allergy Mild itching Verified 08/08/23 02:19 Sulfa (Sulfonamide Allergy Mild RASH Verified 08/08/23 02:19 Antibiotics) azithromycin [From Zithromax] AdvReac Intermediate DIARRHEA Verified 08/08/23 02:19 diphenhydramine AdvReac Intermediate LIGHTHEADED Verified 08/08/23 02:19 [From Benadryl] nitrofurantoin AdvReac Mild VOMITING Verified 08/08/23 02:19 nickel AdvReac Unknown Rash Verified 08/08/23 02:19 Home Medications Medication Instructions Recorded Confirmed Type calcium carbonate 600 mg calcium 1,200 mg PO QAM 01/24/19 08/08/23 History (1,500 mg) tablet (Calcium) ascorbic acid (vitamin C) 500 mg 500 mg PO QAM 02/07/19 08/08/23 History tablet (Vitamin C) mecobalamin (vitamin B12) 1,000 500 mcg sublingual QAM 10/28/20 08/08/23 History mcg disintegrating tablet,sublingual albuterol sulfate 2.5 mg/3 mL 2.5 mg (3 mL) inhalation TID PRN 06/24/21 08/08/23 Rx (0.083 %) solution for nebulization Shortness Of Breath Or Wheezing #270 mL albuterol sulfate 90 mcg/actuation 2 puff inhalation Q6H PRN 01/28/22 08/08/23 Rx aerosol inhaler (ProAir HFA) shortness of breath or wheezing #20.1 grams cholecalciferol (vitamin D3) 50 50 mcg PO QAM 06/10/22 08/08/23 History mcg (2,000 unit) capsule (Vitamin D3) fluticasone propionate 50 2 spray intranasal DAILY 09/29/22 08/08/23 History mcg/actuation nasal spray,suspension amlodipine 5 mg tablet 7.5 mg (1.5 x 5 mg) PO HS #90 tabs 10/20/22 08/08/23 Rx furosemide 20 mg tablet 20 mg PO DAILY PRN Fluid Retention 10/20/22 08/08/23 Rx #90 tabs levothyroxine 75 mcg tablet 75 mcg PO QAM #90 tabs 10/20/22 08/08/23 Rx montelukast 10 mg tablet 10 mg PO HS #90 tabs 10/20/22 08/08/23 Rx (Singulair) pravastatin 40 mg tablet 40 mg PO HS #90 tabs 10/20/22 08/08/23 Rx ferrous sulfate 325 mg (65 mg 325 mg PO .MON/TUE/Tue01/11/23 08/08/23 History iron) tablet (Feosol) atenolol 50 mg tablet 50 mg PO DAILY 01/31/23 08/08/23 History rivaroxaban 20 mg tablet (Xarelto) 20 mg PO QPM #90 tabs 01/31/23 08/08/23 Rx dicyclomine 10 mg capsule 10 mg PO QAM #30 caps 03/31/23 08/08/23 Rx fluconazole 100 mg tablet 100 mg PO DAILY PRN thrush #30 tabs 03/31/23 08/08/23 Rx fluticasone 100 mcg-salmeterol 50 1 ea inhalation BID #3 Inhalers 03/31/23 08/08/23 Rx mcg/dose blistr powdr for inhalation (Wixela Inhub) methocarbamol 500 mg tablet 500 mg PO BID PRN low back pain 08/03/23 08/08/23 Rx #30 tabs oxycodone 5 mg tablet 5 mg PO Q8H PRN pain #30 tabs 08/03/23 08/08/23 Rx prednisone 20 mg tablet 20 mg PO BID 5 days #10 tabs 08/03/23 08/08/23 Rx acetaminophen 500 mg tablet 1,000 mg PO Q6H PRN Pain 08/08/23 08/08/23 History (Tylenol Extra Strength) esomeprazole magnesium 40 mg 40 mg PO QAM PRN Acid Reflux 08/08/23 08/08/23 History capsule,delayed release (Nexium) Patient History Medical History Lumbar disc disease History of colon cancer treated surgically 1989 Anemia History of difficult venous access "have had to call the IV team to get my IV's in in the past" Hx of renal calculi passed on own COPD (chronic obstructive pulmonary disease) Gastric polyp removed-malignant 2020 Osteoporosis Atrial fibrillation On xarelto; follows with Dr. Pollard Chronic kidney disease, stage III (moderate) Hypothyroid High cholesterol Hypertension GERD (gastroesophageal reflux disease) Chronic back pain Asthma daily and PRN inhaler only, nebulizer prn History of endometrial cancer Surgical History Hx of bladder repair surgery History of esophagogastroduodenoscopy (EGD) most recent 06/16/22 [facility] Hx of colonoscopy S/P ERCP 10/07/20, Glidescope #3. 11/21/20 [place] Hx laparoscopic cholecystectomy (10/06/20) Laparoscopic Cholecystectomy with Cholangiogram Dr. Varela 10/06/2020. Glidescope #4. H/O kyphoplasty T5 07/23/2019. Glidescope #3, atraumatic. Difficult airway for intubation Pt reports "failed intubation" with colon resection in . Has had several GA surgeries at [facility] with Glidescope intubations for all, no issues noted in anesthesia records. History of hysterectomy for cancer History of anesthesia problem INTUBATION PROBLEM History of colon resection History of back surgery History of total left knee replacement History of total right knee replacement History of subtotal thyroidectomy History of incisional hernia repair X2 Family History Grandmother (Paternal) Colorectal cancer Family/Other Coronary heart disease Ovarian cancer Breast cancer metastatic breast in 2 nieces. Mother Myocardial infarction Father Myocardial infarction Family/Other Breast cancer Sister Ovarian cancer Denies family history of Prostate cancer Social History Smoking Status: Never smoker Second Hand Exposure: Yes (as a child and early marriage); Do You Dip or Chew Tobacco: No; Tobacco Cessation Education Requested by Patient: No Hx Alcohol Use: No Hx Substance Use: No Preferred Language: Jamaican Communication Ability: Effective Visual Impairment: No Limitations Hearing Ability: Normal Master Data Analyst Required: No Beliefs That Will Affect Care: None marital status: / Current Living Situation: Alone current occupational status: retired Other Information That Helps Us Care for You: No Feels Safe at Home: Yes Safety Concerns: Feels Safe At This Time Diet: regular caffeine: No Dental Care, Regularly: Yes Physical Activity Frequency: 1-2 Times per Week Physical Activity Frequency Comment: Walking, house work Seatbelt Use: always Sunscreen Use: Yes Assistive Devices: Cane and Walker Review of Systems Review of Systems: All systems reviewed & are unremarkable except as noted in HPI & below Physical Exam Physical Exam: She is seen in conjunction with her son Alert and oriented x 3 No acute distress She is able for the most part able to transition from laying down to a seated position with only modest She has some tenderness over the lower back No significant tenderness over the thoracic region Wound dressing is noted over the lumbar spine as well Strength is intact bilateral lower extremities Constitutional: WD/WN, vitals as above Eyes: normal visual núñez by confrontation ENMT: external ear and nose normal, oropharynx normal Neck: normal visual inspection Respiratory: normal respiratory effort Cardiovascular: Extremities: normal capillary refill Gastrointestinal (Abdomen): Inspection/Auscultation: abdomen normal to inspection Musculoskeletal: Spine: + pain with thoraco-lumbar ROM Extremities: strength 5/5 throughout Skin: no rashes, warm and dry Neurologic: normal touch/pain/proprioception and moves all extremities Psychiatric: A+Ox3, euthymic affect Eye Contact: good eye contact Results & Data Vital Signs (Past 12 Hours) Vital Signs Temp Pulse Pulse Resp BP BP Pulse Ox 08/08/23 07:59 36.4 C L 62 18 162/74 H 94 08/08/23 03:40 36.3 C L 88 16 123/70 94 08/08/23 02:46 57 L 17 138/63 93 08/08/23 02:01 55 L 16 133/83 95 08/08/23 00:01 54 L 17 143/70 H 92 O2 Del Method 08/08/23 07:59 Room Air 08/08/23 03:40 Room Air 08/08/23 02:46 Room Air 08/08/23 02:01 Room Air 08/08/23 00:01 Room Air Diagnostic Findings [place], [place] [phone] Magnetic Resonance Report Patient: JUANA AUGUST Admit Date: 08/08/23 MR#: [id number] Address1: [address] Acct ID:[id number] Address2: Date: 1935 [facility] Zip: [place] [address] Age: 87 Location: 3N Sex: F Room/Bed: [facility] Att Phy: Becky Grimm MD Diagnosis: ACUTE T-11 VERTEBRAL BODY FRACTURE Gwendolyn Phy: Gin Temple CRNP Service Date: 08/08/23 Fam Phy: Interpreting Phy: Paul GrovesAdmit Phy: Shabbir Zheng MD Ordering Phy: Shabbir Zheng MD cc: ~ MR thoracic spine wo con HISTORY: 87 years-old Female acute T11 vertebral body fracture seen on MRI LS Acute mid back pain. COMPARISON: MRI of the lumbar spine 08/07/2023, CT abdomen and pelvis 07/30/2023, MRI of the thoracic spine 09/20/2019. TECHNIQUE: Multiplanar and multisequence MRI of the thoracic spine was obtained without the use of IV contrast. FINDINGS: Ground Service Equipment Mechanic localizer images demonstrate no gross extraspinal abnormality. Susceptibility artifact from metallic postoperative structure within the stomach limits evaluation of the left chest. Right hemidiaphragmatic elevation with cardiomegaly. Pelvic floor relaxation is noted. Study is motion degraded. Note is made of 12 thoracic and 6 lumbar type vertebral segments. Chronic T4-T7 compression deformities with T6 vertebroplasty. There is an acute transversely- oriented fracture involving the mid-vertebral body with extension into the superior endplate at T12 demonstrating less than 20% vertebral body height loss. No retropulsion or posterior element fracture extension is identified. There is trace paravertebral edema at this level. Chronic L3 and L4 compression deformities with mild L3 retropulsion with evidence of kyphoplasty. Trace pleural effusions. Lvyv-fk-[id number] multilevel intervertebral disc space narrowing with mostly mild spondylitic spurring and moderate facet arthrosis. No high-grade central canal or neuroforaminal narrowing is identified within the thoracic spine. There are a few scattered Tarlov's cysts measuring up to 8 mm on the right at T10-T11. Conus medullaris terminates at L1-L2. Normal signal within the thoracic spinal cord. There is minimal central canal stenosis at T5-T6 secondary to exaggerated kyphosis centered at this level with posterior annular disc bulging. AP dimension of the thecal sac at this level measures 9 mm. IMPRESSION: 1. Motion degraded exam. 2. There are 12 thoracic and 6 lumbar type vertebral segments present. 3. Mild acute T12 superior endplate compression deformity with less than 20% vertebral body height loss and no retropulsion. 4. Degenerative changes as above with chronic thoracolumbar compression deformities and prior kyphoplasty. 5. Trace pleural effusions. ACT 112: Negative or not required by law. The above report was generated using voice recognition software. It may contain grammatical, syntax or spelling errors. Dictated: 08/08/2023 7:52 AM Transcribed: 08/08/2023 8:21 AM Sandro [id number] [email or web address] Electronically signed by: aPul Groves M.D. 08/08/2023 10:57 AM Dictated: 08/08/23 0752 Transcribed: 08/08/23 0821 [place], [place] [phone] Magnetic Resonance Report Patient: JUANA AUGUST Admit Date: 08/07/23 MR#: [id number] Address[address] Acct ID:[id number] Address2: Date: 1935 [facility] Zip: [place] [address] Age: 87 Location: ED Sex: F Room/Bed: Att Phy: Diagnosis: BACK PAIN Gewndolyn Phy: Gin Temple CRNP Service Date: 08/07/23 [facility] Phy: Interpreting Phy: Angie Glass MDAdmit Phy: Ordering Phy: Angie Choe M.D. cc: ~ ADDENDUM ADDENDUM: 08/08/23 00:30 Verify Receipt Verified receipt with ER [place]; report going to Dr. Choe on 08/08 00:30 (-05:00) Electronically signed by: Angie Glass MD Electronically signed by: Angie Glass MD 08/08/23 00:20 AM ADDENDUM END Exam(s): MRI L SPINE Without Contrast EXAM: MR Lumbar Spine Without Intravenous Contrast CLINICAL HISTORY: Reason for exam: intractable pain, hardware in place, fall 1 wk ago. TECHNIQUE: Magnetic resonance images of the lumbar spine without intravenous contrast in multiple planes. COMPARISON: Comparison made to prior CT scan of the lumbar spine from July 30, 2023. FINDINGS: Vertebrae: There are 5 lumbar type vertebral bodies with a mild levoscoliosis and normal lumbar lordosis. There is a remote fracture deformity of the L2, L3 and L4 segments with augmentation of L2. There is an acute setting or column fracture of the T11 vertebral body with moderate pulmonary edema and 26% loss of vertebral body height. Status post posterior decompression of the and posterior fusion of L4 and L5 with transpedicular screws and connecting rods in place. Spinal cord: The conus is normal size, shape and signal characteristics, terminating at T12-L1. Soft tissues: Advanced atrophy of the iliopsoas, paraspinous intraspinous musculature. The aorta and IVC flow voids are intact. Bilateral simple renal cyst. Otherwise the visualized kidneys are unremarkable. IMPRESSION: No evidence of acute lumbar spine pathology. There is an acute single column superior endplate fracture of the T11 vertebral body with 26% loss of vertebral body height. This fracture is amenable to vertebroplasty or kyphoplasty. Recommend MRI of the thoracic spine for further evaluation. Communications: Verify Receipt Electronically signed by: Angie Glass MD 08/08/23 00:20 AM Dictated: 08/08/23 0020 Transcribed: 08/08/23 0020
[2023-08-08] MEDS: LIDOCAINE 5% 1 PATCH TD SCH (14:56)
--- NOTE | 2023-08-08 18:06 | Communication Note ---
Date of Service: August 08, 2023 Admitted this AM 87 y/o with T12 compression fracture based on MRI tspine today with 20% height loss and no retropulsion She has 5/5 distal LE strength on exam She has had some urinary incontinence since her fall however, seems more related to difficulty getting to bathroom in time Consulted spine surgeon - reviewed recs - recommended TLSO when out of bed, PT/OT, pain control Discussed with patient and her son in room today.
[2023-08-08] MEDS: DOCUSATE SODIUM/SENNA 50/8.6MG TAB PO SCH (19:15)
[2023-08-08] MEDS: RIVAROXABAN 20 MG TAB PO SCH (19:16)
[2023-08-08] MEDS: amLODIPine BESYLATE 5 MG TAB PO SCH (20:26)
[2023-08-08] MEDS: MONTELUKAST SODIUM 10 MG TABLET PO SCH (20:27)
[2023-08-08] MEDS: ATENOLOL 50 MG TABLET PO SCH (20:28)
[2023-08-08] MEDS: PRAVASTATIN SOD 40 MG TAB PO SCH (20:28)
[2023-08-08] MEDS: METHOCARBAMOL 500 MG TABLET PO PRN (20:30)
[2023-08-08] MEDS: MoRPHine SULFATE 2 MG/ML CARP IV PRN (22:45)
[2023-08-09 07:56] LABS: Basophils # (auto) 0.03 K/uL (0.00-0.20); Basophils % (auto) 0.2 %; Eosinophils # (auto) 0.06 K/uL (0.00-0.50); Eosinophils % (auto) 0.4 %; Hematocrit (blood only) 38.4 % (37.0-47.0); Hemoglobin 13.1 g/dl (12.0-16.0); Immature Granulocytes # (auto) 0.15 K/uL (0.01-0.20); Immature Granulocytes % (auto) 1.1 %; Lymphocytes # (auto) 3.44 K/uL (1.20-3.40); Lymphocytes % (auto) 24.9 %; Mean Corpuscular Hemoglobin 30.5 pg (25.0-34.0); Mean Corpuscular Hgb Conc 34.1 g/dL (32.0-36.0); Mean Corpuscular Volume 89.3 fL (80.0-100.0); Mean Platelet Volume 9.9 fL (9.4-12.4); Monocytes # (auto) 1.29 K/uL (0.11-0.59); Monocytes % (auto) 9.3 %; Neutrophils # (auto) 8.85 K/uL (1.40-6.50); Neutrophils % (auto) 64.1 %; Platelet Count 244 K/uL (130-400); RDW Coefficient of Variation 13.2 % (11.5-14.5); RDW Standard Deviation 43.1 fL (36.4-46.3); White Blood Count 13.82 K/ul (4.8-10.8)
[2023-08-09] MEDS: ACETAMINOPHEN 325 MG TAB PO SCH (09:48)
[2023-08-09 10:14] LABS: Est GFR (African American) 52.5 ml/min; Est GFR (Non-African American) 45.3 ml/min
[2023-08-09] MEDS: ONDANSETRON INJ 2 MG/ML 2 ML VIAL IV PRN (16:02)
--- NOTE | 2023-08-09 16:21 | Hospitalist Progress Note ---
Date of Service August 09, 2023 Assessment & Plan (1) Thoracic spine fracture: Plan: 87 y/o with T12 compression fracture based on MRI tspine with 20% height loss and no retropulsion She has 5/5 distal LE strength on exam She has had some urinary incontinence since her fall however, seems more related to difficulty getting to bathroom in time Consulted spine surgeon - reviewed recs - recommended TLSO when out of bed, PT/OT, pain control continue scheduled acetaminophen and oxycodone 5 mg p.o., she reports this lasts around 4 hours and is causing some sleepiness reviewed PT and OT recommendations from today they recommend rehab, she is far below her baseline functional capacity and does live alone normally (2) Intractable back pain: (3) Lumbar disc disease: (4) COPD (chronic obstructive pulmonary disease): Plan: stable and not in exacerbation continue control inhaler and albuterol as needed (5) GERD (gastroesophageal reflux disease): Plan: continue PPI (6) Hyperlipidemia: (7) Hypertension: Plan: continue amlodipine, and atenolol (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: (10) PAF (paroxysmal atrial fibrillation): Plan: continue rivaroxaban, discussed dosing with clinical pharmacist recommended decrease to 15 mg daily based on her creatinine clearance continue atenolol Plan leukocytosis noted on labs, related to dose of IV steroids given 08/07 in emergency department DVT prophylaxis: On Xarelto disposition: Rehab recommended, discussed with care coordination Admission and Anticipated Discharge Date Admission Date: August 08, 2023 Subjective Had a bad night - mid back pain was severe when she got up to bathroom - but did ok throughout the day today and tolerated PT and OT Pain control is reasonable with 5 mg oxycodone and APAP, still has a lot of pain but it is also causing some sleepiness Physical Exam 2 Physical Exam: PHYSICAL EXAMINATION Last 24h vital signs reviewed, see documentation in flowsheet General: comfortable appearing, no distress, very pleasant elderly woman sitting in the chair by the window HEENT: Normocephalic, atraumatic, pupils round and equal, sclerae anicteric, no conjunctival injection, moist mucus membranes Lungs: Normal respiratory effort. Clear to auscultation bilaterally. No RRW Heart: Regular rate and rhythm, systolic murmur. No JVD Abdomen: Soft, nontender, nondistended. Bowel sounds present. Extremities: Warm, dry, well-perfused. 1+ extremity edema, left chronically swells more than the right related to old knee surgery. Neuro: Alert and oriented x 4, face symmetric, moves 4 extremities well Psych: Normal affect and behavior Results & Data Results & Data Vital Signs (Past 12 Hours) Vital Signs Temp Pulse Resp BP Pulse Ox O2 Del Method 08/09/23 11:57 51 L 08/09/23 11:32 36.4 C L 45 L 18 114/57 L 95 Room Air 08/09/23 07:59 36.5 C 51 L 18 154/66 H 96 Room Air Laboratory Results 08/09/23 07:17 08/09/23 07:20 PG Care Time/CCT Total # of Minutes Spent Total Time Spent with Patient: Total time spent is greater than 50% in coordination of care (as documented) at patient's floor/unit and/or counseling patient: Coding Level of Care Code 16814 SUB INP/OBS CARE 2/35MIN Diagnoses Thoracic spine fracture S22.009A Intractable back pain M54.9 Lumbar disc disease M51.9 COPD (chronic obstructive pulmonary disease) J44.9 GERD (gastroesophageal reflux disease) K21.9 Hyperlipidemia E78.5 Hypertension I10 Hyperactivity of bladder N31.8 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
[2023-08-09] MEDS: RIVAROXABAN 15 MG TAB PO SCH (17:14)
[2023-08-09] MEDS ORDERED: HYDROCORTISONE 1% CRM 30 GM TUBE EXT PRN (21:17)
[2023-08-10 08:43] LABS: Basophils # (auto) 0.03 K/uL (0.00-0.20); Basophils % (auto) 0.3 %; Eosinophils # (auto) 0.06 K/uL (0.00-0.50); Eosinophils % (auto) 0.5 %; Hemoglobin 15.1 g/dl (12.0-16.0); Immature Granulocytes # (auto) 0.12 K/uL (0.01-0.20); Lymphocytes # (auto) 2.75 K/uL (1.20-3.40); Lymphocytes % (auto) 24.1 %; Mean Corpuscular Hemoglobin 29.7 pg (25.0-34.0); Mean Corpuscular Hgb Conc 32.8 g/dL (32.0-36.0); Mean Corpuscular Volume 90.6 fL (80.0-100.0); Mean Platelet Volume 9.6 fL (9.4-12.4); Monocytes # (auto) 0.78 K/uL (0.11-0.59); Monocytes % (auto) 6.8 %; Neutrophils # (auto) 7.69 K/uL (1.40-6.50); Neutrophils % (auto) 67.3 %; Platelet Count 231 K/uL (130-400); RDW Coefficient of Variation 13.1 % (11.5-14.5); RDW Standard Deviation 42.9 fL (36.4-46.3); Red Blood Count 5.08 M/uL (4.20-5.40); White Blood Count 11.43 K/ul (4.8-10.8)
[2023-08-10 09:09] LABS: Est GFR (African American) 50.8 ml/min; Est GFR (Non-African American) 43.8 ml/min
--- NOTE | 2023-08-10 16:10 | Hospitalist Progress Note ---
Date of Service August 10, 2023 Assessment & Plan (1) Thoracic spine fracture: Plan: T12 compression fracture based on MRI with 20% height loss and no retropulsion She has intact 5/5 LE strength Cont TLSO when out of bed Cont PT/OT Pain meds - * increase oxy to 7.5mg prn * increase tylenol to 1gm TID * k-pad heat if available * lidoderm patches * unfortunately she is allergic to multiple NSAIDs - defer on topical and PO NSAIDs will need rehab post-d/c awaiting auth will need DEXA if she has not had one in several years 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 (10) PAF (paroxysmal atrial fibrillation): Plan: continue rivaroxaban 15 mg daily continue atenolol examines in NSR today (11) Constipation: Plan: add miralax BID cont senna/colace if no BM by tomorrow then dulcolax suppos (12) Hypothyroidism (acquired): Plan: last TSH 07/2021 was wnl should repeat while here cont synthroid Plan son updated at bedside today dispo - rehab, awaiting auth Admission and Anticipated Discharge Date Admission Date: August 08, 2023 Subjective pt sitting in chair by window at rest her pain is controlled with walking/movement her pain worsens states the oxycodone helps but only lasts 3-4 hours and doesn't take the pain away completely she tolerates the oxy - no confusion/sedation/etc from the oxy no BM yet tends to have constipation at home denies any radicular symptoms of legs did have bursitis of L hip and saw ortho for this as outpatient -resolved with what sounds like steroid injection Review of Systems Review of Systems: cv - no cp pulm - no dyspnea GI - no abd pain or vomiting but occasional nausea from her pain meds Physical Exam Physical Exam: gen - NAD, sitting in chair by window neck - no JVD mouth - MMM heart - RRR, s1 s2 lungs - CTA b/l abd - mildly distended, BS+, NT ext - pulses 2+ b/l feet musculo/back - tender to palpation about the expected location of T12; mild paraspinal pain as well in this region neuro - strength b/l legs proximal & distal 5/5 Results & Data Results & Data Vital Signs (Past 12 Hours) Vital Signs Temp Pulse Resp BP Pulse Ox O2 Del Method 08/10/23 07:35 36.3 C L 50 L 16 122/70 96 Room Air Laboratory Results Laboratory Results 08/10/23 08/10/23 08:18 09:55 WBC 11.43 H RBC 5.08 Hgb 15.1 Hct 46.0 MCV 90.6 MCH 29.7 MCHC 32.8 RDW Std Deviation 42.9 RDW Coeff of Barry 13.1 Plt Count 231 MPV 9.6 Immature Gran % (Auto) 1.0 Neut % (Auto) 67.3 Lymph % (Auto) 24.1 [place] % (Auto) 6.8 Eos % (Auto) 0.5 Baso % (Auto) 0.3 Neut # (Auto) 7.69 H Lymph # (Auto) 2.75 [place] # (Auto) 0.78 H Eos # (Auto) 0.06 Baso # (Auto) 0.03 Immature Gran # (Auto) 0.12 Sodium Potassium Chloride Carbon Dioxide Anion Gap BUN Creatinine 1.12 Est Cr Clr Drug Dosing 38.0 Est GFR ( Amer) 50.8 Est GFR (Non-Af Amer) 43.8 BUN/Creatinine Ratio Glucose Calcium Magnesium 25-OH Vitamin D Total 61.1 PG Care Time/CCT Total # of Minutes Spent Total Time Spent with Patient: Total time spent is greater than 50% in coordination of care (as documented) at patient's floor/unit and/or counseling patient: Coding Level of Care Code 60068 SUB INP/OBS CARE 2/35MIN Diagnoses Thoracic spine fracture S22.009A Intractable back pain M54.9 Lumbar disc disease M51.9 COPD (chronic obstructive pulmonary disease) J44.9 GERD (gastroesophageal reflux disease) K21.9 Hyperlipidemia E78.5 Hypertension I10 Hyperactivity of bladder N31.8 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
[2023-08-10] MEDS: POLYETHYLENE (MIRALAX) 17 GM PACK PO SCH (17:14)
[2023-08-10] MEDS: oxyCODONE HCL IR 5 MG TAB (IMMEDIATE RELEASE) PO PRN (17:34)
[2023-08-10] MEDS: ACETAMINOPHEN 500 MG TAB PO SCH (20:45)
[2023-08-11 08:09] LABS: BUN Creatinine Ratio 29.6 (10-20); Calcium 8.2 mg/dl (8.6-10.3); Creatinine Clr Calc Pharmacy 39.4 ml/min; Est GFR (African American) 53.1 ml/min; Est GFR (Non-African American) 45.8 ml/min; Magnesium 1.7 mg/dl (1.7-2.4); Potassium 4.2 mmol/L (3.5-5.1)
[2023-08-11] MEDS: bisacodyL 10 MG SUPP PR STA (10:57)
[2023-08-11 11:30] LABS: Thyroid Stimulating Hormone 3.883 uIu/ml (0.300-4.500)
[2023-08-11] MEDS: CALCITONIN SALMON NA 200 IU/AC 3.7 ML BTL SCH (18:47)
--- NOTE | 2023-08-11 20:24 | Hospitalist Progress Note ---
Date of Service August 11, 2023 Assessment & Plan (1) Thoracic spine fracture: Plan: T12 compression fracture based on MRI with 20% height loss and no retropulsion She has intact 5/5 LE strength Overall pain control is improved today Cont TLSO when out of bed Cont PT/OT Pain meds - * cont increased oxy dose of 7.5mg prn * cont tylenol 1gm TID * k-pad heat * lidoderm patches * unfortunately she is allergic to multiple NSAIDs - defer on topical and PO NSAIDs * could consider some prednisone but her PCP had prescribed this in July and it was not helpful * start calcitonin nasal spray - 1 spray to either nostril daily awaiting auth for rehab at [facility] will need DEXA if she has not had one in several years 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 Admission and Anticipated Discharge Date Admission Date: August 08, 2023 Subjective pt sitting in chair during the visit had 2 BMs today eating and drinking well the increased oxy dose is helping has not tried the heating pad yet but it is in her room she continues to have muscle "spasms" and shooting pains in the mid-back with movement denies any LE weakness Review of Systems Review of Systems: cv - no chest pain pulm - no dyspnea GI - no abd pain or N/V Physical Exam 2 Physical Exam: gen - NAD, sitting in chair by window, looks tired neck - no JVD mouth - MMM heart - irregular, s1 s2, no murmur lungs - CTA b/l abd - soft NT ND BS+; no HSM ext - pulses 2+ b/l feet, trace edema b/l musculo/back - tender to palpation about the expected location of T12; mild paraspinal pain -- no changes today neuro - strength b/l legs proximal & distal 5/5 (knee flexion/extension, hip flexion) Results & Data Results & Data Vital Signs (Past 12 Hours) Vital Signs Temp Pulse Pulse Resp BP Pulse Ox O2 Del Method 08/11/23 19:34 36.5 C 68 16 132/72 98 Room Air 08/11/23 15:41 36.6 C 71 16 147/78 H 95 Room Air 08/11/23 11:09 36.9 C 60 14 114/73 97 Room Air 08/11/23 09:03 58 L 08/11/23 08:47 Room Air Laboratory Results Laboratory Results - last 24 hr 08/11/23 06:38 Sodium 138 Potassium 4.2 Chloride 104 Carbon Dioxide 28 Anion Gap 6 BUN 32 H Creatinine 1.08 Est Cr Clr Drug Dosing 39.4 Est GFR ( Amer) 53.1 Est GFR (Non-Af Amer) 45.8 BUN/Creatinine Ratio 29.6 H Glucose 96 Calcium 8.2 L Magnesium 1.7 TSH 3.883 PG Care Time/CCT Total # of Minutes Spent Total Time Spent with Patient: Total time spent is greater than 50% in coordination of care (as documented) at patient's floor/unit and/or counseling patient: Coding Level of Care Code 52929 SUB INP/OBS CARE 2/35MIN Diagnoses Thoracic spine fracture S22.009A Intractable back pain M54.9 Lumbar disc disease M51.9 COPD (chronic obstructive pulmonary disease) J44.9 GERD (gastroesophageal reflux disease) K21.9 Hyperlipidemia E78.5 Hypertension I10 Hyperactivity of bladder N31.8 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
[2023-08-12] MEDS: CHOLECALCIFEROL 25 MCG (1000 UNITS) TAB PO SCH (08:13)
[2023-08-12] MEDS: TAPENTADOL HCL ER 50 MG TABCR PO SCH (11:20)
--- NOTE | 2023-08-12 14:32 | Hospitalist Progress Note ---
Date of Service August 12, 2023 Assessment & Plan (1) Thoracic spine fracture: Plan: T12 compression fracture based on MRI with 20% height loss and no retropulsion She remains with intact 5/5 LE strength Overall pain control had improved then worsened overnight/this am despite tylenol/oxy's/etc We had lengthy discussion about options for care. She is interested in kyphoplasty -- she has had such before and knows what to expect. I reached out to Dr Head who could potentially do a T12 kyphoplasty on Tuesday, 08/15. Will need to hold xarelto starting today for such. In meantime will - * stop oxy's * cont tylenol 1gm TID * k-pad heat * lidoderm patches * add nucynta ER 50mg BID scheduled * add nucynta IR 50mg q6h prn * unfortunately she is allergic to multiple NSAIDs - defer on topical and PO NSAIDs * could consider some prednisone but her PCP had prescribed this in July and it was not helpful * cont calcitonin nasal spray - 1 spray to either nostril daily On Tuesday pm will keep NPO after MN for possible kyphoplasty on Tuesday. Will recheck l-spine and t-spine x-rays to ensure no new compression fractures are causing worsening pain. of Note - had recent CT a/p showing no other causes of back pain. 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 (10) PAF (paroxysmal atrial fibrillation): Plan: patient is irregular on exam suspicious she is in a.fib EKG obtained - indeed she is in rate-controlled a.fib continue atenolol have to hold xarelto for possible kyphoplasty - start the hold today (11) Constipation: Plan: improved cont miralax BID cont senna/colace (12) Hypothyroidism (acquired): Plan: TSH wnl cont synthroid Plan son updated by phone this evening dispo - rehab (next week given she now wants the kyphoplasty) Admission and Anticipated Discharge Date Admission Date: August 08, 2023 Subjective this am patient had SEVERE back pain she called the nurse to tell him that she "wanted to have surgery" on her back to get rid of the pain oxycodone simply not effective by the time I saw her she was more comfortable we initiated nucynta ER this am and thus far is tolerating such she worked with PT today (had TLSO brace on) and able to do an entire lap around the unit no leg pain or weakness no numbness of legs pain does NOT wrap around to the front of her abdomen pain is still in the same location as prior - no new areas/regions of pain Review of Systems Review of Systems: cv - no cp pulm - no dyspnea on exertion GI - moving bowels, no abd pain, no nausea Physical Exam Physical Exam: gen - NAD, sitting in chair by window, actually looks more rested and better than yesterday; occasional twinge of pain that leads to her changing positions in the chair neck - no JVD mouth - MMM heart - irregular, s1 s2, no murmur lungs - CTA b/l abd - soft NT ND BS+; no HSM ext - pulses 2+ b/l feet, no edema b/l musculo/back - remains tender to palpation about the expected location of T12; mild paraspinal pain neuro - strength b/l legs proximal & distal 5/5 (knee flexion/extension, hip flexion) Results & Data Results & Data Vital Signs (Past 12 Hours) Vital Signs Temp Pulse Resp BP Pulse Ox O2 Del Method 08/12/23 07:25 36.6 C 57 L 16 120/76 96 Room Air PG Care Time/CCT Total # of Minutes Spent Total Time Spent with Patient: Total time spent is greater than 50% in coordination of care (as documented) at patient's floor/unit and/or counseling patient: Coding Level of Care Code 06254 SUB INP/OBS CARE 3/50MIN Diagnoses Thoracic spine fracture S22.009A Intractable back pain M54.9 Lumbar disc disease M51.9 COPD (chronic obstructive pulmonary disease) J44.9 GERD (gastroesophageal reflux disease) K21.9 Hyperlipidemia E78.5 Hypertension I10 Hyperactivity of bladder N31.8 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
--- NOTE | 2023-08-12 19:16 | XRay Report ---
XR lumbar spine 2-3V CLINICAL HISTORY: known T12 compression Fx, worsening back pain TECHNIQUE: 3 views of the lumbar spine were obtained. Comparison: Comparison is made to lumbar spine radiograph 08/10/2019 FINDINGS: There is no evidence of an acute fracture. Degenerative changes are seen in the lumbar spine with ost eophyte formation and disc space narrowing. Posterior fixation hardware is seen. T2 cement arthroplas ty is seen with old compression deformity. Vascular calcifications are noted. IMPRESSION: Degenerative changes as above without acute fracture or subluxation. ACT 112: Negative or not required by law. Electronically signed by: Jan Greer M.D. 08/12/2023 7:15 PM
--- NOTE | 2023-08-12 19:16 | XRay Report ---
XR thoracic spine 3V routine CLINICAL HISTORY: known T12 compression Fx; worsening pain TECHNIQUE: 3 views of the thoracic spine were obtained. Comparison: Comparison is made to chest radiograph 07/04/2019 FINDINGS: No fractures or subluxations are identified. Degenerative changes are seen in the thoracic spine. Int erval placement of mid thoracic segment arthroplasty with stable lower thoracic/upper lumbar segment. Multilevel compression deformities are similar to prior exam. Alignment appears unremarkable. Vascul ar calcifications are seen. IMPRESSION: Multilevel degenerative changes without evidence of acute fracture. ACT 112: Negative or not required by law. Electronically signed by: Jan Greer M.D. 08/12/2023 7:13 PM
[2023-08-12] MEDS: TAPENTADOL HCL 50 MG TAB PO PRN (20:21)
[2023-08-13 06:34] LABS: Hematocrit (blood only) 38.5 % (37.0-47.0); Hemoglobin 13.1 g/dl (12.0-16.0); Mean Corpuscular Hemoglobin 30.4 pg (25.0-34.0); Mean Corpuscular Volume 89.3 fL (80.0-100.0); Mean Platelet Volume 9.9 fL (9.4-12.4); Platelet Count 228 K/uL (130-400); RDW Coefficient of Variation 13.3 % (11.5-14.5); RDW Standard Deviation 43.8 fL (36.4-46.3); Red Blood Count 4.31 M/uL (4.20-5.40); White Blood Count 9.09 K/ul (4.8-10.8)
[2023-08-13 07:03] LABS: BUN Creatinine Ratio 23.3 (10-20); Calcium 7.8 mg/dl (8.6-10.3); Creatinine Clr Calc Pharmacy 47.2 ml/min; Est GFR (African American) 66.2 ml/min; Est GFR (Non-African American) 57.1 ml/min; Potassium 4.3 mmol/L (3.5-5.1)
--- NOTE | 2023-08-13 10:25 | Orthopedic Progress Note ---
Date of Service August 13, 2023 Assessment & Plan (1) Compression fracture of lumbosacral spine: Plan: Assessment T12 compression fracture. Plan at this time is failed course of nonoperative care would like to pursue surgery. Her family is in the room with her today. We discussed kyphoplasty of T12. Risk benefits pros cons alternatives were outlined detail. She is currently holding her Eliquis dose. Will plan for surgery on Tuesday. Admission and Anticipated Discharge Date Admission Date: August 08, 2023 Subjective Patient continues to have thoracolumbar back pain despite attempt at brace management. She would like to pursue kyphoplasty. Physical Exam Physical Exam: Patient is alert and oriented. She is sitting in the chair at the bedside. She is neurologically intact. Results & Data Vital Signs (Past 12 Hours) Vital Signs Temp Pulse Resp BP Pulse Ox O2 Del Method 08/13/23 07:18 36.7 C 65 18 136/76 94 Room Air Queries Orthopedic Spine Vertebral Fracture Secondary to Osteoporosis: Yes
--- NOTE | 2023-08-13 18:55 | Hospitalist Progress Note ---
Date of Service August 13, 2023 Assessment & Plan (1) Thoracic spine fracture: Plan: T12 compression fracture based on MRI with 20% height loss and no retropulsion She remains with intact 5/5 LE strength Overall pain control had improved then worsened in the last 2 days She still is in severe pain despite addition of nucynta ER + IR * cont tylenol 1gm TID * cont k-pad heat * cont lidoderm patches * cont nucynta ER 50mg BID scheduled * increase nucynta IR to 75mg q6h prn * unfortunately she is allergic to multiple NSAIDs - defer on topical and PO NSAIDs * could consider some prednisone but her PCP had prescribed this in July and it was not helpful for the back * cont calcitonin nasal spray - 1 spray to either nostril daily On Tuesday pm will keep NPO after MN for kyphoplasty on Tuesday. Dr head saw patient and plans for such. Repeat l-spine and t-spine x-rays without any new findings. of Note - had recent CT a/p showing no other causes of back pain. 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 (10) PAF (paroxysmal atrial fibrillation): Plan: EKG with rate-controlled a.fib continue atenolol have to hold xarelto for possible kyphoplasty on Tuesday (11) Constipation: Plan: improved cont miralax BID cont senna/colace (12) Hypothyroidism (acquired): Plan: TSH wnl cont synthroid Plan son updated by phone yesterday evening dispo - rehab (next week given she now wants the kyphoplasty) Admission and Anticipated Discharge Date Admission Date: August 08, 2023 Subjective despite nucynta ER BID + nucynta IR prn she cont with severe back pain pain is worst with activity no change in location no radiation of pain to chest or abdomen no radicular pain in legs last BM - 08/12/23 Dr Head met with pt and her son - he will do kyphoplasty on Tuesday Review of Systems Review of Systems: cv - no chest pain pulm - no dyspnea GI - no abd pain; no N/V Physical Exam Physical Exam: gen - NAD, sitting in chair by window, looks same as yesterday neck - no JVD mouth - MMM heart - irregular, s1 s2, no murmur; borderline bradycardic lungs - CTA b/l abd - soft NT ND BS+; no HSM ext - pulses 2+ b/l feet, no edema b/l neuro - strength b/l legs proximal & distal 5/5 (knee flexion/extension, hip flexion) Results & Data Results & Data Vital Signs (Past 12 Hours) Vital Signs Temp Pulse Resp BP Pulse Ox O2 Del Method 08/13/23 14:11 36.6 C 58 L 18 126/73 93 Room Air 08/13/23 07:18 36.7 C 65 18 136/76 94 Room Air Laboratory Results Laboratory Results 08/13/23 05:58 WBC 9.09 RBC 4.31 Hgb 13.1 Hct 38.5 MCV 89.3 MCH 30.4 MCHC 34.0 RDW Std Deviation 43.8 RDW Coeff of Barry 13.3 Plt Count 228 MPV 9.9 Sodium 137 Potassium 4.3 Chloride 105 Carbon Dioxide 26 Anion Gap 6 BUN 21 Creatinine 0.90 Est Cr Clr Drug Dosing 47.2 Est GFR ( Amer) 66.2 Est GFR (Non-Af Amer) 57.1 BUN/Creatinine Ratio 23.3 H Glucose 97 Calcium 7.8 L PG Care Time/CCT Total # of Minutes Spent Total Time Spent with Patient: Total time spent is greater than 50% in coordination of care (as documented) at patient's floor/unit and/or counseling patient: Coding Level of Care Code 10069 SUB INP/OBS CARE MIN Diagnoses Thoracic spine fracture S22.009A Intractable back pain M54.9 Lumbar disc disease M51.9 COPD (chronic obstructive pulmonary disease) J44.9 GERD (gastroesophageal reflux disease) K21.9 Hyperlipidemia E78.5 Hypertension I10 Hyperactivity of bladder N31.8 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
[2023-08-14] MEDS: TAPENTADOL HCL 50 MG TAB PO PRN (05:09)
--- NOTE | 2023-08-14 06:04 | Electrocardiogram Report ---
Test Reason : Blood Pressure : / mmHG Vent. Rate : 055 BPM Atrial Rate : 075 BPM P-R Int : 000 ms QRS Dur : 088 ms QT Int : 444 ms P-R-T Axes : 000 -19 031 degrees QTc Int : 424 ms Atrial fibrillation with slow ventricular response Minimal voltage criteria for LVH, may be normal variant Abnormal ECG When compared with ECG of 11-JAN-2023 08:18, Atrial fibrillation has replaced Sinus rhythm Criteria for Septal infarct are no longer Present Confirmed by Anil Grubbs ([id number]) on 08/14/2023 6:04:23 AM Referred By: REFERRED SELF Confirmed By:Anil Grubbs
--- NOTE | 2023-08-14 16:56 | Hospitalist Progress Note ---
Date of Service August 14, 2023 Assessment & Plan (1) Thoracic spine fracture: Plan: T12 compression fracture as seen on MRI with 20% height loss and no retropulsion Repeat t-spine and l-spine x-rays without any worsening of the T12 fracture nor any new fractures/findings She remains with intact 5/5 LE strength bilaterally Overall pain control had improved then worsened in the last 3 days She still is in severe pain despite addition of nucynta ER + IR * cont tylenol 1gm TID * cont k-pad heat * cont lidoderm patches * cont nucynta ER 50mg BID scheduled * cont nucynta IR 75mg but change dosing from q6h prn to q4h prn * unfortunately she is allergic to multiple NSAIDs - defer on topical and PO NSAIDs * could consider some prednisone but her PCP had prescribed this in July and it was not helpful for the back * cont calcitonin nasal spray - 1 spray to either nostril daily Due to intractable, poorly controlled pain Dr Head to perform kyphoplasty on Tuesday. NPO after MN tonight for this procedure. of Note - had recent CT a/p showing no other causes of back pain. check BMP and INR in am. 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 (10) PAF (paroxysmal atrial fibrillation): Plan: EKG with rate-controlled a.fib continue atenolol holding xarelto for kyphoplasty procedure on Tuesday last dose of xarelto - 08/11/23 (11) Constipation: Plan: improved cont miralax BID cont senna/colace (12) Hypothyroidism (acquired): Plan: TSH wnl cont synthroid Plan son updated by phone earlier this weekend dispo - rehab (later this week given the planned kyphoplasty tomorrow) Admission and Anticipated Discharge Date Admission Date: August 08, 2023 Subjective cont with severe back pain with any movement or activity otherwise no new issues pain does not radiate to abdomen, the flanks, or her legs able to ambulate with her TLSO brace eating fair still wants kyphoplasty procedure tomorrow Review of Systems Review of Systems: cv - no chest pain pulm - no dyspnea GI - no abd pain or n/v Physical Exam Physical Exam: gen - NAD, sitting in chair by window, comfortable during my visit neck - no JVD mouth - MMM heart - irregular, s1 s2, no murmur lungs - CTA b/l abd - soft NT ND BS+; no HSM ext - pulses 2+ b/l feet, no edema b/l neuro - strength b/l legs proximal & distal /5 Results & Data Results & Data Vital Signs (Past 12 Hours) Vital Signs Temp Pulse Resp BP Pulse Ox O2 Del Method 08/14/23 14:15 36.6 C 87 16 144/77 H 94 Room Air 08/14/23 07:12 36.9 C 69 16 132/70 93 Room Air PG Care Time/CCT Total # of Minutes Spent Total Time Spent with Patient: Total time spent is greater than 50% in coordination of care (as documented) at patient's floor/unit and/or counseling patient: Coding Level of Care Code 09408 SUB INP/OBS CARE 2/35MIN Diagnoses Thoracic spine fracture S22.009A Intractable back pain M54.9 Lumbar disc disease M51.9 COPD (chronic obstructive pulmonary disease) J44.9 GERD (gastroesophageal reflux disease) K21.9 Hyperlipidemia E78.5 Hypertension I10 Hyperactivity of bladder N31.8 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
[2023-08-15 06:16] LABS: Calcium 7.7 mg/dl (8.6-10.3); Creatinine Clr Calc Pharmacy 42.5 ml/min; Est GFR (African American) 58.3 ml/min; Est GFR (Non-African American) 50.3 ml/min; Potassium 4.3 mmol/L (3.5-5.1)
[2023-08-15 06:24] LABS: INR 1.1 (0.9-1.1); Prothrombin Time 11.8 Seconds (9.0-12.0)
[2023-08-15] MEDS ORDERED: PROPOFOL IV EMULSION 10 MG/ML 20 ML VIAL IV ONE (13:31)
[2023-08-15] MEDS ORDERED: LIDOCAINE 2% 2 ML VIAL/AMP(20MG/ML) INFIL ONE (13:31)
[2023-08-15] MEDS ORDERED: fentaNYL citrate PF 100 MCG/2 ML VIAL ONE (13:31)
[2023-08-15] MEDS ORDERED: MIDAZOLAM HCL 1 MG/ML 2ML VIAL ONE (13:31)
[2023-08-15] MEDS ORDERED: ONDANSETRON INJ 2 MG/ML 2 ML VIAL IV PRN (13:40)
[2023-08-15] MEDS ORDERED: ATROPINE SULFATE 0.1 MG/ML 10ML SYR IV PRN (13:40)
[2023-08-15] MEDS ORDERED: ePHEDrine sulfate 50 MG/ML AMP IV PRN (13:40)
--- NOTE | 2023-08-15 13:42 | Anesthesiology Consultation ---
Date of Service August 15, 2023 Assessment & Plan (1) Encounter for pre-operative examination: Chart Review Chart Review: Acceptable Risk for Surgery and Patient NOT seen in Pre Admission Testing Consults Requested none History Surgery Operation Date: 08/15/23 07:00 Proposed Procedures p T12 Kyphoplasty - Miguelito Head DO Height/Weight Height: 5 ft 6 in Weight: 84.2 kg Allergies Allergy/AdvReac Type Severity Reaction Status Date / Time nabumetone Allergy Severe SHORTNESS Verified 08/08/23 02:19 OF BREATH naproxen Allergy Severe SOB Verified 08/08/23 02:19 rofecoxib Allergy Severe SHORTNESS Verified 08/08/23 02:19 OF BREATH valdecoxib Allergy Severe SHORTNESS Verified 08/08/23 02:19 OF BREATH Cephalosporins Allergy Intermediate HIVES Verified 08/08/23 02:19 Penicillins Allergy Intermediate RASH,HIVES Verified 08/08/23 02:19 codeine Allergy Mild RASH Verified 08/08/23 02:19 methimazole Allergy Mild itching Verified 08/08/23 02:19 Sulfa (Sulfonamide Allergy Mild RASH Verified 08/08/23 02:19 Antibiotics) azithromycin [From Zithromax] AdvReac Intermediate DIARRHEA Verified 08/08/23 02:19 diphenhydramine AdvReac Intermediate LIGHTHEADED Verified 08/08/23 02:19 [From Benadryl] nitrofurantoin AdvReac Mild VOMITING Verified 08/08/23 02:19 nickel AdvReac Unknown Rash Verified 08/08/23 02:19 Medications Home Medications Medication Instructions Recorded Confirmed Last Taken calcium carbonate 600 mg calcium 1,200 mg PO QAM 01/24/19 08/08/23 01/10/23 (1,500 mg) tablet (Calcium) ascorbic acid (vitamin C) 500 mg 500 mg PO QAM 02/07/19 08/08/23 01/10/23 tablet (Vitamin C) mecobalamin (vitamin B12) 1,000 500 mcg sublingual QAM 10/28/20 08/08/23 01/10/23 mcg disintegrating tablet,sublingual albuterol sulfate 2.5 mg/3 mL 2.5 mg (3 mL) inhalation TID PRN 06/24/21 08/08/23 09/28/22 (0.083 %) solution for nebulization Shortness Of Breath Or Wheezing #270 mL albuterol sulfate 90 mcg/actuation 2 puff inhalation Q6H PRN 01/28/22 08/08/23 09/28/22 aerosol inhaler (ProAir HFA) shortness of breath or wheezing #20.1 grams cholecalciferol (vitamin D3) 50 50 mcg PO QAM 06/10/22 08/08/23 01/10/23 mcg (2,000 unit) capsule (Vitamin D3) fluticasone propionate 50 2 spray intranasal DAILY 09/29/22 08/08/23 01/10/23 mcg/actuation nasal spray,suspension amlodipine 5 mg tablet 7.5 mg (1.5 x 5 mg) PO HS #90 tabs 10/20/22 08/08/23 01/10/23 furosemide 20 mg tablet 20 mg PO DAILY PRN Fluid Retention 10/20/22 08/08/23 Unknown #90 tabs levothyroxine 75 mcg tablet 75 mcg PO QAM #90 tabs 10/20/22 08/08/23 01/11/23 montelukast 10 mg tablet 10 mg PO HS #90 tabs 10/20/22 08/08/23 01/10/23 (Singulair) pravastatin 40 mg tablet 40 mg PO HS #90 tabs 10/20/22 08/08/23 01/10/23 ferrous sulfate 325 mg (65 mg 325 mg PO .MON/TUE/Tue01/11/23 08/08/23 01/10/23 iron) tablet (Feosol) atenolol 50 mg tablet 50 mg PO DAILY 01/31/23 08/08/23 Unknown rivaroxaban 20 mg tablet (Xarelto) 20 mg PO QPM #90 tabs 01/31/23 08/08/23 08/06/23 dicyclomine 10 mg capsule 10 mg PO QAM #30 caps 03/31/23 08/08/23 Unknown fluconazole 100 mg tablet 100 mg PO DAILY PRN thrush #30 tabs 03/31/23 08/08/23 Unknown fluticasone 100 mcg-salmeterol 50 1 ea inhalation BID #3 Inhalers 03/31/23 08/08/23 Unknown mcg/dose blistr powdr for inhalation (Wixela Inhub) methocarbamol 500 mg tablet 500 mg PO BID PRN low back pain 08/03/23 08/08/23 Unknown #30 tabs oxycodone 5 mg tablet 5 mg PO Q8H PRN pain #30 tabs 08/03/23 08/08/23 08/07/23 14:00 prednisone 20 mg tablet 20 mg PO BID 5 days #10 tabs 08/03/23 08/08/23 Unknown acetaminophen 500 mg tablet 1,000 mg PO Q6H PRN Pain 08/08/23 08/08/23 Unknown (Tylenol Extra Strength) esomeprazole magnesium 40 mg 40 mg PO QAM PRN Acid Reflux 08/08/23 08/08/23 Unknown capsule,delayed release (Nexium) Active Medications Generic Name Dose Route Start Last Admin Trade Name Ada PRN Reason Stop Dose Admin Acetaminophen 1,000 mg 08/10/23 21:00 08/15/23 07:14 Acetaminophen 500 Mg Tab PO 09/09/23 20:59 1,000 mg TID SUHAS Administration Amlodipine Besylate 7.5 mg 08/08/23 21:00 08/14/23 20:13 Amlodipine Besylate 5 Mg Tab PO 09/07/23 20:59 7.5 mg HS SUHAS Administration Atenolol 50 mg 08/08/23 21:00 08/14/23 20:11 Atenolol 50 Mg Tablet PO 09/07/23 20:59 50 mg HS SUHAS Administration Atenolol 25 mg 08/08/23 09:00 08/15/23 07:14 Atenolol 25 Mg Tablet PO 09/07/23 08:59 25 mg QAM SUHAS Administration Calcitonin Crandall 1 sprays 08/11/23 18:00 08/15/23 07:13 Calcitonin Crandall Na 200 Iu/Ac 3.7 Ml Btl NA 09/10/23 17:59 1 sprays DAILY SUHAS Administration Calcium Carbonate 1,500 mg 08/08/23 09:00 08/15/23 07:12 Calcium Carbonate 500 Mg Chewable Tab PO 09/07/23 08:59 1,500 mg QAM SUHAS Administration Cyanocobalamin 500 mcg 08/08/23 09:00 08/15/23 07:14 Cyanocobalamin (B-12) 500 Mcg Tablet PO 09/07/23 08:59 500 mcg QAM SUHAS Administration Dicyclomine HCl 10 mg 08/08/23 09:00 08/15/23 07:13 Dicyclomine Hcl 10 Mg Cap PO 09/07/23 08:59 10 mg QAM SUHAS Administration Fluticasone/Vilanterol 1 puffs 08/08/23 09:00 08/15/23 07:12 Fluticasone/Vilanterol 100/25mcg 14 Puffs/Inhaler INH 09/07/23 08:59 1 puffs DAILY SUHAS Administration Levothyroxine Sodium 75 mcg 08/08/23 06:30 08/15/23 06:09 Levothyroxine Sodium 75 Mcg Tablet PO 09/07/23 06:29 Not Given DAILYBB SUHAS Lidocaine 1 patch 08/08/23 13:30 08/15/23 07:18 Lidocaine 5% 1 Patch TD 09/07/23 13:29 1 patch QAM SUHAS Administration Methocarbamol 500 mg 08/08/23 18:07 08/08/23 20:30 Methocarbamol 500 Mg Tablet PO 09/07/23 18:06 500 mg BID PRN Administration low back pain Miscellaneous 1 each 08/08/23 21:00 08/14/23 20:09 Remove Lidoderm Patch N/A 09/07/23 20:59 1 each DAILY@2100 SUHAS Administration Montelukast Sodium 10 mg 08/08/23 21:00 08/14/23 20:14 Montelukast Sodium 10 Mg Tablet PO 09/07/23 20:59 10 mg HS SUHAS Administration Morphine Sulfate 2 mg 08/08/23 03:52 08/15/23 07:17 Morphine Sulfate 2 Mg/Ml Carp IV 08/22/23 03:51 2 mg Q3H PRN Administration Severe Pain (Scale 7, 8, 9,10) Ondansetron HCl 4 mg 08/08/23 03:49 08/13/23 19:40 Ondansetron Inj 2 Mg/Ml 2 Ml Vial IV 09/07/23 03:48 4 mg Q6H PRN Administration Nausea Pantoprazole Sodium 40 mg 08/08/23 09:00 08/15/23 07:13 Pantoprazole 40 Mg Tab PO 09/07/23 08:59 40 mg QAM SUHAS Administration Polyethylene Glycol 17 gm 08/10/23 16:30 08/15/23 07:12 Polyethylene (Miralax) 17 Gm Pack PO 09/09/23 16:29 Not Given BID SUHAS Pravastatin Sodium 40 mg 08/08/23 21:00 08/14/23 20:14 Pravastatin Sod 40 Mg Tab PO 09/07/23 20:59 40 mg HS SUHAS Administration Rivaroxaban 15 mg 08/09/23 16:30 08/11/23 16:21 Rivaroxaban 15 Mg Tab PO 09/08/23 16:29 15 mg QDD SUHAS Administration Senna/Docusate Sodium 1 tab 08/08/23 18:30 08/14/23 09:32 Docusate Sodium/Senna 50/8.6mg Tab PO 09/07/23 18:29 1 tab QAM SUHAS Administration Tapentadol 50 mg 08/12/23 10:00 08/15/23 09:38 Tapentadol Hcl Er 50 Mg Tabcr PO 08/26/23 09:59 50 mg Q12 SUHAS Administration Vitamin D 50 mcg 08/12/23 09:00 08/15/23 07:13 Cholecalciferol 25 Mcg (1000 Units) Tab PO 09/11/23 08:59 50 mcg QAM SUHAS Administration NPO Date Last Intake of Fluids: 08/14/23 Time Last Intake of Fluids: 23:45 Date Last Intake of Solids: 08/14/23 Time Last Intake of Solids: 17:30 Past Medical History Medical History Lumbar disc disease History of colon cancer treated surgically 1989 Anemia History of difficult venous access "have had to call the IV team to get my IV's in in the past" Hx of renal calculi passed on own COPD (chronic obstructive pulmonary disease) Gastric polyp removed-malignant 2020 Osteoporosis Atrial fibrillation On xarelto; follows with Dr. Pollard Chronic kidney disease, stage III (moderate) Hypothyroid High cholesterol Hypertension GERD (gastroesophageal reflux disease) Chronic back pain Asthma daily and PRN inhaler only, nebulizer prn History of endometrial cancer Past Family History Family History Grandmother (Paternal) Colorectal cancer Family/Other Coronary heart disease Ovarian cancer Breast cancer metastatic breast in 2 nieces. Mother Myocardial infarction Father Myocardial infarction Family/Other Breast cancer Sister Ovarian cancer Denies family history of Prostate cancer Past Surgical History Surgical History Hx of bladder repair surgery History of esophagogastroduodenoscopy (EGD) most recent 06/16/22 [facility] Hx of colonoscopy S/P ERCP 10/07/20, Glidescope #3. 5 [place] Hx laparoscopic cholecystectomy (10/06/20) Laparoscopic Cholecystectomy with Cholangiogram Dr. Varela 10/06/2020. Glidescope #4. H/O kyphoplasty T5 07/23/2019. Glidescope #3, atraumatic. Difficult airway for intubation Pt reports "failed intubation" with colon resection in . Has had several GA surgeries at [facility] with Glidescope intubations for all, no issues noted in anesthesia records. History of hysterectomy for cancer History of anesthesia problem INTUBATION PROBLEM History of colon resection History of back surgery History of total left knee replacement History of total right knee replacement History of subtotal thyroidectomy History of incisional hernia repair X2 Social History Smoking Status: Never smoker Do You Dip or Chew Tobacco: No Hx Alcohol Use: No Hx Substance Use: No substance use type: does not use Physical Exam Vital Signs Last Vital Signs Temp 37.0 C 08/15/23 12:18 Pulse 59 L 08/15/23 12:18 Resp 18 08/15/23 12:18 BP 145/63 H 08/15/23 12:18 Pulse Ox 96 08/15/23 12:18 O2 Del Method Room Air 08/15/23 12:18 Testing Laboratory Results 08/13/23 05:58 08/15/23 05:30 PT 11.8 Seconds (9.0-12.0) 08/15/23 05:30 INR 1.1 (0.9-1.1) 08/15/23 05:30 Electrocardiogram Date: 08/08/23 DICTATED BY: Anil Grubbs MD Test Reason : Blood Pressure : / mmHG Vent. Rate : 055 BPM Atrial Rate : 075 BPM P-R Int : 000 ms QRS Dur : 088 ms QT Int : 444 ms P-R-T Axes : 000 -19 031 degrees QTc Int : 424 ms Atrial fibrillation with slow ventricular response Minimal voltage criteria for LVH, may be normal variant Abnormal ECG When compared with ECG of 11-JAN-2023 08:18, Atrial fibrillation has replaced Sinus rhythm Criteria for Septal infarct are no longer Present Confirmed by Anil Grubbs ([id number]) on 08/14/2023 6:04:23 AM Other Testing normal echo 2019
--- NOTE | 2023-08-15 13:47 | History & Physical Bridge Note ---
Date of Service August 15, 2023 History & Physical Bridge Note I have examined the patient, reviewed the History & Physical and in the interval since the performance of the History & Physical I have noted the following changes of clinical significance: no changes noted T12 kyphoplasty
[2023-08-15] MEDS: CLINDAMYCIN/D5W 900 MG/50 ML BAG IV SCH (14:00)
[2023-08-15] MEDS: CLINDAMYCIN 900 MG/D5W 50 ML BAG IV ONE (14:01)
[2023-08-15] MEDS ORDERED: DEXAMETHASONE SOD INJ 4 MG/ML VIAL ONE (14:30)
[2023-08-15] MEDS: ceFAZolin 330 MG/ML 1 GM VIAL ONE (14:40)
[2023-08-15] MEDS ORDERED: ROCURONIUM BROMIDE 10 MG/ML 5 ML VIAL IV ONE (14:40)
[2023-08-15] MEDS ORDERED: ONDANSETRON INJ 2 MG/ML 2 ML VIAL ONE (14:40)
[2023-08-15] MEDS: IOPAMIDOL INJ 61% 15 ML VIAL INSTIL ONE (14:41)
[2023-08-15] MEDS ORDERED: ePHEDrine sulfate 50 MG/5 ML SYR ONE (14:43)
[2023-08-15] MEDS ORDERED: SUGAMMADEX SODIUM 200 MG/2 ML VIAL IV ONE (14:44)
[2023-08-15] MEDS: BUPIVACAINE/EPINEPHRINE 0.5% MPF 1:200,000 30 ML VIAL ONE (14:46)
--- NOTE | 2023-08-15 14:54 | Operative Report ---
Post Operative Report Pre & Post Diagnosis Operation Date: 08/15/23 07:00 Pre-Op Diagnosis: T12 compression fracture Post-Op Diagnosis: Same I identified the patient and participated in the time-out.: Yes Procedure Operation Date: 08/15/23 07:00 Actual Procedures Kyphoplasty of T12 Surgeon Miguelito Head, DO Joist Setter None Estimated Blood Loss 5 Findings Consistent with Post-Op Diagnosis Specimens None Indications This is an 87-year-old female presents with T12 compression fracture. After attempt of nonoperative care she continued to have intractable pain unable to function is subsequently here for Kyphoplasty. Description of Procedure Patient was met with identified informed consent obtained. Patient is then taken to the operative suite underwent patient placed in a prone position on the Marvin table with a chest pad and hip bolsters. All bony promises well-padded eyes inspected to ensure no external pressure placed upon the. This point the thoracolumbar spine was prepped and draped in a sterile fashion. The assistance of fluoroscopy in AP and lateral planes identified the T12 vertebral body and 2 small incisions were displaced lateral to the pedicles. By way of a transpedicular approach 2 Kyphon working cannulas were inserted in the vertebral body. I did attempt to obtain tissue for biopsy but was unsuccessful. I then inserted 2 Kyphon balloons sequentially inflated with fluoroscopic visualization. They were subsequently removed and approximately 6 cc of Kyphon bone cement injected with fluoroscopic visualization demonstrating excellent interdigitation and fill. The working cannulas were subsequently removed the incisions closed with subcutaneous Monocryl and sterile dressing placed. Patient waken taken to PACU stable condition. I attest to the content of the Intraoperative Record and any orders documented therein. Any exceptions are noted below.
--- NOTE | 2023-08-15 15:13 | Fluoroscopy Report ---
[place] kyphoplasty any level CLINICAL HISTORY: T12 Kyphoplasty COMPARISON STUDY: Thoracic spine MRI August 08, 2023. Thoracic spine radiographs March 12, 2024. Fluoroscopy time: 1 minute and 50 seconds. Ka, r: 9.51 mGy. FINDINGS: Fluoroscopy was provided during T12 kyphoplasty. Methylmethacrylate within the T12 vertebra l body is noted. Previous lumbar spine kyphoplasty is partially imaged. IMPRESSION: Fluoroscopy provided during T12 kyphoplasty. ACT 112: Negative or not required by law. Electronically signed by: Pramod Ma M.D. 08/15/2023 3:12 PM
[2023-08-15] MEDS: fentaNYL citrate PF 100 MCG/2 ML VIAL IV PRN (15:27)
--- NOTE | 2023-08-15 15:35 | Anesthesiology Progress Note ---
Date of Service August 15, 2023 Anesthesia Post Procedure Vital Signs Vital Signs: Temp Pulse Pulse Resp BP BP Pulse Ox 08/15/23 15:20 63 16 108/51 L 97 08/15/23 15:10 58 L 14 112/52 L 97 08/15/23 15:00 36.3 C L 55 L 17 135/57 L 97 08/15/23 12:18 37.0 C 59 L 18 145/63 H 96 08/15/23 11:35 36.8 C 58 L 14 146/66 H 91 08/15/23 06:57 36.6 C 62 16 121/62 94 08/14/23 19:59 36.6 C 60 18 130/79 93 O2 Del Method O2 Flow Rate 08/15/23 15:20 Oxymask 2 08/15/23 15:10 Oxymask 6 08/15/23 15:00 Oxymask 10 08/15/23 12:18 Room Air 08/15/23 11:35 Room Air 08/15/23 06:57 Room Air 08/14/23 19:59 Room Air Pain Intensity Lower Back: Pain Intensity: 8 Transfer of Care Handoff Completed per policy Notes Mental Status: alert / awake / arousable and participated in evaluation Patient Amnestic to Procedure: Yes Nausea / Vomiting: adequately controlled Pain: adequately controlled Airway Patency, RR, SpO2: stable & adequate BP & HR: stable & adequate Hydration State: stable & adequate Anesthetic Complications: no major complications apparent and Pt Satisfied with anesthetic care
--- NOTE | 2023-08-15 18:16 | Hospitalist Progress Note ---
Date of Service August 15, 2023 Assessment & Plan (1) Thoracic spine fracture: Plan: T12 compression fracture as seen on MRI with 20% height loss and no retropulsion Repeat t-spine and l-spine x-rays without any worsening of the T12 fracture nor any new fractures/findings She remains with intact 5/5 LE strength bilaterally Overall pain control has been quite poor despite addition of nucynta ER BID + IR prn Dr Head re-consulted, and he performed T12 kyphoplasty today Post-op she is stable and pain is much improved * cont tylenol 1gm TID for now * cont k-pad heat if desired * cont lidoderm patches * cont nucynta ER 50mg BID scheduled with hopes to start weaning this off then stopping as tolerated * cont nucynta IR 75mg prn * cont calcitonin nasal spray - 1 spray to either nostril daily Appreciate Dr Head's assistance Of note - 25-OH vit D level this admission - 61 (2) Intractable back pain: Plan: 2nd to above in #1 IMPROVED s/p kyphoplasty procedure (3) Lumbar disc disease: Plan: may have been contributing to her back pain as well (4) COPD (chronic obstructive pulmonary disease): Plan: stable and not in exacerbation continue control inhaler and albuterol as needed (5) GERD (gastroesophageal reflux disease): Plan: continue PPI (6) Hyperlipidemia: (7) Hypertension: Plan: continue amlodipine continue atenolol controlled (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 (10) PAF (paroxysmal atrial fibrillation): Plan: EKG with rate-controlled a.fib continue atenolol holding xarelto for kyphoplasty procedure today last dose of Xarelto - 08/11/23 resume Xarelto when ok with Dr Head (11) Constipation: Plan: cont miralax BID cont senna/colace (12) Hypothyroidism (acquired): Plan: TSH wnl cont synthroid Plan son updated by phone this evening dispo - rehab cont PT/OT as tolerated Admission and Anticipated Discharge Date Admission Date: August 08, 2023 Subjective saw patient post-kyphoplasty procedure she was resting in bed comfortably she was awake/alert states her back pain was already doing better no chest pain or dyspnea post-procedure no abd pain or N/V has been able to take some PO since the procedure Review of Systems Review of Systems: CV - no chest pain pulm - no dyspnea or cough Physical Exam Physical Exam: gen - NAD, laying in bed comfortably neck - no JVD mouth - MMM heart - irregular, s1 s2, no murmur lungs - CTA b/l abd - soft NT ND BS+; no HSM ext - pulses 2+ b/l feet, no edema b/l neuro - strength b/l legs proximal & distal 5/5 psych - a/o x 3 Results & Data Results & Data Vital Signs (Past 12 Hours) Vital Signs Temp Pulse Pulse Resp BP BP Pulse Ox 08/15/23 18:14 36.6 C 59 L 16 112/63 96 08/15/23 17:17 64 16 116/64 93 08/15/23 16:46 36.6 C 61 16 94/64 L 97 08/15/23 16:08 36.4 C L 66 18 105/54 L 93 08/15/23 15:50 36.5 C 64 15 115/44 L 96 08/15/23 15:40 56 L 14 97/47 L 96 08/15/23 15:30 61 17 113/51 L 98 08/15/23 15:20 63 16 108/51 L 97 08/15/23 15:10 58 L 14 112/52 L 97 08/15/23 15:00 36.3 C L 55 L 17 135/57 L 97 08/15/23 12:18 37.0 C 59 L 18 145/63 H 96 08/15/23 11:35 36.8 C 58 L 14 146/66 H 91 08/15/23 06:57 36.6 C 62 16 121/62 94 O2 Del Method O2 Flow Rate 08/15/23 18:14 Room Air 08/15/23 17:17 Room Air 08/15/23 16:46 Nasal Cannula 2 08/15/23 16:08 Nasal Cannula 2 08/15/23 15:50 Nasal Cannula 2 08/15/23 15:40 Oxymask 2 08/15/23 15:30 Oxymask 2 08/15/23 15:20 Oxymask 2 08/15/23 15:10 Oxymask 6 08/15/23 15:00 Oxymask 10 08/15/23 12:18 Room Air 08/15/23 11:35 Room Air 08/15/23 06:57 Room Air Laboratory Results Laboratory Results - last 24 hr 08/15/23 05:30 PT 11.8 INR 1.1 Sodium 138 Potassium 4.3 Chloride 105 Carbon Dioxide 27 Anion Gap 6 BUN 17 Creatinine 1.00 Est Cr Clr Drug Dosing 42.5 Est GFR ( Amer) 58.3 Est GFR (Non-Af Amer) 50.3 BUN/Creatinine Ratio 17.0 Glucose 86 Calcium 7.7 L PG Care Time/CCT Total # of Minutes Spent Total Time Spent with Patient: Total time spent is greater than 50% in coordination of care (as documented) at patient's floor/unit and/or counseling patient: Coding Level of Care Code 45884 SUB INP/OBS CARE 235MIN Diagnoses Thoracic spine fracture S22.009A Intractable back pain M54.9 Lumbar disc disease M51.9 COPD (chronic obstructive pulmonary disease) J44.9 GERD (gastroesophageal reflux disease) K21.9 Hyperlipidemia E78.5 Hypertension I10 Hyperactivity of bladder N31.8 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
[2023-08-16 07:26] LABS: Hematocrit (blood only) 36.5 % (37.0-47.0); Hemoglobin 12.7 g/dl (12.0-16.0); Mean Corpuscular Hemoglobin 30.6 pg (25.0-34.0); Mean Corpuscular Hgb Conc 34.8 g/dL (32.0-36.0); Mean Platelet Volume 9.7 fL (9.4-12.4); Platelet Count 250 K/uL (130-400); RDW Coefficient of Variation 13.2 % (11.5-14.5); RDW Standard Deviation 42.3 fL (36.4-46.3); Red Blood Count 4.15 M/uL (4.20-5.40); White Blood Count 6.16 K/ul (4.8-10.8)
[2023-08-16 07:34] LABS: Creatinine Clr Calc Pharmacy 40.5 ml/min; Est GFR (African American) 54.9 ml/min; Est GFR (Non-African American) 47.4 ml/min
[2023-08-16] MEDS: TAPENTADOL HCL 50 MG TAB PO PRN (12:53)
--- NOTE | 2023-08-16 13:24 | Orthopedic Progress Note ---
Date of Service August 16, 2023 Assessment & Plan (1) Compression fracture of T11 vertebra: Plan: At this time initiate physical therapy as tolerated. She is stable for discharge to rehab from orthopedic standpoint. Admission and Anticipated Discharge Date Admission Date: August 08, 2023 Subjective Back pain markedly improved. Physical Exam Physical Exam: Patient is in the chair at the bedside. He is comfortably discussing the testing. Results & Data Vital Signs (Past 12 Hours) Vital Signs Temp Pulse Pulse Resp BP Pulse Ox O2 Del Method 08/16/23 07:20 36.6 C 62 16 130/66 94 Room Air 08/16/23 03:50 36.7 C 71 16 127/66 94 Room Air Queries Orthopedic Spine Vertebral Fracture Secondary to Osteoporosis: Yes (1) Compression fracture of T11 vertebra Encounter type: initial encounter Qualified Code(s): S22.080A - Wedge compression fracture of T11-T12 vertebra, initial encounter for closed fracture
--- NOTE | 2023-08-16 17:37 | Hospitalist Progress Note ---
Date of Service August 16, 2023 Assessment & Plan (1) Thoracic spine fracture: Plan: T12 compression fracture as seen on MRI with 20% height loss and no retropulsion Repeat t-spine and l-spine x-rays without any worsening of the T12 fracture nor any new fractures/findings She remains with intact 5/5 LE strength bilaterally Overall pain control was poor despite addition of nucynta ER BID + IR prn Dr Head re-consulted, and he performed T12 kyphoplasty 08/15 with significant improvement in pain so far * cont tylenol 1gm TID for now * cont k-pad heat if desired * cont lidoderm patches * cont nucynta ER 50mg BID scheduled with hopes to start weaning this off then stopping as tolerated * cont nucynta IR 75mg prn * cont calcitonin nasal spray - 1 spray to either nostril daily Appreciate Dr Head's assistance Of note - 25-OH vit D level this admission - 61 (2) Intractable back pain: Plan: 2nd to above in #1 IMPROVED s/p kyphoplasty procedure (3) Lumbar disc disease: Plan: may have been contributing to her back pain as well (4) COPD (chronic obstructive pulmonary disease): Plan: stable and not in exacerbation continue control inhaler and albuterol as needed (5) GERD (gastroesophageal reflux disease): Plan: continue PPI (6) Hyperlipidemia: (7) Hypertension: Plan: continue amlodipine continue atenolol controlled (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 (10) PAF (paroxysmal atrial fibrillation): Plan: EKG with rate-controlled a.fib continue atenolol resume xarelto (11) Constipation: Plan: cont miralax BID cont senna/colace (12) Hypothyroidism (acquired): Plan: TSH wnl cont synthroid Plan reviwewed labs 08/16 Hct, Cr stable son updated by phone 08/15 dispo - rehab cont PT/OT Admission and Anticipated Discharge Date Admission Date: August 08, 2023 Subjective midback pain still present especially when first getting up but markedly improved following kyphoplasty 08/15 Physical Exam 2 Physical Exam: PHYSICAL EXAMINATION Last 24h vital signs reviewed, see documentation in flowsheet General: comfortable appearing, sitting up in chair HEENT: Normocephalic, atraumatic, pupils round and equal, sclerae anicteric, no conjunctival injection, moist mucus membranes Lungs: Normal respiratory effort. Clear to auscultation bilaterally. No RRW Heart: Regular rate and rhythm, systolic murmur. No JVD Abdomen: Soft, nontender, nondistended. Bowel sounds present. Extremities: Warm, dry, well-perfused. mild extremity edema, left chronically swells more than the right related to old knee surgery. Neuro: Alert and oriented x 4, face symmetric, moves 4 extremities well Psych: Normal affect and behavior Results & Data Results & Data Vital Signs (Past 12 Hours) Vital Signs Temp Pulse Resp BP Pulse Ox O2 Del Method 08/16/23 15:38 36.3 C L 58 L 16 133/69 95 Room Air 08/16/23 07:20 36.6 C 62 16 130/66 94 Room Air Laboratory Results 08/16/23 06:52 08/16/23 06:52 PG Care Time/CCT Total # of Minutes Spent Total Time Spent with Patient: Total time spent is greater than 50% in coordination of care (as documented) at patient's floor/unit and/or counseling patient: Coding Level of Care Code 53066 SUB INP/OBS CARE 2/35MIN Diagnoses Thoracic spine fracture S22.009A Intractable back pain M54.9 Lumbar disc disease M51.9 COPD (chronic obstructive pulmonary disease) J44.9 GERD (gastroesophageal reflux disease) K21.9 Hyperlipidemia E78.5 Hypertension I10 Hyperactivity of bladder N31.8 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
--- NOTE | 2023-08-17 14:05 | Hospitalist Progress Note ---
Date of Service August 17, 2023 Assessment & Plan (1) Thoracic spine fracture: Plan: Admitted with intractable mid back pain following a fall June 29, pain had been progressively increasing. T12 compression fracture as seen on MRI with 20% height loss and no retropulsion Repeat t-spine and l-spine x-rays without any worsening of the T12 fracture nor any new fractures/findings She remains with intact 5/5 LE strength bilaterally Overall pain control was poor, was not controlled on oxycodone and nucynta ER + IR Dr Head re-consulted, and he performed T12 kyphoplasty 08/15 with improvement in pain so far More painful 08/17 and not taking the nucynta because it caused visual hallucination. Will try oral immediate release morphine since she tolerates IV morphine 2 mg dose well -ordered MSIR 7.5 mg q4h prn, might need dose increase * cont tylenol 1gm TID for now * cont k-pad heat if desired * cont lidoderm patches * pain control as above * cont calcitonin nasal spray - 1 spray to either nostril daily Of note - 25-OH vit D level this admission - 61 (2) Lumbar disc disease: Plan: may have been contributing to her back pain as well (3) COPD (chronic obstructive pulmonary disease): Plan: stable and not in exacerbation continue control inhaler and albuterol as needed (4) GERD (gastroesophageal reflux disease): Plan: continue PPI (5) Hypertension: Plan: continue amlodipine continue atenolol controlled (6) Hyperactivity of bladder: (7) 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 (9) Constipation: Plan: resolved cont miralax cont senna/colace (10) Hypothyroidism (acquired): Plan: TSH wnl cont synthroid Plan CKD-3 stable, avoid nsaids reviewed labs 08/16 Hct, Cr stable son updated by phone 08/15 dispo - rehab cont PT/OT Admission and Anticipated Discharge Date Admission Date: August 08, 2023 Subjective increased mid-back pain today, did not take nucynta since yesterday AM because causing visual hallucination (though no confusion), so needed IV morphine dose early this AM which she tolerates well. Physical Exam Physical Exam: PHYSICAL EXAMINATION Last 24h vital signs reviewed, see documentation in flowsheet General: sitting by window in chair HEENT: Normocephalic, atraumatic, pupils round and equal, sclerae anicteric, no conjunctival injection, moist mucus membranes Lungs: Normal respiratory effort. Clear to auscultation bilaterally. No RRW Heart: Regular rate and rhythm, systolic murmur. No JVD Abdomen: Soft, nontender, nondistended. Bowel sounds present. Midback mildly TTP especially paraspinous area on L Extremities: Warm, dry, well-perfused. mild extremity edema unchanged, left chronically swells more than the right related to old knee surgery. Neuro: Alert and oriented x 4, face symmetric, moves 4 extremities well Psych: Normal affect and behavior Results & Data Results & Data Vital Signs (Past 12 Hours) Vital Signs Temp Pulse Resp BP O2 Del Method 08/17/23 12:07 36.9 C 117/58 L Room Air 08/17/23 08:37 36.6 C 57 L 17 123/78 Room Air PG Care Time/CCT Total # of Minutes Spent Total Time Spent with Patient: Total time spent is greater than 50% in coordination of care (as documented) at patient's floor/unit and/or counseling patient: Coding Level of Care Code 91754 SUB INP/OBS CARE 2/35MIN Diagnoses Thoracic spine fracture S22.009A Lumbar disc disease M51.9 COPD (chronic obstructive pulmonary disease) J44.9 GERD (gastroesophageal reflux disease) K21.9 Hypertension I10 Hyperactivity of bladder N31.8 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
[2023-08-17] MEDS: RIVAROXABAN 15 MG TAB PO SCH (17:17)
[2023-08-18] MEDS: MoRPHine SULFATE IR 15 MG TAB (IMMEDIATE RELEASE) PO PRN (02:20)
--- NOTE | 2023-08-18 09:54 | Discharge Summary ---
Date of Service August 18, 2023 Admission HPI Per Admitting Provider The patient is an 87-year-old female with a past medical history including allergic rhinitis, nephrolithiasis, COPD, GERD, Graves' disease, hyperlipidemia, hypertension, bladder hyperactivity, CKD stage III, PAF, carcinoid tumor determined by biopsy of stomach, ventral hernia and anemia. The patient reports that she had a fall in June, and sustained some back pain at that point, however, the pain has gradually worsened to the point that she was seen in emergency department 1 week ago, and since that time is worsened considerably more. Imaging in the emergency department included a MRI of lumbar spine, which showed remote fracture deformities of L2, L3 and L4 segments, with augmentation of L2. More acutely, she was found to have a single column superior endplate fracture of the T11 vertebral body with 26% loss of vertebral body height, thought to be amenable to vertebroplasty or kyphoplasty. Recommendation for MRI of the thoracic spine for further evaluation Principal Diagnosis Acute T12 compression fracture with intractable back pain Discharge Exam PHYSICAL EXAMINATION Last 24h vital signs reviewed, see documentation in flowsheet General: sitting in chair HEENT: Normocephalic, atraumatic, pupils round and equal, sclerae anicteric, no conjunctival injection, moist mucus membranes Lungs: Normal respiratory effort. Clear to auscultation bilaterally. No RRW Heart: Regular rate and rhythm, systolic murmur. No JVD Abdomen: Soft, nondistended. Extremities: Warm, dry, well-perfused. mild/trace extremity edema improved since last week, left chronically swells more than the right related to old knee surgery. Neuro: Alert and oriented x 4, face symmetric, moves 4 extremities well Psych: Normal affect and behavior Discharge Data Allergies Allergy/AdvReac Type Severity Reaction Status Date / Time nabumetone Allergy Severe SHORTNESS Verified 08/08/23 02:19 OF BREATH naproxen Allergy Severe SOB Verified 08/08/23 02:19 rofecoxib Allergy Severe SHORTNESS Verified 08/08/23 02:19 OF BREATH valdecoxib Allergy Severe SHORTNESS Verified 08/08/23 02:19 OF BREATH Cephalosporins Allergy Intermediate HIVES Verified 08/08/23 02:19 Penicillins Allergy Intermediate RASH,HIVES Verified 08/08/23 02:19 codeine Allergy Mild RASH Verified 08/08/23 02:19 methimazole Allergy Mild itching Verified 08/08/23 02:19 Sulfa (Sulfonamide Allergy Mild RASH Verified 08/08/23 02:19 Antibiotics) azithromycin [From Zithromax] AdvReac Intermediate DIARRHEA Verified 08/08/23 02:19 diphenhydramine AdvReac Intermediate LIGHTHEADED Verified 08/08/23 02:19 [From Benadryl] nitrofurantoin AdvReac Mild VOMITING Verified 08/08/23 02:19 nickel AdvReac Unknown Rash Verified 08/08/23 02:19 Consultations 08/08/23 00:36 ED Decision to Admit Stat 08/08/23 01:42 Consult Orthopedic Spine Surgery Routine 08/15/23 11:07 Consult Anesthesiology Routine Procedures Performed Operation Date: 08/15/23 07:00 Actual Procedures p T12 Kyphoplasty(Not Applicable) - Miguelito Head DO Ordered Studies 08/07/23 20:41 MR lumbar spine wo con Stat 08/08/23 06:05 MRI Thoracic [MR thoracic spine wo con] Routine 08/15/23 11:00 FL kyphoplasty any level Routine Lumbar Spine MRI 08/07/23 20:41 CR Exam(s): MRI L SPINE Without Contrast EXAM: MR Lumbar Spine Without Intravenous Contrast CLINICAL HISTORY: Reason for exam: intractable pain, hardware in place, fall 1 wk ago. TECHNIQUE: Magnetic resonance images of the lumbar spine without intravenous contrast in multiple planes. COMPARISON: Comparison made to prior CT scan of the lumbar spine from July 30, 2023. FINDINGS: Vertebrae: There are 5 lumbar type vertebral bodies with a mild levoscoliosis and normal lumbar lordosis. There is a remote fracture deformity of the L2, L3 and L4 segments with augmentation of L2. There is an acute setting or column fracture of the T11 vertebral body with moderate pulmonary edema and 26% loss of vertebral body height. Status post posterior decompression of the and posterior fusion of L4 and L5 with transpedicular screws and connecting rods in place. Spinal cord: The conus is normal size, shape and signal characteristics, terminating at T12-L1. Soft tissues: Advanced atrophy of the iliopsoas, paraspinous intraspinous musculature. The aorta and IVC flow voids are intact. Bilateral simple renal cyst. Otherwise the visualized kidneys are unremarkable. IMPRESSION: No evidence of acute lumbar spine pathology. There is an acute single column superior endplate fracture of the T11 vertebral body with 26% loss of vertebral body height. This fracture is amenable to vertebroplasty or kyphoplasty. Recommend MRI of the thoracic spine for further evaluation. Communications: Verify Receipt Electronically signed by: Angie Glass MD 08/08/23 00:20 AM Thoracic Spine MRI 08/08/23 06:05 MR thoracic spine wo con HISTORY: 87 years-old Female acute T11 vertebral body fracture seen on MRI LS Acute mid back pain. COMPARISON: MRI of the lumbar spine 08/07/2023, CT abdomen and pelvis 07/30/2023, MRI of the thoracic spine 09/20/2019. TECHNIQUE: Multiplanar and multisequence MRI of the thoracic spine was obtained without the use of IV contrast. FINDINGS: Graduate Teaching Assistant localizer images demonstrate no gross extraspinal abnormality. Susceptibility artifact from metallic postoperative structure within the stomach limits evaluation of the left chest. Right hemidiaphragmatic elevation with cardiomegaly. Pelvic floor relaxation is noted. Study is motion degraded. Note is made of 12 thoracic and 6 lumbar type vertebral segments. Chronic T4-T7 compression deformities with T6 vertebroplasty. There is an acute transversely- oriented fracture involving the mid-vertebral body with extension into the superior endplate at T12 demonstrating less than 20% vertebral body height loss. No retropulsion or posterior element fracture extension is identified. There is trace paravertebral edema at this level. Chronic L3 and L4 compression deformities with mild L3 retropulsion with evidence of kyphoplasty. Trace pleural effusions. [id number] multilevel intervertebral disc space narrowing with mostly mild spondylitic spurring and moderate facet arthrosis. No high-grade central canal or neuroforaminal narrowing is identified within the thoracic spine. There are a few scattered Tarlov's cysts measuring up to 8 mm on the right at T10-T11. Conus medullaris terminates at L1-L2. Normal signal within the thoracic spinal cord. There is minimal central canal stenosis at T5-T6 secondary to exaggerated kyphosis centered at this level with posterior annular disc bulging. AP dimension of the thecal sac at this level measures 9 mm. IMPRESSION: 1. Motion degraded exam. 2. There are 12 thoracic and 6 lumbar type vertebral segments present. 3. Mild acute T12 superior endplate compression deformity with less than 20% vertebral body height loss and no retropulsion. 4. Degenerative changes as above with chronic thoracolumbar compression deformities and prior kyphoplasty. 5. Trace pleural effusions. ACT 112: Negative or not required by law. The above report was generated using voice recognition software. It may contain grammatical, syntax or spelling errors. Dictated: 08/08/2023 7:52 AM Transcribed: 08/08/2023 8:21 AM Sandro [id number] [email or web address] Electronically signed by: Paul Groves M.D. 08/08/2023 10:57 AM Lumbar Spine X-Ray 08/12/23 14:29 XR lumbar spine 2-3V CLINICAL HISTORY: known T12 compression Fx, worsening back pain TECHNIQUE: 3 views of the lumbar spine were obtained. Comparison: Comparison is made to lumbar spine radiograph 08/10/2019 FINDINGS: There is no evidence of an acute fracture. Degenerative changes are seen in the lumbar spine with osteophyte formation and disc space narrowing. Posterior fixation hardware is seen. T2 cement arthroplasty is seen with old compression deformity. Vascular calcifications are noted. IMPRESSION: Degenerative changes as above without acute fracture or subluxation. ACT 112: Negative or not required by law. Electronically signed by: Jan Greer M.D. 08/12/2023 7:15 PM Thoracic Spine X-Ray 08/12/23 14:29 XR thoracic spine 3V routine CLINICAL HISTORY: known T12 compression Fx; worsening pain TECHNIQUE: 3 views of the thoracic spine were obtained. Comparison: Comparison is made to chest radiograph 07/04/2019 FINDINGS: No fractures or subluxations are identified. Degenerative changes are seen in the thoracic spine. Interval placement of mid thoracic segment arthroplasty with stable lower thoracic/upper lumbar segment. Multilevel compression deformities are similar to prior exam. Alignment appears unremarkable. Vascular calcifications are seen. IMPRESSION: Multilevel degenerative changes without evidence of acute fracture. ACT 112: Negative or not required by law. Electronically signed by: Jan Greer M.D. 08/12/2023 7:13 PM Kyphoplasty 08/15/23 11:00 [place] kyphoplasty any level CLINICAL HISTORY: T12 Kyphoplasty COMPARISON STUDY: Thoracic spine MRI August 08, 2023. Thoracic spine radiographs March 12, 2024. Fluoroscopy time: 1 minute and 50 seconds. Ka, r: 9.51 mGy. FINDINGS: Fluoroscopy was provided during T12 kyphoplasty. Methylmethacrylate within the T12 vertebral body is noted. Previous lumbar spine kyphoplasty is partially imaged. IMPRESSION: Fluoroscopy provided during T12 kyphoplasty. ACT 112: Negative or not required by law. Electronically signed by: Pramod Ma M.D. 08/15/2023 3:12 PM 08/16/23 06:52 08/16/23 06:52 Hospital Course (1) Thoracic spine fracture: Admitted with intractable mid back pain following a fall June 29, pain had been progressively increasing. T12 compression fracture as seen on MRI with 20% height loss and no retropulsion Repeat t-spine and l-spine x-rays without any worsening of the T12 fracture nor any new fractures/findings She remains with intact 5/5 LE strength bilaterally Overall pain control was poor, was not controlled on oxycodone, nucynta caused visual hallucinations Dr Head re-consulted, and he performed T12 kyphoplasty 08/15 with improvement in pain so far * cont tylenol 1gm TID for now * cont k-pad heat if desired * cont lidoderm patches * morphine po immediate release 7.5 mg q4-6h as needed - tolerated well with improvement in pain control and no hallucinations/confusion * cont calcitonin nasal spray - 1 spray to either nostril daily - 3 more weeks * PT/OT * TLSO brace when out of bed for comfort, does not need to wear when in chair or walking to bathroom. 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 (9) Constipation: resolved cont miralax cont senna/colace (10) Hypothyroidism (acquired): TSH wnl cont synthroid Plan CKD-3 stable, avoid nsaids reviewed labs 08/16 Hct, Cr stable son updated by phone 08/15 dispo - rehab cont PT/OT Total Time Total Time Spent Total Time Spent (In Minutes): I personally spent: 40 minutes today on clinical care activities for discharge including: reviewing chart notes and vital signs discussion with child care coordinator examining and counseling the patient writing orders documentation Discharge Plan Discharge Items Patient Disposition: Transfer [facility] Living [facility] Reason For Visit: ACUTE T-11 VERTEBRAL BODY FRACTURE Discharge Diagnosis: T12 compression fracture Activity: Per Instructions section Non-emergency contact: Primary Care Provider Call non-emergency contact if: you have any medication questions and your symptoms worsen Follow-up/Referrals: Gin Temple CRNP [Primary Care Provider] - Diet: Regular Addtl Attending Provider Instructions: Acute midback pain due to T12 compression fracture T12 kyphoplasty, Dr. Head, 08/15/23 PT and OT evaluate and treat Wear TLSO brace for comfort when out of bed, with PT and OT. Avoid lifting >5 pounds and twisting. OK to be out of bed to chair or walk to bathroom without brace. Schedule primary care follow up within 1-2 weeks of SNF discharge Pending Studies at Discharge: No Stand-Alone Forms: My [facility] Skilled Items Patient informed of condition?: Yes DNR: No Discharge Level of Care: Skilled Communicable Disease: No Discharge Prognosis: Improving Lines: None Urinary Catheter: No Medications and DC Order Prescriptions: New morphine 15 mg Tablet 7.5 mg PO Q4H PRN (Reason: pain) Qty: 20 0RF atenolol 50 mg Tablet 50 mg PO HS Qty: 0 0RF lidocaine 5 % Adhesive Patch,Medicated 1 patch transdermal QAM Qty: 0 0RF hydrocortisone 1 % Ointment 1 applic EXT BID PRNQty: 0 0RF atenolol 25 mg Tablet 25 mg PO QAM Qty: 0 0RF sennosides-docusate sodium [Senokot-S] 8.6-50 mg Tablet 1 tab PO QAM Qty: 0 0RF polyethylene glycol 3350 [Miralax] 17 gram Powder In Packet 17 g PO BID Qty: 0 0RF acetaminophen [Tylenol Extra Strength] 500 mg Tablet 1,000 mg PO TID Qty: 0 0RF calcitonin (salmon) 200 unit/actuation [place],Non-Aerosol 1 spray NA DAILY 21 Days Qty: 3.7 0RF Xarelto 15 mg Tablet 15 mg PO QDD Qty: 0 0RF Continued albuterol sulfate [ProAir HFA] 90 mcg/actuation HFA aerosol inhaler 2 puff inhalation Q6H PRN (Reason: shortness of breath or wheezing) Qty: 20.1 3RF dicyclomine 10 mg capsule 10 mg PO QAM Qty: 30 2RF Rx Instructions: Take one capsule daily in the morning fluticasone propion-salmeterol [Wixela Inhub] 100-50 mcg/dose blister with device 1 ea INHALATION BID Qty: 3 3RF methocarbamol 500 mg tablet 500 mg PO BID PRN (Reason: low back pain) Qty: 30 0RF albuterol sulfate 2.5 mg /3 mL (0.083 %) solution for nebulization 2.5 mg INH TID PRN (Reason: Shortness Of Breath Or Wheezing) Qty: 270 3RF mecobalamin (vitamin B12) 1,000 mcg tablet,disintegrating 500 mcg sublingual QAM Rx Instructions: place tablet under tongue and allow to dissolve for at least30 secs before swallowing calcium carbonate [Calcium 600] 600 mg calcium (1,500 mg) tablet 1,200 mg PO QAM amlodipine 5 mg tablet 7.5 mg PO HS Qty: 90 3RF montelukast [Singulair] 10 mg tablet 10 mg PO HS Qty: 90 3RF pravastatin 40 mg tablet 40 mg PO HS Qty: 90 3RF furosemide 20 mg tablet 20 mg PO DAILY PRN (Reason: Fluid Retention) Qty: 90 1RF levothyroxine 75 mcg tablet 75 mcg PO QAM Qty: 90 3RF Rx Instructions: before breakfast ascorbic acid (vitamin C) [Vitamin C] 500 mg Tablet 500 mg PO QAM cholecalciferol (vitamin D3) [Vitamin D3] 50 mcg (2,000 unit) Capsule 50 mcg PO QAM esomeprazole magnesium [Nexium] 40 mg capsule,delayed release(DR/EC) 40 mg PO QAM PRN (Reason: Acid Reflux) fluticasone propionate 50 mcg/actuation spray,suspension 2 spray INTRANASAL DAILY ferrous sulfate [Feosol] 325 mg (65 mg iron) tablet 325 mg PO .MON/WED/FRI Rx Instructions: 325 mg orally THREE DAYS A WEEK; Held fluconazole 100 mg tablet 100 mg PO DAILY PRN (Reason: thrush) Qty: 30 0RF Hold Instructions: Resume on 09/15/23. Discontinued atenolol 50 mg tablet 50 mg PO DAILY Rx Instructions: This dose stated by patient. Xarelto 20 mg tablet 20 mg PO QPM Qty: 90 3RF Rx Instructions: must administer with evening meal prednisone 20 mg tablet 20 mg PO BID 5 Days Qty: 10 0RF Rx Instructions: For 10 days oxycodone 5 mg tablet 5 mg PO Q8H PRN (Reason: pain) Qty: 30 0RF Rx Instructions: Took 1/2 tab acetaminophen [Tylenol Extra Strength] 500 mg Tablet 1,000 mg PO Q6H PRN (Reason: Pain) Admission Data Admit Date/Time: 08/08/23 01:42 Attending Provider: Becky Grimm Admit Provider: Shabbir Zheng Primary Care Provider: Gin Temple Other Providers: [facility]; Shabbir Zheng; Miguelito Head; Sam Terrell Coding Level of Care Code 67795 INP/OBS DISCH >30 MIN Diagnoses Thoracic spine fracture S22.009A Lumbar disc disease M51.9 COPD (chronic obstructive pulmonary disease) J44.9 GERD (gastroesophageal reflux disease) K21.9 Hypertension I10 Hyperactivity of bladder N31.8 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
== END 2023-08-18 13:08 | DRG 517 ==
LOC: ED 19:57 → 3N 08-08 01:42 → SUATTDRO 08-08 01:42 → 3N 08-08 02:46

== ENCOUNTER 2023-09-26 11:59 | Inpatient (IN) ==
--- NOTE | 2023-09-26 13:27 | XRay Report ---
XR chest 1V portable CLINICAL HISTORY: Dyspnea TECHNIQUE: Single frontal radiograph of the chest was obtained. Comparison: Comparison is made to chest radiograph 09/19/2023 FINDINGS: No lines and tubes are seen. Cardiomegaly is noted. Prominence and cephalization of the vasculature i s seen. Left retrocardiac opacity is seen. Right mid lung calcified nodule is again noted. There is b ilateral pleural effusions. IMPRESSION: 1. Faint bibasilar airspace opacities which may represent atelectasis, pneumonia, and/or aspiration. 2. Leftward cardiac opacity. This may represent atelectasis, pneumonia, and/or aspiration. 3. Trace bilateral pleural effusions. ACT 112: Negative or not required by law. Electronically signed by: Jan Greer M.D. 09/26/2023 1:26 PM
[2023-09-26 13:35] LABS: Basophils # (auto) 0.03 K/uL (0.00-0.20); Basophils % (auto) 0.3 %; Eosinophils # (auto) 0.15 K/uL (0.00-0.50); Eosinophils % (auto) 1.7 %; Hematocrit (blood only) 34.7 % (37.0-47.0); Hemoglobin 11.8 g/dl (12.0-16.0); Immature Granulocytes # (auto) 0.08 K/uL (0.01-0.20); Immature Granulocytes % (auto) 0.9 %; Lymphocytes # (auto) 1.95 K/uL (1.20-3.40); Lymphocytes % (auto) 21.8 %; Mean Corpuscular Hemoglobin 30.5 pg (25.0-34.0); Mean Corpuscular Volume 89.7 fL (80.0-100.0); Mean Platelet Volume 9.8 fL (9.4-12.4); Monocytes % (auto) 7.8 %; Neutrophils # (auto) 6.04 K/uL (1.40-6.50); Neutrophils % (auto) 67.5 %; Platelet Count 179 K/uL (130-400); RDW Coefficient of Variation 14.8 % (11.5-14.5); Red Blood Count 3.87 M/uL (4.20-5.40); White Blood Count 8.95 K/ul (4.8-10.8)
[2023-09-26 14:01] LABS: INR 1.5 (0.9-1.1); Partial Thromboplastin Ratio 1.5; Partial Thromboplastin Time 42 Seconds (21-31); Prothrombin Time 15.6 Seconds (9.0-12.0)
[2023-09-26] MEDS: MAGNESIUM SULFATE / D5W 1 GM/100 ML BAG IV STA (14:15)
--- NOTE | 2023-09-26 14:27 | CT Scan Report ---
ABDOMEN AND PELVIS CT WITHOUT CONTRAST CT DOSE: 1195.59 mGy.cm HISTORY: hematuria dysuria nv TECHNIQUE: Multiaxial CT images of the abdomen and pelvis were performed without contrast. A dose lo wering technique was utilized adhering to the principles of ALARA. COMPARISON STUDY: Abdomen and pelvis CT 07/30/2023. FINDINGS: The heart remains enlarged. There are small bilateral pleural effusions. Bibasilar linear d ensities favor subsegmental atelectasis. Calcified granuloma within the right lower lobe again noted. No pneumoperitoneum. No pneumatosis. Interval kyphoplasty at the healing T11 vertebral body fracture . L2-L4 old compression deformities again noted. Prior L2 vertebroplasty, unchanged. Posterior decomp ression fusion at L4-L5. Old distal sacral fracture. Paravertebral edema at the T11 level is likely d ue to the recent kyphoplasty. Small midline ventral hernia containing fat and a knuckle of the transv erse colon. This remains unchanged. There is an overlying mesh at this location. Surgical clips again noted within the proximal stomach. Multiple punctate calcified granulomas seen within the liver and spleen. Prior cholecystectomy. The unenhanced pancreas and adrenal glands are unremarkable. No renal or ureteral stones. No hydronephrosis. Mild bladder wall thickening. This could be due to underdisten tion. Bilateral renal hypodense lesions remain unchanged. These favor cysts but are incompletely becky acterized on this noncontrast study. Calcified plaque within the normal caliber abdominal aorta. No r etroperitoneal or pelvic lymphadenopathy. No pelvic free fluid. Mild pelvic floor collapse. Prior hys terectomy. Suboptimal evaluation for bowel pathology due to the lack of intravenous and oral contrast . However, there is no definite bowel wall thickening or obstruction. Normal appendix. Rectosigmoid a nastomosis again noted. IMPRESSION: 1. No renal or ureteral stones. No hydronephrosis. 2. No bowel wall thickening or obstruction. 3. Normal appendix. 4. Interval T11 kyphoplasty. This likely accounts for the paravertebral edema at this location. 5. Small bilateral pleural effusions. This is new compared the prior study. 6. Mild bladder wall thickening. This could be due to underdistention. Recommend correlation with uri nalysis. 7. Additional findings as described above. ACT 112: Negative or not required by law. Electronically signed by: Keegan Lomeli M.D. 09/26/2023 2:25 PM
[2023-09-26 15:10] LABS: Albumin Level 3.8 gm/dl (3.4-5.0); Potassium 2.9 mmol/L (3.5-5.1)
[2023-09-26 15:15] LABS: Troponin I High Sensitivity 13.6 pg/ml (0-14)
[2023-09-26 15:16] LABS: Albumin Globulin Ratio 1.6 (0.9-2); BUN Creatinine Ratio 13.1 (10-20); Creatinine Clr Calc Pharmacy 42.7 ml/min; Est GFR (Non-African American) 50.9 ml/min; Globulin 2.4 gm/dl (2.5-4.0); Total Protein 6.2 gm/dl (6.0-8.3)
[2023-09-26] MEDS: POTASSIUM CHLORIDE 10 MEQ TABCR PO STA (15:35)
[2023-09-26] MEDS: FUROSEMIDE 40 MG/4 ML VIAL IV ONE (15:38)
[2023-09-26] MEDS: cefTRIAXone SODIUM 1,000 MG/50 ML BAG IV STA (15:54)
[2023-09-26] MEDS: DOXYCYCLINE HYCLATE 100 MG CAP PO STA (15:54)
--- NOTE | 2023-09-26 15:54 | History & Physical Report ---
Date of Service September 26, 2023 Assessment & Plan (1) SOB (shortness of breath): Plan: -Admit to med/tele on pulse oximetry -Patient was sent to the ED from her PCP's office this am for ongoing SOB/GUZMAN/Orthopnea -She completed an outpatient course of Levaquin and took her PRN 20 mg PO lasix daily from 09/18-09/22 without improvement in her symptoms -Noted to have significantly edematous BL LE's with trace BL pleural effusions. -Was given a dose of Ceftriaxone, Doxycline, 40 mg IV lasix, 1gm IV mag sulfate and 40 meq PO KCL in the ED -At this time the etiology of the patient's ongoing respiratory symptoms and BL LE swelling appear most consistent with possible right sided CHF -CXR noted faint bibasilar airspace opacities and leftward cardiac opacity which may represent atelectasis, pneumonia, and/or aspiration -She is without a leukocytosis, has been afebrile, and has a negative procal, low suspicion for Pneumonia, at this time, will hold further abx for now -PE is on the differential but the patient resumed her home Xarelto on day #1 post-op during her admission last month, she has symmetrical BL LE swelling more consistent with venous stasis, has been hemodynamically stable, and had a brief episode of hypoxia which has currently resolved -BNP today is 404, has been slightly higher in the past -Weight is stable today at 83 Kg -Will obtain BL LE venous dopplers to monitor for signs of DVT -Will obtain TTE to monitor for signs of new CHF since her last echo in 2019, patient denies being told that she had a heart murmur previously -Will plan to continue with 20 mg IV lasix daily tomorrow to over over-diuresis -Will have her legs wrapped after her LE venous dopplers -Continue home Xarelto for DVT PPX -HH diet with 2gm sodium and 1800 mL fluid restriction -AM CBC, BMP, mag, PT/INR (2) GUZMAN (dyspnea on exertion): Plan: -See SOB (3) Swelling of both lower extremities: Plan: -Was likely exacerbated after her last admission -States that she has been on home Amlodipine for "years" without previous issue with LE Swelling -Follow venous doppler of the BL LE's -Continue home Xarelto -Will have BL tammie wraps placed after venous dopplers are obtained -Follow TTE tomorrow (4) Hypokalemia: Plan: -Noted to be 2.9 today -Appears to have flattened T-waves on ECG today -Likely due to poor oral intake and daily PO lasix last week -Also noted to have a mag of 1.3 today -S/P 40 meq PO KCL in the ED -Will give another 40 meq PO KCL on admission -Continue to replete magnesium as needed -Monitor on tele -Monitor electrolytes daily (5) Hypomagnesemia: Plan: -Noted to be 1.3 today -Likely due to poor oral intake and increased lasix use -S/P 1gm IV mag sulfate in the ED -Will give an additional 3 bags of 1gm IV mag sulfate on admission -Monitor on tele -Monitor daily mag level (6) Hypocalcemia: Plan: -Corrected calcium of 7.2 today -Likely due to poor oral intake and increased lasix use -Will give 1gm IV calcium gluconate now -Monitor am ionized calcium level (7) PAF (paroxysmal atrial fibrillation): Plan: -In rate controlled afib today -Continue Xarelto and atenolol (8) Hypothyroidism (acquired): Plan: -Continue levothyroxine (9) COPD (chronic obstructive pulmonary disease): Plan: -Stable on RA -Lungs are clear -Will start incentive spirometry and flutter therapy -Holding prn albuterol for now as she is not wheezing on exam and to prevent worsening of her hypokalemia (10) GERD (gastroesophageal reflux disease): Plan: -Conitnue PPI Plan The patient was discussed with Dr. 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 She was initially noted to be stable in the ED but was later found to be hypoxic at 88% on RA. Labs were significant for a Hgb of 11.8 (down from 13 as of 09/19/23), INR of 1.5, AG of 15 with bicarb WNL, potassium of 2.9, mag of 1.3, corrected calcium of 7.2, and covid 19 screen negative. Chest xray was read as "1. Faint bibasilar airspace opacities which may represent atelectasis, pneumonia, and/or aspiration. 2. Leftward cardiac opacity. This may represent atelectasis, pneumonia, and/or aspiration. 3. Trace bilateral pleural effusions.". CT of the abd/pelvis wo IV con was read as "1. No renal or ureteral stones. No hydronephrosis. 2. No bowel wall thickening or obstruction. 3. Normal appendix. 4. Interval T11 kyphoplasty. This likely accounts for the paravertebral edema at this location. 5. Small bilateral pleural effusions. This is new compared the prior study. 6. Mild bladder wall thickening. This could be due to underdistention. Recommend correlation with urinalysis. 7. Additional findings as described above. ". Prior to admission the patient was given 40 meq PO KCL, 1gm IV mag-sulfate, a dose of Ceftriaxone and Doxycycline, and 40 mg IV lasix. The patient was initially seen at her PCP's office for these symptoms on 09/19/23. She was prescribed a course of Levaquin and instructed to take her 20 mg PRN PO lasix daily. She was seen for follow-up at her PCP's office this am and reported that her symptoms had not improved. Because of this she was sent to the ED for further evaluation. At the time of the exam the patient was sitting in bed in no acute distress, currently stable on RA. She states that she initially presented to her PCP's office on 09/19/23 for approximately 2-3 days of progressive SOB/GUZMAN/Orthopnea, non-productive cough, and BL LE swelling. She completed the course of Levaquin they prescribed and took her PO lasix daily from 09/18-09/22 without significant improvement in her symptoms. When asked, she states that she normally sleeps on one pillow at night but has been requiring at least 2 pillows over the past few weeks and has had to sleep in her recliner at times due to her orthopnea. She denies recent fever, chills, chest pain, hemoptysis, nausea, vomiting, diarrhea, dysuria, hematuria, melena, and recent trauma. She has been taking her Xarelto as prescribed without missed doses since her last admission in August of this year. She has had poor oral intake over the past week as well. We discussed code status. The patient has previously been a Full Code. However, she states that she has been thinking about this recently. She wishes to be a DNR/DNI now as she is 87 years old and felt as though her suffered greatly when he had CPR performed last year, prior to his passing. If she were to decompensate she would want to focus on being kept comfortable. I asked if her family knows her new wishes. She explains that she will speak with her Son's as they are her POA's if she is unable to make her own medical decisions. The patient was last admitted to [facility] from 08/08/23-08/18/23. She was admitted due to uncontrolled pain from a fall and superior endplate fracture of the T11 vertebral body with 26% loss of vertebral body height. Per the notes from her last admission, her Xarelto was held on the day of admission (08/08). She underwent Kyphoplasty of T12 with Dr. Head on 08/15/23. Her Xarelto was resumed on 08/16/23. Please refer to Dr. Sigala's attestation for any changes to the treatment plan Allergies Allergy/AdvReac Type Severity Reaction Status Date / Time nabumetone Allergy Severe SHORTNESS Verified 09/19/23 09:53 OF BREATH naproxen Allergy Severe SOB Verified 09/19/23 09:53 rofecoxib Allergy Severe SHORTNESS Verified 09/19/23 09:53 OF BREATH valdecoxib Allergy Severe SHORTNESS Verified 09/19/23 09:53 OF BREATH Cephalosporins Allergy Intermediate HIVES Verified 09/19/23 09:53 Penicillins Allergy Intermediate RASH,HIVES Verified 09/19/23 09:53 codeine Allergy Mild RASH Verified 09/19/23 09:53 methimazole Allergy Mild itching Verified 09/19/23 09:53 Sulfa (Sulfonamide Allergy Mild RASH Verified 09/19/23 09:53 Antibiotics) azithromycin [From Zithromax] AdvReac Intermediate DIARRHEA Verified 09/19/23 09:53 diphenhydramine AdvReac Intermediate LIGHTHEADED Verified 09/19/23 09:53 [From Benadryl] nitrofurantoin AdvReac Mild VOMITING Verified 09/19/23 09:53 nickel AdvReac Unknown Rash Verified 09/19/23 09:53 Home Medications Medication Instructions Recorded Confirmed Type calcium carbonate 600 mg calcium 1,200 mg PO QAM 01/24/19 09/26/23 History (1,500 mg) tablet (Calcium) ascorbic acid (vitamin C) 500 mg 500 mg PO QAM 02/07/19 09/26/23 History tablet (Vitamin C) mecobalamin (vitamin B12) 1,000 500 mcg sublingual QAM 10/28/20 09/26/23 History mcg disintegrating tablet,sublingual cholecalciferol (vitamin D3) 50 50 mcg PO QAM 06/10/22 09/26/23 History mcg (2,000 unit) capsule (Vitamin D3) fluticasone propionate 50 2 spray intranasal DAILY 09/29/22 09/26/23 History mcg/actuation nasal spray,suspension amlodipine 5 mg tablet 7.5 mg (1.5 x 5 mg) PO HS #90 tabs 10/20/22 09/26/23 Rx furosemide 20 mg tablet 20 mg PO DAILY PRN Fluid Retention 10/20/22 09/26/23 Rx #90 tabs levothyroxine 75 mcg tablet 75 mcg PO QAM #90 tabs 10/20/22 09/26/23 Rx montelukast 10 mg tablet 10 mg PO HS #90 tabs 10/20/22 09/26/23 Rx (Singulair) pravastatin 40 mg tablet 40 mg PO HS #90 tabs 10/20/22 09/26/23 Rx ferrous sulfate 325 mg (65 mg 325 mg PO .MON/WED/Tue01/11/23 09/26/23 History iron) tablet (Feosol) dicyclomine 10 mg capsule 10 mg PO QAM #30 caps 03/31/23 09/26/23 Rx fluticasone 100 mcg-salmeterol 50 1 ea inhalation BID #3 Inhalers 03/31/23 09/26/23 Rx mcg/dose blistr powdr for inhalation (Wixela Inhub) methocarbamol 500 mg tablet 500 mg PO BID PRN low back pain 08/03/23 09/26/23 Rx #30 tabs acetaminophen 500 mg tablet 1,000 mg (2 x 500 mg) PO TID #0 08/18/23 09/26/23 Rx (Tylenol Extra Strength) tabs atenolol 25 mg tablet 25 mg PO QAM #0 tabs 08/18/23 09/26/23 Rx atenolol 50 mg tablet 50 mg PO HS #0 tabs 08/18/23 09/26/23 Rx rivaroxaban 15 mg tablet (Xarelto) 15 mg PO QDD #0 tabs 08/18/23 09/26/23 Rx sennosides 8.6 mg-docusate sodium 1 tab PO QAM #0 tabs 08/18/23 09/26/23 Rx 50 mg tablet (Senokot-S) polyethylene glycol 3350 17 gram 17 g PO BID PRN Constipation 09/05/23 09/26/23 History oral powder packet (Miralax) albuterol sulfate 2.5 mg/3 mL 2.5 mg (3 mL) inhalation TID PRN 09/19/23 09/26/23 Rx (0.083 %) solution for nebulization Shortness Of Breath Or Wheezing #270 mL albuterol sulfate 90 mcg/actuation 2 puff inhalation Q6H PRN 09/19/23 09/26/23 Rx aerosol inhaler (ProAir HFA) shortness of breath or wheezing #20.1 grams levofloxacin 500 mg tablet 500 mg PO DAILY #10 tabs 09/19/23 09/26/23 Rx Past Med/Surg History Medical History T12 compression fracture Lumbar disc disease History of colon cancer Anemia History of difficult venous access Hx of renal calculi COPD (chronic obstructive pulmonary disease) Gastric polyp Osteoporosis Atrial fibrillation Chronic kidney disease, stage III (moderate) Hypothyroid High cholesterol Hypertension GERD (gastroesophageal reflux disease) Chronic back pain Asthma History of endometrial cancer Surgical History Hx of bladder repair surgery History of esophagogastroduodenoscopy (EGD) Hx of colonoscopy S/P ERCP Hx laparoscopic cholecystectomy (10/06/20) H/O kyphoplasty Difficult airway for intubation History of hysterectomy for cancer History of anesthesia problem History of colon resection History of back surgery History of total left knee replacement History of total right knee replacement History of subtotal thyroidectomy History of incisional hernia repair Family History Grandmother (Paternal) Colorectal cancer Family/Other Coronary heart disease Ovarian cancer Breast cancer Mother Myocardial infarction Father Myocardial infarction Family/Other Breast cancer Sister Ovarian cancer Denies family history of Prostate cancer Social History Smoking Status: Never smoker Second Hand Exposure: Yes (as a child and early marriage); Do You Dip or Chew Tobacco: No; Hx Alcohol Use: No Hx Substance Use: No Preferred Language: Indonesian Communication Ability: Effective Visual Impairment: No Limitations Hearing Ability: Normal General Operator Required: No Beliefs That Will Affect Care: None marital status: / Current Living Situation: Alone current occupational status: retired Feels Safe at Home: Yes Diet: regular caffeine: No Dental Care, Regularly: Yes Physical Activity Frequency: 1-2 Times per Week Physical Activity Frequency Comment: Walking, house work Seatbelt Use: always Sunscreen Use: Yes Assistive Devices: Cane and Walker Physical Exam Physical Exam: Physical Exam: General: In no acute distress, stated age, well-nourished, non-toxic appearing HEENT: Normocephalic, atraumatic, no scleral icterus, pupils around round, symmetrical, and reactive to light, moist mucus membranes, no significant JVD, trachea midline, no thyromegaly Chest/Pulm: No respiratory distress, symmetrical chest expansion, clear breath sounds throughout Cardiac: Irregular rate and rhythm, 3/6 systolic murmur noted Abdomen: Negative for ascites and bruising, normoactive bowel sounds, soft, non-tender to palpation throughout Musculoskeletal: Symmetrical and without signs of acute trauma, upper and lower extremities with full ROM, no atrophy, spasticity, or flaccidity Extremities: Radial, dorsalis pedis, and posterior tibial pulses are intact and symmetrical, 3+ pitting edema noted in the BL LE"s Skin: Warm, dry, no rashes , lesions, or scars noted Neuro: Alert and oriented to person, place, month, year, and president, no focal defects, no tremors noted Psych: No acute distress, calm and cooperative during the exam Results & Data Results & Data Vital Signs (Past 12 Hours) Vital Signs Temp Pulse Pulse Resp BP BP Pulse Ox 09/26/23 15:29 88 L 09/26/23 15:00 62 24 92 09/26/23 15:00 127/61 09/26/23 14:30 71 19 92 09/26/23 14:30 147/91 H 09/26/23 14:00 102 H 17 09/26/23 13:30 134/62 09/26/23 13:30 65 14 09/26/23 13:21 64 20 96 09/26/23 13:21 36.8 C 64 20 141/86 H 96 09/26/23 13:00 141/59 H 09/26/23 13:00 60 12 94 09/26/23 12:48 70 09/26/23 12:34 70 20 94 09/26/23 12:33 125/74 09/26/23 12:04 36.9 C 67 20 144/62 H 96 O2 Del Method O2 Flow Rate 09/26/23 15:29 Room Air 0 09/26/23 15:00 Room Air 09/26/23 15:00 09/26/23 14:30 09/26/23 14:30 09/26/23 14:00 09/26/23 13:30 09/26/23 13:30 09/26/23 13:21 Room Air 09/26/23 13:21 Room Air 09/26/23 13:00 09/26/23 13:00 09/26/23 12:48 09/26/23 12:34 09/26/23 12:33 09/26/23 12:04 Room Air Laboratory Results Abnormal lab results 09/26/23 Range/Units 13:08 RBC 3.87 L (4.20-5.40) M/uL Hgb 11.8 L (12.0-16.0) g/dl Hct 34.7 L (37.0-47.0) % RDW Std Deviation 49.0 H (36.4-46.3) fL RDW Coeff of Barry 14.8 H (11.5-14.5) % Loving # (Auto) 0.70 H (0.11-0.59) K/uL PT 15.6 H (9.0-12.0) Seconds INR 1.5 H (0.9-1.1) APTT 42 H (21-31) Seconds Potassium 2.9 L (3.5-5.1) mmol/L Anion Gap 15 H (3-11) Calcium 7.0 L (8.6-10.3) mg/dl Magnesium 1.3 L (1.7-2.4) mg/dl ALT 6 L (7-52) U/L B-Natriuretic Peptide 404 H (0-100) pg/ml Globulin 2.4 L (2.5-4.0) gm/dl Diagnostic Findings Chest X-Ray 09/26/23 12:09 XR chest 1V portable CLINICAL HISTORY: Dyspnea TECHNIQUE: Single frontal radiograph of the chest was obtained. Comparison: Comparison is made to chest radiograph 09/19/2023 FINDINGS: No lines and tubes are seen. Cardiomegaly is noted. Prominence and cephalization of the vasculature is seen. Left retrocardiac opacity is seen. Right mid lung calcified nodule is again noted. There is bilateral pleural effusions. IMPRESSION: 1. Faint bibasilar airspace opacities which may represent atelectasis, pneumonia, and/or aspiration. 2. Leftward cardiac opacity. This may represent atelectasis, pneumonia, and/or aspiration. 3. Trace bilateral pleural effusions. ACT 112: Negative or not required by law. Electronically signed by: Jan Greer M.D. 09/26/2023 1:26 PM Abdomen/Pelvis CT 09/26/23 13:[address] WITHOUT CONTRAST CT DOSE: 1195.59 mGy.cm HISTORY: hematuria dysuria nv TECHNIQUE: Multiaxial CT images of the abdomen and pelvis were performed without contrast. A dose lowering technique was utilized adhering to the principles of ALARA. COMPARISON STUDY: Abdomen and pelvis CT 07/30/2023. FINDINGS: The heart remains enlarged. There are small bilateral pleural effusions. Bibasilar linear densities favor subsegmental atelectasis. Calcified granuloma within the right lower lobe again noted. No pneumoperitoneum. No pneumatosis. Interval kyphoplasty at the healing T11 vertebral body fracture. L2-L4 old compression deformities again noted. Prior L2 vertebroplasty, unchanged. Posterior decompression fusion at L4-L5. Old distal sacral fracture. Paravertebral edema at the T11 level is likely due to the recent kyphoplasty. Small midline ventral hernia containing fat and a knuckle of the transverse colon. This remains unchanged. There is an overlying mesh at this location. Surgical clips again noted within the proximal stomach. Multiple punctate calcified granulomas seen within the liver and spleen. Prior cholecystectomy. The unenhanced pancreas and adrenal glands are unremarkable. No renal or ureteral stones. No hydronephrosis. Mild bladder wall thickening. This could be due to underdistention. Bilateral renal hypodense lesions remain unchanged. These favor cysts but are incompletely characterized on this noncontrast study. Calcified plaque within the normal caliber abdominal aorta. No retroperitoneal or pelvic lymphadenopathy. No pelvic free fluid. Mild pelvic floor collapse. Prior hysterectomy. Suboptimal evaluation for bowel pathology due to the lack of intravenous and oral contrast. However, there is no definite bowel wall thickening or obstruction. Normal appendix. Rectosigmoid anastomosis again noted. IMPRESSION: 1. No renal or ureteral stones. No hydronephrosis. 2. No bowel wall thickening or obstruction. 3. Normal appendix. 4. Interval T11 kyphoplasty. This likely accounts for the paravertebral edema at this location. 5. Small bilateral pleural effusions. This is new compared the prior study. 6. Mild bladder wall thickening. This could be due to underdistention. Recommend correlation with urinalysis. 7. Additional findings as described above. ACT 112: Negative or not required by law. Electronically signed by: Keegan Lomeli M.D. 09/26/2023 2:25 PM ECG Additional Comments: Undetermined rhythm Minimal voltage criteria for LVH, may be normal variant ( R in aVL ) Septal infarct , age undetermined Abnormal ECG When compared with ECG of 12-AUG-2023 16:12, Current undetermined rhythm precludes rhythm comparison, needs review Septal infarct is now Present T wave inversion now evident in Inferior leads Nonspecific T wave abnormality, worse in Anterolateral leads QT has lengthened Code Status & VTE Plan Code Status DNR/DNI VTE Prophylaxis Plan VTE Prophylaxis will be ordered: Yes Supervising Physician Co-Signing Physician Notes Patient seen and examined, chart reviewed, case discussed with Judah Ryan PA-C and I agree with the assessment and plan as above except as otherwise noted Labs and images reviewed Juana Brunson is an 87-year-old female with a past medical history of COPD, GERD, CKD 3, paroxysmal A-fib on DOAC with which she is compliant, EF 60 to 65% without regional wall motion abnormalities and with type I diastolic dysfunction who presents with dyspnea and fluid overload. The patient was referred by PCP as dyspnea worsened despite home lasix and an outpt course of levaquin. Chest x-ray is with bibasilar opacities? Atelectatic versus pneumonia, trace taran ateral pleural effusions are noted, left peripheral opacity noted? Pneumonia. CTA/P small bilateral pleural effusions new from prior, mild blottable bladder wall thickening otherwise no acute findings. Patient is recommended for evaluation by the ER for suspected pneumonia +/- acute diastolic CHF. Patient is also hypokalemic, hypomagnesemic, hypocalcemic bed weight on admit 83 kg, dry weight appears to be approximately 83 kg BNP is elevated at 404, prior BNP 223 and subsequently 487 approximately 7 days ago. Patient's dry weight on record review appears to be approximately 83 kg, she is 83 kg by bed weight on admission. PG Care Time/CCT Total # of Minutes Spent Total Time Spent with Patient: Total time spent is greater than 50% in coordination of care (as documented) at patient's floor/unit and/or counseling patient: C[place] [address] INT INP/OBS CARE 3/75MIN Patient Type Established History Comprehensive Exam Comprehensive Medical Decision Making High Complexity Diagnoses SOB (shortness of breath) R06.02 GUZMAN (dyspnea on exertion) R06.09 Swelling of both lower extremities M79.89 Hypokalemia E87.6 Hypomagnesemia E83.42 Hypocalcemia E83.51 PAF (paroxysmal atrial fibrillation) I48.0 Hypothyroidism (acquired) E03.9 COPD (chronic obstructive pulmonary disease) J44.9 GERD (gastroesophageal reflux disease) K21.9
[2023-09-26] MEDS ORDERED: CALCIUM GLUCONATE 10% 1,000 MG in SODIUM CHLOR 0.9% MINI-B 50 ML IV ONE (16:18)
[2023-09-26] MEDS ORDERED: STAT IV/IM STA (16:18)
[2023-09-26 16:32] LABS: Appearance Urine Clear (Clear); Bilirubin Urine Negative (Negative); Blood Urine Negative (Negative); Color Urine Yellow; Glucose Urine UA Negative (Negative); Ketones Urine Negative (Negative); Leukocyte Esterase Urine Negative (Negative); Nitrite Urine Negative (Negative); Protein Urine Negative (Negative); Specific Gravity Urine 1.007 (1.000-1.030); Urobilinogen Urine Negative (Negative)
[2023-09-26] MEDS: ONDANSETRON INJ 2 MG/ML 2 ML VIAL IV STA (16:34)
[2023-09-26] MEDS: CALCIUM GLUCONATE 1,000 MG/60 ML BAG IV STA (16:37)
[2023-09-26] MEDS: POTASSIUM CHLORIDE CRTAB 20 MEQ TABCR PO STA (17:01)
[2023-09-26] MEDS: MAGNESIUM SULFATE / D5W 1 GM/100 ML BAG IV SCH (17:02)
[2023-09-26 17:19] LABS: Creatinine Urine Random 27.5 mg/dl; Protein Creatinine Ratio Urine 0.2 (0-0.2); Total Protein Urine Random 4.2 mg/dl (0-11.9)
--- NOTE | 2023-09-26 17:28 | Electrocardiogram Report ---
Test Reason : Blood Pressure : / mmHG Vent. Rate : 063 BPM Atrial Rate : 227 BPM P-R Int : 000 ms QRS Dur : 086 ms QT Int : 476 ms P-R-T Axes : 000 -28 -16 degrees QTc Int : 487 ms Atrial fibrillation Minimal voltage criteria for LVH, may be normal variant Nonspecific ST abnormality Abnormal ECG When compared with ECG of 12-AUG-2023 16:12, T wave inversion now evident in Inferior leads Nonspecific T wave abnormality, worse in Anterolateral leads QT has lengthened Confirmed by Dennis Ingram ([id number]) on 09/26/2023 5:28:45 PM Referred By: Confirmed By:Magdaleno Ingram
--- NOTE | 2023-09-26 20:17 | Emergency Department Note ---
History of Present Illness General Chief Complaint: Referred by Doctor Stated Complaint: IRREGULAR EKG, TROUBLE BREATHING Time Seen by Provider: 09/26/23 12:27 History of Present Illness Provider Complaint: shortness of breath and cough Onset (ago): week(s) (1) Consistency/Duration: + progressively worsening Relieved By: + nothing Exacerbated By: + exertion and + coughing Context: no recent illness Known history of: COPD Associated symptoms: no wheezing, no lower extremity pain, no hemoptysis, no nausea/vomiting, no syncope, no abdominal pain or no rash HPI Narrative: Patient is on Xarelto Related Data Home oxygen amount: none Home Medications Medication Instructions Recorded Confirmed Type calcium carbonate 600 mg calcium 1,200 mg PO QAM 01/24/19 09/26/23 History (1,500 mg) tablet (Calcium) ascorbic acid (vitamin C) 500 mg 500 mg PO QAM 02/07/19 09/26/23 History tablet (Vitamin C) mecobalamin (vitamin B12) 1,000 500 mcg sublingual QAM 10/28/20 09/26/23 History mcg disintegrating tablet,sublingual cholecalciferol (vitamin D3) 50 50 mcg PO QAM 06/10/22 09/26/23 History mcg (2,000 unit) capsule (Vitamin D3) fluticasone propionate 50 2 spray intranasal DAILY 09/29/22 09/26/23 History mcg/actuation nasal spray,suspension amlodipine 5 mg tablet 7.5 mg (1.5 x 5 mg) PO HS #90 tabs 10/20/22 09/26/23 Rx furosemide 20 mg tablet 20 mg PO DAILY PRN Fluid Retention 10/20/22 09/26/23 Rx #90 tabs levothyroxine 75 mcg tablet 75 mcg PO QAM #90 tabs 10/20/22 09/26/23 Rx montelukast 10 mg tablet 10 mg PO HS #90 tabs 10/20/22 09/26/23 Rx (Singulair) pravastatin 40 mg tablet 40 mg PO HS #90 tabs 10/20/22 09/26/23 Rx ferrous sulfate 325 mg (65 mg 325 mg PO .MON/WED/FRI 01/11/23 09/26/23 History iron) tablet (Feosol) dicyclomine 10 mg capsule 10 mg PO QAM #30 caps 03/31/23 09/26/23 Rx fluticasone 100 mcg-salmeterol 50 1 ea inhalation BID #3 Inhalers 03/31/23 09/26/23 Rx mcg/dose blistr powdr for inhalation (Wixela Inhub) methocarbamol 500 mg tablet 500 mg PO BID PRN low back pain 08/03/23 09/26/23 Rx #30 tabs acetaminophen 500 mg tablet 1,000 mg (2 x 500 mg) PO TID #0 08/18/23 09/26/23 Rx (Tylenol Extra Strength) tabs atenolol 25 mg tablet 25 mg PO QAM #0 tabs 08/18/23 09/26/23 Rx atenolol 50 mg tablet 50 mg PO HS #0 tabs 08/18/23 09/26/23 Rx rivaroxaban 15 mg tablet (Xarelto) 15 mg PO QDD #0 tabs 08/18/23 09/26/23 Rx sennosides 8.6 mg-docusate sodium 1 tab PO QAM #0 tabs 08/18/23 09/26/23 Rx 50 mg tablet (Senokot-S) polyethylene glycol 3350 17 gram 17 g PO BID PRN Constipation 09/05/23 09/26/23 History oral powder packet (Miralax) albuterol sulfate 2.5 mg/3 mL 2.5 mg (3 mL) inhalation TID PRN 09/19/23 09/26/23 Rx (0.083 %) solution for nebulization Shortness Of Breath Or Wheezing #270 mL albuterol sulfate 90 mcg/actuation 2 puff inhalation Q6H PRN 09/19/23 09/26/23 Rx aerosol inhaler (ProAir HFA) shortness of breath or wheezing #20.1 grams levofloxacin 500 mg tablet 500 mg PO DAILY #10 tabs 09/19/23 09/26/23 Rx Allergies Allergy/AdvReac Type Severity Reaction Status Date / Time nabumetone Allergy Severe SHORTNESS Verified 09/19/23 09:53 OF BREATH naproxen Allergy Severe SOB Verified 09/19/23 09:53 rofecoxib Allergy Severe SHORTNESS Verified 09/19/23 09:53 OF BREATH valdecoxib Allergy Severe SHORTNESS Verified 09/19/23 09:53 OF BREATH Cephalosporins Allergy Intermediate HIVES Verified 09/19/23 09:53 Penicillins Allergy Intermediate RASH,HIVES Verified 09/19/23 09:53 codeine Allergy Mild RASH Verified 09/19/23 09:53 methimazole Allergy Mild itching Verified 09/19/23 09:53 Sulfa (Sulfonamide Allergy Mild RASH Verified 09/19/23 09:53 Antibiotics) azithromycin [From Zithromax] AdvReac Intermediate DIARRHEA Verified 09/19/23 09:53 diphenhydramine AdvReac Intermediate LIGHTHEADED Verified 09/19/23 09:53 [From Benadryl] nitrofurantoin AdvReac Mild VOMITING Verified 09/19/23 09:53 nickel AdvReac Unknown Rash Verified 09/19/23 09:53 Past Med/Surg History Medical History T12 compression fracture Lumbar disc disease History of colon cancer treated surgically 1989 Anemia History of difficult venous access "have had to call the IV team to get my IV's in in the past" Hx of renal calculi passed on own COPD (chronic obstructive pulmonary disease) Gastric polyp removed-malignant 2020 Osteoporosis Atrial fibrillation On xarelto; follows with Dr. Pollard Chronic kidney disease, stage III (moderate) Hypothyroid High cholesterol Hypertension GERD (gastroesophageal reflux disease) Chronic back pain Asthma daily and PRN inhaler only, nebulizer prn History of endometrial cancer Surgical History Hx of bladder repair surgery History of esophagogastroduodenoscopy (EGD) most recent 06/16/22 [facility] Hx of colonoscopy S/P ERCP 10/07/20, Glidescope #3. 11/21/20 [place] Hx laparoscopic cholecystectomy (10/06/20) Laparoscopic Cholecystectomy with Cholangiogram Dr. Varela 10/06/2020. Glidescope #4. H/O kyphoplasty T5 07/23/2019. Glidescope #3, atraumatic. T12 08/15/23 - Dr. Head Difficult airway for intubation Pt reports "failed intubation" with colon resection in . Has had several GA surgeries at [facility] with Glidescope intubations for all, no issues noted in anesthesia records. History of hysterectomy for cancer History of anesthesia problem INTUBATION PROBLEM History of colon resection History of back surgery History of total left knee replacement History of total right knee replacement History of subtotal thyroidectomy History of incisional hernia repair X2 Family History Grandmother (Paternal) Colorectal cancer Family/Other Coronary heart disease Ovarian cancer Breast cancer metastatic breast in 2 nieces. 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 Beliefs That Will Affect Care: None marital status: / Current Living Situation: Alone current occupational status: retired Feels Safe at Home: Yes Diet: regular caffeine: No Dental Care, Regularly: Yes Physical Activity Frequency: 1-2 Times per Week Physical Activity Frequency Comment: Walking, house work Seatbelt Use: always Sunscreen Use: Yes Assistive Devices: Cane and Walker Physical Exam 2 Vital Signs: Vital Signs - 24 hr 09/26/23 12:04 09/26/23 12:33 09/26/23 12:34 Temperature 36.9 C Temperature Source Temporal Artery Sc an Pulse Rate 67 70 Pulse Rate [Right Finger] Pulse Rate from Sp O2 Sensor 70 Pulse Rhythm Pulse Rhythm [Righ t Finger] Pulse Strength [Ri ght Finger] Respiratory Rate 20 20 Respiratory Effort / Characteristics Non-Labored Sponta neous Respiratory Depth Normal Respiratory Patter n Regular Blood Pressure 144/62 H 125/74 Blood Pressure [Ri ght Arm] Blood Pressure Micaela n 89 94 Blood Pressure Micaela n [Right Arm] Blood Pressure Pos ition [Right Arm] Pulse Oximetry 96 94 Oxygen Delivery Me thod Room Air Oxygen Flow Rate Sepsis Recent Feve r Within 48 Hours No Sepsis New/Unexpla ined Change in Men jez Status N/A Sepsis Action Take n by Nursing No Action Required Oxygen Flow Rate - Titration Pulse Oximetry Pos t Tiitration 09/26/23 12:48 09/26/23 13:00 09/26/23 13:00 Temperature Temperature Source Pulse Rate 70 60 Pulse Rate [Right Finger] Pulse Rate from Sp O2 Sensor 61 Pulse Rhythm Pulse Rhythm [Righ t Finger] Pulse Strength [Ri ght Finger] Respiratory Rate 12 Respiratory Effort / Characteristics Respiratory Depth Respiratory Patter n Blood Pressure 141/59 H Blood Pressure [Ri ght Arm] Blood Pressure Micaela n 76 Blood Pressure Micaela n [Right Arm] Blood Pressure Pos ition [Right Arm] Pulse Oximetry 94 Oxygen Delivery Me thod Oxygen Flow Rate Sepsis Recent Feve r Within 48 Hours Sepsis New/Unexpla ined Change in Men jez Status Sepsis Action Take n by Nursing Oxygen Flow Rate - Titration Pulse Oximetry Pos t Tiitration 09/26/23 13:21 09/26/23 13:21 09/26/23 13:30 Temperature 36.8 C Temperature Source Oral Pulse Rate 64 65 Pulse Rate [Right Finger] 64 Pulse Rate from Sp O2 Sensor Pulse Rhythm Regular Pulse Rhythm [Righ t Finger] Regular Pulse Strength [Ri ght Finger] Normal Respiratory Rate 20 20 14 Respiratory Effort / Characteristics Non-Labored Sponta neous Respiratory Depth Normal Respiratory Patter n Regular Blood Pressure Blood Pressure [Ri ght Arm] 141/86 H Blood Pressure Micaela n Blood Pressure Micaela n [Right Arm] 104 Blood Pressure Pos ition [Right Arm] Semi-fowlers Pulse Oximetry 96 96 Oxygen Delivery Me thod Room Air Room Air Oxygen Flow Rate Sepsis Recent Feve r Within 48 Hours Sepsis New/Unexpla ined Change in Men jez Status Sepsis Action Take n by Nursing Oxygen Flow Rate - Titration Pulse Oximetry Pos t Tiitration 09/26/23 13:30 09/26/23 14:00 09/26/23 14:30 Temperature Temperature Source Pulse Rate 102 H Pulse Rate [Right Finger] Pulse Rate from Sp O2 Sensor Pulse Rhythm Pulse Rhythm [Righ t Finger] Pulse Strength [Ri ght Finger] Respiratory Rate 17 Respiratory Effort / Characteristics Respiratory Depth Respiratory Patter n Blood Pressure 134/62 147/91 H Blood Pressure [Ri ght Arm] Blood Pressure Micaela n 116 106 Blood Pressure Micaela n [Right Arm] Blood Pressure Pos ition [Right Arm] Pulse Oximetry Oxygen Delivery Me thod Oxygen Flow Rate Sepsis Recent Feve r Within 48 Hours Sepsis New/Unexpla ined Change in Men jez Status Sepsis Action Take n by Nursing Oxygen Flow Rate - Titration Pulse Oximetry Pos t Tiitration 09/26/23 14:30 09/26/23 15:00 09/26/23 15:00 Temperature Temperature Source Pulse Rate 71 62 Pulse Rate [Right Finger] Pulse Rate from Sp O2 Sensor 67 62 Pulse Rhythm Pulse Rhythm [Righ t Finger] Pulse Strength [Ri ght Finger] Respiratory Rate 19 24 Respiratory Effort / Characteristics Respiratory Depth Respiratory Patter n Blood Pressure 127/61 Blood Pressure [Ri ght Arm] Blood Pressure Micaela n 88 Blood Pressure Micaela n [Right Arm] Blood Pressure Pos ition [Right Arm] Pulse Oximetry 92 92 Oxygen Delivery Me thod Room Air Oxygen Flow Rate Sepsis Recent Feve r Within 48 Hours Sepsis New/Unexpla ined Change in Men jez Status Sepsis Action Take n by Nursing Oxygen Flow Rate - Titration Pulse Oximetry Pos t Tiitration 09/26/23 15:29 09/26/23 15:30 09/26/23 15:31 Temperature Temperature Source Pulse Rate 68 Pulse Rate [Right Finger] Pulse Rate from Sp O2 Sensor 67 Pulse Rhythm Pulse Rhythm [Righ t Finger] Pulse Strength [Ri ght Finger] Respiratory Rate 23 Respiratory Effort / Characteristics Respiratory Depth Respiratory Patter n Blood Pressure 138/77 Blood Pressure [Ri ght Arm] Blood Pressure Micaela n 89 Blood Pressure Micaela n [Right Arm] Blood Pressure Pos ition [Right Arm] Pulse Oximetry 88 L 93 Oxygen Delivery Me thod Room Air Oxygen Flow Rate 0 Sepsis Recent Feve r Within 48 Hours Sepsis New/Unexpla ined Change in Men jez Status Sepsis Action Take n by Nursing Oxygen Flow Rate - Titration 2 Pulse Oximetry Pos t Tiitration 94 09/26/23 15:31 Temperature Temperature Source Pulse Rate 72 Pulse Rate [Right Finger] Pulse Rate from Sp O2 Sensor 67 Pulse Rhythm Pulse Rhythm [Righ t Finger] Pulse Strength [Ri ght Finger] Respiratory Rate 18 Respiratory Effort / Characteristics Respiratory Depth Respiratory Patter n Blood Pressure Blood Pressure [Ri ght Arm] Blood Pressure Micaela n Blood Pressure Micaela n [Right Arm] Blood Pressure Pos ition [Right Arm] Pulse Oximetry 95 Oxygen Delivery Me thod Oxygen Flow Rate Sepsis Recent Feve r Within 48 Hours Sepsis New/Unexpla ined Change in Men jez Status Sepsis Action Take n by Nursing Oxygen Flow Rate - Titration Pulse Oximetry Pos t Tiitration Physical Exam: Physical Exam GENERAL: oriented to person, place, and time. appears well-developed and well- nourished. HENT: Exam performed. - Head: Normocephalic and atraumatic. EYES: Conjunctivae and EOM are normal. Right eye exhibits no discharge. Left eye exhibits no discharge. No scleral icterus. NECK: Normal range of motion. Neck supple. No JVD present. CV: Normal rate, irregular rhythm, normal heart sounds and intact distal pulses. 2+ pitting edema of the bilateral lower extremities. Palpable radial pulses bue. PULM/CHEST: Effort normal and breath sounds normal. No respiratory distress. No stridor. no wheezes. no rales. ABD: The abdomen is soft. There is tenderness to palpation left lower quadrant. NEURO: Motor and sensation grossly intact. SKIN: Skin is warm and dry. He is not diaphoretic. PSYCH: normal mood and affect. Behavior is normal. Judgment and thought content normal. Course Course 1227: The patient was evaluated in room C2. A complete history and physical exam was performed Cardiac monitoring: An order was placed for continuous cardiac monitoring. The monitor shows a rate of 60 with atrial fibrilation rhythm interpreted by me 1540: Vital signs stable. Patient became hypoxic on room air supplemental oxygen applied which improved the oxygen saturation of the patient. Magnesium is low. Potassium is low. BNP is elevated. Chest x-ray shows possible infiltrate. Electrolytes will be repleted in the emergency department. Lasix ordered for the patient. Antibiotics for commune acquired pneumonia ordered for the patient. Patient will be admitted to the [facility]. Administered Medications Magnesium Sulfate/Dextrose (Magnesium Sulfate / D5w) 1 gm in 100 mls @ 50 mls/hr IV Q2H [facility] Stop: 09/26/23 22:29 Last Admin: 09/26/23 19:56 Dose: 50 mls/hr Documented By: МАРИЯ Infusion: 09/26/23 19:27 Dose: Infused Documented By: МАРИЯ Admin: 09/26/23 17:02 Dose: 50 mls/hr Documented By: MAHESH Discontinued Medications Doxycycline Hyclate (Doxycycline Hyclate 100 Mg Cap) 100 mg PO NOW STA Stop: 09/26/23 15:39 Last Admin: 09/26/23 15:54 Dose: 100 mg Documented By: MAHESH Furosemide (Furosemide 40 Mg/4 Ml Vial) 40 mg IV ONE ONE Stop: 09/26/23 15:27 Last Admin: 09/26/23 15:38 Dose: 40 mg Documented By: MAHESH Magnesium Sulfate/Dextrose (Magnesium Sulfate / D5w) 1 gm in 100 mls @ 100 mls/hr IV NOW STA Stop: 09/26/23 15:09 Last Infusion: 09/26/23 15:22 Dose: Infused Documented By: Admin: 09/26/23 14:15 Dose: 100 mls/hr Documented By: YOLI Ceftriaxone Sodium (Rocephin) 1,000 mg in 50 mls @ 100 mls/hr IV NOW STA Stop: 09/26/23 16:07 Last Infusion: 09/26/23 16:37 Dose: Infused Documented By: Admin: 09/26/23 15:54 Dose: 100 mls/hr Documented By: MAHESH Calcium Gluconate () 1,000 mg in 60 mls @ 240 mls/hr IV ONE STA Stop: 09/26/23 16:34 Last Infusion: 09/26/23 16:59 Dose: Infused Documented By: Admin: 09/26/23 16:37 Dose: 240 mls/hr Documented By: MAHESH Ondansetron HCl (Ondansetron Inj 2 Mg/Ml 2 Ml Vial) 4 mg IV NOW STA Stop: 09/26/23 16:29 Last Admin: 09/26/23 16:34 Dose: 4 mg Documented By: MAHESH Potassium Chloride (Potassium Chloride 10 Meq Tabcr) 40 meq PO NOW STA Stop: 09/26/23 15:27 Last Admin: 09/26/23 15:35 Dose: 40 meq Documented By: MAHESH Potassium Chloride (Potassium Chloride Crtab 20 Meq Tabcr) 40 meq PO NOW STA Stop: 09/26/23 16:19 Last Admin: 09/26/23 17:01 Dose: 40 meq Documented By: MAHESH Medical Decision Making Laboratory Data Attestation: I reviewed the patient's lab results. 09/26/23 13:08 09/26/23 13:08 Lab Results 09/26/23 09/26/23 09/26/23 Range/Units 13:08 13:14 13:16 WBC 8.95 (4.8-10.8) K/ul RBC 3.87 L (4.20-5.40) M/uL Hgb 11.8 L (12.0-16.0) g/dl Hct 34.7 L (37.0-47.0) % MCV 89.7 (80.0-100.0) fL MCH 30.5 (25.0-34.0) pg MCHC 34.0 (32.0-36.0) g/dL RDW Std Deviation 49.0 H (36.4-46.3) fL RDW Coeff of Barry 14.8 H (11.5-14.5) % Plt Count 179 (130-400) K/uL MPV 9.8 (9.4-12.4) fL Immature Gran % (Auto) 0.9 % Neut % (Auto) 67.5 % Lymph % (Auto) 21.8 % [place] % (Auto) 7.8 % Eos % (Auto) 1.7 % Baso % (Auto) 0.3 % Neut # (Auto) 6.04 (1.40-6.50) K/uL Lymph # (Auto) 1.95 (1.20-3.40) K/uL [place] # (Auto) 0.70 H (0.11-0.59) K/uL Eos # (Auto) 0.15 (0.00-0.50) K/uL Baso # (Auto) 0.03 (0.00-0.20) K/uL Immature Gran # (Auto) 0.08 (0.01-0.20) K/uL PT 15.6 H (9.0-12.0) Seconds INR 1.5 H (0.9-1.1) APTT 42 H (21-31) Seconds PTT Ratio 1.5 Sodium 142 (136-145) mmol/L Potassium 2.9 L (3.5-5.1) mmol/L Chloride 104 (98-107) mmol/L Carbon Dioxide 23 (21-32) mmol/L Anion Gap 15 H (3-11) BUN 13 (6-23) mg/dl Creatinine 0.99 (0.6-1.2) mg/dl Est Cr Clr Drug Dosing 42.7 ml/min Est GFR ( Amer) 59.0 ml/min Est GFR (Non-Af Amer) 50.9 ml/min BUN/Creatinine Ratio 13.1 (10-20) Glucose 84 (70-99(Fasting)) mg/dl Calcium 7.0 L (8.6-10.3) mg/dl Magnesium 1.3 L (1.7-2.4) mg/dl Total Bilirubin 1.0 (0.2-1.0) mg/dl AST 16 (13-39) U/L ALT 6 L (7-52) U/L Alkaline Phosphatase 62 (34-104) U/L Troponin I High Sens 13.6 (0-14) pg/ml B-Natriuretic Peptide 404 H (0-100) pg/ml Total Protein 6.2 (6.0-8.3) gm/dl Albumin 3.8 (3.4-5.0) gm/dl Globulin 2.4 L (2.5-4.0) gm/dl Albumin/Globulin Ratio 1.6 (0.9-2) Procalcitonin 0.06 (0-0.5) ng/ml SARS-CoV-2, RNA, NAAT NEGATIVE (NEGATIVE) Imaging Data Attestation: I personally reviewed and interpreted this imaging study as follows: My Impression: Chest x-ray: Right-sided infiltrate Radiologist's Impression: Chest X-Ray 09/26/23 12:09 XR chest 1V portable CLINICAL HISTORY: Dyspnea TECHNIQUE: Single frontal radiograph of the chest was obtained. Comparison: Comparison is made to chest radiograph 09/19/2023 FINDINGS: No lines and tubes are seen. Cardiomegaly is noted. Prominence and cephalization of the vasculature is seen. Left retrocardiac opacity is seen. Right mid lung calcified nodule is again noted. There is bilateral pleural effusions. IMPRESSION: 1. Faint bibasilar airspace opacities which may represent atelectasis, pneumonia, and/or aspiration. 2. Leftward cardiac opacity. This may represent atelectasis, pneumonia, and/or aspiration. 3. Trace bilateral pleural effusions. ACT 112: Negative or not required by law. Electronically signed by: Jan Greer M.D. 09/26/2023 1:26 PM Abdomen/Pelvis CT 09/26/23 13:[address] WITHOUT CONTRAST CT DOSE: 1195.59 mGy.cm HISTORY: hematuria dysuria nv TECHNIQUE: Multiaxial CT images of the abdomen and pelvis were performed without contrast. A dose lowering technique was utilized adhering to the principles of ALARA. COMPARISON STUDY: Abdomen and pelvis CT 07/30/2023. FINDINGS: The heart remains enlarged. There are small bilateral pleural effusions. Bibasilar linear densities favor subsegmental atelectasis. Calcified granuloma within the right lower lobe again noted. No pneumoperitoneum. No pneumatosis. Interval kyphoplasty at the healing T11 vertebral body fracture. L2-L4 old compression deformities again noted. Prior L2 vertebroplasty, unchanged. Posterior decompression fusion at L4-L5. Old distal sacral fracture. Paravertebral edema at the T11 level is likely due to the recent kyphoplasty. Small midline ventral hernia containing fat and a knuckle of the transverse colon. This remains unchanged. There is an overlying mesh at this location. Surgical clips again noted within the proximal stomach. Multiple punctate calcified granulomas seen within the liver and spleen. Prior cholecystectomy. The unenhanced pancreas and adrenal glands are unremarkable. No renal or ureteral stones. No hydronephrosis. Mild bladder wall thickening. This could be due to underdistention. Bilateral renal hypodense lesions remain unchanged. These favor cysts but are incompletely characterized on this noncontrast study. Calcified plaque within the normal caliber abdominal aorta. No retroperitoneal or pelvic lymphadenopathy. No pelvic free fluid. Mild pelvic floor collapse. Prior hysterectomy. Suboptimal evaluation for bowel pathology due to the lack of intravenous and oral contrast. However, there is no definite bowel wall thickening or obstruction. Normal appendix. Rectosigmoid anastomosis again noted. IMPRESSION: 1. No renal or ureteral stones. No hydronephrosis. 2. No bowel wall thickening or obstruction. 3. Normal appendix. 4. Interval T11 kyphoplasty. This likely accounts for the paravertebral edema at this location. 5. Small bilateral pleural effusions. This is new compared the prior study. 6. Mild bladder wall thickening. This could be due to underdistention. Recommend correlation with urinalysis. 7. Additional findings as described above. ACT 112: Negative or not required by law. Electronically signed by: Keegan Lomeli M.D. 09/26/2023 2:25 PM ECG Data Attestation: I personally reviewed and interpreted this ECG as follows: Interpretation: Atrial fibrillation with rate of 63. QRS and QTc intervals within normal limits. No ST elevation or ST depression. [facility] Narrative 1227: The patient was evaluated in room C2. A complete history and physical exam was performed Cardiac monitoring: An order was placed for continuous cardiac monitoring. The monitor shows a rate of 60 with atrial fibrilation rhythm interpreted by sc 1540: Vital signs stable. Patient became hypoxic on room air supplemental oxygen applied which improved the oxygen saturation of the patient. Magnesium is low. Potassium is low. BNP is elevated. Chest x-ray shows possible infiltrate. Electrolytes will be repleted in the emergency department. Lasix ordered for the patient. Antibiotics for commune acquired pneumonia ordered for the patient. Patient will be admitted to the [facility]. Impression & Plan Hypomagnesemia, Hypokalemia, Pneumonia Discharge Plan Visit Data Chief Complaint: Referred by Doctor Stated Complaint: IRREGULAR EKG, TROUBLE BREATHING ED Provider: Umesh Fowler Discharge Problem: Hypomagnesemia, Hypokalemia, Pneumonia Patient Disposition: Admitted As Inpatient Discharge Instructions Interventions: ED Discharge Assessment Last Done: 09/26/23 17:15 Discharge Problem: Pneumonia Qualifiers: Pneumonia type: due to unspecified organism Laterality: right Lung location: u nspecified part of lung Qualified Code(s): J18.9 - Pneumonia, unspecified organism
[2023-09-26] MEDS: RIVAROXABAN 15 MG TAB PO SCH (21:36)
[2023-09-26] MEDS: amLODIPine BESYLATE 5 MG TAB PO SCH (21:37)
[2023-09-26] MEDS: PRAVASTATIN SOD 40 MG TAB PO SCH (21:37)
[2023-09-26] MEDS: FERROUS SULFATE 325 MG TAB PO SCH (21:37)
[2023-09-26] MEDS: ATENOLOL 50 MG TABLET PO SCH (21:38)
--- NOTE | 2023-09-26 22:15 | Ultrasound Report ---
Exam(s): US VENOUS BILATERAL LOWER EXTREMITIES EXAM: US Duplex Bilateral Lower Extremities Veins CLINICAL HISTORY: Reason for exam: BL LE swelling, new SOB. TECHNIQUE: Real-time duplex ultrasound scan of the bilateral lower extremity veins integrating B-mode two-dimensional vascular structure, Doppler spectral analysis, color flow Doppler imaging and compression. COMPARISON: No relevant prior studies available. FINDINGS: Right deep veins: Unremarkable. No DVT in the right common femoral, femoral, proximal deep femoral or popliteal veins. The veins demonstrate normal color flow, are normally compressible, with normal phasic flow and/or augmentation response. Right superficial veins: Unremarkable. No thrombus in the visualized right great saphenous vein. Left deep veins: Unremarkable. No DVT in the left common femoral, femoral, proximal deep femoral or popliteal veins. The veins demonstrate normal color flow, are normally compressible, with normal phasic flow and/or augmentation response. Left superficial veins: Unremarkable. No thrombus in the visualized left great saphenous vein. Soft tissues: Soft tissue edema seen most prominently in the left calf. No popliteal cyst. IMPRESSION: Normal bilateral lower extremity duplex venous ultrasound. Electronically signed by: Bernard Llamas MD 09/26/23 22:15 PM
[2023-09-27] MEDS: FLUTICASONE/VILANTEROL 100/25MCG 14 PUFFS/INHALER INH SCH (05:30)
[2023-09-27 07:26] LABS: Basophils # (auto) 0.06 K/uL (0.00-0.20); Basophils % (auto) 0.8 %; Eosinophils # (auto) 0.27 K/uL (0.00-0.50); Eosinophils % (auto) 3.5 %; Hematocrit (blood only) 36.6 % (37.0-47.0); Hemoglobin 12.2 g/dl (12.0-16.0); Immature Granulocytes # (auto) 0.07 K/uL (0.01-0.20); Immature Granulocytes % (auto) 0.9 %; Lymphocytes # (auto) 1.95 K/uL (1.20-3.40); Lymphocytes % (auto) 24.9 %; Mean Corpuscular Hemoglobin 30.3 pg (25.0-34.0); Mean Corpuscular Hgb Conc 33.3 g/dL (32.0-36.0); Mean Platelet Volume 9.6 fL (9.4-12.4); Monocytes % (auto) 7.7 %; Neutrophils # (auto) 4.87 K/uL (1.40-6.50); Neutrophils % (auto) 62.2 %; Platelet Count 179 K/uL (130-400); RDW Standard Deviation 50.1 fL (36.4-46.3); Red Blood Count 4.02 M/uL (4.20-5.40); White Blood Count 7.82 K/ul (4.8-10.8)
[2023-09-27 07:47] LABS: INR 1.6 (0.9-1.1); Prothrombin Time 16.7 Seconds (9.0-12.0)
[2023-09-27 07:51] LABS: BUN Creatinine Ratio 10.7 (10-20); Calcium 7.1 mg/dl (8.6-10.3); Creatinine Clr Calc Pharmacy 50.6 ml/min; Est GFR (African American) 71.9 ml/min; Est GFR (Non-African American) 62.1 ml/min; Potassium 3.8 mmol/L (3.5-5.1)
[2023-09-27] MEDS: LEVOTHYROXINE SODIUM 75 MCG TABLET PO SCH (08:21)
[2023-09-27] MEDS ORDERED: LEVOTHYROXINE SODIUM 75 MCG TABLET PO SCH (09:00)
[2023-09-27] MEDS: ATENOLOL 25 MG TABLET PO SCH (09:34)
[2023-09-27] MEDS: FUROSEMIDE INJ 20 MG/2 ML VIAL IV SCH (09:35)
--- NOTE | 2023-09-27 13:14 | XCELERA ---
[id number] \\[id number]
--- NOTE | 2023-09-27 17:21 | Hospitalist Progress Note ---
Date of Service September 27, 2023 Assessment & Plan (1) Acute diastolic heart failure: Plan: 87 y/o with admission for compression fracture and kyphoplasty earlier this winter admitted with dyspnea, orthopnea and leg edema. She completed an outpatient course of Levaquin and took her PRN 20 mg PO lasix daily from 09/18-09/22 without improvement in her symptoms Treated for acute heart failure with lasix 40 mg IV in ED and 20 mg IV in am and has improved. Appears euvolemic on exam 09/26 TTE reviewed - normal LVEF, grade 2 diastolic dysfunction, no significant valvular disease, mild concentric LVH, appears euvolemic -usually only on PRN lasix, start lasix/potassium 20 mg daily and monitor weight, I/O, volume status -recently returned home from [facility], PT eval ordered (2) Swelling of both lower extremities: Plan: LE duplex normal see above (3) Hypokalemia: Plan: Low K/mag on admission related to lasix and low oral intake -replaced, resolved -orak K today and ongoing (4) Hypomagnesemia: Plan: replaced IV, improved to 2.0 (5) Hypocalcemia: Plan: ionized Ca remains low, asymptomatic -repeat dose of calcium gluconate (6) PAF (paroxysmal atrial fibrillation): Plan: -In rate controlled afib -Continue Xarelto and atenolol (7) Hypothyroidism (acquired): Plan: -Continue levothyroxine (8) COPD (chronic obstructive pulmonary disease): Plan: -Stable on RA -Lungs are clear -Will start incentive spirometry and flutter therapy (9) GERD (gastroesophageal reflux disease): Plan: -Conitnue PPI Plan DVT ppx: cont DOAC Home soon pending PT eval Admission and Anticipated Discharge Date Admission Date: September 26, 2023 Subjective dyspnea improved, leg swelling improved, no chest pain still has back pain from previous compression fracture mostly bothers her when she first gets up Physical Exam 2 Physical Exam: PHYSICAL EXAMINATION Last 24h vital signs reviewed, see documentation in flowsheet General: comfortable appearing, no distress HEENT: Normocephalic, atraumatic, pupils round and equal, sclerae anicteric, no conjunctival injection, moist mucus membranes Lungs: Normal respiratory effort. Clear to auscultation bilaterally. No RRW Heart: Regular rate and rhythm, no murmurs. No JVD Abdomen: Soft, nontender, nondistended. Bowel sounds present. Extremities: Warm, dry, well-perfused. mild bilateral LE extremity edema. Neuro: Alert and oriented x 4, face symmetric, moves 4 extremities well Psych: Normal affect and behavior Results & Data Results & Data Vital Signs (Past 12 Hours) Vital Signs Temp Pulse Pulse Resp BP Pulse Ox O2 Del Method 09/27/23 15:32 36.9 C 60 20 96/57 L 92 Room Air 09/27/23 14:02 59 L 09/27/23 13:51 Nasal Cannula 09/27/23 11:26 36.5 C 61 16 119/65 91 Room Air 09/27/23 07:32 36.7 C 59 L 16 119/70 95 Room Air 09/27/23 05:57 63 O2 Flow Rate 09/27/23 15:32 09/27/23 14:02 09/27/23 13:51 1 09/27/23 11:26 09/27/23 07:32 09/27/23 05:57 Laboratory Results 09/27/23 06:54 09/27/23 06:54 PG Care Time/CCT Total # of Minutes Spent Total Time Spent with Patient: Total time spent is greater than 50% in coordination of care (as documented) at patient's floor/unit and/or counseling patient: Coding Level of Care Code 49943 SUB INP/OBS CARE 2/35MIN Diagnoses Acute diastolic heart failure I50.31 Swelling of both lower extremities M79.89 Hypokalemia E87.6 Hypomagnesemia E83.42 Hypocalcemia E83.51 PAF (paroxysmal atrial fibrillation) I48.0 Hypothyroidism (acquired) E03.9 COPD (chronic obstructive pulmonary disease) J44.9 GERD (gastroesophageal reflux disease) K21.9
[2023-09-27] MEDS: ACETAMINOPHEN 500 MG TAB PO PRN (18:06)
[2023-09-28] MEDS: POTASSIUM CHLORIDE CRTAB 20 MEQ TABCR PO SCH (08:40)
[2023-09-28] MEDS: FUROSEMIDE 20 MG TAB PO SCH (08:40)
[2023-09-28] MEDS ORDERED: SPIRONOLACTONE 25 MG TAB PO SCH (09:00)
[2023-09-28] MEDS: POTASSIUM CHLORIDE CRTAB 20 MEQ TABCR PO ONE (15:59)
[2023-09-28] MEDS: FUROSEMIDE 40 MG TAB PO ONE (15:59)
--- NOTE | 2023-09-28 18:09 | Hospitalist Progress Note ---
Date of Service September 28, 2023 Assessment & Plan (1) Acute diastolic heart failure: Plan: 87 y/o with admission for compression fracture and kyphoplasty earlier this winter admitted with dyspnea, orthopnea and leg edema. She completed an outpatient course of Levaquin and took her PRN 20 mg PO lasix daily from 09/18-09/22 without improvement in her symptoms Treated for acute heart failure with lasix 40 mg IV in ED and 20 mg IV AM of 09/26 Appears near euvolemic on exam 09/26 but still some GUZMAN TTE reviewed - normal LVEF, grade 2 diastolic dysfunction, no significant valvular disease, mild concentric LVH, appears euvolemic -usually only on PRN lasix, 20 daily did not resolve her symptoms at home however monitor weight, I/O, volume status -40 mg lasix po this afternoon, assess response, likely DC home in AM -AM BMP (2) Swelling of both lower extremities: Plan: LE duplex normal see above (3) Hypokalemia: Plan: Low K/mag on admission related to lasix and low oral intake -replaced, resolved -orak K today and ongoing (4) Hypomagnesemia: Plan: replaced IV, improved to 2.0 (5) Hypocalcemia: Plan: ionized Ca remains low, asymptomatic -repeat dose of calcium gluconate 09/26 (6) PAF (paroxysmal atrial fibrillation): Plan: -In rate controlled afib -Continue Xarelto and atenolol (7) Hypothyroidism (acquired): Plan: -Continue levothyroxine (8) COPD (chronic obstructive pulmonary disease): Plan: -Stable on RA -Lungs are clear -Will start incentive spirometry and flutter therapy (9) GERD (gastroesophageal reflux disease): Plan: -Conitnue PPI Plan DVT ppx: cont DOAC Home soon pending PT eval Admission and Anticipated Discharge Date Admission Date: September 26, 2023 Subjective felt more short of breath this AM leg swelling unchanged no CP mobilizing well Physical Exam 2 Physical Exam: PHYSICAL EXAMINATION Last 24h vital signs reviewed, see documentation in flowsheet General: comfortable appearing, no distress, sitting up in chair HEENT: Normocephalic, atraumatic, pupils round and equal, sclerae anicteric, no conjunctival injection, moist mucus membranes Lungs: Normal respiratory effort. slight basilar crackles no wheezing. Heart: Regular rate and rhythm, no murmurs. No JVD Abdomen: Soft, nontender, nondistended. Bowel sounds present. Extremities: Warm, dry, well-perfused. 1+ bilateral LE extremity edema unchanged. Neuro: Alert and oriented x 4, face symmetric, moves 4 extremities well Psych: Normal affect and behavior Results & Data Results & Data Vital Signs (Past 12 Hours) Vital Signs Temp Pulse Pulse Resp BP Pulse Ox O2 Del Method 09/28/23 15:09 36.8 C 61 18 128/80 91 Room Air 09/28/23 12:15 37 C 60 16 108/64 94 Room Air 09/28/23 08:25 60 09/28/23 08:00 36.6 C 60 16 110/70 92 Room Air Laboratory Results 09/27/23 06:54 09/27/23 06:54 PG Care Time/CCT Total # of Minutes Spent Total Time Spent with Patient: Total time spent is greater than 50% in coordination of care (as documented) at patient's floor/unit and/or counseling patient: Coding Level of Care Code 75534 SUB INP/OBS CARE 2/35MIN Diagnoses Acute diastolic heart failure I50.31 Swelling of both lower extremities M79.89 Hypokalemia E87.6 Hypomagnesemia E83.42 Hypocalcemia E83.51 PAF (paroxysmal atrial fibrillation) I48.0 Hypothyroidism (acquired) E03.9 COPD (chronic obstructive pulmonary disease) J44.9 GERD (gastroesophageal reflux disease) K21.9
[2023-09-29 03:52] VITALS: RESP 18
[2023-09-29 06:49] LABS: BUN Creatinine Ratio 18.1 (10-20); Calcium 6.8 mg/dl (8.6-10.3); Potassium 3.9 mmol/L (3.5-5.1)
[2023-09-29] MEDS: DICLOFENAC SOD 1% GEL 100 GM TUBE EXT SCH (08:40)
[2023-09-29] MEDS: POTASSIUM CHLORIDE CRTAB 20 MEQ TABCR PO SCH (08:40)
[2023-09-29 09:09] LABS: Magnesium 1.4 mg/dl (1.7-2.4)
[2023-09-29] MEDS: MAGNESIUM SULFATE / D5W 1 GM/100 ML BAG IV ONE ×2 (10:08→11:37)
[2023-09-29] MEDS: CALCIUM CARBONATE 500 MG CHEWABLE TAB PO SCH (10:08)
[2023-09-29] MEDS: CHOLECALCIFEROL 25 MCG (1000 UNITS) TAB PO SCH (10:08)
[2023-09-29 11:30] VITALS: TEMP 98.1; O2SAT 93
[2023-09-29 11:56] VITALS: BP 103/59; PULSE 61
--- NOTE | 2023-09-29 19:24 | Discharge Summary ---
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 She was initially noted to be stable in the ED but was later found to be hypoxic at 88% on RA. Labs were significant for a Hgb of 11.8 (down from 13 as of 09/19/23), INR of 1.5, AG of 15 with bicarb WNL, potassium of 2.9, mag of 1.3, corrected calcium of 7.2, and covid 19 screen negative. Chest xray was read as "1. Faint bibasilar airspace opacities which may represent atelectasis, pneumonia, and/or aspiration. 2. Leftward cardiac opacity. This may represent atelectasis, pneumonia, and/or aspiration. 3. Trace bilateral pleural effusions.". CT of the abd/pelvis wo IV con was read as "1. No renal or ureteral stones. No hydronephrosis. 2. No bowel wall thickening or obstruction. 3. Normal appendix. 4. Interval T11 kyphoplasty. This likely accounts for the paravertebral edema at this location. 5. Small bilateral pleural effusions. This is new compared the prior study. 6. Mild bladder wall thickening. This could be due to underdistention. Recommend correlation with urinalysis. 7. Additional findings as described above. ". Prior to admission the patient was given 40 meq PO KCL, 1gm IV mag-sulfate, a dose of Ceftriaxone and Doxycycline, and 40 mg IV lasix. The patient was initially seen at her PCP's office for these symptoms on 09/19/23. She was prescribed a course of Levaquin and instructed to take her 20 mg PRN PO lasix daily. She was seen for follow-up at her PCP's office this am and reported that her symptoms had not improved. Because of this she was sent to the ED for further evaluation. At the time of the exam the patient was sitting in bed in no acute distress, currently stable on RA. She states that she initially presented to her PCP's office on 09/19/23 for approximately 2-3 days of progressive SOB/GUZMAN/Orthopnea, non-productive cough, and BL LE swelling. She completed the course of Levaquin they prescribed and took her PO lasix daily from 09/18-09/22 without significant improvement in her symptoms. When asked, she states that she normally sleeps on one pillow at night but has been requiring at least 2 pillows over the past few weeks and has had to sleep in her recliner at times due to her orthopnea. She denies recent fever, chills, chest pain, hemoptysis, nausea, vomiting, diarrhea, dysuria, hematuria, melena, and recent trauma. She has been taking her Xarelto as prescribed without missed doses since her last admission in August of this year. She has had poor oral intake over the past week as well. We discussed code status. The patient has previously been a Full Code. However, she states that she has been thinking about this recently. She wishes to be a DNR/DNI now as she is 87 years old and felt as though her suffered greatly when he had CPR performed last year, prior to his passing. If she were to decompensate she would want to focus on being kept comfortable. I asked if her family knows her new wishes. She explains that she will speak with her Son's as they are her POA's if she is unable to make her own medical decisions. The patient was last admitted to [facility] [place] from 08/08/23-08/18/23. She was admitted due to uncontrolled pain from a fall and superior endplate fracture of the T11 vertebral body with 26% loss of vertebral body height. Per the notes from her last admission, her Xarelto was held on the day of admission (08/08). She underwent Kyphoplasty of T12 with Dr. Head on 08/15/23. Her Xarelto was resumed on 08/16/23. Principal Diagnosis acute on chronic diastolic heart failure Discharge Exam PHYSICAL EXAMINATION Last 24h vital signs reviewed, see documentation in flowsheet General: comfortable appearing, no distress, sitting up in bed HEENT: Normocephalic, atraumatic, pupils round and equal, sclerae anicteric, no conjunctival injection, moist mucus membranes Lungs: Normal respiratory effort. slight mild scattered crackle, mostly clearing with successive inspiration, no wheezing. Heart: Regular rate and rhythm, no murmurs. No JVD Abdomen: Soft, nontender, nondistended. Bowel sounds present. Extremities: Warm, dry, well-perfused. mild 1+ bilateral LE extremity edema improved. Neuro: Alert and oriented x 4, face symmetric, moves 4 extremities well Psych: Normal affect and behavior Discharge Data Allergies Allergy/AdvReac Type Severity Reaction Status Date / Time nabumetone Allergy Severe SHORTNESS Verified 09/19/23 09:53 OF BREATH naproxen Allergy Severe SOB Verified 09/19/23 09:53 rofecoxib Allergy Severe SHORTNESS Verified 09/19/23 09:53 OF BREATH valdecoxib Allergy Severe SHORTNESS Verified 09/19/23 09:53 OF BREATH Cephalosporins Allergy Intermediate HIVES Verified 09/19/23 09:53 Penicillins Allergy Intermediate RASH,HIVES Verified 09/19/23 09:53 codeine Allergy Mild RASH Verified 09/19/23 09:53 methimazole Allergy Mild itching Verified 09/19/23 09:53 Sulfa (Sulfonamide Allergy Mild RASH Verified 09/19/23 09:53 Antibiotics) azithromycin [From Zithromax] AdvReac Intermediate DIARRHEA Verified 09/19/23 09:53 diphenhydramine AdvReac Intermediate LIGHTHEADED Verified 09/19/23 09:53 [From Benadryl] nitrofurantoin AdvReac Mild VOMITING Verified 09/19/23 09:53 nickel AdvReac Unknown Rash Verified 09/19/23 09:53 Consultations 09/26/23 15:38 ED Decision to Admit Stat Ordered Studies 09/26/23 13:44 CT abd pelvis wo con Stat 09/26/23 16:17 US venous doppler LE BI Urgent Chest X-Ray 09/26/23 12:09 XR chest 1V portable CLINICAL HISTORY: Dyspnea TECHNIQUE: Single frontal radiograph of the chest was obtained. Comparison: Comparison is made to chest radiograph 09/19/2023 FINDINGS: No lines and tubes are seen. Cardiomegaly is noted. Prominence and cephalization of the vasculature is seen. Left retrocardiac opacity is seen. Right mid lung calcified nodule is again noted. There is bilateral pleural effusions. IMPRESSION: 1. Faint bibasilar airspace opacities which may represent atelectasis, pneumonia, and/or aspiration. 2. Leftward cardiac opacity. This may represent atelectasis, pneumonia, and/or aspiration. 3. Trace bilateral pleural effusions. ACT 112: Negative or not required by law. Electronically signed by: Jan Greer M.D. 09/26/2023 1:26 PM Abdomen/Pelvis CT 09/26/23 13:[address] WITHOUT CONTRAST CT DOSE: 1195.59 mGy.cm HISTORY: hematuria dysuria nv TECHNIQUE: Multiaxial CT images of the abdomen and pelvis were performed without contrast. A dose lowering technique was utilized adhering to the principles of ALARA. COMPARISON STUDY: Abdomen and pelvis CT 07/30/2023. FINDINGS: The heart remains enlarged. There are small bilateral pleural effusions. Bibasilar linear densities favor subsegmental atelectasis. Calcified granuloma within the right lower lobe again noted. No pneumoperitoneum. No pneumatosis. Interval kyphoplasty at the healing T11 vertebral body fracture. L2-L4 old compression deformities again noted. Prior L2 vertebroplasty, unchanged. Posterior decompression fusion at L4-L5. Old distal sacral fracture. Paravertebral edema at the T11 level is likely due to the recent kyphoplasty. Small midline ventral hernia containing fat and a knuckle of the transverse colon. This remains unchanged. There is an overlying mesh at this location. Surgical clips again noted within the proximal stomach. Multiple punctate calcified granulomas seen within the liver and spleen. Prior cholecystectomy. The unenhanced pancreas and adrenal glands are unremarkable. No renal or ureteral stones. No hydronephrosis. Mild bladder wall thickening. This could be due to underdistention. Bilateral renal hypodense lesions remain unchanged. These favor cysts but are incompletely characterized on this noncontrast study. Calcified plaque within the normal caliber abdominal aorta. No retroperitoneal or pelvic lymphadenopathy. No pelvic free fluid. Mild pelvic floor collapse. Prior hysterectomy. Suboptimal evaluation for bowel pathology due to the lack of intravenous and oral contrast. However, there is no definite bowel wall thickening or obstruction. Normal appendix. Rectosigmoid anastomosis again noted. IMPRESSION: 1. No renal or ureteral stones. No hydronephrosis. 2. No bowel wall thickening or obstruction. 3. Normal appendix. 4. Interval T11 kyphoplasty. This likely accounts for the paravertebral edema at this location. 5. Small bilateral pleural effusions. This is new compared the prior study. 6. Mild bladder wall thickening. This could be due to underdistention. Recommend correlation with urinalysis. 7. Additional findings as described above. ACT 112: Negative or not required by law. Electronically signed by: Keegan Lomeli M.D. 09/26/2023 2:25 PM Venous Doppler Study 09/26/23 16:17 Exam(s): US VENOUS BILATERAL LOWER EXTREMITIES EXAM: US Duplex Bilateral Lower Extremities Veins CLINICAL HISTORY: Reason for exam: BL LE swelling, new SOB. TECHNIQUE: Real-time duplex ultrasound scan of the bilateral lower extremity veins integrating B-mode two-dimensional vascular structure, Doppler spectral analysis, color flow Doppler imaging and compression. COMPARISON: No relevant prior studies available. FINDINGS: Right deep veins: Unremarkable. No DVT in the right common femoral, femoral, proximal deep femoral or popliteal veins. The veins demonstrate normal color flow, are normally compressible, with normal phasic flow and/or augmentation response. Right superficial veins: Unremarkable. No thrombus in the visualized right great saphenous vein. Left deep veins: Unremarkable. No DVT in the left common femoral, femoral, proximal deep femoral or popliteal veins. The veins demonstrate normal color flow, are normally compressible, with normal phasic flow and/or augmentation response. Left superficial veins: Unremarkable. No thrombus in the visualized left great saphenous vein. Soft tissues: Soft tissue edema seen most prominently in the left calf. No popliteal cyst. IMPRESSION: Normal bilateral lower extremity duplex venous ultrasound. Electronically signed by: Bernard Llamas MD 09/26/23 22:15 PM Hospital Course (1) Acute diastolic heart failure: 87 y/o with admission for compression fracture and kyphoplasty earlier this winter admitted with dyspnea, orthopnea and leg edema. She completed an outpatient course of Levaquin and took her PRN 20 mg PO lasix daily from 09/18-09/22 without improvement in her symptoms Treated for acute heart failure with lasix IV and had resolution of pulmonary symptoms and improvement in leg edema TTE updated - normal LVEF, grade 2 diastolic dysfunction, no significant valvular disease, mild concentric LVH, appears euvolemic -states she lost 7 pounds the week prior to admission on lasix 20 mg po daily (usually takes only PRN) - therefore, continue lasix 20 mg po daily through this weekend and she has follow up with PCP 10/02 on Tuesday, further dose adjustment at that time -added po potassium to go with her lasix -please check BMP on follow up/as needed with diuretic dose adjustments -has follow up with batch analyst Dr. Pollard scheduled in October (2) Swelling of both lower extremities: LE duplex normal see above (3) Hypokalemia: Low K/mag on admission related to lasix and low oral intake -replaced, resolved Hypomagnesemia 09/28 replaced with 2g IV mag prior to discharge -she will add "slow-mag" supplement daily Hypomag is likely reason for worsening hypocalcemia from baseline today (which is asymptomatic). Treated with several doses IV calcium gluconate. She has chronic hypoparathyroidism and will resume her usual calcium and vitamin D supplement today at home (4) Hypomagnesemia: see above (5) Hypocalcemia: see above (6) PAF (paroxysmal atrial fibrillation): -In rate controlled afib -Continue Xarelto and atenolol (7) Hypothyroidism (acquired): -Continue levothyroxine (8) COPD (chronic obstructive pulmonary disease): -Stable on RA, not in exacerbation (9) GERD (gastroesophageal reflux disease): -Conitnue PPI Total Time Total Time Spent Total Time Spent (In Minutes): I personally spent: 35-minutes today on clinical care activities including: reviewing chart notes and vital signs reviewing labs discussion with bedside RN discussion with director critical care, arranging follow up examining and counseling the patient writing orders documentation Discharge Plan Discharge Items Patient Disposition: Home - Self-Care Reason For Visit: SOB, LE SWELLING, CHF VS PNEUMONIA Discharge Diagnosis: acute on chronic diastolic heart failure Activity: Resume your previous activity Non-emergency contact: Primary Care Provider Call non-emergency contact if: you have any medication questions and your symptoms worsen Follow-up/Referrals: Gin Temple CRNP [Primary Care Provider] - 10/03/23 10:30 am Diet: Low Sodium (2gm) Addtl Attending Provider Instructions: You were treated for heart failure exacerbation - your heart squeeze is strong but the heart muscle is stiff, which can cause fluid retention, which backs up into the lungs and legs Keep taking lasix 20 mg and potassium daily until you see your doctor on Tuesday Follow your weight on a bathroom scale - your weight and edema should be slowly decreasing on daily lasix -if your weight goes up 3 or more pounds in a day or two or 5 pounds or more in a week that is probably water weight - if this happens call your doctor, often you will need to double your lasix and potassium dose for a few days until the weight goes back down. Follow a low salt diet Take magnesium supplement daily - this is available over the counter - "magne sium oxide" can often cause diarrhea, so the "slow-Mag" or extended release magnesium is better. Take your calcium, vitamin D supplement as usual Addtl Java Groovy Developer Provider Instructions: Call 911 and go to the Emergency Room if: * You have tightness or pain in your chest that does not go away with rest or Nitroglycerin * You are very short of breath even with rest Call your doctor if any of the following symptoms or problems start or get worse: * Shortness of breath or difficulty breathing * Wake up at night short of breath * Chest pain * Cough * Swelling of your hands, fee, or legs * More fatigued or tired with your normal activity * Palpitations - sudden fast heart beats WEIGHT * Weigh yourself every morning after using the bathroom. * Use the same scale. * Wear the same amount of clothing. * Write your weight down on your chart. * Call your doctor if you gain more than 2-3 pounds in 1-2 days. MEDICATIONS * Use this discharge instruction sheet for instructions. * Take your medications at the time your doctor ordered. * Do not skip a dose of your medicines. * If you miss a dose of medicine, take as soon as possible * Read your medicine information when you get home. * Know all of the side effects of your medicine. * Call your doctor's office if you have any side effects. * Be sure all of your doctors know what medicine and herbs you take (including cold, flu, and herbal medicine). * Pain Medicine: If you do not get relief from your pain, please call your doctor for help. Take the following with you to your follow-up doctor appointments: * Weight Chart * Medication List * List of questions Do not drink excessive alcohol, beer or wine. Pending Studies at Discharge: No Stand-Alone Forms: My Dive[employer], Smoking Cessation Medications and DC Order Prescriptions: New potassium chloride 20 mEq tablet extended release 20 meq PO DAILY PRN (Reason: take with lasix/furosemide) Qty: 30 0RF Slow-Mag 71.5 mg tablet,delayed release (DR/EC) 71.5 mg PO DAILY Qty: 1 0RF Rx Instructions: buy over the counter Continued dicyclomine 10 mg capsule 10 mg PO QAM Qty: 30 2RF Rx Instructions: Take one capsule daily in the morning fluticasone propion-salmeterol [Wixela Inhub] 100-50 mcg/dose blister with device 1 ea INHALATION BID Qty: 3 3RF methocarbamol 500 mg tablet 500 mg PO BID PRN (Reason: low back pain) Qty: 30 0RF mecobalamin (vitamin B12) 1,000 mcg tablet,disintegrating 500 mcg sublingual QAM Rx Instructions: place tablet under tongue and allow to dissolve for at least30 secs before swallowing calcium carbonate [Calcium 600] 600 mg calcium (1,500 mg) tablet 1,200 mg PO QAM amlodipine 5 mg tablet 7.5 mg PO HS Qty: 90 3RF montelukast [Singulair] 10 mg tablet 10 mg PO HS Qty: 90 3RF pravastatin 40 mg tablet 40 mg PO HS Qty: 90 3RF furosemide 20 mg tablet 20 mg PO DAILY PRN (Reason: Fluid Retention) Qty: 90 1RF levothyroxine 75 mcg tablet 75 mcg PO QAM Qty: 90 3RF Rx Instructions: before breakfast polyethylene glycol 3350 [Miralax] 17 gram powder in packet 17 g PO BID PRN (Reason: Constipation) albuterol sulfate 2.5 mg /3 mL (0.083 %) solution for nebulization 2.5 mg INH TID PRN (Reason: Shortness Of Breath Or Wheezing) Qty: 270 3RF albuterol sulfate [ProAir HFA] 90 mcg/actuation HFA aerosol inhaler 2 puff inhalation Q6H PRN (Reason: shortness of breath or wheezing) Qty: 20.1 3RF ascorbic acid (vitamin C) [Vitamin C] 500 mg Tablet 500 mg PO QAM cholecalciferol (vitamin D3) [Vitamin D3] 50 mcg (2,000 unit) Capsule 50 mcg PO QAM atenolol 25 mg Tablet 25 mg PO QAM Qty: 0 0RF acetaminophen [Tylenol Extra Strength] 500 mg Tablet 1,000 mg PO TID Qty: 0 0RF atenolol 50 mg Tablet 50 mg PO HS Qty: 0 0RF Xarelto 15 mg Tablet 15 mg PO QDD Qty: 0 0RF sennosides-docusate sodium [Senokot-S] 8.6-50 mg Tablet 1 tab PO QAM Qty: 0 0RF fluticasone propionate 50 mcg/actuation spray,suspension 2 spray INTRANASAL DAILY ferrous sulfate [Feosol] 325 mg (65 mg iron) tablet 325 mg PO .MON/WED/FRI Rx Instructions: 325 mg orally THREE DAYS A WEEK; Discontinued levofloxacin 500 mg tablet 500 mg PO DAILY Qty: 10 0RF Discharge Orders: Discharge Order (Routine); Ordered 09/29/23 Ordered By: Becky Grimm Admission Data Admit Date/Time: 09/26/23 15:57 Attending Provider: Becky Grimm Admit Provider: Elkin Sigala Primary Care Provider: Gin Temple Other Providers: Elkin Sigala Other Interventions: Discharge Summary Assessment (RN) Last Done: 09/29/23 11:55 Coding Level of Care Code 50020 INP/OBS DISCH >30 MIN Diagnoses Acute diastolic heart failure I50.31 Swelling of both lower extremities M79.89 Hypokalemia E87.6 Hypomagnesemia E83.42 Hypocalcemia E83.51 PAF (paroxysmal atrial fibrillation) I48.0 Hypothyroidism (acquired) E03.9 COPD (chronic obstructive pulmonary disease) J44.9 GERD (gastroesophageal reflux disease) K21.9
[2023-09-30] MEDS ORDERED: MAGNESIUM OXIDE 400 MG TAB PO SCH (09:00)
== END 2023-09-29 14:37 | disposition home or self-care (01) | DRG 291 ==
LOC: ED 11:59 → EDINP 15:57 → SUATTDRO 15:57 → 2W 17:15
DX: E87.6 Hypokalemia; I48.0 Paroxysmal atrial fibrillation; Z88.0 Allergy status to penicillin; J90 Pleural effusion, not elsewhere classified; E83.42 Hypomagnesemia; I50.31 Acute diastolic (congestive) heart failure; E03.9 Hypothyroidism, unspecified; I13.0 Hypertensive heart and chronic kidney disease with heart failure and stage 1 through stage 4 chronic kidney disease, or unspecified chronic kidney disease; Z88.2 Allergy status to sulfonamides; J44.9 Chronic obstructive pulmonary disease, unspecified; N18.30 Chronic kidney disease, stage 3 unspecified; Z88.1 Allergy status to other antibiotic agents; E83.51 Hypocalcemia; K21.9 Gastro-esophageal reflux disease without esophagitis; Z79.890 Hormone replacement therapy; Z88.6 Allergy status to analgesic agent

== ENCOUNTER 2023-11-21 12:28 | Inpatient (IN) ==
--- NOTE | 2023-11-21 13:03 | Emergency Department Note ---
History of Present Illness General Chief complaint: Shortness of Breath/Dyspnea Stated complaint: SOB, ON GOING BROKEN BONE IN BACK, VOMIT Time Seen by Provider: 11/21/23 12:39 Source: patient, family (Son, who is at the bedside), RN notes reviewed and old records reviewed (10/19/23-outpatient primary care visit for back pain) Mode of arrival: ambulatory Limitations: no limitations History of Present Illness Maximum Pain Intensity: 2 This patient 88-year-old female comes in after feeling short of breath off and on for last couple days she does have a history of CHF and is concerned that this could be a CHF exacerbation does tend to get lower extremity edema but has not had too much today. She has had stable weight. She is on Eliquis for history of chronic A-fib. She has a history of low back compression fractures. No recent fall or trauma. No fever occasional cough no sick contacts. She has vomited several times but has had no significant abdominal discomfort. No blood or black colors in her stool. Her shortness of breath is primarily dyspnea on exertion Home Medications Medication Instructions Recorded Confirmed Type calcium carbonate (Calcium 600) 1,200 mg PO QAM 01/24/19 11/21/23 History ascorbic acid (vitamin C) 500 mg 500 mg PO QAM 02/07/19 11/21/23 History tablet (Vitamin C) mecobalamin (vitamin B12) 1,000 1,000 mcg sublingual QAM 10/28/20 11/21/23 History mcg disintegrating tablet,sublingual cholecalciferol (vitamin D3) 50 50 mcg PO QAM 06/10/22 11/21/23 History mcg (2,000 unit) capsule (Vitamin D3) furosemide 20 mg tablet 20 mg PO DAILY PRN Fluid Retention 10/20/22 11/21/23 Rx #90 tabs ferrous sulfate 325 mg (65 mg 325 mg PO 3XWK 01/11/23 11/21/23 History iron) tablet (Feosol) dicyclomine 10 mg capsule 10 mg PO QAM #30 caps 03/31/23 11/21/23 Rx fluticasone 100 mcg-salmeterol 50 1 ea inhalation BID #3 Inhalers 03/31/23 11/21/23 Rx mcg/dose blistr powdr for inhalation (Ruyxela Inhub) atenolol 25 mg tablet 25 mg PO QAM #0 tabs 02/08/24 05/13/24 Rx rivaroxaban 15 mg tablet (Xarelto) 15 mg PO QDD #0 tabs 08/18/23 11/21/23 Rx sennosides 8.6 mg-docusate sodium 1 tab PO QAM #0 tabs 08/18/23 11/21/23 Rx 50 mg tablet (Senokot-S) polyethylene glycol 3350 17 gram 17 g PO BID PRN Constipation 09/05/23 11/21/23 History oral powder packet (Miralax) albuterol sulfate 2.5 mg/3 mL 2.5 mg (3 mL) inhalation TID PRN 09/19/23 11/21/23 Rx (0.083 %) solution for nebulization Shortness Of Breath Or Wheezing #270 mL albuterol sulfate 90 mcg/actuation 2 puff inhalation Q6H PRN 09/19/23 11/21/23 Rx aerosol inhaler (ProAir HFA) shortness of breath or wheezing #20.1 grams magnesium chloride 71.5 mg 71.5 mg PO DAILY #1 tab 09/29/23 11/21/23 Rx (magnesium chloride) tablet,delayed release (Slow-Mag) potassium chloride 20 mEq 20 meq PO DAILY PRN take with 09/29/23 11/21/23 Rx tablet,extended release lasix/furosemide #30 tabs fluticasone propionate 50 2 spray intranasal BID 09/30/23 11/21/23 History mcg/actuation nasal spray,suspension amlodipine 5 mg tablet 7.5 mg (1.5 x 5 mg) PO HS #90 tabs 10/07/23 11/21/23 Rx atenolol 50 mg tablet 50 mg PO HS #90 tabs 10/07/23 11/21/23 Rx levothyroxine 75 mcg tablet 75 mcg PO QAM #90 tabs 10/07/23 11/21/23 Rx montelukast 10 mg tablet 10 mg PO HS #90 tabs 10/07/23 11/21/23 Rx (Singulair) pravastatin 40 mg tablet 40 mg PO HS #90 tabs 10/07/23 11/21/23 Rx acetaminophen 500 mg tablet 1,000 mg PO TID PRN Pain 11/21/23 11/21/23 History (Tylenol Extra Strength) hydrocodone 5 mg-acetaminophen 325 1 tab PO DIRECTED PRN Pain 11/21/23 11/21/23 History mg tablet tramadol 50 mg tablet 50 mg PO Q8H PRN Pain 11/21/23 11/21/23 History Allergies Allergy/AdvReac Type Severity Reaction Status Date / Time nabumetone Allergy Severe SHORTNESS Verified 11/21/23 15:26 OF BREATH naproxen Allergy Severe SOB Verified 11/21/23 15:26 rofecoxib Allergy Severe SHORTNESS Verified 11/21/23 15:26 OF BREATH valdecoxib Allergy Severe SHORTNESS Verified 11/21/23 15:26 OF BREATH Cephalosporins Allergy Intermediate HIVES Verified 11/21/23 15:26 methimazole Allergy Intermediate itching Verified 11/21/23 15:26 Penicillins Allergy Intermediate RASH,HIVES Verified 11/21/23 15:26 codeine Allergy Mild RASH Verified 11/21/23 15:26 Sulfa (Sulfonamide Allergy Mild RASH Verified 11/21/23 15:26 Antibiotics) azithromycin [From Zithromax] AdvReac Intermediate DIARRHEA Verified 11/21/23 15:26 diphenhydramine AdvReac Intermediate LIGHTHEADED Verified 11/21/23 15:26 [From Benadryl] nitrofurantoin AdvReac Intermediate VOMITING Verified 11/21/23 15:26 nickel AdvReac Mild Rash Verified 11/21/23 15:26 Past Med/Surg History Medical History T12 compression fracture Lumbar disc disease History of colon cancer treated surgically 1989 Anemia History of difficult venous access "have had to call the IV team to get my IV's in in the past" Hx of renal calculi passed on own COPD (chronic obstructive pulmonary disease) Gastric polyp removed-malignant 2020 Osteoporosis Atrial fibrillation On xarelto; follows with Dr. Pollard Chronic kidney disease, stage III (moderate) Hypothyroid High cholesterol Hypertension GERD (gastroesophageal reflux disease) Chronic back pain Asthma daily and PRN inhaler only, nebulizer prn History of endometrial cancer Surgical History Hx of bladder repair surgery History of esophagogastroduodenoscopy (EGD) most recent 06/16/22 [facility] Hx of colonoscopy S/P ERCP 3/30/21, Glidescope #3. 11/21/20 [place] Hx laparoscopic cholecystectomy (10/06/20) Laparoscopic Cholecystectomy with Cholangiogram Dr. Varela 10/06/2020. Glidescope #4. H/O kyphoplasty T5 07/23/2019. Glidescope #3, atraumatic. T12 08/15/23 - Dr. Head Difficult airway for intubation Pt reports "failed intubation" with colon resection in . Has had several GA surgeries at [facility] with Glidescope intubations for all, no issues noted in anesthesia records. History of hysterectomy for cancer History of anesthesia problem INTUBATION PROBLEM History of colon resection History of back surgery History of total left knee replacement History of total right knee replacement History of subtotal thyroidectomy History of incisional hernia repair X2 Family History Grandmother (Paternal) Colorectal cancer Family/Other Coronary heart disease Ovarian cancer Breast cancer metastatic breast in 2 nieces. Mother Myocardial infarction Father Myocardial infarction Family/Other Breast cancer Sister Ovarian cancer Denies family history of Prostate cancer Social History Smoking Status: Never smoker Second Hand Exposure: Yes (as a child and early marriage); Do You Dip or Chew Tobacco: No; Hx Alcohol Use: No Hx Substance Use: No Preferred Language: Malawian Communication Ability: Effective Visual Impairment: No Limitations Hearing Ability: Normal Cdl Driver Required: No Beliefs That Will Affect Care: None marital status: / Current Living Situation: Alone current occupational status: retired Feels Safe at Home: Yes Diet: regular caffeine: No Dental Care, Regularly: Yes Physical Activity Frequency: 1-2 Times per Week Physical Activity Frequency Comment: Walking, house work Seatbelt Use: always Sunscreen Use: Yes Assistive Devices: Cane and Walker Review of Systems A total of 10 systems reviewed and were otherwise negative Physical Exam Vital Signs Vital Signs - 24 hr 11/21/23 12:33 11/21/23 12:56 11/21/23 13:00 Temperature 36.8 C Temperature Source Temporal Artery Scan Pulse Rate 62 64 Pulse Rate [Apical] Pulse Rate from SpO2 Sensor 64 Respiratory Rate 26 H 21 Respiratory Effort / Characteristics Non-Labored Spontaneous Respiratory Depth Normal Respiratory Pattern Regular Blood Pressure 104/63 115/57 L Blood Pressure [Left Arm] Blood Pressure Mean 76 76 Blood Pressure Mean [Left Arm] Blood Pressure Position Sitting Pulse Oximetry 92 95 94 Oxygen Delivery Method Room Air Room Air Room Air Sepsis Recent Fever Within 48 Hours No Sepsis New/Unexplained Change in Mental Status N/A Sepsis Action Taken by Nursing No Action Required Oxygen Flow Rate - Titration Pulse Oximetry Post Tiitration 11/21/23 13:32 11/21/23 13:35 11/21/23 13:35 Temperature Temperature Source Pulse Rate 68 64 Pulse Rate [Apical] Pulse Rate from SpO2 Sensor 65 Respiratory Rate 36 H Respiratory Effort / Characteristics Respiratory Depth Respiratory Pattern Blood Pressure 118/58 L 118/58 L Blood Pressure [Left Arm] Blood Pressure Mean 78 71 Blood Pressure Mean [Left Arm] Blood Pressure Position Pulse Oximetry 96 Oxygen Delivery Method Room Air Sepsis Recent Fever Within 48 Hours Sepsis New/Unexplained Change in Mental Status Sepsis Action Taken by Nursing Oxygen Flow Rate - Titration Pulse Oximetry Post Tiitration 11/21/23 14:00 11/21/23 14:10 11/21/23 14:49 Temperature Temperature Source Pulse Rate 62 67 Pulse Rate [Apical] Pulse Rate from SpO2 Sensor 64 69 Respiratory Rate 21 20 Respiratory Effort / Characteristics Respiratory Depth Respiratory Pattern Blood Pressure 136/66 145/61 H Blood Pressure [Left Arm] Blood Pressure Mean 89 89 Blood Pressure Mean [Left Arm] Blood Pressure Position Pulse Oximetry 91 75 L 100 Oxygen Delivery Method Room Air Room Air Room Air Sepsis Recent Fever Within 48 Hours Sepsis New/Unexplained Change in Mental Status Sepsis Action Taken by Nursing Oxygen Flow Rate - Titration 2 Pulse Oximetry Post Tiitration 95 11/21/23 15:22 Temperature Temperature Source Pulse Rate Pulse Rate [Apical] 78 Pulse Rate from SpO2 Sensor Respiratory Rate 20 Respiratory Effort / Characteristics Non-Labored Spontaneous Respiratory Depth Respiratory Pattern Regular Blood Pressure Blood Pressure [Left Arm] 143/68 H Blood Pressure Mean Blood Pressure Mean [Left Arm] 93 Blood Pressure Position Pulse Oximetry 92 Oxygen Delivery Method Room Air Sepsis Recent Fever Within 48 Hours Sepsis New/Unexplained Change in Mental Status Sepsis Action Taken by Nursing Oxygen Flow Rate - Titration Pulse Oximetry Post Tiitration General: Well developed well nourished older female who in no acute distress, breathing comfortably on room air. Normal speech HEENT: Normal cephalic atraumatic. Pupils are equal round and reactive to light. Extraocular movements are intact. Oropharynx is pink with moist mucous membranes. No swelling of the mouth lips or tongue. Neck: Supple with a midline trachea. No meningeal signs or stiffness, no JVD or bruits. No Stridor. Chest: Clear to auscultation bilaterally. No wheezes or rhonchi. No increased work of breathing. Heart: Irregularly irregular rate and rhythm without murmurs or gallops. Abdomen: Soft nontender, nondistended without rebound guarding or rigidity. Extremities: No cyanosis clubbing or edema. No calf tenderness or assymetry Spine/Back. Non tender to palpation. No CVA tenderness Skin: Good turgor without rashes. Neurologic exam: Cranial nerves two through 12 are intact. Motor and sensation are intact and symmetrical throughout. Course Administered Medications Discontinued Medications Albuterol (Albut/Ipratrop 3mg/0.5mg Neb 3 Ml Vial) 3 ml NEB NOW STA; Protocol Stop: 11/21/23 14:24 Last Admin: 11/21/23 14:47 Dose: 3 ml Documented By: JULIANO Furosemide (Furosemide Inj 20 Mg/2 Ml Vial) 20 mg IV ONE ONE Stop: 11/21/23 14:23 Last Admin: 11/21/23 14:47 Dose: 20 mg Documented By: JULIANO Ioversol (Optiray 320 125ml) 118 ml IV ONCE ONE Stop: 11/21/23 14:47 Last Admin: 11/21/23 14:46 Dose: 118 ml Documented By: KENDRICK Medical Decision Making Differential Diagnosis CHF, COPD, pneumonia, COVID, anemia, electrolyte or metabolic abnormality Medical Records Attestation: I reviewed the patient's medical records. Home Medications Current Medication List: was personally reviewed by me Laboratory Data Attestation: I reviewed the patient's lab results. 11/21/23 13:06 11/21/23 13:06 Lab Results 11/21/23 11/21/23 11/21/23 Range/Units 13:06 13:10 Unknown WBC 7.12 (4.8-10.8) K/ul RBC 3.91 L (4.20-5.40) M/uL Hgb 11.9 L (12.0-16.0) g/dl Hct 34.6 L (37.0-47.0) % MCV 88.5 (80.0-100.0) fL MCH 30.4 (25.0-34.0) pg MCHC 34.4 (32.0-36.0) g/dL RDW Std Deviation 43.1 (36.4-46.3) fL RDW Coeff of Barry 13.2 (11.5-14.5) % Plt Count 207 (130-400) K/uL MPV 10.6 (9.4-12.4) fL Immature Gran % (Auto) 0.4 % Neut % (Auto) 58.7 % Lymph % (Auto) 28.7 % [place] % (Auto) 8.3 % Eos % (Auto) 3.2 % Baso % (Auto) 0.7 % Neut # (Auto) 4.18 (1.40-6.50) K/uL Lymph # (Auto) 2.04 (1.20-3.40) K/uL [place] # (Auto) 0.59 (0.11-0.59) K/uL Eos # (Auto) 0.23 (0.00-0.50) K/uL Baso # (Auto) 0.05 (0.00-0.20) K/uL Immature Gran # (Auto) 0.03 (0.01-0.20) K/uL ESR 24 (0-30) mm/hr Sodium 139 (136-145) mmol/L Potassium 3.4 L (3.5-5.1) mmol/L Chloride 98 (98-107) mmol/L Carbon Dioxide 27 (21-32) mmol/L Anion Gap 14 H (3-11) BUN 17 (6-23) mg/dl Creatinine 1.14 (0.6-1.2) mg/dl Est Cr Clr Drug Dosing Not Reportable Est GFR ( Amer) 49.4 ml/min Est GFR (Non-Af Amer) 42.6 ml/min BUN/Creatinine Ratio 14.9 (10-20) Glucose 79 (70-99(Fasting)) mg/dl Calcium 8.1 L (8.6-10.3) mg/dl Magnesium 1.3 L (1.7-2.4) mg/dl Total Bilirubin 1.1 H (0.2-1.0) mg/dl AST 17 (13-39) U/L ALT 5 L (7-52) U/L Alkaline Phosphatase 69 (34-104) U/L Troponin I High Sens 11.3 (0-14) pg/ml C-Reactive Protein 1.37 H (0-0.5) mg/dl B-Natriuretic Peptide 438 H (0-100) pg/ml Total Protein 6.2 (6.0-8.3) gm/dl Albumin 3.7 (3.4-5.0) gm/dl Globulin 2.5 (2.5-4.0) gm/dl Albumin/Globulin Ratio 1.5 (0.9-2) Lipase 12 (11-82) U/L Procalcitonin 0.07 (0-0.5) ng/ml Adenovirus (PCR) Not Detected (NotDetected) B. pertussis DNA (PCR) Not Detected (NotDetected) B.parapertussis DNA PCR Not Detected (NotDetected) C. pneumoniae DNA (PCR) Not Detected (NotDetected) Coronavirus OC43 (PCR) Not Detected (NotDetected) Coronavirus HKU1 (PCR) Not Detected (NotDetected) Coronavirus 229E (PCR) Not Detected (NotDetected) SARS-CoV-2 (PCR) Not Detected (NotDetected) Coronavirus NL63 (PCR) Not Detected (NotDetected) Human Metapneumovir PCR Not Detected (NotDetected) Influenza Type A (PCR) Not Detected (NotDetected) Influenza Type B (PCR) Not Detected (NotDetected) M. pneumoniae (PCR) Not Detected (NotDetected) Parainfluenza 1 (PCR) Not Detected (NotDetected) Parainfluenza 2 (PCR) Not Detected (NotDetected) Parainfluenza 3 (PCR) Not Detected (NotDetected) Parainfluenza 4 (PCR) Not Detected (NotDetected) RSV (PCR) Not Detected (NotDetected) Entero/Rhino (PCR) Not Detected (NotDetected) Imaging Data Attestation: I personally reviewed and interpreted this imaging study as follows: My Impression: Chest x-raycardiomegaly with some vascular congestion. There may be a mild CHF component Radiologist's Impression: Chest X-Ray 11/21/23 12:56 SINGLE VIEW CHEST CLINICAL HISTORY: Atypical chest pain FINDINGS: An AP, portable, upright chest radiograph is compared to study dated 09/26/2023. Correlation is made with chest CT dated 12/14/2021. The heart is enlarged noting atherosclerotic calcification of the thoracic aorta. There is pulmonary vascular congestion. Chronic interstitial thickening is similar to previous. A large calcified granuloma in the right lower lung is unchanged. There is bibasilar scarring/atelectasis. No airspace consolidation or large pleural effusion is identified. No pneumothorax is seen. The skeletal structures are osteopenic. There are thoracic compression deformities with evidence of prior vertebroplasty. IMPRESSION: 1. Cardiomegaly with pulmonary vascular congestion. 2. No airspace consolidation or large pleural effusion is identified. ACT 112: Negative or not required by law. Electronically signed by: Earle Pedersen M.D. 11/21/2023 1:46 PM Chest CTA 11/21/23 14:23 CT ANGIOGRAPHY OF THE CHEST, PULMONARY EMBOLUS PROTOCOL CLINICAL HISTORY: Shortness of breath. Evaluate for pulmonary embolus. COMPARISON STUDY: Chest CT December 14, 2021. Chest radiograph performed earlier today. Thoracic spine CT October 28, 2023 TECHNIQUE: Following IV administration of 118 mL of Optiray, helical axial images of the chest were obtained utilizing the pulmonary embolus protocol. Maximal intensity projections and sagittal and coronal reformats were viewed on an independent 3D workstation. IV contrast was administered without complication. Automated exposure control was utilized for the study. A dose lowering technique was utilized adhering to the principles of ALARA. FINDINGS: No pulmonary emboli are identified. Moderate cardiomegaly is again noted. There is no pericardial effusion. No pathologically enlarged thoracic lymph nodes are present. Calcified subcarinal right hilar lymph nodes are present. There are calcified granulomas within the lungs, liver and spleen indicating a previous granulomas process. There is a trace left pleural effusion. No pneumothorax. Subpleural opacities represent atelectasis. There is no consolidation to suggest pneumonia. Several noncalcified pulmonary nodules are unchanged since CT of December 14, 2021. These are likely benign. There are no new pulmonary nodules. T6 and T12 kyphoplasty are noted. L1 vertebral body fracture was shown on CT of October 28, 2023. This is now subacute. Paravertebral stranding is again noted. Old T4, T5, T7 compression fractures are unchanged. Abdomen and pelvis CT will be reported separately. IMPRESSION: 1. No pulmonary emboli identified. 2. No consolidation to suggest pneumonia. 3. Trace left pleural effusion. 4. Subacute L1 vertebral body fracture, as shown on CT of October 28, 2023. Status post T6 and T12 kyphoplasty. ACT 112: Negative or not required by law. Electronically signed by: Pramod Ma M.D. 11/21/2023 3:13 PM Abdomen/Pelvis CT 11/21/23 14:24 CT SCAN OF THE ABDOMEN AND PELVIS WITH IV CONTRAST CLINICAL HISTORY: Vomiting. COMPARISON STUDY: Prior abdominal CT scans, most recently dated 09/26/2023. TECHNIQUE: Following the IV administration of 118 cc of Optiray 320, CT scan of the abdomen and pelvis is performed from the lung bases to the proximal femora. Images are reviewed in the axial, sagittal, and coronal planes. IV contrast was administered without complication. A dose lowering technique was utilized adhering to the principles of ALARA. CT DOSE: 1561.35 mGy.cm FINDINGS: Lung bases: The heart is enlarged and without pericardial effusion. The coronary arteries are densely calcified. There are trace pleural effusions with dependent scarring/atelectasis. A large calcified granuloma is noted in the right lung base. No airspace consolidation is seen typical for pneumonia. Liver: The contrast-enhanced liver is normal in size, contour, and attenuation. There is minimal central intrahepatic biliary ductal dilatation. The hepatic veins and portal veins are patent. There are calcified hepatic granulomas. Gallbladder: Surgically absent noting clips in the gallbladder fossa. Spleen: Normal in size and attenuation. There are calcified splenic granulomas. Pancreas: Moderately atrophic and grossly unremarkable. Adrenal glands: Unremarkable. Kidneys: The contrast enhanced kidneys demonstrate cortical atrophy and are without hydronephrosis. The kidneys enhance symmetrically. Bilateral renal cysts measure up to 4.5 cm. Abdominal vasculature: The abdominal aorta is normal in course and caliber noting advanced atherosclerotic calcification. Bowel: Surgical clips are noted in the stomach. There is postoperative change from rectosigmoid resection with colocolonic anastomosis. No bowel obstruction is seen. Mild fecal retention is noted throughout the colon. The appendix is normal as visualized. Peritoneum: Trace free fluid is noted in the pelvis. No intraperitoneal free air is identified. There is evidence of previous ventral hernia repair. There is a residual fat and bowel containing ventral hernia is seen on image #172. Lymphadenopathy: None. Pelvic viscera: The bladder is normal as visualized. The uterus is surgically absent. No adnexal lesion is seen. Skeletal structures: The skeletal structures are osteopenic. There is an acute to subacute superior end plate compression fracture of T12 with mild loss of height. No retropulsed fragments are seen. Paravertebral edema is noted. This is new from 09/26/2023. There are numerous additional chronic thoracolumbar compression deformities with evidence of prior vertebroplasty at T11 and L2. There is spondylotic change seen throughout the lumbar spine with prior L4-L5 spinal fusion. No lytic or blastic lesions are seen. IMPRESSION: 1. No acute infectious or inflammatory findings are identified in the abdomen or pelvis. 2. There is an acute to subacute superior endplate compression fracture of T12 with associated paravertebral edema. This is new from 09/26/2003. 3. There is no significant retropulsion of fragments or central canal stenosis. 4. Cardiomegaly and trace pleural effusions. 5. There is trace nonspecific free fluid in the pelvis. 6. A ventral hernia contains a tiny segment of nonobstructed bowel. 7. Additional chronic and postsurgical changes as above. ACT 112: Negative or not required by law. Electronically signed by: Earle Pedersen M.D. 11/21/2023 3:34 PM ECG Data Indication: + SOB/dyspnea Rate (beats per minute): 62 Rhythm: + atrial fibrillation ECG Intervals/blocks: + Normal QRS and + Normal QT ECG Dexter: + Left axis deviation ECG ST segments: + Normal ST segments ECG Findings: + LVH Comparison ECG Date: from (09/19/23) Change: no significant change MDM Narrative This patient comes in described above I did see her in room C8. She has had shortness of breath which is primarily dyspnea on exertion. She does have history of CHF is concerned it could be related to that. She also does use inhalers/nebs which tend to help her. She is in no distress when I evaluate her. EKG shows no ischemic changes she has chronic A-fib. She is on Eliquis for this. Multiple blood testing was obtained as well as chest x-ray and EKG and COVID testing she was reassessed frequently. The nurse called me and told me that she desaturated to 75% while sleeping. I went to check on her she seems to be doing better. I did give her Lasix 20 mg IV as there was concern for possible CHF on her chest x-ray and given her history. Also gave her albuterol Atrovent neb she seem to be a lot better after this. EKG shows no ischemic changes ,troponin was within normal limits. BNP was elevated which would also go along more with the congestive heart failure component. CAT scan of the chest shows no PE and abdomen and pelvis CT shows no acute abdominal process I got this because she had some vomiting. I do think she is to be admitted/observed for further inpatient treatment and evaluation. Bio fire/COVID testing was negative. I did discuss the case in consultation with the [facility] hospitalist group and they will see her in the ER for admission/observation Continuous cardiac monitoring: Orders obtained in the EMR for continuous desk monitor call upon my evaluation she was noted to be in a rate controlled A-fib at 77. Impression & Plan SOB (shortness of breath), A-fib, custodial (current) use of anticoagulants, COPD (chronic obstructive pulmonary disease), CHF (congestive heart failure) Discharge Plan Visit Data Chief Complaint: Shortness of Breath/Dyspnea Stated Complaint: SOB, ON GOING BROKEN BONE IN BACK, VOMIT ED Provider: Montez Lombardo Discharge Problem: SOB (shortness of breath), A-fib, terminal clerk (current) use of anticoagulants, COPD (chronic obstructive pulmonary disease), CHF (congestive heart failure) Forms Stand Alone Forms: My [facility] Prescriptions Prescriptions: No Action fluticasone propionate 50 mcg/actuation spray,suspension 2 spray INTRANASAL BID amlodipine 5 mg tablet 7.5 mg PO HS Qty: 90 3RF montelukast [Singulair] 10 mg tablet 10 mg PO HS Qty: 90 3RF levothyroxine 75 mcg tablet 75 mcg PO QAM Qty: 90 3RF Rx Instructions: before breakfast pravastatin 40 mg tablet 40 mg PO HS Qty: 90 3RF atenolol 50 mg tablet 50 mg PO HS Qty: 90 3RF dicyclomine 10 mg capsule 10 mg PO QAM Qty: 30 2RF Rx Instructions: Take one capsule daily in the morning fluticasone propion-salmeterol [Wixela Inhub] 100-50 mcg/dose blister with device 1 ea INHALATION BID Qty: 3 3RF mecobalamin (vitamin B12) 1,000 mcg tablet,disintegrating 1,000 mcg sublingual QAM Rx Instructions: place tablet under tongue and allow to dissolve for at least30 secs before swallowing calcium carbonate [Calcium 600] 600 mg calcium (1,500 mg) tablet 1,200 mg PO QAM furosemide 20 mg tablet 20 mg PO DAILY PRN (Reason: Fluid Retention) Qty: 90 1RF polyethylene glycol 3350 [Miralax] 17 gram powder in packet 17 g PO BID PRN (Reason: Constipation) albuterol sulfate 2.5 mg /3 mL (0.083 %) solution for nebulization 2.5 mg INH TID PRN (Reason: Shortness Of Breath Or Wheezing) Qty: 270 3RF albuterol sulfate [ProAir HFA] 90 mcg/actuation HFA aerosol inhaler 2 puff inhalation Q6H PRN (Reason: shortness of breath or wheezing) Qty: 20.1 3RF ascorbic acid (vitamin C) [Vitamin C] 500 mg Tablet 500 mg PO QAM cholecalciferol (vitamin D3) [Vitamin D3] 50 mcg (2,000 unit) Capsule 50 mcg PO QAM atenolol 25 mg Tablet 25 mg PO QAM Qty: 0 0RF Xarelto 15 mg Tablet 15 mg PO QDD Qty: 0 0RF sennosides-docusate sodium [Senokot-S] 8.6-50 mg Tablet 1 tab PO QAM Qty: 0 0RF ferrous sulfate [Feosol] 325 mg (65 mg iron) tablet 325 mg PO 3XWK Rx Instructions: 325 mg orally MON, WED & FRI. hydrocodone-acetaminophen 5-325 mg tablet 1 tab PO DIRECTED PRN (Reason: Pain) tramadol 50 mg tablet 50 mg PO Q8H PRN (Reason: Pain) acetaminophen [Tylenol Extra Strength] 500 mg tablet 1,000 mg PO TID PRN (Reason: Pain) potassium chloride 20 mEq tablet extended release 20 meq PO DAILY PRN (Reason: take with lasix/furosemide) Qty: 30 0RF Slow-Mag 71.5 mg tablet,delayed release (DR/EC) 71.5 mg PO DAILY Qty: 1 0RF Rx Instructions: buy over the counter Referrals Referrals: Gin Temple CRNP [Primary Care Provider] - Discharge Problem: A-fib Qualifiers: Atrial fibrillation type: unspecified Qualified Code(s): I48.91 - Unspecified atrial fibrillation COPD (chronic obstructive pulmonary disease) Qualifiers: COPD type: unspecified COPD Qualified Code(s): J44.9 - Chronic obstructive pulmonary disease, unspecified CHF (congestive heart failure) Qualifiers: Heart failure type: unspecified Heart failure chronicity: acute Qualified Code(s): I50.9 - Heart failure, unspecified
[2023-11-21 13:41] LABS: Basophils # (auto) 0.05 K/uL (0.00-0.20); Basophils % (auto) 0.7 %; Eosinophils # (auto) 0.23 K/uL (0.00-0.50); Eosinophils % (auto) 3.2 %; Hematocrit (blood only) 34.6 % (37.0-47.0); Hemoglobin 11.9 g/dl (12.0-16.0); Immature Granulocytes # (auto) 0.03 K/uL (0.01-0.20); Immature Granulocytes % (auto) 0.4 %; Lymphocytes # (auto) 2.04 K/uL (1.20-3.40); Lymphocytes % (auto) 28.7 %; Mean Corpuscular Hemoglobin 30.4 pg (25.0-34.0); Mean Corpuscular Hgb Conc 34.4 g/dL (32.0-36.0); Mean Corpuscular Volume 88.5 fL (80.0-100.0); Mean Platelet Volume 10.6 fL (9.4-12.4); Monocytes # (auto) 0.59 K/uL (0.11-0.59); Monocytes % (auto) 8.3 %; Neutrophils # (auto) 4.18 K/uL (1.40-6.50); Neutrophils % (auto) 58.7 %; Platelet Count 207 K/uL (130-400); RDW Coefficient of Variation 13.2 % (11.5-14.5); RDW Standard Deviation 43.1 fL (36.4-46.3); Red Blood Count 3.91 M/uL (4.20-5.40); White Blood Count 7.12 K/ul (4.8-10.8)
--- NOTE | 2023-11-21 13:47 | XRay Report ---
SINGLE VIEW CHEST CLINICAL HISTORY: Atypical chest pain FINDINGS: An AP, portable, upright chest radiograph is compared to study dated 09/26/2023. Correlation is made with chest CT dated 12/14/2021. The heart is enlarged noting atherosclerotic calcification of the thoracic aorta. There is pulmonary vascular congestion. Chronic interstitial thickening is simila r to previous. A large calcified granuloma in the right lower lung is unchanged. There is bibasilar s carring/atelectasis. No airspace consolidation or large pleural effusion is identified. No pneumothor ax is seen. The skeletal structures are osteopenic. There are thoracic compression deformities with e vidence of prior vertebroplasty. IMPRESSION: 1. Cardiomegaly with pulmonary vascular congestion. 2. No airspace consolidation or large pleural effusion is identified. ACT 112: Negative or not required by law. Electronically signed by: Earle Pedersen M.D. 11/21/2023 1:46 PM
[2023-11-21 13:56] LABS: Alanine Aminotransferase 5 U/L (7-52); Albumin Globulin Ratio 1.5 (0.9-2); Albumin Level 3.7 gm/dl (3.4-5.0); Alkaline Phosphatase 69 U/L (34-104); Anion Gap 14 (3-11); Aspartate Aminotransferase 17 U/L (13-39); BUN Creatinine Ratio 14.9 (10-20); Bilirubin,Total 1.1 mg/dl (0.2-1.0); Blood Urea Nitrogen 17 mg/dl (6-23); Calcium 8.1 mg/dl (8.6-10.3); Carbon Dioxide 27 mmol/L (21-32); Chloride 98 mmol/L (98-107); Est GFR (African American) 49.4 ml/min; Est GFR (Non-African American) 42.6 ml/min; Globulin 2.5 gm/dl (2.5-4.0); Glucose 79 mg/dl (70-99(Fasting)); Lipase 12 U/L (11-82); Potassium 3.4 mmol/L (3.5-5.1); Sodium 139 mmol/L (136-145); Total Protein 6.2 gm/dl (6.0-8.3)
[2023-11-21 14:02] LABS: Troponin I High Sensitivity 11.3 pg/ml (0-14)
[2023-11-21 14:05] LABS: Adenovirus PCR Not Detected (NotDetected); Bordetella parapertussis PCR Not Detected (NotDetected); Bordetella pertussis PCR Not Detected (NotDetected); Chlamydia pneumoniae PCR Not Detected (NotDetected); Coronavirus 229E PCR Not Detected (NotDetected); Coronavirus CoV-2 (COVID19)PCR Not Detected (NotDetected); Coronavirus HKU1 PCR Not Detected (NotDetected); Coronavirus NL63 PCR Not Detected (NotDetected); Coronavirus OC43PCR Not Detected (NotDetected); Human Metapneumovirus PCR Not Detected (NotDetected); Influenza A PCR Not Detected (NotDetected); Influenza B PCR Not Detected (NotDetected); Mycoplasma pneumoniae PCR Not Detected (NotDetected); Parainfluenza Virus 1 PCR Not Detected (NotDetected); Parainfluenza Virus 2 PCR Not Detected (NotDetected); Parainfluenza Virus 3 PCR Not Detected (NotDetected); Parainfluenza Virus 4 PCR Not Detected (NotDetected); Respiratory Syncytial VirusPCR Not Detected (NotDetected); Rhinovirus/Enterovirus PCR Not Detected (NotDetected)
[2023-11-21] MEDS: OPTIRAY 320 125ml IV ONE (14:46)
[2023-11-21] MEDS: FUROSEMIDE INJ 20 MG/2 ML VIAL IV ONE (14:47)
[2023-11-21] MEDS: ALBUT/IPRATROP 3MG/0.5MG NEB 3 ML VIAL NEB STA (14:47)
--- NOTE | 2023-11-21 15:15 | CT Scan Report ---
CT ANGIOGRAPHY OF THE CHEST, PULMONARY EMBOLUS PROTOCOL CLINICAL HISTORY: Shortness of breath. Evaluate for pulmonary embolus. COMPARISON STUDY: Chest CT December 14, 2021. Chest radiograph performed earlier today. Thoracic spine CT October 28, 2023 TECHNIQUE: Following IV administration of 118 mL of Optiray, helical axial images of the chest were o btained utilizing the pulmonary embolus protocol. Maximal intensity projections and sagittal and cor onal reformats were viewed on an independent 3D workstation. IV contrast was administered without co mplication. Automated exposure control was utilized for the study. A dose lowering technique was ut ilized adhering to the principles of ALARA. FINDINGS: No pulmonary emboli are identified. Moderate cardiomegaly is again noted. There is no renetta cardial effusion. No pathologically enlarged thoracic lymph nodes are present. Calcified subcarinal r ight hilar lymph nodes are present. There are calcified granulomas within the lungs, liver and spleen indicating a previous granulomas process. There is a trace left pleural effusion. No pneumothorax. S ubpleural opacities represent atelectasis. There is no consolidation to suggest pneumonia. Several no ncalcified pulmonary nodules are unchanged since CT of December 14, 2021. These are likely benign. There a re no new pulmonary nodules. T6 and T12 kyphoplasty are noted. L1 vertebral body fracture was shown o n CT of October 28, 2023. This is now subacute. Paravertebral stranding is again noted. Old T4, T5, T7 compression fractures are unchanged. Abdomen and pelvis CT will be reported separately. IMPRESSION: 1. No pulmonary emboli identified. 2. No consolidation to suggest pneumonia. 3. Trace left pleural effusion. 4. Subacute L1 vertebral body fracture, as shown on CT of October 28, 2023. Status post T6 and T12 kyph oplasty. ACT 112: Negative or not required by law. Electronically signed by: Pramod Ma M.D. 11/21/2023 3:13 PM
--- NOTE | 2023-11-21 15:18 | Electrocardiogram Report ---
Test Reason : Blood Pressure : / mmHG Vent. Rate : 062 BPM Atrial Rate : 000 BPM P-R Int : 000 ms QRS Dur : 088 ms QT Int : 484 ms P-R-T Axes : 000 -31 -45 degrees QTc Int : 491 ms Atrial fibrillation Left axis deviation Minimal voltage criteria for LVH, may be normal variant Nonspecific T wave abnormality Prolonged QT Abnormal ECG When compared with ECG of 26-SEP-2023 12:12, No significant change was found Confirmed by Dennis Ingram ([id number]) on 11/21/2023 3:18:18 PM Referred By: Gin Temple Confirmed By:Magdaleno Ingram
--- NOTE | 2023-11-21 15:28 | History & Physical Report ---
Date of Service November 21, 2023 Assessment & Plan (1) A-fib: Plan: -Stable -Continue Xarelto and atenolol (2) GUZMAN (dyspnea on exertion): Plan: -Likely a combination of her known COPD, HFpEF, and low lung volumes due to pain with deep inspiration exacerbating her back pain -Noted to have trace pleural effusions and pulmonary vascular congestion on arrival -CTA of the chest negative for other acute findings -Currently breathing comfortably on RA -BNP of 438 (stable compared to last admission), high sen trop WNL, denies chest pain -S/P 20 mg IV lasix in the ED with improvement of symptoms since -Will monitor her output after IV diuresis in the ED and plan to continue with 20 mg PO daily tomorrow as she is stable -Continue pulmonary hygiene -Holding breathing treatments until electrolytes are stable as she is not currently wheezing on exam -PRN O2 to keep SpO2 between 89-92% (3) Hypokalemia: Plan: -3.4 on arrival, mag is 1.3 on admission -Likely due to decreased PO intake and increased frequency of home lasix over the past week -Will order 4 bags IV mag sulfate and 3 bags of 10 meq IV KCL now -Continue to monitor on tele -Will repeat evening K+ level and replete as needed -Monitor am electrolytes (4) Hypertension: Plan: -Stable -Continue amlodipine and atenolol Plan The patient was discussed with Dr. 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 She was initially noted to be stable on arrival but reportedly had an episode of hypoxia into the 70's on RA. Labs were significant for a potassium of 3.4, total bili of 1.1, high sen trop WNL, and BNP of 438 (stable since September of this year), and full respiratory biofire negative. Chest xray was read as cardiomegaly with pulmonary vascular congestion but was otherwise stable. CTA of the chest was read as "1. No pulmonary emboli identified. 2. No consolidation to suggest pneumonia. 3. Trace left pleural effusion. 4. Subacute L1 vertebral body fracture, as shown on CT of October 28, 2023. Status post T6 and T12 kyphoplasty.". CT of the abd/pelvis w/IV con was read as "1. No acute infectious or inflammatory findings are identified in the abdomen or pelvis. 2. There is an acute to subacute superior endplate compression fracture of T12 with associated paravertebral edema. This is new from 09/26/2003. 3. There is no significant retropulsion of fragments or central canal stenosis. 4. Cardiomegaly and trace pleural effusions. 5. There is trace nonspecific free fluid in the pelvis. 6. A ventral hernia contains a tiny segment of non-obstructed bowel. 7. Additional chronic and postsurgical changes as above.". Prior to admission the patient was given 20 mg IV lasix, an albuterol nebulizer treatment. At the time of the exam the patient was sitting in bed in no acute distress, currently stable on RA. Of note, the patient's episode of hypoxia occurred after she walked to and from the ED room bathroom. Her nurse stated that the patient did the same thing just prior to my arrival but the patient's SpO2 stabilized after she got back into bed. The patient states she had been experiencing worsening back pain approximately [address] Head's office and was seen on 09/20/23. They ordered a CT of the thoracic/lumbar spine and she was told that she had a new T12 compression fracture and was prescribed tramadol as she has issues with nausea on oxycodone in the past. She states that she has been having increased GUZMAN over the past week and feels as though her LE's have been a little more swollen than baseline. She has been taking her prn lasix daily for the past week due to these symptoms. Has been having recurrent nausea and non-blood emesis over the past 3-4 days. This has been associated with taking tramadol. She denies recent fever, chills, chest pain, hemoptysis, abd pain, dysuria, hematuria, melena, recent trauma, saddle anesthesia, loss of bowel/bladder function, and new paresthesias. She is a DNR/DNI and her sons w lois make medical decisions for her if she cannot make them herself. Please refer to Dr. Sigala's attestation for any changes tot he treatment plan Allergies Allergy/AdvReac Type Severity Reaction Status Date / Time nabumetone Allergy Severe SHORTNESS Verified 11/21/23 15:26 OF BREATH naproxen Allergy Severe SOB Verified 11/21/23 15:26 rofecoxib Allergy Severe SHORTNESS Verified 11/21/23 15:26 OF BREATH valdecoxib Allergy Severe SHORTNESS Verified 11/21/23 15:26 OF BREATH Cephalosporins Allergy Intermediate HIVES Verified 11/21/23 15:26 methimazole Allergy Intermediate itching Verified 11/21/23 15:26 Penicillins Allergy Intermediate RASH,HIVES Verified 11/21/23 15:26 codeine Allergy Mild RASH Verified 11/21/23 15:26 Sulfa (Sulfonamide Allergy Mild RASH Verified 11/21/23 15:26 Antibiotics) azithromycin [From Zithromax] AdvReac Intermediate DIARRHEA Verified 11/21/23 15:26 diphenhydramine AdvReac Intermediate LIGHTHEADED Verified 11/21/23 15:26 [From Benadryl] nitrofurantoin AdvReac Intermediate VOMITING Verified 11/21/23 15:26 nickel AdvReac Mild Rash Verified 11/21/23 15:26 Home Medications Medication Instructions Recorded Confirmed Type calcium carbonate (Calcium 600) 1,200 mg PO QAM 01/24/19 11/21/23 History ascorbic acid (vitamin C) 500 mg 500 mg PO QAM 02/07/19 11/21/23 History tablet (Vitamin C) mecobalamin (vitamin B12) 1,000 1,000 mcg sublingual QAM 10/28/20 11/21/23 History mcg disintegrating tablet,sublingual cholecalciferol (vitamin D3) 50 50 mcg PO QAM 06/10/22 11/21/23 History mcg (2,000 unit) capsule (Vitamin D3) furosemide 20 mg tablet 20 mg PO DAILY PRN Fluid Retention 10/20/22 11/21/23 Rx #90 tabs ferrous sulfate 325 mg (65 mg 325 mg PO 3XWK 01/11/23 11/21/23 History iron) tablet (Feosol) dicyclomine 10 mg capsule 10 mg PO QAM #30 caps 03/31/23 11/21/23 Rx fluticasone 100 mcg-salmeterol 50 1 ea inhalation BID #3 Inhalers 03/31/23 11/21/23 Rx mcg/dose blistr powdr for inhalation (Wixela Inhub) atenolol 25 mg tablet 25 mg PO QAM #0 tabs 08/18/23 11/21/23 Rx rivaroxaban 15 mg tablet (Xarelto) 15 mg PO QDD #0 tabs 08/18/23 11/21/23 Rx sennosides 8.6 mg-docusate sodium 1 tab PO QAM #0 tabs 08/18/23 11/21/23 Rx 50 mg tablet (Senokot-S) polyethylene glycol 3350 17 gram 17 g PO BID PRN Constipation 09/05/23 11/21/23 History oral powder packet (Miralax) albuterol sulfate 2.5 mg/3 mL 2.5 mg (3 mL) inhalation TID PRN 09/19/23 11/21/23 Rx (0.083 %) solution for nebulization Shortness Of Breath Or Wheezing #270 mL albuterol sulfate 90 mcg/actuation 2 puff inhalation Q6H PRN 09/19/23 11/21/23 Rx aerosol inhaler (ProAir HFA) shortness of breath or wheezing #20.1 grams magnesium chloride 71.5 mg 71.5 mg PO DAILY #1 tab 09/29/23 11/21/23 Rx (magnesium chloride) tablet,delayed release (Slow-Mag) potassium chloride 20 mEq 20 meq PO DAILY PRN take with 09/29/23 11/21/23 Rx tablet,extended release lasix/furosemide #30 tabs fluticasone propionate 50 2 spray intranasal BID 09/30/23 11/21/23 History mcg/actuation nasal spray,suspension amlodipine 5 mg tablet 7.5 mg (1.5 x 5 mg) PO HS #90 tabs 10/07/23 11/21/23 Rx atenolol 50 mg tablet 50 mg PO HS #90 tabs 10/07/23 11/21/23 Rx levothyroxine 75 mcg tablet 75 mcg PO QAM #90 tabs 10/07/23 11/21/23 Rx montelukast 10 mg tablet 10 mg PO HS #90 tabs 10/07/23 11/21/23 Rx (Singulair) pravastatin 40 mg tablet 40 mg PO HS #90 tabs 10/07/23 11/21/23 Rx acetaminophen 500 mg tablet 1,000 mg PO TID PRN Pain 11/21/23 11/21/23 History (Tylenol Extra Strength) hydrocodone 5 mg-acetaminophen 325 1 tab PO DIRECTED PRN Pain 11/21/23 11/21/23 History mg tablet tramadol 50 mg tablet 50 mg PO Q8H PRN Pain 11/21/23 11/21/23 History Past Med/Surg History Medical History T12 compression fracture Lumbar disc disease History of colon cancer treated surgically 1989 Anemia History of difficult venous access "have had to call the IV team to get my IV's in in the past" Hx of renal calculi passed on own COPD (chronic obstructive pulmonary disease) Gastric polyp removed-malignant 2020 Osteoporosis Atrial fibrillation On xarelto; follows with Dr. Pollard Chronic kidney disease, stage III (moderate) Hypothyroid High cholesterol Hypertension GERD (gastroesophageal reflux disease) Chronic back pain Asthma daily and PRN inhaler only, nebulizer prn History of endometrial cancer Surgical History Hx of bladder repair surgery History of esophagogastroduodenoscopy (EGD) most recent 06/16/22 [facility] Hx of colonoscopy S/P ERCP 10/07/20, Glidescope #3. 11/21/20 [place] Hx laparoscopic cholecystectomy (10/06/20) Laparoscopic Cholecystectomy with Cholangiogram Dr. Varela 10/06/2020. Glidescope #4. H/O kyphoplasty T5 07/23/2019. Glidescope #3, atraumatic. T12 08/15/23 - Dr. Head Difficult airway for intubation Pt reports "failed intubation" with colon resection in . Has had several GA surgeries at [facility] with Glidescope intubations for all, no issues noted in anesthesia records. History of hysterectomy for cancer History of anesthesia problem INTUBATION PROBLEM History of colon resection History of back surgery History of total left knee replacement History of total right knee replacement History of subtotal thyroidectomy History of incisional hernia repair X2 Family History Grandmother (Paternal) Colorectal cancer Family/Other Coronary heart disease Ovarian cancer Breast cancer metastatic breast in 2 nieces. Mother Myocardial infarction Father Myocardial infarction Family/Other Breast cancer Sister Ovarian cancer Denies family history of Prostate cancer Social History Smoking Status: Never smoker Second Hand Exposure: Yes (as a child and early marriage); Do You Dip or Chew Tobacco: No; Hx Alcohol Use: No Hx Substance Use: No Preferred Language: Hong Konger Communication Ability: Effective Visual Impairment: No Limitations Hearing Ability: Normal [employer] Window [employer] Required: No Beliefs That Will Affect Care: None marital status: / Current Living Situation: Alone current occupational status: retired Feels Safe at Home: Yes Diet: regular caffeine: No Dental Care, Regularly: Yes Physical Activity Frequency: 1-2 Times per Week Physical Activity Frequency Comment: Walking, house work Seatbelt Use: always Sunscreen Use: Yes Assistive Devices: Cane and Walker Physical Exam Physical Exam: Physical Exam: General: In no acute distress, stated age, non-toxic appearing HEENT: Normocephalic, atraumatic, no scleral icterus, pupils around round, symmetrical, and reactive to light, moist mucus membranes, trachea midline, no thyromegaly Chest/Pulm: No respiratory distress, symmetrical chest expansion, clear breath sounds throughout Cardiac: irregular, no murmurs noted Abdomen: Negative for ascites and bruising, normoactive bowel sounds, soft, non-tender to palpation throughout Musculoskeletal: Symmetrical and without signs of acute trauma, tenderness to palpation over the lower thoracic/upper lumbar spine without erythema, fluctuance, crepitus, or step off, upper and lower extremities with full ROM, no atrophy, spasticity, or flaccidity Extremities: Radial, dorsalis pedis, and posterior tibial pulses are intact and symmetrical, no edema noted in the BL LE's Skin: Warm, dry, no rashes , lesions, or scars noted Neuro: Alert and oriented to person, place, month, year, and president, no focal defects,no tremors noted Psych: No acute distress, calm and cooperative during the exam Results & Data Results & Data Vital Signs (Past 12 Hours) Vital Signs Temp Pulse Pulse Resp BP BP Pulse Ox 11/21/23 15:22 78 20 143/68 H 92 11/21/23 14:49 67 20 145/61 H 100 11/21/23 14:10 75 L 11/21/23 14:00 62 21 136/66 91 11/21/23 13:35 118/58 L 11/21/23 13:35 64 36 H 118/58 L 96 11/21/23 13:32 68 11/21/23 13:00 64 21 115/57 L 94 11/21/23 12:56 95 11/21/23 12:33 36.8 C 62 26 H 104/63 92 O2 Del Method 11/21/23 15:22 Room Air 11/21/23 14:49 Room Air 11/21/23 14:10 Room Air 11/21/23 14:00 Room Air 11/21/23 13:35 11/21/23 13:35 Room Air 11/21/23 13:32 11/21/23 13:00 Room Air 11/21/23 12:56 Room Air 11/21/23 12:33 Room Air Laboratory Results Abnormal lab results 11/21/23 Range/Units 13:06 RBC 3.91 L (4.20-5.40) M/uL Hgb 11.9 L (12.0-16.0) g/dl Hct 34.6 L (37.0-47.0) % Potassium 3.4 L (3.5-5.1) mmol/L Anion Gap 14 H (3-11) Calcium 8.1 L (8.6-10.3) mg/dl Magnesium 1.3 L (1.7-2.4) mg/dl Total Bilirubin 1.1 H (0.2-1.0) mg/dl ALT 5 L (7-52) U/L C-Reactive Protein 1.37 H (0-0.5) mg/dl B-Natriuretic Peptide 438 H (0-100) pg/ml Diagnostic Findings Chest X-Ray 11/21/23 12:56 SINGLE VIEW CHEST CLINICAL HISTORY: Atypical chest pain FINDINGS: An AP, portable, upright chest radiograph is compared to study dated 09/26/2023. Correlation is made with chest CT dated 12/14/2021. The heart is enlarged noting atherosclerotic calcification of the thoracic aorta. There is pulmonary vascular congestion. Chronic interstitial thickening is similar to previous. A large calcified granuloma in the right lower lung is unchanged. There is bibasilar scarring/atelectasis. No airspace consolidation or large pleural effusion is identified. No pneumothorax is seen. The skeletal structures are osteopenic. There are thoracic compression deformities with evidence of prior vertebroplasty. IMPRESSION: 1. Cardiomegaly with pulmonary vascular congestion. 2. No airspace consolidation or large pleural effusion is identified. ACT 112: Negative or not required by law. Electronically signed by: Earle Pedersen M.D. 11/21/2023 1:46 PM Chest CTA 11/21/23 14:23 CT ANGIOGRAPHY OF THE CHEST, PULMONARY EMBOLUS PROTOCOL CLINICAL HISTORY: Shortness of breath. Evaluate for pulmonary embolus. COMPARISON STUDY: Chest CT December 14, 2021. Chest radiograph performed earlier today. Thoracic spine CT October 28, 2023 TECHNIQUE: Following IV administration of 118 mL of Optiray, helical axial images of the chest were obtained utilizing the pulmonary embolus protocol. Maximal intensity projections and sagittal and coronal reformats were viewed on an independent 3D workstation. IV contrast was administered without complication. Automated exposure control was utilized for the study. A dose lowering technique was utilized adhering to the principles of ALARA. FINDINGS: No pulmonary emboli are identified. Moderate cardiomegaly is again noted. There is no pericardial effusion. No pathologically enlarged thoracic lymph nodes are present. Calcified subcarinal right hilar lymph nodes are present. There are calcified granulomas within the lungs, liver and spleen indicating a previous granulomas process. There is a trace left pleural effusion. No pneumothorax. Subpleural opacities represent atelectasis. There is no consolidation to suggest pneumonia. Several noncalcified pulmonary nodules are unchanged since CT of December 14, 2021. These are likely benign. There are no new pulmonary nodules. T6 and T12 kyphoplasty are noted. L1 vertebral body fracture was shown on CT of October 28, 2023. This is now subacute. Paravertebral stranding is again noted. Old T4, T5, T7 compression fractures are unchanged. Abdomen and pelvis CT will be reported separately. IMPRESSION: 1. No pulmonary emboli identified. 2. No consolidation to suggest pneumonia. 3. Trace left pleural effusion. 4. Subacute L1 vertebral body fracture, as shown on CT of October 28, 2023. Status post T6 and T12 kyphoplasty. ACT 112: Negative or not required by law. Electronically signed by: Pramod Ma M.D. 11/21/2023 3:13 PM Abdomen/Pelvis CT 11/21/23 14:24 CT SCAN OF THE ABDOMEN AND PELVIS WITH IV CONTRAST CLINICAL HISTORY: Vomiting. COMPARISON STUDY: Prior abdominal CT scans, most recently dated 09/26/2023. TECHNIQUE: Following the IV administration of 118 cc of Optiray 320, CT scan of the abdomen and pelvis is performed from the lung bases to the proximal femora. Images are reviewed in the axial, sagittal, and coronal planes. IV contrast was administered without complication. A dose lowering technique was utilized adhering to the principles of ALARA. CT DOSE: 1561.35 mGy.cm FINDINGS: Lung bases: The heart is enlarged and without pericardial effusion. The coronary arteries are densely calcified. There are trace pleural effusions with dependent scarring/atelectasis. A large calcified granuloma is noted in the right lung base. No airspace consolidation is seen typical for pneumonia. Liver: The contrast-enhanced liver is normal in size, contour, and attenuation. There is minimal central intrahepatic biliary ductal dilatation. The hepatic veins and portal veins are patent. There are calcified hepatic granulomas. Gallbladder: Surgically absent noting clips in the gallbladder fossa. Spleen: Normal in size and attenuation. There are calcified splenic granulomas. Pancreas: Moderately atrophic and grossly unremarkable. Adrenal glands: Unremarkable. Kidneys: The contrast enhanced kidneys demonstrate cortical atrophy and are without hydronephrosis. The kidneys enhance symmetrically. Bilateral renal cysts measure up to 4.5 cm. Abdominal vasculature: The abdominal aorta is normal in course and caliber noting advanced atherosclerotic calcification. Bowel: Surgical clips are noted in the stomach. There is postoperative change from rectosigmoid resection with colocolonic anastomosis. No bowel obstruction is seen. Mild fecal retention is noted throughout the colon. The appendix is normal as visualized. Peritoneum: Trace free fluid is noted in the pelvis. No intraperitoneal free air is identified. There is evidence of previous ventral hernia repair. There is a residual fat and bowel containing ventral hernia is seen on image #172. Lymphadenopathy: None. Pelvic viscera: The bladder is normal as visualized. The uterus is surgically absent. No adnexal lesion is seen. Skeletal structures: The skeletal structures are osteopenic. There is an acute to subacute superior end plate compression fracture of T12 with mild loss of height. No retropulsed fragments are seen. Paravertebral edema is noted. This is new from 09/26/2023. There are numerous additional chronic thoracolumbar com pression deformities with evidence of prior vertebroplasty at T11 and L2. There is spondylotic change seen throughout the lumbar spine with prior L4-L5 spinal fusion. No lytic or blastic lesions are seen. IMPRESSION: 1. No acute infectious or inflammatory findings are identified in the abdomen or pelvis. 2. There is an acute to subacute superior endplate compression fracture of T12 with associated paravertebral edema. This is new from 09/26/2003. 3. There is no significant retropulsion of fragments or central canal stenosis. 4. Cardiomegaly and trace pleural effusions. 5. There is trace nonspecific free fluid in the pelvis. 6. A ventral hernia contains a tiny segment of nonobstructed bowel. 7. Additional chronic and postsurgical changes as above. ACT 112: Negative or not required by law. Electronically signed by: Earle Pedersen M.D. 11/21/2023 3:34 PM ECG Additional Comments: Atrial fibrillation Left axis deviation Minimal voltage criteria for LVH, may be normal variant Nonspecific T wave abnormality Prolonged QT Abnormal ECG When compared with ECG of 26-SEP-2023 12:12, No significant change was found Confirmed by Dennis Ingram ([id number]) on 11/21/2023 3:18:18 PM Code Status & VTE Plan Code Status DNR/DNI VTE Prophylaxis Plan VTE Prophylaxis will be ordered: Yes Supervising Physician Co-Signing Physician Notes Patient seen and examined, chart reviewed, case discussed with Judah Ryan and I agree with the assessment and plan as above except as otherwise noted Labs and images reviewed GUZMAN taking PRN lasix daily without improvement. Eating and drinking very little as well due to nausea and phlegm. Tramadol worsens nausea. No abdomina lpain. No fevers/chills/diarrhea/cough. Dyspnea is improved after IV lasix and nebulizer. SpO2 did desat to the 80s on ambulation, but this improves with rest. Will volume optomize, may need 2-step and home oxygen. Lungs are grossly clear post albuterol in the ER. DDx for dyspnea includes mild volume overload, COPD, afib.Trace leg swelling without overt edema. Mg low, repelted. Continues to have pain at compressionf racture, multimodal pain control as noted and PT/OT. No red flag sx. edema is noted, pending review by spine. Agree w/ management as above. PG Care Time/CCT Total # of Minutes Spent Total Time Spent with Patient: Total time spent is greater than 50% in coordination of care (as documented) at patient's floor/unit and/or counseling patient: Coding [place] [address] INT INP/OBS CARE 3/75MIN Patient Type Established Medical Decision Making High Complexity Diagnoses A-fib I48.91 GUZMAN (dyspnea on exertion) R06.09 Hypokalemia E87.6 Hypertension I10
--- NOTE | 2023-11-21 15:35 | CT Scan Report ---
CT SCAN OF THE ABDOMEN AND PELVIS WITH IV CONTRAST CLINICAL HISTORY: Vomiting. COMPARISON STUDY: Prior abdominal CT scans, most recently dated 09/26/2023. TECHNIQUE: Following the IV administration of 118 cc of Optiray 320, CT scan of the abdomen and pelv is is performed from the lung bases to the proximal femora. Images are reviewed in the axial, sagitta l, and coronal planes. IV contrast was administered without complication. A dose lowering technique w as utilized adhering to the principles of ALARA. CT DOSE: 1561.35 mGy.cm FINDINGS: Lung bases: The heart is enlarged and without pericardial effusion. The coronary arteries are densely calcified. There are trace pleural effusions with dependent scarring/atelectasis. A large calcified granuloma is noted in the right lung base. No airspace consolidation is seen typical for pneumonia. Liver: The contrast-enhanced liver is normal in size, contour, and attenuation. There is minimal cent ral intrahepatic biliary ductal dilatation. The hepatic veins and portal veins are patent. There are calcified hepatic granulomas. Gallbladder: Surgically absent noting clips in the gallbladder fossa. Spleen: Normal in size and attenuation. There are calcified splenic granulomas. Pancreas: Moderately atrophic and grossly unremarkable. Adrenal glands: Unremarkable. Kidneys: The contrast enhanced kidneys demonstrate cortical atrophy and are without hydronephrosis. T he kidneys enhance symmetrically. Bilateral renal cysts measure up to 4.5 cm. Abdominal vasculature: The abdominal aorta is normal in course and caliber noting advanced atheroscle rotic calcification. Bowel: Surgical clips are noted in the stomach. There is postoperative change from rectosigmoid resec tion with colocolonic anastomosis. No bowel obstruction is seen. Mild fecal retention is noted throug hout the colon. The appendix is normal as visualized. Peritoneum: Trace free fluid is noted in the pelvis. No intraperitoneal free air is identified. There is evidence of previous ventral hernia repair. There is a residual fat and bowel containing ventral hernia is seen on image #172. Lymphadenopathy: None. Pelvic viscera: The bladder is normal as visualized. The uterus is surgically absent. No adnexal lesi on is seen. Skeletal structures: The skeletal structures are osteopenic. There is an acute to subacute superior e nd plate compression fracture of T12 with mild loss of height. No retropulsed fragments are seen. Par avertebral edema is noted. This is new from 09/26/2023. There are numerous additional chronic thoracol umbar compression deformities with evidence of prior vertebroplasty at T11 and L2. There is spondylot ic change seen throughout the lumbar spine with prior L4-L5 spinal fusion. No lytic or blastic lesion s are seen. IMPRESSION: 1. No acute infectious or inflammatory findings are identified in the abdomen or pelvis. 2. There is an acute to subacute superior endplate compression fracture of T12 with associated parave rtebral edema. This is new from 09/26/2003. 3. There is no significant retropulsion of fragments or central canal stenosis. 4. Cardiomegaly and trace pleural effusions. 5. There is trace nonspecific free fluid in the pelvis. 6. A ventral hernia contains a tiny segment of nonobstructed bowel. 7. Additional chronic and postsurgical changes as above. ACT 112: Negative or not required by law. Electronically signed by: Earle Pedersen M.D. 11/21/2023 3:34 PM
[2023-11-21 16:00] LABS: C Reactive Protein 1.37 mg/dl (0-0.5); Magnesium 1.3 mg/dl (1.7-2.4)
[2023-11-21] MEDS: LIDOCAINE 5% 1 PATCH TD STA (17:44)
[2023-11-21] MEDS: ACETAMINOPHEN 1,000 MG/100 ML VIAL IV STA (17:44)
[2023-11-21] MEDS: POTASSIUM CHLORIDE / WTR 10 MEQ/100 ML PLCT IV SCH ×2 (18:00→23:53)
[2023-11-21] MEDS: MAGNESIUM SULFATE / D5W 1 GM/100 ML BAG IV SCH (19:05)
[2023-11-21] MEDS: RIVAROXABAN 15 MG TAB PO SCH (19:30)
[2023-11-21] MEDS: ACETAMINOPHEN 325 MG TAB PO SCH (20:08)
[2023-11-21] MEDS: PRAVASTATIN SOD 40 MG TAB PO SCH (20:08)
[2023-11-21] MEDS: amLODIPine BESYLATE 5 MG TAB PO SCH (20:09)
[2023-11-21] MEDS: ATENOLOL 50 MG TABLET PO SCH (20:09)
[2023-11-21] MEDS: POTASSIUM CHLORIDE CRTAB 20 MEQ TABCR PO STA (22:10)
[2023-11-22] MEDS: SODIUM CHLORIDE 0.65% NA SOLN 45 ML (OCEAN) PRN (04:05)
[2023-11-22] MEDS: LEVOTHYROXINE SODIUM 75 MCG TABLET PO SCH (06:27)
[2023-11-22 06:44] LABS: Basophils # (auto) 0.06 K/uL (0.00-0.20); Basophils % (auto) 0.8 %; Eosinophils % (auto) 5.3 %; Hematocrit (blood only) 35.3 % (37.0-47.0); Hemoglobin 12.1 g/dl (12.0-16.0); Immature Granulocytes # (auto) 0.05 K/uL (0.01-0.20); Immature Granulocytes % (auto) 0.7 %; Lymphocytes # (auto) 2.22 K/uL (1.20-3.40); Lymphocytes % (auto) 29.6 %; Mean Corpuscular Hemoglobin 30.7 pg (25.0-34.0); Mean Corpuscular Hgb Conc 34.3 g/dL (32.0-36.0); Mean Corpuscular Volume 89.6 fL (80.0-100.0); Mean Platelet Volume 10.4 fL (9.4-12.4); Monocytes # (auto) 0.63 K/uL (0.11-0.59); Monocytes % (auto) 8.4 %; Neutrophils # (auto) 4.15 K/uL (1.40-6.50); Neutrophils % (auto) 55.2 %; Platelet Count 213 K/uL (130-400); RDW Coefficient of Variation 13.2 % (11.5-14.5); RDW Standard Deviation 43.3 fL (36.4-46.3); Red Blood Count 3.94 M/uL (4.20-5.40); White Blood Count 7.51 K/ul (4.8-10.8)
[2023-11-22 07:11] LABS: INR 1.3 (0.9-1.1)
--- NOTE | 2023-11-22 07:26 | Hospitalist Progress Note ---
Date of Service November 22, 2023 Assessment & Plan (1) GUZMAN (dyspnea on exertion): Plan: -Likely a combination of her known COPD(not in exacerbation), HFpEF, and low lung volumes due to pain with deep inspiration exacerbating her back pain -Noted to have trace pleural effusions and pulmonary vascular congestion on arrival suggesting acute on chronic diastolic HF -S/P 20 mg IV lasix in the ED with improvement of symptoms Some dyspnea could also be from pain (2) Lumbar compression fracture: Plan: T12 lumbar compression fracture patient in need of kyphoplasty care per orthopedic spine surgery evaluation Multimodal pain control with scheduled scheduled Tylenol Lidoderm patch Miacalcin nasal spray and low-dose ultram therapy (3) A-fib: Plan: -Stable -Continue Xarelto and atenolol -> Xarelto held pre procedure (4) Hypertension: Plan: -Stable -Continue amlodipine and atenolol Plan DNR Hypoklameia replete as well as low magnesium Admission and Anticipated Discharge Date Admission Date: November 21, 2023 Subjective Patient has reasonable pain control. She feels her pain initiated when she was boosted up in the ER. No radicular symptoms with left leg pain with movement Physical Exam Physical Exam: Card exam is regular lungs are clear Abdomen NABS soft nontender Extremities are without radicular symptoms Results & Data Results & Data Vital Signs (Past 12 Hours) Vital Signs Temp Pulse Pulse Resp BP BP Pulse Ox 11/22/23 07:06 61 11/22/23 07:00 11/22/23 03:37 97.5 F L 60 18 112/56 L 97 11/21/23 21:57 65 11/21/23 21:40 66 11/21/23 21:30 11/21/23 21:30 97.5 F L 58 L 18 132/69 97 11/21/23 20:53 68 18 133/57 L 98 O2 Del Method O2 Flow Rate 11/22/23 07:06 11/22/23 07:00 Nasal Cannula 3 11/22/23 03:37 Nasal Cannula 2 11/21/23 21:57 11/21/23 21:40 11/21/23 21:30 Nasal Cannula 3 11/21/23 21:30 Nasal Cannula 3 11/21/23 20:53 Nasal Cannula 2 Laboratory Results Reviewed CBC Reviewed chemistry Discussed case with Dr. Adilene plans for kyphoplasty once coagulation is resolved tentatively scheduled for 11/25/2023 PG Care Time/CCT Total # of Minutes Spent Total Time Spent with Patient: Total time spent is greater than 50% in coordination of care (as documented) at patient's floor/unit and/or counseling patient: Coding Level of Care Code 03619 SUB INP/OBS CARE 2/35MIN Diagnoses GUZMAN (dyspnea on exertion) R06.09 Lumbar compression fracture S32.000A A-fib I48.91 Atrial fibrillation type: unspecified Hypertension I10 (3) A-fib Atrial fibrillation type: unspecified Qualified Code(s): I48.91 - Unspecified atrial fibrillation
[2023-11-22 07:38] LABS: Albumin Globulin Ratio 1.5 (0.9-2); Albumin Level 3.7 gm/dl (3.4-5.0); BUN Creatinine Ratio 15.1 (10-20); Creatinine Clr Calc Pharmacy 41.6 ml/min; Est GFR (African American) 63.2 ml/min; Est GFR (Non-African American) 54.5 ml/min; Globulin 2.5 gm/dl (2.5-4.0); Magnesium 2.7 mg/dl (1.7-2.4); Total Protein 6.2 gm/dl (6.0-8.3)
--- NOTE | 2023-11-22 08:09 | Orthopedic Consultation ---
Date of Consultation November 22, 2023 Assessment & Plan (1) Lumbar compression fracture: Assessment nonhealing L1 compression fracture. Plan at this time the patient is quite frustrated with her lack of improvement. She is essentially bedbound. As she has not improved despite the passage of time and medications she would like to consider surgical invention. Would require a kyphoplasty of L1. Will plan for surgery this week. She is on anticoagulation medication which would need to be withheld for surgery. Patient or stands agrees. History of Present Illness Reason for Consultation: Back pain Attending Physician: Justin Ordaz MD History of Present Illness This is a very pleasant 88-year-old female having undergone previous kyphoplasty several months ago. Unfortunately she has sustained a new fracture at L1 with involving superior plate. We have tried to manage this for several weeks nonoperatively but the pain continues to be limiting. She is markedly limited with any sitting or standing. The pain does awaken her from sleep. It has progressed in nature. She denies any numbness or tingling or weakness in the lower extremities. Allergies Allergy/AdvReac Type Severity Reaction Status Date / Time nabumetone Allergy Severe SHORTNESS Verified 11/21/23 15:26 OF BREATH naproxen Allergy Severe SOB Verified 11/21/23 15:26 rofecoxib Allergy Severe SHORTNESS Verified 11/21/23 15:26 OF BREATH valdecoxib Allergy Severe SHORTNESS Verified 11/21/23 15:26 OF BREATH Cephalosporins Allergy Intermediate HIVES Verified 11/21/23 15:26 methimazole Allergy Intermediate itching Verified 11/21/23 15:26 Penicillins Allergy Intermediate RASH,HIVES Verified 11/21/23 15:26 codeine Allergy Mild RASH Verified 11/21/23 15:26 Sulfa (Sulfonamide Allergy Mild RASH Verified 11/21/23 15:26 Antibiotics) azithromycin [From Zithromax] AdvReac Intermediate DIARRHEA Verified 11/21/23 15:26 diphenhydramine AdvReac Intermediate LIGHTHEADED Verified 11/21/23 15:26 [From Benadryl] nitrofurantoin AdvReac Intermediate VOMITING Verified 11/21/23 15:26 nickel AdvReac Mild Rash Verified 11/21/23 15:26 Home Medications Medication Instructions Recorded Confirmed Type calcium carbonate (Calcium 600) 1,200 mg PO QAM 01/24/19 11/21/23 History ascorbic acid (vitamin C) 500 mg 500 mg PO QAM 02/07/19 11/21/23 History tablet (Vitamin C) mecobalamin (vitamin B12) 1,000 1,000 mcg sublingual QAM 10/28/20 11/21/23 History mcg disintegrating tablet,sublingual cholecalciferol (vitamin D3) 50 50 mcg PO QAM 06/10/22 11/21/23 History mcg (2,000 unit) capsule (Vitamin D3) furosemide 20 mg tablet 20 mg PO DAILY PRN Fluid Retention 10/20/22 11/21/23 Rx #90 tabs ferrous sulfate 325 mg (65 mg 325 mg PO 3XWK 01/11/23 11/21/23 History iron) tablet (Feosol) dicyclomine 10 mg capsule 10 mg PO QAM #30 caps 03/31/23 11/21/23 Rx fluticasone 100 mcg-salmeterol 50 1 ea inhalation BID #3 Inhalers 03/31/2311/20 Rx mcg/dose blistr powdr for inhalation (Wixela Inhub) atenolol 25 mg tablet 25 mg PO QAM #0 tabs 08/18/23 11/21/23 Rx rivaroxaban 15 mg tablet (Xarelto) 15 mg PO QDD #0 tabs 08/18/23 11/21/23 Rx sennosides 8.6 mg-docusate sodium 1 tab PO QAM #0 tabs 08/18/23 11/21/23 Rx 50 mg tablet (Senokot-S) polyethylene glycol 3350 17 gram 17 g PO BID PRN Constipation 09/05/23 11/21/23 History oral powder packet (Miralax) albuterol sulfate 2.5 mg/3 mL 2.5 mg (3 mL) inhalation TID PRN 09/19/23 11/21/23 Rx (0.083 %) solution for nebulization Shortness Of Breath Or Wheezing #270 mL albuterol sulfate 90 mcg/actuation 2 puff inhalation Q6H PRN 09/19/23 11/21/23 Rx aerosol inhaler (ProAir HFA) shortness of breath or wheezing #20.1 grams magnesium chloride 71.5 mg 71.5 mg PO DAILY #1 tab 09/29/23 11/21/23 Rx (magnesium chloride) tablet,delayed release (Slow-Mag) potassium chloride 20 mEq 20 meq PO DAILY PRN take with 09/29/23 11/21/23 Rx tablet,extended release lasix/furosemide #30 tabs fluticasone propionate 50 2 spray intranasal BID 09/30/23 11/21/23 History mcg/actuation nasal spray,suspension amlodipine 5 mg tablet 7.5 mg (1.5 x 5 mg) PO HS #90 tabs 10/07/23 11/21/23 Rx atenolol 50 mg tablet 50 mg PO HS #90 tabs 10/07/23 11/21/23 Rx levothyroxine 75 mcg tablet 75 mcg PO QAM #90 tabs 10/07/23 11/21/23 Rx montelukast 10 mg tablet 10 mg PO HS #90 tabs 10/07/23 11/21/23 Rx (Singulair) pravastatin 40 mg tablet 40 mg PO HS #90 tabs 10/07/23 11/21/23 Rx acetaminophen 500 mg tablet 1,000 mg PO TID PRN Pain 11/21/23 11/21/23 History (Tylenol Extra Strength) hydrocodone 5 mg-acetaminophen 325 1 tab PO DIRECTED PRN Pain 11/21/23 11/21/23 History mg tablet tramadol 50 mg tablet 50 mg PO Q8H PRN Pain 11/21/23 11/21/23 History Patient History Medical History T12 compression fracture Lumbar disc disease History of colon cancer treated surgically 1989 Anemia History of difficult venous access "have had to call the IV team to get my IV's in in the past" Hx of renal calculi passed on own COPD (chronic obstructive pulmonary disease) Gastric polyp removed-malignant 2020 Osteoporosis Atrial fibrillation On xarelto; follows with Dr. Pollard Chronic kidney disease, stage III (moderate) Hypothyroid High cholesterol Hypertension GERD (gastroesophageal reflux disease) Chronic back pain Asthma daily and PRN inhaler only, nebulizer prn History of endometrial cancer Surgical History Hx of bladder repair surgery History of esophagogastroduodenoscopy (EGD) most recent 06/16/22 [facility] Hx of colonoscopy S/P ERCP 10/07/20, Glidescope #3. 11/21/20 [place] Hx laparoscopic cholecystectomy (10/06/20) Laparoscopic Cholecystectomy with Cholangiogram Dr. Varela 10/06/2020. Glidescope #4. H/O kyphoplasty T5 07/23/2019. Glidescope #3, atraumatic. T12 08/15/23 - Dr. Head Difficult airway for intubation Pt reports "failed intubation" with colon resection in . Has had several GA surgeries at [facility] with Glidescope intubations for all, no issues noted in anesthesia records. History of hysterectomy for cancer History of anesthesia problem INTUBATION PROBLEM History of colon resection History of back surgery History of total left knee replacement History of total right knee replacement History of subtotal thyroidectomy History of incisional hernia repair X2 Family History Grandmother (Paternal) Colorectal cancer Family/Other Coronary heart disease Ovarian cancer Breast cancer metastatic breast in 2 nieces. 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 Beliefs That Will Affect Care: None marital status: / Current Living Situation: Family Current Living Situation Comment: son staying with her current occupational status: retired Other Information That Helps Us Care for You: No Feels Safe at Home: Yes Safety Concerns: Feels Safe At This Time Diet: regular caffeine: No Dental Care, Regularly: Yes Physical Activity Frequency: 1-2 Times per Week Physical Activity Frequency Comment: Walking, house work Seatbelt Use: always Sunscreen Use: Yes Assistive Devices: Cane, Glasses and Walker Physical Exam Physical Exam: On exam she is alert and oriented and cooperative with exam. She exhibits reasonable strength to lower extremity testing as well as sensory intact. Results & Data Vital Signs (Past 12 Hours) Vital Signs Temp Pulse Pulse Resp BP BP Pulse Ox 11/22/23 07:55 36.4 C L 80 17 126/66 95 11/22/23 07:06 61 11/22/23 07:00 11/22/23 03:37 36.4 C L 60 18 112/56 L 97 11/21/23 21:57 65 11/21/23 21:40 66 11/21/23 21:30 11/21/23 21:30 36.4 C L 58 L 18 132/69 97 11/21/23 20:53 68 18 133/57 L 98 O2 Del Method O2 Flow Rate 11/22/23 07:55 Nasal Cannula 3 11/22/23 07:06 11/22/23 07:00 Nasal Cannula 3 11/22/23 03:37 Nasal Cannula 2 11/21/23 21:57 11/21/23 21:40 11/21/23 21:30 Nasal Cannula 3 11/21/23 21:30 Nasal Cannula 3 11/21/23 20:53 Nasal Cannula 2
[2023-11-22] MEDS: FUROSEMIDE 20 MG TAB PO SCH (08:27)
[2023-11-22] MEDS: FLUTICASONE/VILANTEROL 100/25MCG 14 PUFFS/INHALER INH SCH (08:28)
[2023-11-22] MEDS: DICYCLOMINE HCL 10 MG CAP PO SCH (08:28)
[2023-11-22] MEDS: ATENOLOL 25 MG TABLET PO SCH (08:28)
[2023-11-22] MEDS: MAGNESIUM CHLORIDE W/CALCIUM 64MG DELAYED REL TAB PO SCH (08:28)
[2023-11-22] MEDS: LIDOCAINE 5% 1 PATCH TD STA (20:31)
[2023-11-22] MEDS: MoRPHine SULFATE 2 MG/ML CARP IV PRN (20:31)
[2023-11-22] MEDS: ACETAMINOPHEN 500 MG TAB PO SCH (20:36)
[2023-11-22] MEDS: ONDANSETRON INJ 2 MG/ML 2 ML VIAL IV PRN (20:37)
[2023-11-23 07:36] LABS: Albumin Globulin Ratio 1.5 (0.9-2); Albumin Level 3.8 gm/dl (3.4-5.0); BUN Creatinine Ratio 13.9 (10-20); Calcium 8.3 mg/dl (8.6-10.3); Creatinine Clr Calc Pharmacy 38.3 ml/min; Est GFR (African American) 57.2 ml/min; Est GFR (Non-African American) 49.3 ml/min; Globulin 2.6 gm/dl (2.5-4.0); Magnesium 2.2 mg/dl (1.7-2.4); Total Protein 6.4 gm/dl (6.0-8.3)
[2023-11-23 07:45] LABS: INR 1.1 (0.9-1.1)
[2023-11-23 07:49] LABS: Basophils # (auto) 0.07 K/uL (0.00-0.20); Basophils % (auto) 0.9 %; Hematocrit (blood only) 37.6 % (37.0-47.0); Hemoglobin 12.5 g/dl (12.0-16.0); Immature Granulocytes # (auto) 0.03 K/uL (0.01-0.20); Immature Granulocytes % (auto) 0.4 %; Lymphocytes # (auto) 2.29 K/uL (1.20-3.40); Lymphocytes % (auto) 28.5 %; Mean Corpuscular Hgb Conc 33.2 g/dL (32.0-36.0); Mean Corpuscular Volume 90.2 fL (80.0-100.0); Mean Platelet Volume 10.4 fL (9.4-12.4); Monocytes # (auto) 0.49 K/uL (0.11-0.59); Monocytes % (auto) 6.1 %; Neutrophils # (auto) 4.75 K/uL (1.40-6.50); Neutrophils % (auto) 59.1 %; Platelet Count 231 K/uL (130-400); RDW Coefficient of Variation 13.3 % (11.5-14.5); RDW Standard Deviation 44.1 fL (36.4-46.3); Red Blood Count 4.17 M/uL (4.20-5.40); White Blood Count 8.03 K/ul (4.8-10.8)
[2023-11-23] MEDS: CALCITONIN SALMON NA 200 IU/AC 3.7 ML BTL SCH (09:42)
--- NOTE | 2023-11-23 11:17 | Orthopedic Progress Note ---
Date of Service November 23, 2023 Assessment & Plan (1) Lumbar compression fracture: Plan: Assessment L1 compression fracture nonhealing. Plan at this time we are planning for surgery Tuesday. This would hopefully be enough time for her to be off Xarelto. Her son is in the room. We discussed the procedure and plans. We are all in agreement. Admission and Anticipated Discharge Date Admission Date: November 21, 2023 Subjective Patient continues to struggle with back pain. Denies any leg pain. Physical Exam Physical Exam: Patient is in the chair at bedside. She is constricted testing. Results & Data Vital Signs (Past 12 Hours) Vital Signs Temp Pulse Pulse Pulse Resp BP BP 11/23/23 11:09 36.7 C 59 L 18 113/56 L 11/23/23 07:38 56 L 11/23/23 07:24 36.6 C 64 18 103/54 L 11/23/23 04:18 37.0 C 60 18 114/65 Pulse Ox O2 Del Method O2 Flow Rate 11/23/23 11:09 91 Room Air 11/23/23 07:38 11/23/23 07:24 96 Nasal Cannula 3 11/23/23 04:18 92 Room Air Queries Orthopedic Spine Vertebral Fracture Secondary to Osteoporosis: Yes
[2023-11-23] MEDS: LIDOCAINE 5% 1 PATCH TD SCH (21:14)
--- NOTE | 2023-11-23 22:24 | Hospitalist Progress Note ---
Date of Service November 23, 2023 Assessment & Plan (1) GUZMAN (dyspnea on exertion): Plan: -Likely a combination of her known COPD(not in exacerbation), HFpEF, and low lung volumes due to pain with deep inspiration exacerbating her back pain -Noted to have trace pleural effusions and pulmonary vascular congestion on arrival suggesting acute on chronic diastolic HF -S/P 20 mg IV lasix in the ED with improvement of symptoms Some dyspnea could also be from pain. ill obtain chest xray in AM of 11/23 also obtain overnight pulse ox (2) Lumbar compression fracture: Plan: T12 lumbar compression fracture patient in need of kyphoplasty care per orthopedic spine surgery evaluation Multimodal pain control with scheduled scheduled Tylenol Lidoderm patch Miacalcin nasal spray and low-dose ultram therapy (3) A-fib: Plan: -Stable -Continue Xarelto and atenolol -> Xarelto held pre procedure (4) Hypertension: Plan: -Stable -Continue amlodipine and atenolol Plan DNR Hypoklameia replete as well as low magnesium Admission and Anticipated Discharge Date Admission Date: November 21, 2023 Subjective Parient reports having intermittent cough. Review of Systems Review of Systems: All systems reviewed & are unremarkable except as noted in HPI & below Physical Exam Physical Exam: Card exam is regular lungs are clear Abdomen NABS soft nontender Extremities are without radicular symptoms Results & Data Results & Data Vital Signs (Past 12 Hours) Vital Signs Temp Pulse Resp BP BP Pulse Ox O2 Del Method 11/23/23 19:00 36.5 C 58 L 18 124/81 93 Room Air 11/23/23 15:44 36.3 C L 61 18 130/77 93 Room Air 11/23/23 11:09 36.7 C 59 L 18 113/56 L 91 Room Air PG Care Time/CCT Total # of Minutes Spent Total Time Spent with Patient: Total time spent is greater than 50% in coordination of care (as documented) at patient's floor/unit and/or counseling patient: Coding Level of Care Code 42670 SUB INP/OBS CARE 2/35MIN Diagnoses GUZMAN (dyspnea on exertion) R06.09 Lumbar compression fracture S32.000A A-fib I48.91 Atrial fibrillation type: unspecified Hypertension I10 (3) A-fib Atrial fibrillation type: unspecified Qualified Code(s): I48.91 - Unspecified atrial fibrillation
[2023-11-24 07:07] LABS: Basophils # (auto) 0.04 K/uL (0.00-0.20); Basophils % (auto) 0.5 %; Eosinophils # (auto) 0.31 K/uL (0.00-0.50); Eosinophils % (auto) 3.8 %; Hematocrit (blood only) 37.5 % (37.0-47.0); Hemoglobin 12.5 g/dl (12.0-16.0); Immature Granulocytes # (auto) 0.03 K/uL (0.01-0.20); Immature Granulocytes % (auto) 0.4 %; Lymphocytes # (auto) 2.57 K/uL (1.20-3.40); Lymphocytes % (auto) 31.4 %; Mean Corpuscular Hemoglobin 29.9 pg (25.0-34.0); Mean Corpuscular Hgb Conc 33.3 g/dL (32.0-36.0); Mean Corpuscular Volume 89.7 fL (80.0-100.0); Mean Platelet Volume 10.3 fL (9.4-12.4); Monocytes # (auto) 0.57 K/uL (0.11-0.59); Neutrophils # (auto) 4.66 K/uL (1.40-6.50); Neutrophils % (auto) 56.9 %; Platelet Count 222 K/uL (130-400); RDW Coefficient of Variation 13.1 % (11.5-14.5); RDW Standard Deviation 43.2 fL (36.4-46.3); Red Blood Count 4.18 M/uL (4.20-5.40); White Blood Count 8.18 K/ul (4.8-10.8)
[2023-11-24 07:25] LABS: Albumin Globulin Ratio 1.5 (0.9-2); Albumin Level 3.8 gm/dl (3.4-5.0); BUN Creatinine Ratio 15.9 (10-20); Bilirubin,Total 0.8 mg/dl (0.2-1.0); Calcium 8.4 mg/dl (8.6-10.3); Creatinine Clr Calc Pharmacy 36.1 ml/min; Est GFR (African American) 53.3 ml/min; Globulin 2.6 gm/dl (2.5-4.0); Total Protein 6.4 gm/dl (6.0-8.3)
[2023-11-24 07:58] LABS: INR 1.1 (0.9-1.1); Prothrombin Time 11.4 Seconds (9.0-12.0)
--- NOTE | 2023-11-24 08:57 | XRay Report ---
XR chest 2V PA/lateral CLINICAL HISTORY: pleural effusions/ cough TECHNIQUE: 2 views of the chest were obtained. Comparison: Comparison is made to chest radiograph 11/21/2023 FINDINGS: No lines and tubes are seen. Cardiomegaly is noted. The aortic arch is calcified. There is a calcifie d granulomata without underlying airspace opacity. No evidence of pleural effusion or pneumothorax. D egenerative changes with compression deformities in segment arthroplasty. Posterior fixation hardware in the lumbar spine. IMPRESSION: No acute abnormalities and in particular no radiographic evidence of pneumonia. ACT 112: Negative or not required by law. Electronically signed by: Jan Greer M.D. 11/24/2023 8:56 AM
[2023-11-24] MEDS ORDERED: PHARMACY GLYCEMIC MGMT CONSULT PRN (20:39)
--- NOTE | 2023-11-24 20:39 | Hospitalist Progress Note ---
Date of Service November 24, 2023 Assessment & Plan (1) GUZMAN (dyspnea on exertion): Plan: -Likely a combination of her known COPD(not in exacerbation), HFpEF, and low lung volumes due to pain with deep inspiration exacerbating her back pain -Noted to have trace pleural effusions and pulmonary vascular congestion on arrival suggesting acute on chronic diastolic HF -S/P 20 mg IV lasix in the ED with improvement of symptoms Some dyspnea could also be from pain. Patient reuiqres oxygen when sleeping due to pulse ox results. (2) Lumbar compression fracture: Plan: T12 lumbar compression fracture patient in need of kyphoplasty care per orthopedic spine surgery evaluation Multimodal pain control with scheduled scheduled Tylenol Lidoderm patch Miacalcin nasal spray and low-dose ultram therapy (3) A-fib: Plan: -Stable -Continue Xarelto and atenolol -> Xarelto held pre procedure (4) Hypertension: Plan: -Stable -Continue amlodipine and atenolol Plan DNR Hypoklameia replete as well as low magnesium Admission and Anticipated Discharge Date Admission Date: November 21, 2023 Subjective Patient reports no new symptoms. Review of Systems Review of Systems: All systems reviewed & are unremarkable except as noted in HPI & below Physical Exam Physical Exam: Card exam is regular lungs are clear Abdomen NABS soft nontender Extremities are without radicular symptoms Results & Data Results & Data Vital Signs (Past 12 Hours) Vital Signs Temp Pulse Pulse Resp BP Pulse Ox O2 Del Method 11/24/23 19:00 36.7 C 63 18 129/76 93 Room Air 11/24/23 16:10 36.6 C 51 L 16 108/67 93 Room Air 11/24/23 15:43 58 L 11/24/23 11:21 37.0 C 66 16 115/68 95 Room Air PG Care Time/CCT Total # of Minutes Spent Total Time Spent with Patient: Total time spent is greater than 50% in coordination of care (as documented) at patient's floor/unit and/or counseling patient: Coding Level of Care Code 57369 SUB INP/OBS CARE 2/35MIN Diagnoses GUZMAN (dyspnea on exertion) R06.09 Lumbar compression fracture S32.000A A-fib I48.91 Atrial fibrillation type: unspecified Hypertension I10 (3) A-fib Atrial fibrillation type: unspecified Qualified Code(s): I48.91 - Unspecified atrial fibrillation
[2023-11-24] MEDS ORDERED: DEXTROSE 50% 50 ML SYRINGE IV PRN (21:01)
[2023-11-24] MEDS ORDERED: GLUCAGON FOR INJ 1 MG VIAL SQ PRN (21:01)
[2023-11-24] MEDS ORDERED: GLUCOSE 10 TAB/TUBE PO PRN (21:01)
[2023-11-24] MEDS ORDERED: GLUCOSE 40% GEL 15 GM TUBE PO PRN (21:01)
[2023-11-24] MEDS ORDERED: CARBOHYDRATES FOR HYPOGLYCEMIA PO PRN (21:01)
[2023-11-25 07:00] LABS: Hematocrit (blood only) 35.6 % (37.0-47.0); Mean Corpuscular Hemoglobin 30.5 pg (25.0-34.0); Mean Corpuscular Hgb Conc 33.7 g/dL (32.0-36.0); Mean Corpuscular Volume 90.6 fL (80.0-100.0); Mean Platelet Volume 10.3 fL (9.4-12.4); Platelet Count 209 K/uL (130-400); Red Blood Count 3.93 M/uL (4.20-5.40)
[2023-11-25 07:28] LABS: BUN Creatinine Ratio 16.3 (10-20); Calcium 7.8 mg/dl (8.6-10.3); Creatinine Clr Calc Pharmacy 37.2 ml/min; Est GFR (African American) 55.2 ml/min; Est GFR (Non-African American) 47.6 ml/min; Potassium 4.1 mmol/L (3.5-5.1)
--- NOTE | 2023-11-25 11:03 | Pharmacy Report ---
Pharmacy Glycemic Sign Off Nt - Date of Service November 25, 2023 - Assessment & Plan ASSESSMENT: * Pharmacy was consulted by Dr Lobato on 11/24/2023 for glycemic control and to write orders per [facility] inpatient glycemic control protocol. * Patient has not received any insulin in the last 24 hours * BSGs ranging 79- 85 mg/dl * Please see recommendations for outpatient antidiabetic regimen below. PLAN FOR INPATIENT GLYCEMIC CONTROL: No changes needed to current regimen. * No history of diabetes reported, AM BSG levels WNL, no anticipated need for insulin sliding scale at this time * Pharmacy is signing off of glycemic consult and will no longer be making adjustments to inpatient regimen. Please feel free to re-consult if needed. Thank you.
[2023-11-25] MEDS: LACTATED RINGER'S 1,000 ML IV SCH (12:32)
[2023-11-25] MEDS ORDERED: ATROPINE SULFATE 0.1 MG/ML 10ML SYR IV PRN (12:56)
[2023-11-25] MEDS ORDERED: ONDANSETRON INJ 2 MG/ML 2 ML VIAL IV PRN (12:56)
[2023-11-25] MEDS ORDERED: fentaNYL citrate PF 100 MCG/2 ML VIAL ONE (12:56)
[2023-11-25] MEDS ORDERED: ePHEDrine sulfate 50 MG/ML AMP IV PRN (12:56)
[2023-11-25] MEDS ORDERED: fentaNYL citrate PF 100 MCG/2 ML VIAL IV PRN (12:56)
--- NOTE | 2023-11-25 12:56 | Anesthesiology Consultation ---
Date of Service November 25, 2023 Assessment & Plan (1) Encounter for pre-operative examination: Chart Review Chart Review: Acceptable Risk for Surgery and Patient NOT seen in Pre Admission Testing Consults Requested none History Surgery Operation Date: 11/25/23 13:25 Proposed Procedures p L1 Kyphoplasty - Miguelito Head DO Height/Weight Height: 5 ft 5 in Weight: 75 kg Allergies Allergy/AdvReac Type Severity Reaction Status Date / Time nabumetone Allergy Severe SHORTNESS Verified 11/21/23 15:26 OF BREATH naproxen Allergy Severe SOB Verified 11/21/23 15:26 rofecoxib Allergy Severe SHORTNESS Verified 11/21/23 15:26 OF BREATH valdecoxib Allergy Severe SHORTNESS Verified 11/21/23 15:26 OF BREATH Cephalosporins Allergy Intermediate HIVES Verified 11/21/23 15:26 methimazole Allergy Intermediate itching Verified 11/21/23 15:26 Penicillins Allergy Intermediate RASH,HIVES Verified 11/21/23 15:26 codeine Allergy Mild RASH Verified 11/21/23 15:26 Sulfa (Sulfonamide Allergy Mild RASH Verified 11/21/23 15:26 Antibiotics) azithromycin [From Zithromax] AdvReac Intermediate DIARRHEA Verified 11/21/23 15:26 diphenhydramine AdvReac Intermediate LIGHTHEADED Verified 11/21/23 15:26 [From Benadryl] nitrofurantoin AdvReac Intermediate VOMITING Verified 11/21/23 15:26 nickel AdvReac Mild Rash Verified 11/21/23 15:26 Medications Home Medications Medication Instructions Recorded Confirmed Last Taken calcium carbonate (Calcium 600) 1,200 mg PO QAM 01/24/19 11/21/23 11/20/23 ascorbic acid (vitamin C) 500 mg 500 mg PO QAM 02/07/19 11/21/23 11/20/23 tablet (Vitamin C) mecobalamin (vitamin B12) 1,000 1,000 mcg sublingual QAM 10/28/20 11/21/23 11/20/23 mcg disintegrating tablet,sublingual cholecalciferol (vitamin D3) 50 50 mcg PO QAM 06/10/22 11/21/23 11/20/23 mcg (2,000 unit) capsule (Vitamin D3) furosemide 20 mg tablet 20 mg PO DAILY PRN Fluid Retention 10/20/22 11/21/23 Unknown #90 tabs ferrous sulfate 325 mg (65 mg 325 mg PO 3XWK 01/11/23 11/21/23 11/18/23 iron) tablet (Feosol) dicyclomine 10 mg capsule 10 mg PO QAM #30 caps 03/31/23 11/21/23 11/20/23 fluticasone 100 mcg-salmeterol 50 1 ea inhalation BID #3 Inhalers 03/31/23 11/21/23 11/20/23 mcg/dose blistr powdr for inhalation (Wixela Inhub) atenolol 25 mg tablet 25 mg PO QAM #0 tabs 08/18/23 11/21/23 11/20/23 rivaroxaban 15 mg tablet (Xarelto) 15 mg PO QDD #0 tabs 08/18/23 11/21/23 11/20/23 sennosides 8.6 mg-docusate sodium 1 tab PO QAM #0 tabs 08/18/23 11/21/23 11/20/23 50 mg tablet (Senokot-S) polyethylene glycol 3350 17 gram 17 g PO BID PRN Constipation 09/05/23 11/21/23 Unknown oral powder packet (Miralax) albuterol sulfate 2.5 mg/3 mL 2.5 mg (3 mL) inhalation TID PRN 09/19/23 11/21/23 Unknown (0.083 %) solution for nebulization Shortness Of Breath Or Wheezing #270 mL albuterol sulfate 90 mcg/actuation 2 puff inhalation Q6H PRN 09/19/23 11/21/23 Unknown aerosol inhaler (ProAir HFA) shortness of breath or wheezing #20.1 grams magnesium chloride 71.5 mg 71.5 mg PO DAILY #1 tab 09/29/23 11/21/23 11/20/23 (magnesium chloride) tablet,delayed release (Slow-Mag) potassium chloride 20 mEq 20 meq PO DAILY PRN take with 09/29/23 11/21/23 11/20/23 tablet,extended release lasix/furosemide #30 tabs fluticasone propionate 50 2 spray intranasal BID 09/30/23 11/21/23 11/20/23 mcg/actuation nasal spray,suspension amlodipine 5 mg tablet 7.5 mg (1.5 x 5 mg) PO HS #90 tabs 10/07/23 11/21/23 11/20/23 atenolol 50 mg tablet 50 mg PO HS #90 tabs 10/07/23 11/21/23 11/20/23 levothyroxine 75 mcg tablet 75 mcg PO QAM #90 tabs 10/07/23 11/21/23 11/21/23 montelukast 10 mg tablet 10 mg PO HS #90 tabs 10/07/23 11/21/23 11/20/23 (Singulair) pravastatin 40 mg tablet 40 mg PO HS #90 tabs 10/07/23 11/21/23 11/20/23 acetaminophen 500 mg tablet 1,000 mg PO TID PRN Pain 11/21/23 11/21/23 Unknown (Tylenol Extra Strength) hydrocodone 5 mg-acetaminophen 325 1 tab PO DIRECTED PRN Pain 11/21/23 11/21/23 Unknown mg tablet tramadol 50 mg tablet 50 mg PO Q8H PRN Pain 11/21/23 11/21/23 Unknown Active Medications Generic Name Dose Route Start Last Admin Trade Name Freq PRN Reason Stop Dose Admin Acetaminophen 1,000 mg 11/22/23 21:00 11/25/23 08:34 Acetaminophen 500 Mg Tab PO 12/22/23 20:59 1,000 mg TID USHAS Administration Amlodipine Besylate 7.5 mg 11/21/23 21:00 11/24/23 20:02 Amlodipine Besylate 5 Mg Tab PO 12/21/23 20:59 7.5 mg HS SUHAS Administration Atenolol 50 mg 11/21/23 21:00 11/24/23 20:01 Atenolol 50 Mg Tablet PO 12/21/23 20:59 50 mg HS SUHAS Administration Atenolol 25 mg 11/22/23 09:00 11/25/23 08:29 Atenolol 25 Mg Tablet PO 12/22/23 08:59 25 mg QAM SUHAS Administration Calcitonin [place] 1 sprays 11/23/23 09:00 11/25/23 08:31 Calcitonin [place] Na 200 Iu/Ac 3.7 Ml Btl NA 12/23/23 08:59 1 sprays DAILY SUHAS Administration Dicyclomine HCl 10 mg 11/22/23 09:00 11/25/23 08:29 Dicyclomine Hcl 10 Mg Cap PO 12/22/23 08:59 10 mg QAM SUHAS Administration Fluticasone/Vilanterol 1 puffs 11/22/23 09:00 11/25/23 08:31 Fluticasone/Vilanterol 100/25mcg 14 Puffs/Inhaler INH 12/22/23 08:59 1 puffs DAILY SUHAS Administration Furosemide 20 mg 11/22/23 09:00 11/25/23 08:29 Furosemide 20 Mg Tab PO 12/22/23 08:59 20 mg DAILY SUHAS Administration Lactated Ringer's 1,000 mls @ 15 mls/hr 11/25/23 12:15 11/25/23 12:32 Lr IV 12/25/23 12:14 15 mls/hr .Q24H SUHAS Administration Levothyroxine Sodium 75 mcg 11/22/23 06:30 11/25/23 05:45 Levothyroxine Sodium 75 Mcg Tablet PO 12/22/23 06:29 75 mcg DAILYBB SUHAS Administration Lidocaine 1 patch 11/23/23 21:00 11/24/23 20:03 Lidocaine 5% 1 Patch TD 12/23/23 20:59 Not Given HS SUHAS Magnesium Chloride 64 mg 11/22/23 09:00 11/25/23 08:30 Magnesium Chloride W/Calcium 64mg Delayed Rel Tab PO 12/22/23 08:59 64 mg DAILY SUHAS Administration Miscellaneous 1 each 11/23/23 09:00 11/25/23 08:31 Remove Lidoderm Patch N/A 12/23/23 08:59 Not Given DAILY SUHAS Morphine Sulfate 1 mg 11/21/23 16:40 11/23/23 21:10 Morphine Sulfate 2 Mg/Ml Carp IV 12/05/23 16:39 1 mg Q4H PRN Administration Pain(5+) Ondansetron HCl 4 mg 11/22/23 19:51 11/23/23 21:12 Ondansetron Inj 2 Mg/Ml 2 Ml Vial IV 12/22/23 19:50 4 mg Q6H PRN Administration Nausea And Vomiting Pravastatin Sodium 40 mg 11/21/23 21:00 11/24/23 20:02 Pravastatin Sod 40 Mg Tab PO 12/21/23 20:59 40 mg HS SUHAS Administration Sodium Chloride 2 sprays 11/22/23 02:56 11/24/23 09:01 Sodium Chloride 0.65% Na Soln 45 Ml (Leslie) NA 12/22/23 02:55 2 sprays Q2H PRN Administration Nasal Congestion NPO Date Last Intake of Fluids: 11/25/23 Time Last Intake of Fluids: 08:34 Date Last Intake of Solids: 11/24/23 Time Last Intake of Solids: 20:30 Past Medical History Medical History History of colon cancer treated surgically 1989 History of difficult venous access "have had to call the IV team to get my IV's in in the past" Hx of renal calculi passed on own COPD (chronic obstructive pulmonary disease) Gastric polyp removed-malignant 2020 Osteoporosis Atrial fibrillation On xarelto; follows with Dr. Pollard Hypothyroid High cholesterol Hypertension GERD (gastroesophageal reflux disease) History of endometrial cancer Past Family History Family History Grandmother (Paternal) Colorectal cancer Family/Other Coronary heart disease Ovarian cancer Breast cancer metastatic breast in 2 nieces. Mother Myocardial infarction Father Myocardial infarction Family/Other Breast cancer Sister Ovarian cancer Denies family history of Prostate cancer Past Surgical History Surgical History Hx of bladder repair surgery History of esophagogastroduodenoscopy (EGD) most recent 06/16/22 [facility] Hx of colonoscopy S/P ERCP 10/07/20, Glidescope #3. 11/21/[place] Hx laparoscopic cholecystectomy (10/06/20) Laparoscopic Cholecystectomy with Cholangiogram Dr. Varela 10/06/2020. Glidescope #4. H/O kyphoplasty T5 07/23/2019. Glidescope #3, atraumatic. T12 08/15/23 - Dr. Head Difficult airway for intubation Pt reports "failed intubation" with colon resection in . Has had several GA surgeries at [facility] with Glidescope intubations for all, no issues noted in anesthesia records. History of hysterectomy for cancer History of anesthesia problem INTUBATION PROBLEM History of colon resection History of back surgery History of total left knee replacement History of total right knee replacement History of subtotal thyroidectomy History of incisional hernia repair X2 Social History Smoking Status: Never smoker Do You Dip or Chew Tobacco: No Hx Alcohol Use: No Hx Substance Use: No substance use type: does not use Physical Exam Vital Signs Last Vital Signs Temp 98.1 F 11/25/23 12:24 Pulse 59 L 11/25/23 12:24 Resp 16 11/25/23 12:24 BP 121/81 11/25/23 12:24 Pulse Ox 97 11/25/23 12:24 O2 Del Method Room Air 11/25/23 12:24 O2 Flow Rate 1 11/23/23 22:35 Testing Laboratory Results 11/25/23 06:31 11/25/23 06:31 PT 11.4 Seconds (9.0-12.0) 11/24/23 06:36 INR 1.1 (0.9-1.1) 11/24/23 06:36 11/25/23 12:12 POC Glucose 83
--- NOTE | 2023-11-25 14:21 | History & Physical Bridge Note ---
Date of Service November 25, 2023 History & Physical Bridge Note I have examined the patient, reviewed the History & Physical and in the interval since the performance of the History & Physical I have noted the following changes of clinical significance: no changes noted Kyphoplasty L1
[2023-11-25] MEDS ORDERED: ONDANSETRON INJ 2 MG/ML 2 ML VIAL ONE (14:39)
[2023-11-25] MEDS ORDERED: LIDOCAINE 2% 2 ML VIAL/AMP(20MG/ML) INFIL ONE (14:39)
[2023-11-25] MEDS ORDERED: DEXAMETHASONE SOD INJ 4 MG/ML VIAL ONE (14:39)
[2023-11-25] MEDS ORDERED: ROCURONIUM BROMIDE 10 MG/ML 5 ML VIAL IV ONE (14:39)
[2023-11-25] MEDS ORDERED: PROPOFOL IV EMULSION 10 MG/ML 20 ML VIAL IV ONE (14:39)
[2023-11-25] MEDS: CLINDAMYCIN/D5W 900 MG/50 ML BAG IV ONE (14:49)
[2023-11-25] MEDS ORDERED: ePHEDrine sulfate 50 MG/5 ML SYR ONE (15:27)
[2023-11-25] MEDS ORDERED: SUGAMMADEX SODIUM 200 MG/2 ML VIAL IV ONE (15:30)
[2023-11-25] MEDS: BUPIVACAINE/EPINEPHRINE 0.25% 1:200,000 30 ML VIAL ONE (15:32)
[2023-11-25] MEDS: CLINDAMYCIN 900 MG/D5W 50 ML BAG IV ONE (15:34)
--- NOTE | 2023-11-25 15:36 | Operative Report ---
Post Operative Report Pre & Post Diagnosis Operation Date: 11/25/23 13:25 Pre-Op Diagnosis: Lumbar L1 compression fracture. Post-Op Diagnosis: Lumbar L1 compression fracture. I identified the patient and participated in the time-out.: Yes Procedure Operation Date: 11/25/23 13:25 Actual Procedures #1 kyphoplasty of L1 vertebral body. #2 biopsy of L1 vertebral body Surgeon Miguelito Head, DO Button Tufting Machine Operator None Estimated Blood Loss 5 Findings Consistent with Post-Op Diagnosis Specimens Biopsy of L1 vertebral body Indications This is an 88-year-old female presents with chronic persistent back pain status post L1 compression fracture. Her having failed extensive course of nonoperative care is here for surgical invention. Description of Procedure Patient was met with identified informed consent obtained. Patient was then taken to the operative suite underwent patient placed in a prone position on the Marvin table chest pad and hip bolsters. All bony prominences well-padded eyes inspected to ensure no external precipice spinal. This point the lumbar spine was prepped and draped in a sterile fashion. The assistance of fluoroscopy identified the L1 vertebral body in AP and lateral planes. 2 small incisions were placed just lateral to the pedicles and 2 Kyphon working cannulas were placed by way of a transpedicular approach into the L1 vertebral body. 2 core biopsies were then obtained. I then placed 215 mm Kyphon balloons within the vertebral body sequentially inflating the balloons with fluoroscopic visualization. The balloons were subsequently removed and approximately 6 cc of Kyphon cement injected into the vertebral body demonstrating excellent interdi gitation and fill. The working cannulas that were then removed the small incisions closed with subcutaneous Monocryl and sterile dressings placed. Patient was then awakened and taken to PACU in stable condition. I attest to the content of the Intraoperative Record and any orders documented therein. Any exceptions are noted below.
[2023-11-25] MEDS: IOPAMIDOL INJ 61% 15 ML VIAL INSTIL ONE (15:47)
--- NOTE | 2023-11-25 16:26 | Anesthesiology Progress Note ---
Date of Service November 25, 2023 Anesthesia Post Procedure Vital Signs Vital Signs: Temp Pulse Pulse Pulse Resp BP BP 11/25/23 16:15 36.4 C L 58 L 18 108/45 L 11/25/23 16:05 56 L 17 114/51 L 11/25/23 15:55 58 L 16 91/43 L 11/25/23 15:46 36.6 C 55 L 14 119/49 L 11/25/23 12:24 36.7 C 59 L 16 121/81 11/25/23 10:37 36.7 C 59 L 18 125/64 11/25/23 08:30 11/25/23 07:56 54 L 11/25/23 07:32 36.2 C L 65 18 130/87 11/25/23 04:00 36.8 C 59 L 18 105/61 11/25/23 02:33 11/24/23 23:30 58 L 11/24/23 23:00 36.6 C 60 18 110/66 11/24/23 19:00 36.7 C 63 18 129/76 Pulse Ox O2 Del Method O2 Flow Rate 11/25/23 16:15 98 Room Air 11/25/23 16:05 96 Room Air 11/25/23 15:55 99 Oxymask 5 11/25/23 15:46 100 Oxymask 5 11/25/23 12:24 97 Room Air 11/25/23 10:37 93 Room Air 11/25/23 08:30 Room Air 11/25/23 07:56 11/25/23 07:32 93 Room Air 11/25/23 04:00 93 Room Air 11/25/23 02:33 Room Air 11/24/23 23:30 11/24/23 23:00 93 Room Air 11/24/23 19:00 93 Room Air Pain Intensity Lower Back: Pain Intensity: 3 Upper Back: Pain Intensity: 4 Transfer of Care Handoff Completed per policy Notes Mental Status: alert / awake / arousable and participated in evaluation Patient Amnestic to Procedure: Yes Nausea / Vomiting: adequately controlled Pain: adequately controlled Airway Patency, RR, SpO2: stable & adequate BP & HR: stable & adequate Hydration State: stable & adequate Anesthetic Complications: no major complications apparent and Pt Satisfied with anesthetic care
--- NOTE | 2023-11-25 16:54 | Fluoroscopy Report ---
[place] kyphoplasty any level CLINICAL HISTORY: L1 KYPHOPLASTY TECHNIQUE: 2 views were obtained with the C-arm in the OR with the above procedure. Total fluoroscopy time was 15.8 seconds. Radiation dose was 7.70 mGy. Comparison: Comparison is made to kyphoplasty to [address] abdomen pelvis 11/21/2023 FINDINGS/IMPRESSION: Intraoperative images were obtained of L1 kyphoplasty. Please correlate with intraoperative fluoroscopy and operative report. ACT 112: Negative or not required by law. Electronically signed by: Jan Greer M.D. 11/25/2023 4:53 PM
--- NOTE | 2023-11-25 22:36 | Hospitalist Progress Note ---
Date of Service November 25, 2023 Assessment & Plan (1) GUZMAN (dyspnea on exertion): Plan: -Likely a combination of her known COPD(not in exacerbation), HFpEF, and low lung volumes due to pain with deep inspiration exacerbating her back pain -Noted to have trace pleural effusions and pulmonary vascular congestion on arrival suggesting acute on chronic diastolic HF -S/P 20 mg IV lasix in the ED with improvement of symptoms Some dyspnea could also be from pain. Patient requires oxygen when sleeping due to pulse ox results. (2) Lumbar compression fracture: Plan: T12 lumbar compression fracture patient in need of kyphoplasty care per orthopedic spine surgery evaluation Multimodal pain control with scheduled scheduled Tylenol Lidoderm patch Miacalcin nasal spray and low-dose ultram therapy (3) A-fib: Plan: -Stable -Continue Xarelto and atenolol -> Xarelto held pre procedure (4) Hypertension: Plan: -Stable -Continue amlodipine and atenolol Plan DNR Hypoklameia replete as well as low magnesium Admission and Anticipated Discharge Date Admission Date: November 21, 2023 Subjective Patient reports feeling well after procedure. Patient has no new complaints Review of Systems Review of Systems: All systems reviewed & are unremarkable except as noted in HPI & below Physical Exam Physical Exam: Card exam is regular lungs are clear Abdomen NABS soft nontender Extremities are without radicular symptoms Results & Data Results & Data Vital Signs (Past 12 Hours) Vital Signs Temp Pulse Pulse Pulse Resp BP BP 11/25/23 20:07 36.5 C 57 L 20 107/62 11/25/23 18:41 36.6 C 64 18 111/60 11/25/23 18:12 61 11/25/23 17:40 36.6 C 65 18 122/62 11/25/23 17:10 36.6 C 68 18 104/59 L 11/25/23 16:40 36.7 C 61 16 108/61 11/25/23 16:15 36.4 C L 58 L 18 108/45 L 11/25/23 16:05 56 L 17 114/51 L 11/25/23 15:55 58 L 16 91/43 L 11/25/23 15:46 36.6 C 55 L 14 119/49 L 11/25/23 12:24 36.7 C 59 L 16 121/81 11/25/23 10:37 36.7 C 59 L 18 125/64 Pulse Ox O2 Del Method O2 Flow Rate 11/25/23 20:07 92 Room Air 11/25/23 18:41 92 Room Air 11/25/23 18:12 11/25/23 17:40 96 Room Air 11/25/23 17:10 94 Room Air 11/25/23 16:40 95 Room Air 11/25/23 16:15 98 Room Air 11/25/23 16:05 96 Room Air 11/25/23 15:55 99 Oxymask 5 11/25/23 15:46 100 Oxymask 5 11/25/23 12:24 97 Room Air 11/25/23 10:37 93 Room Air PG Care Time/CCT Total # of Minutes Spent Total Time Spent with Patient: Total time spent is greater than 50% in coordination of care (as documented) at patient's floor/unit and/or counseling patient: Coding Level of Care Code 97197 SUB INP/OBS CARE 2/35MIN Diagnoses GUZMAN (dyspnea on exertion) R06.09 Lumbar compression fracture S32.000A A-fib I48.91 Atrial fibrillation type: unspecified Hypertension I10 (3) A-fib Atrial fibrillation type: unspecified Qualified Code(s): I48.91 - Unspecified atrial fibrillation
[2023-11-25] MEDS: traMADol HCL 50 MG TABLET PO PRN (23:11)
[2023-11-26 06:31] LABS: BUN Creatinine Ratio 18.5 (10-20); Calcium 7.7 mg/dl (8.6-10.3); Creatinine Clr Calc Pharmacy 35.7 ml/min; Est GFR (African American) 52.7 ml/min; Est GFR (Non-African American) 45.5 ml/min; Potassium 4.2 mmol/L (3.5-5.1)
[2023-11-26 07:08] LABS: Hematocrit (blood only) 33.9 % (37.0-47.0); Hemoglobin 11.4 g/dl (12.0-16.0); Mean Corpuscular Hemoglobin 29.8 pg (25.0-34.0); Mean Corpuscular Hgb Conc 33.6 g/dL (32.0-36.0); Mean Corpuscular Volume 88.7 fL (80.0-100.0); Mean Platelet Volume 10.1 fL (9.4-12.4); Platelet Count 185 K/uL (130-400); RDW Coefficient of Variation 12.7 % (11.5-14.5); RDW Standard Deviation 41.5 fL (36.4-46.3); Red Blood Count 3.82 M/uL (4.20-5.40); White Blood Count 5.58 K/ul (4.8-10.8)
--- NOTE | 2023-11-26 08:26 | Orthopedic Progress Note ---
Date of Service November 26, 2023 Assessment & Plan (1) Lumbar compression fracture: Plan: Patient is status post L1 kyphoplasty. She has done very well. She is stable to return home today per orthopedics. Admission and Anticipated Discharge Date Admission Date: November 21, 2023 Subjective Back pain markedly improved. She has been up and ambulating. She feels her appetite is returned. Physical Exam Physical Exam: Patient is sitting up at the bedside. Is good strength testing. Is comfortable. Results & Data Vital Signs (Past 12 Hours) Vital Signs Temp Pulse Pulse Resp BP Pulse Ox O2 Del Method 11/26/23 07:56 36.6 C 62 16 117/72 93 Room Air 11/26/23 07:21 67 11/26/23 04:44 64 11/26/23 03:27 36.2 C L 60 18 95/60 L 94 Room Air 11/26/23 02:55 Room Air 11/25/23 23:16 36.5 C 63 20 95/58 L 94 Nasal Cannula O2 Flow Rate 11/26/23 07:56 11/26/23 07:21 11/26/23 04:44 11/26/23 03:27 11/26/23 02:55 11/25/23 23:16 2 Queries Orthopedic Spine Vertebral Fracture Secondary to Osteoporosis: Yes
[2023-11-26] MEDS ORDERED: POLYETHYLENE (MIRALAX) 17 GM PACK PO PRN (09:34)
[2023-11-26] MEDS: POLYETHYLENE (MIRALAX) 17 GM PACK PO SCH (10:58)
--- NOTE | 2023-11-26 21:34 | Hospitalist Progress Note ---
Date of Service November 26, 2023 Assessment & Plan (1) GUZMAN (dyspnea on exertion): Plan: -Likely a combination of her known COPD(not in exacerbation), HFpEF, and low lung volumes due to pain with deep inspiration exacerbating her back pain -Noted to have trace pleural effusions and pulmonary vascular congestion on arrival suggesting acute on chronic diastolic HF -S/P 20 mg IV lasix in the ED with improvement of symptoms Some dyspnea could also be from pain. Patient requires oxygen when sleeping due to pulse ox results. gave script to circuit manager. This will be set up for 11/26 Plan for discharge then (2) Lumbar compression fracture: Plan: T12 lumbar compression fracture patient in need of kyphoplasty care per orthopedic spine surgery evaluation Multimodal pain control with scheduled scheduled Tylenol Lidoderm patch Miacalcin nasal spray and low-dose ultram therapy (3) A-fib: Plan: -Stable -Continue Xarelto and atenolol -> Xarelto held pre procedure (4) Hypertension: Plan: -Stable -Continue amlodipine and atenolol Plan DNR Hypoklameia replete as well as low magnesium Admission and Anticipated Discharge Date Admission Date: November 21, 2023 Subjective 88 yo female reports feeling well. She has no new complaints. Review of Systems Review of Systems: All systems reviewed & are unremarkable except as noted in HPI & below Physical Exam Physical Exam: Card exam is regular lungs are clear Abdomen NABS soft nontender Extremities are without radicular symptoms Results & Data Results & Data Vital Signs (Past 12 Hours) Vital Signs Temp Pulse Pulse Resp BP BP Pulse Ox 11/26/23 21:04 61 112/65 96 11/26/23 19:42 36.3 C L 61 18 107/66 94 11/26/23 15:38 36.5 C 58 L 17 123/67 96 11/26/23 14:42 64 11/26/23 11:33 37.2 C 60 17 110/55 L 93 O2 Del Method 11/26/23 21:04 Room Air 11/26/23 19:42 Room Air 11/26/23 15:38 Room Air 11/26/23 14:42 11/26/23 11:33 Room Air PG Care Time/CCT Total # of Minutes Spent Total Time Spent with Patient: Total time spent is greater than 50% in coordination of care (as documented) at patient's floor/unit and/or counseling patient: Coding Level of Care Code 86597 SUB INP/OBS CARE 235MIN Diagnoses GUZMAN (dyspnea on exertion) R06.09 Lumbar compression fracture S32.000A A-fib I48.91 Atrial fibrillation type: unspecified Hypertension I10 (3) A-fib Atrial fibrillation type: unspecified Qualified Code(s): I48.91 - Unspecified atrial fibrillation
[2023-11-27 05:54] LABS: Hematocrit (blood only) 33.5 % (37.0-47.0); Hemoglobin 11.2 g/dl (12.0-16.0); Mean Corpuscular Hemoglobin 29.9 pg (25.0-34.0); Mean Corpuscular Hgb Conc 33.4 g/dL (32.0-36.0); Mean Corpuscular Volume 89.6 fL (80.0-100.0); Mean Platelet Volume 9.9 fL (9.4-12.4); Platelet Count 208 K/uL (130-400); RDW Coefficient of Variation 13.2 % (11.5-14.5); RDW Standard Deviation 43.7 fL (36.4-46.3); Red Blood Count 3.74 M/uL (4.20-5.40); White Blood Count 11.37 K/ul (4.8-10.8)
[2023-11-27 06:07] LABS: BUN Creatinine Ratio 23.2 (10-20); Calcium 8.2 mg/dl (8.6-10.3); Est GFR (African American) 58.6 ml/min; Est GFR (Non-African American) 50.5 ml/min; Potassium 4.1 mmol/L (3.5-5.1)
--- NOTE | 2023-11-27 09:14 | Discharge Summary ---
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 She was initially noted to be stable on arrival but reportedly had an episode of hypoxia into the 70's on RA. Labs were significant for a potassium of 3.4, total bili of 1.1, high sen trop WNL, and BNP of 438 (stable since September of this year), and full respiratory biofire negative. Chest xray was read as cardiomegaly with pulmonary vascular congestion but was otherwise stable. CTA of the chest was read as "1. No pulmonary emboli identified. 2. No consolidation to suggest pneumonia. 3. Trace left pleural effusion. 4. Subacute L1 vertebral body fracture, as shown on CT of October 28, 2023. Status post T6 and T12 kyphoplasty.". CT of the abd/pelvis w/IV con was read as "1. No acute infectious or inflammatory findings are identified in the abdomen or pelvis. 2. There is an acute to subacute superior endplate karla jason fracture of T12 with associated paravertebral edema. This is new from 09/26/2003. 3. There is no significant retropulsion of fragments or central canal stenosis. 4. Cardiomegaly and trace pleural effusions. 5. There is trace nonspecific free fluid in the pelvis. 6. A ventral hernia contains a tiny segment of non-obstructed bowel. 7. Additional chronic and postsurgical changes as above.". Prior to admission the patient was given 20 mg IV lasix, an albuterol nebulizer treatment. At the time of the exam the patient was sitting in bed in no acute distress, currently stable on RA. Of note, the patient's episode of hypoxia occurred after she walked to and from the ED room bathroom. Her nurse stated that the patient did the same thing just prior to my arrival but the patient's SpO2 stabilized after she got back into bed. The patient states she had been experiencing worsening back pain approximately [address] Head's office and was seen on 09/20/23. They ordered a CT of the thoracic/lumbar spine and she was told that she had a new T12 compression fracture and was prescribed tramadol as she has issues with nausea on oxycodone in the past. She states that she has been having increased GUZMAN over the past week and feels as though her LE's have been a little more swollen than baseline. She has been taking her prn lasix daily for the past week due to these symptoms. Has been having recurrent nausea and non-blood emesis over the past 3-4 days. This has been associated with taking tramadol. She denies recent fever, chills, chest pain, hemoptysis, abd pain, dysuria, hematuria, melena, recent trauma, saddle anesthesia, loss of bowel/bladder function, and new paresthesias. She is a DNR/DNI and her sons would make medical decisions for her if she cannot make them herself. Principal Diagnosis lumbar compression fracture Discharge Exam Card exam is regular lungs are clear Abdomen NABS soft nontender Extremities are without radicular symptoms Discharge Data Allergies Allergy/AdvReac Type Severity Reaction Status Date / Time nabumetone Allergy Severe SHORTNESS Verified 11/21/23 15:26 OF BREATH naproxen Allergy Severe SOB Verified 11/21/23 15:26 rofecoxib Allergy Severe SHORTNESS Verified 11/21/23 15:26 OF BREATH valdecoxib Allergy Severe SHORTNESS Verified 11/21/23 15:26 OF BREATH Cephalosporins Allergy Intermediate HIVES Verified 11/21/23 15:26 methimazole Allergy Intermediate itching Verified 11/21/23 15:26 Penicillins Allergy Intermediate RASH,HIVES Verified 11/21/23 15:26 codeine Allergy Mild RASH Verified 11/21/23 15:26 Sulfa (Sulfonamide Allergy Mild RASH Verified 11/21/23 15:26 Antibiotics) azithromycin [From Zithromax] AdvReac Intermediate DIARRHEA Verified 11/21/23 15:26 diphenhydramine AdvReac Intermediate LIGHTHEADED Verified 11/21/23 15:26 [From Benadryl] nitrofurantoin AdvReac Intermediate VOMITING Verified 11/21/23 15:26 nickel AdvReac Mild Rash Verified 11/21/23 15:26 Consultations 05/13/24 15:31 ED Decision to Admit Stat 11/21/23 16:17 Consult Orthopedic Spine Surgery Routine Procedures Performed Operation Date: 11/25/23 13:25 Actual Procedures p L1 Kyphoplasty - Miguelito Head, DO Ordered Studies 11/21/23 14:23 CT angio chest PE protocol Stat 11/21/23 14:24 CT abd pelvis IV con only Stat 11/25/23 13:25 FL kyphoplasty any level Routine Hospital Course (1) GUZMAN (dyspnea on exertion): -Likely a combination of her known COPD(not in exacerbation), HFpEF, and low lung volumes due to pain with deep inspiration exacerbating her back pain -Noted to have trace pleural effusions and pulmonary vascular congestion on arrival suggesting acute on chronic diastolic HF -S/P 20 mg IV lasix in the ED with improvement of symptoms Some dyspnea could also be from pain. Patient requires oxygen when sleeping due to pulse ox results. gave script to brand manager. This was set up for 11/26 (2) Lumbar compression fracture: T12 lumbar compression fracture Patient is status post L1 kyphoplasty. She has done very well. She is stable to return home today per orthopedics. pain management as below. (3) A-fib: -Stable -Continue Xarelto and atenolol -> Xarelto held pre procedure (4) Hypertension: -Stable -Continue amlodipine and atenolol Plan DNR Hypoklameia repleted as well as low magnesium Total Time Total Time Spent Total Time Spent (In Minutes): 32 Discharge Plan Discharge Items Patient Disposition: Home - Home Health Services Reason For Visit: BACK PAIN, NEW T12 FRACTURE, LOW POTASSIUM, SOB Discharge Diagnosis: Back pain Activity: Resume your previous activity Lifting: No more than 5 pounds Bathing: No limitations Non-emergency contact: Primary Care Provider Call non-emergency contact if: you have any medication questions Follow-up/Referrals: Gin Temple CRNP [Primary Care Provider] - 12/07/23 2:00 pm Diet: Heart Healthy Addtl Attending Provider Instructions: Dr. Head mentioned that you are allowed to shower. Also allowed to remove your bandage. Please continue to use oxygen when you sleep. You can followup with your PCP in 1-[address] Head's will call you for a followup appointment. Pending Studies at Discharge: No Stand-Alone Forms: My [facility], Smoking Cessation Medications and DC Order Prescriptions: New calcitonin (salmon) 200 unit/actuation [place],Non-Aerosol 1 spray NA DAILY Qty: 3.7 0RF Rx Instructions: one spray in one nostril Alternate nostril every other day. lidocaine 5 % Adhesive Patch,Medicated 1 patch transdermal DAILY Qty: 15 0RF Rx Instructions: apply for 12 hours, then remove for 12 hours. Continued fluticasone propionate 50 mcg/actuation spray,suspension 2 spray INTRANASAL BID amlodipine 5 mg tablet 7.5 mg PO HS Qty: 90 3RF montelukast [Singulair] 10 mg tablet 10 mg PO HS Qty: 90 3RF levothyroxine 75 mcg tablet 75 mcg PO QAM Qty: 90 3RF Rx Instructions: before breakfast pravastatin 40 mg tablet 40 mg PO HS Qty: 90 3RF atenolol 50 mg tablet 50 mg PO HS Qty: 90 3RF dicyclomine 10 mg capsule 10 mg PO QAM Qty: 30 2RF Rx Instructions: Take one capsule daily in the morning fluticasone propion-salmeterol [Wixela Inhub] 100-50 mcg/dose blister with device 1 ea INHALATION BID Qty: 3 3RF mecobalamin (vitamin B12) 1,000 mcg tablet,disintegrating 1,000 mcg sublingual QAM Rx Instructions: place tablet under tongue and allow to dissolve for at least30 secs before swallowing calcium carbonate [Calcium 600] 600 mg calcium (1,500 mg) tablet 1,200 mg PO QAM furosemide 20 mg tablet 20 mg PO DAILY PRN (Reason: Fluid Retention) Qty: 90 1RF polyethylene glycol 3350 [Miralax] 17 gram powder in packet 17 g PO BID PRN (Reason: Constipation) albuterol sulfate 2.5 mg /3 mL (0.083 %) solution for nebulization 2.5 mg INH TID PRN (Reason: Shortness Of Breath Or Wheezing) Qty: 270 3RF albuterol sulfate [ProAir HFA] 90 mcg/actuation HFA aerosol inhaler 2 puff inhalation Q6H PRN (Reason: shortness of breath or wheezing) Qty: 20.1 3RF ascorbic acid (vitamin C) [Vitamin C] 500 mg Tablet 500 mg PO QAM cholecalciferol (vitamin D3) [Vitamin D3] 50 mcg (2,000 unit) Capsule 50 mcg PO QAM atenolol 25 mg Tablet 25 mg PO QAM Qty: 0 0RF Xarelto 15 mg Tablet 15 mg PO QDD Qty: 0 0RF sennosides-docusate sodium [Senokot-S] 8.6-50 mg Tablet 1 tab PO QAM Qty: 0 0RF ferrous sulfate [Feosol] 325 mg (65 mg iron) tablet 325 mg PO 3XWK Rx Instructions: 325 mg orally MON, WED & FRI. hydrocodone-acetaminophen 5-325 mg tablet 1 tab PO DIRECTED PRN (Reason: Pain) tramadol 50 mg tablet 50 mg PO Q8H PRN (Reason: Pain) acetaminophen [Tylenol Extra Strength] 500 mg tablet 1,000 mg PO TID PRN (Reason: Pain) potassium chloride 20 mEq tablet extended release 20 meq PO DAILY PRN (Reason: take with lasix/furosemide) Qty: 30 0RF Slow-Mag 71.5 mg tablet,delayed release (DR/EC) 71.5 mg PO DAILY Qty: 1 0RF Rx Instructions: buy over the counter Discharge Orders: Discharge Order (Routine); Ordered 11/27/23 Ordered By: David Lobato Admission Data Admit Date/Time: 11/21/23 15:47 Attending Provider: David Lobato Admit Provider: Elkin Sigala Primary Care Provider: Gin Temple Other Providers: Elkin Sigala; Miguelito Head Other Interventions: Discharge Summary Assessment (RN) Last Done: 11/27/23 12:16 Coding Level of Care Code 94715 INP/OBS DISCH >30 MIN Diagnoses GUZMAN (dyspnea on exertion) R06.09 Lumbar compression fracture S32.000A A-fib I48.91 Atrial fibrillation type: unspecified Hypertension I10
[2023-11-27] MEDS ORDERED: RIVAROXABAN 15 MG TAB PO SCH (16:30)
== END 2023-11-27 12:53 | disposition home health service (06) | DRG 477 ==
LOC: ED 12:28 → EDINP 15:47 → SUATTDRO 15:47 → 2N 17:39
DX: Z11.52 Encounter for screening for COVID-19; N18.30 Chronic kidney disease, stage 3 unspecified; Z79.01 Long term (current) use of anticoagulants; Z88.8 Allergy status to other drugs, medicaments and biological substances; Z66 Do not resuscitate; I13.0 Hypertensive heart and chronic kidney disease with heart failure and stage 1 through stage 4 chronic kidney disease, or unspecified chronic kidney disease; I48.0 Paroxysmal atrial fibrillation; Z88.5 Allergy status to narcotic agent; J44.9 Chronic obstructive pulmonary disease, unspecified; E87.6 Hypokalemia; K21.9 Gastro-esophageal reflux disease without esophagitis; I50.33 Acute on chronic diastolic (congestive) heart failure; E78.00 Pure hypercholesterolemia, unspecified; Z79.899 Other long term (current) drug therapy; M80.08XA Age-related osteoporosis with current pathological fracture, vertebra(e), initial encounter for fracture